=== PATIENT | male | born 1950 | race African-American/Black ===

== ENCOUNTER 2018-01-22 09:49 | Inpatient (IN) ==
[2018-01-22] MEDS ORDERED: 0.9 % Sodium Chloride 1,000 ML IVC ONE (10:17)
--- NOTE | 2018-01-22 10:22 | Emergency Department Note ---
Disposition Clinical Impression: MRSA (methicillin resistant staph aureus) culture positive, Bradycardia, Tracheostomy care, Excessive mucus secretion Disposition: Admitted As Inpatient Condition: Fair Time of Disposition: 11:57 General Adult HPI - General Chief complaint: ED Recheck/Abnormal Lab/Rx Stated complaint: permicath infected Time Seen by Provider: 01/22/18 09:56 Source: EMS Limitations: physical limitation Nursing Notes Reviewed: Yes Vital Signs Reviewed: Yes - History of Present Illness HPI Narrative: Mr. 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 Patient receives dialysis on Monday, , Monday. He has not missed dialysis over the last week. A PICC line was ordered yesterday on January 21 along with vancomycin. This PICC line was not placed. Patient was slated to have a dialysis catheter switched by Dr. Rachel with nephrology. Prior to arrival he was diverted from [facility] emergency department and was brought to the [facility] emergency department. Records show that patient was just here on the and [place] for bradycardia and pneumonia. Patient denies any current complaints except for pain on his bottom. Patient is currently taking Coumadin for his atrial fibrillation and his last INR was 2.9. He states that he is being currently treated for decubitus wounds. No other complaints at this time. Pain Scale: 0 - Related Data Home Medications Medication Instructions Recorded Confirmed Acetaminophen [Non-Aspirin] 325 mg PO DAILY 01/20/18 01/22/18 Bisacodyl [Dulcolax] 10 mg RC DAILY 01/20/18 01/22/18 Calcium Acetate [Phos-LO] 667 mg PO TIDWM 01/20/18 01/22/18 Docusate [Colace] 100 mg PO BID 01/20/18 01/22/18 Famotidine [Heartburn Prevention] 20 mg PO DAILY 01/20/18 01/22/18 Insulin ASPART [NovoLOG] 0 - 12 units SQ ACHS PRN 01/20/18 01/22/18 Insulin Glargine [Lantus] 10 units SQ DAILY 01/20/18 01/22/18 Metoprolol [Lopressor] 12.5 mg PO BID 01/20/18 01/22/18 OxyCODONE/APAP 7.5/325 [Percocet 1 each PO Q4HR PRN 01/20/18 01/22/18 7.5/325 MG] hydrOXYzine HCl [Hydroxyzine HCl] 25 mg PO Q6H PRN 01/20/18 01/22/18 Magnesium Hydroxide [Milk of 30 ml PO DAILY PRN 01/22/18 01/22/18 Magnesia] Promethazine [Phenergan] 25 mg PO Q4H PRN 01/22/18 01/22/18 Quetiapine Fumarate [Seroquel] 50 mg PO BID 01/22/18 01/22/18 Sulfamethoxazole/Trimeth DS 1 tab PO BID 01/22/18 01/22/18 [Bactrim DS] Warfarin [Coumadin] 1 mg PO DAILY 01/22/18 01/22/18 Allergies Allergy/AdvReac Type Severity Reaction Status Date / Time Banana Allergy Mild Hives Verified 01/22/18 09:56 Oxycodone [From OxyContin] Allergy Mild Hives Verified 01/22/18 09:56 Penicillins Allergy Mild Hives Verified 01/22/18 09:56 tramadol Allergy Mild Hives Verified 01/22/18 09:56 yellow dye Allergy Hives Verified 01/22/18 09:56 aspirin Allergy Mild Hives Uncoded 01/20/18 02:37 morphine Allergy Mild Hives Uncoded 01/20/18 02:37 Review of Systems: Constitutional: No fever Vision: No blurred vision ENT: No rhinorrhea Respiratory: No cough Allergic: No allergies : No blood in urine GI: No blood in stool Hematologic: No bruising Dermatologic: No skin rash Musculoskeletal: No pain in the extremities Neuro: No numbness of the extremities Past Medical History - Past Medical History Medical history: Reports: atrial fibrillation, diabetes, dialysis, hypertension Psychiatric history: Reports: other - Social History Smoking Status: Former smoker Smokeless Tobacco Status: No Alcohol use: Reports: none Drug use: Reports: none Physical Exam CONSTITUTIONAL: Alert and oriented X3 in no apparent distress HEAD: Normocephalic; atraumatic. Oropharynx: tracheostomy present RESP: NRD without use of accessory musculature, coarse breath sounds with decreased movement on the right lower lobe CARD: Regular rhythm, without murmurs, rubs, or gallop ABD: grossly normal, soft, non-tender, no guarding/distention/rigidity SKIN: Stage II ulcer approximately 1 x 2 cm above the posterior thigh within the skin fold, diffuse erythema was noticed about his perineum EXT: Patient has a BKA on the left with a right AKA PSYCH: appropriate mood/affect - General Limitations: physical limitation General appearance: alert, in no apparent distress Course Course Narrative: Patient was seen and examined at bedside. Vital signs were reviewed and showed bradycardia in the 50s. We will begin workup for possible sepsis with a history of positive blood cultures and likely infected dialysis catheter. CXR ordered along with CBC, chemistries, lactic acid, cultures, coag's. IV access was obtained with 20-gauge in his left hand and we start the process for PICC line placement while he is in the emergency department. Vancomycin was ordered as well as fluid bolus. was called for further recommendations and he recommended inpatient admission for further management of his MRSA bacteremia and dialysis catheter holiday. No further recommendations from him at this time. Bandage was placed over his stage II ulcers on his posterior thigh. Patient does not appear comfortable and nontoxic at this time. Disposition will likely be hospital admission but we will wait until workup is finished. 1145: Labs were reviewed and demonstrated mild leukocytosis, lactic acid normal , normal potassium, little bump in creatinine to 4.5, troponin 0.05, INR 3.7. Chest x-ray demonstrates a basilar opacities suggestive of pneumonia versus pulmonary edema. On Top of his vancomycin patient will be started on cefepime for broad coverage. Disposition was discussed with attendant honor bar, Dr. Cali who accepted patient for admission. No further recommendations per attendant honor bar. At this time, patient is consistently refusing suctions out of his trach. Vital signs remained stable. Disposition was discussed with patient who understands and agrees to plan. Family was notified of disposition as well. 1330: Pulmonology arrived in the emergency room for evaluation of this patient. There is no bed availability in the intensive care unit at this time and recommended this patient is stable to be admitted to 2 N. or 2NE via the hospitalist team. 1400: Spoke with hospitalist, Dr. Castillo, who will not accept patient at this time. Disposition pending bed availability in the ICU at this time. 1430: ICU bed 4 has become available and attendant honor bar will admit this patient. Vital Signs Temperature 98.6 F 01/22/18 09:59 Pulse Rate 46 01/22/18 09:59 Respiratory Rate 15 01/22/18 09:59 Blood Pressure 126/107 01/22/18 09:59 O2 Sat by Pulse Oximetry 91 01/22/18 09:59 Temperature 98.6 F 01/22/18 09:59 Pulse Rate 23 01/22/18 13:38 Respiratory Rate 24 01/22/18 13:38 Blood Pressure 99/74 01/22/18 13:38 O2 Sat by Pulse Oximetry 99 01/22/18 13:38 Oxygen Delivery Oxygen Delivery Trach Mask Medical Decision Making - Medical Records Medical records reviewed: Yes I reviewed the patient's medical records. - Lab Data Lab results reviewed: Yes I reviewed the patient's lab results. Result diagrams: 01/22/18 10:21 01/22/18 11:31 Lab Results 01/22/18 01/22/18 01/22/18 Range/Units 10:21 10:21 10:21 WBC 11.6 H (4.3-11.1) K/mcL RBC 3.58 L (4.19-5.50) M/mcL Hgb 10.8 L (12.9-16.9) g/dL Hct 34.1 L (37.5-50.1) % MCV 95.3 (83.0-100.0) fL MCH 30.2 (28.0-33.3) pg MCHC 31.7 (31.6-35.5) g/dL RDW 14.4 (11.5-14.5) % Plt Count 427 H (140-400) K/mcL MPV 8.7 L (9.4-12.4) fL Immature Gran % 0.3 (0-4) % Seg Neutrophils % 67.9 % Lymphocytes % 23.5 % Monocytes % 5.3 % Eosinophils % 2.7 % Basophils % 0.3 % Neutrophils # 7.9 (1.6-8.9) K/mcL Lymphocytes # 2.7 (0.6-4.6) K/mcL Monocytes # 0.6 (0.0-1.3) K/mcL Eosinophils # 0.3 (0.0-0.6) K/mcL Basophils # 0.0 (0.0-0.2) K/mcL Nucleated RBCs/100 WBC 0.2 H (0) /100 WBC PT 40.9 H (9.4-12.1) Seconds INR 3.7 APTT 40.1 H (26.0-36.0) Seconds Sodium (136-145) mEq/L Potassium (3.5-5.1) mEq/L Chloride (98-107) mEq/L Carbon Dioxide (23-29) mEq/L BUN (8-23) mg/dL Creatinine (0.70-1.30) mg/dL Est GFR ( Amer) (> 60) Est GFR (Non-Af Amer) (> 60) BUN/Creatinine Ratio (6-26) Glucose (70-105) mg/dL Calculated Osmolality (280-300) Lactic Acid (0.5-2.2) mmol/L Calcium (8.6-10.3) mg/dL Phosphorus (2.7-4.5) mg/dL Magnesium (1.6-2.6) mg/dL Total Bilirubin (0.3-1.0) mg/dL Direct Bilirubin (0.0-0.2) mg/dL Indirect Bilirubin (0.0-1.2) mg/dL AST (13-39) Units/L ALT (7-52) Units/L Alkaline Phosphatase (34-104) Units/L Troponin I 0.05 H* (< 0.04) ng/mL Serum Total Protein (6.4-8.9) g/dL Albumin (3.5-5.7) g/dL Globulin (2.4-3.5) g/dL Albumin/Globulin Ratio (1.1-2.2) Specimen Rejected 01/22/18 01/22/18 01/22/18 Range/Units 10:21 10:21 11:31 WBC (4.3-11.1) K/mcL RBC (4.19-5.50) M/mcL Hgb (12.9-16.9) g/dL Hct (37.5-50.1) % MCV (83.0-100.0) fL MCH (28.0-33.3) pg MCHC (31.6-35.5) g/dL RDW (11.5-14.5) % Plt Count (140-400) K/mcL MPV (9.4-12.4) fL Immature Gran % (0-4) % Seg Neutrophils % % Lymphocytes % % Monocytes % % Eosinophils % % Basophils % % Neutrophils # (1.6-8.9) K/mcL Lymphocytes # (0.6-4.6) K/mcL Monocytes # (0.0-1.3) K/mcL Eosinophils # (0.0-0.6) K/mcL Basophils # (0.0-0.2) K/mcL Nucleated RBCs/100 WBC (0) /100 WBC PT (9.4-12.1) Seconds INR APTT (26.0-36.0) Seconds Sodium 134 L (136-145) mEq/L Potassium 4.4 (3.5-5.1) mEq/L Chloride 97 L (98-107) mEq/L Carbon Dioxide 30 H (23-29) mEq/L BUN 39 H (8-23) mg/dL Creatinine 4.56 H (0.70-1.30) mg/dL Est GFR ( Amer) 16 L (> 60) Est GFR (Non-Af Amer) 13 L (> 60) BUN/Creatinine Ratio 9 (6-26) Glucose 140 H (70-105) mg/dL Calculated Osmolality 290 (280-300) Lactic Acid 1.3 (0.5-2.2) mmol/L Calcium 8.6 (8.6-10.3) mg/dL Phosphorus 3.2 (2.7-4.5) mg/dL Magnesium 2.7 H (1.6-2.6) mg/dL Total Bilirubin 0.2 L (0.3-1.0) mg/dL Direct Bilirubin 0.0 (0.0-0.2) mg/dL Indirect Bilirubin 0.2 (0.0-1.2) mg/dL AST 18 (13-39) Units/L ALT 9 (7-52) Units/L Alkaline Phosphatase 120 H (34-104) Units/L Troponin I (< 0.04) ng/mL Serum Total Protein 8.1 (6.4-8.9) g/dL Albumin 2.5 L (3.5-5.7) g/dL Globulin 5.6 H (2.4-3.5) g/dL Albumin/Globulin Ratio 0.4 L (1.1-2.2) Specimen Rejected Hemolyzed - Radiology Data Radiology results reviewed: Yes I reviewed the patient's radiology results. Chest X-Ray 01/22/18 10:44 IMPRESSION: 1. Bibasilar airspace opacities. Differential includes pneumonia versus pulmonary edema. 2. Stable mild enlargement of the cardiac silhouette. D/ / Jed Romero MD / Jed Romero MD Interpreting Provider: Jed Romero MD Attestation Statement - Attestation Attestation: I, Luc Zaman DO, examined this patient [id number] and my medical decision-making was reviewed with Delvis Restrepo PGY-1, Resident Physician. I agree with the documented findings, disposition and treatment plan as described except to the extent set forth below. Please see my progress notes for details.
[2018-01-22 10:39] LABS: Basophils % 0.3 %; Eosinophils # 0.3 K/mcL (0.0-0.6); Eosinophils % 2.7 %; Hematocrit 34.1 % (37.5-50.1); Hemoglobin 10.8 g/dL (12.9-16.9); Immature Granulocytes % 0.3 % (0-4); Lymphocytes # 2.7 K/mcL (0.6-4.6); Lymphocytes % 23.5 %; Mean Corpuscular HGB Conc 31.7 g/dL (31.6-35.5); Mean Corpuscular Hemoglobin 30.2 pg (28.0-33.3); Mean Corpuscular Volume 95.3 fL (83.0-100.0); Mean Platelet Volume 8.7 fL (9.4-12.4); Monocytes # 0.6 K/mcL (0.0-1.3); Monocytes % 5.3 %; Neutrophils # 7.9 K/mcL (1.6-8.9); Nucleated Red Blood Cells 0.2 /100 WBC (0); Platelet Count 427 K/mcL (140-400); Red Blood Count 3.58 M/mcL (4.19-5.50); Red Cell Distribution Width 14.4 % (11.5-14.5); Segmented Neutrophils % 67.9 %
[2018-01-22 10:42] LABS: INR 3.7; Prothrombin Time 40.9 Seconds (9.4-12.1)
[2018-01-22 10:44] LABS: Activated Partial Thrombo Time 40.1 Seconds (26.0-36.0)
--- NOTE | 2018-01-22 12:00 | Emergency Department Note ---
Disposition Clinical Impression: MRSA (methicillin resistant staph aureus) culture positive, Bradycardia, Tracheostomy care, Excessive mucus secretion Disposition: Admitted As Inpatient Condition: Fair Referrals: Harrison Mai MD [Primary Care Provider] - Forms: ED Satisfaction Letter, Work/School Release Time of Disposition: 12:15 General Adult HPI - General Chief complaint: ED Recheck/Abnormal Lab/Rx Stated complaint: permicath infected Time Seen by Provider: 01/22/18 09:56 Source: EMS Limitations: physical limitation - History of Present Illness Pain Scale: 0 - Related Data Home Medications Medication Instructions Recorded Confirmed Acetaminophen [Non-Aspirin] 325 mg PO DAILY 01/20/18 01/22/18 Bisacodyl [Dulcolax] 10 mg RC DAILY 01/20/18 01/22/18 Calcium Acetate [Phos-LO] 667 mg PO TIDWM 01/20/18 01/22/18 Docusate [Colace] 100 mg PO BID 01/20/18 01/22/18 Famotidine [Heartburn Prevention] 20 mg PO DAILY 01/20/18 01/22/18 Insulin ASPART [NovoLOG] 0 - 12 units SQ ACHS PRN 01/20/18 01/22/18 Insulin Glargine [Lantus] 10 units SQ DAILY 01/20/18 01/22/18 Metoprolol [Lopressor] 12.5 mg PO BID 01/20/18 01/22/18 OxyCODONE/APAP 7.5/325 [Percocet 1 each PO Q4HR PRN 01/20/18 01/22/18 7.5/325 MG] hydrOXYzine HCl [Hydroxyzine HCl] 25 mg PO Q6H PRN 01/20/18 01/22/18 Magnesium Hydroxide [Milk of 30 ml PO DAILY PRN 01/22/18 01/22/18 Magnesia] Promethazine [Phenergan] 25 mg PO Q4H PRN 01/22/18 01/22/18 Quetiapine Fumarate [Seroquel] 50 mg PO BID 01/22/18 01/22/18 Sulfamethoxazole/Trimeth DS 1 tab PO BID 01/22/18 01/22/18 [Bactrim DS] Warfarin [Coumadin] 1 mg PO DAILY 01/22/18 01/22/18 Allergies Allergy/AdvReac Type Severity Reaction Status Date / Time Banana Allergy Mild Hives Verified 01/22/18 09:56 Oxycodone [From OxyContin] Allergy Mild Hives Verified 01/22/18 09:56 Penicillins Allergy Mild Hives Verified 01/22/18 09:56 tramadol Allergy Mild Hives Verified 01/22/18 09:56 yellow dye Allergy Hives Verified 01/22/18 09:56 aspirin Allergy Mild Hives Uncoded 01/20/18 02:37 morphine Allergy Mild Hives Uncoded 01/20/18 02:37 Past Medical History - Past Medical History Medical history: Reports: atrial fibrillation, diabetes, dialysis, hypertension Psychiatric history: Reports: other - Social History Smoking Status: Former smoker Smokeless Tobacco Status: No Alcohol use: Reports: none Drug use: Reports: none Physical Exam - General Limitations: physical limitation General appearance: alert, in no apparent distress Course Vital Signs Temperature 98.6 F 01/22/18 09:59 Pulse Rate 46 01/22/18 09:59 Respiratory Rate 15 01/22/18 09:59 Blood Pressure 126/107 01/22/18 09:59 O2 Sat by Pulse Oximetry 91 01/22/18 09:59 Temperature 98.6 F 01/22/18 09:59 Pulse Rate 46 01/22/18 11:16 Respiratory Rate 16 01/22/18 11:16 Blood Pressure 107/60 01/22/18 11:16 O2 Sat by Pulse Oximetry 97 01/22/18 11:16 Oxygen Delivery Oxygen Delivery Trach Mask Medical Decision Making - Lab Data Result diagrams: 01/22/18 10:21 Lab Results 01/22/18 01/22/18 01/22/18 Range/Units 10:21 10:21 10:21 WBC 11.6 H (4.3-11.1) K/mcL RBC 3.58 L (4.19-5.50) M/mcL Hgb 10.8 L (12.9-16.9) g/dL Hct 34.1 L (37.5-50.1) % MCV 95.3 (83.0-100.0) fL MCH 30.2 (28.0-33.3) pg MCHC 31.7 (31.6-35.5) g/dL RDW 14.4 (11.5-14.5) % Plt Count 427 H (140-400) K/mcL MPV 8.7 L (9.4-12.4) fL Immature Gran % 0.3 (0-4) % Seg Neutrophils % 67.9 % Lymphocytes % 23.5 % Monocytes % 5.3 % Eosinophils % 2.7 % Basophils % 0.3 % Neutrophils # 7.9 (1.6-8.9) K/mcL Lymphocytes # 2.7 (0.6-4.6) K/mcL Monocytes # 0.6 (0.0-1.3) K/mcL Eosinophils # 0.3 (0.0-0.6) K/mcL Basophils # 0.0 (0.0-0.2) K/mcL Nucleated RBCs/100 WBC 0.2 H (0) /100 WBC PT 40.9 H (9.4-12.1) Seconds INR 3.7 APTT 40.1 H (26.0-36.0) Seconds Lactic Acid (0.5-2.2) mmol/L Troponin I 0.05 H* (< 0.04) ng/mL Specimen Rejected 01/22/18 01/22/18 Range/Units 10:21 10:21 WBC (4.3-11.1) K/mcL RBC (4.19-5.50) M/mcL Hgb (12.9-16.9) g/dL Hct (37.5-50.1) % MCV (83.0-100.0) fL MCH (28.0-33.3) pg MCHC (31.6-35.5) g/dL RDW (11.5-14.5) % Plt Count (140-400) K/mcL MPV (9.4-12.4) fL Immature Gran % (0-4) % Seg Neutrophils % % Lymphocytes % % Monocytes % % Eosinophils % % Basophils % % Neutrophils # (1.6-8.9) K/mcL Lymphocytes # (0.6-4.6) K/mcL Monocytes # (0.0-1.3) K/mcL Eosinophils # (0.0-0.6) K/mcL Basophils # (0.0-0.2) K/mcL Nucleated RBCs/100 WBC (0) /100 WBC PT (9.4-12.1) Seconds INR APTT (26.0-36.0) Seconds Lactic Acid 1.3 (0.5-2.2) mmol/L Troponin I (< 0.04) ng/mL Specimen Rejected Hemolyzed Attestation Statement - Attestation Attestation: I, Luc Zaman DO, examined this patient [id number] and my medical decision-making was reviewed with Delvis Restrepo PGY-1, Resident Physician. I agree with the documented findings, disposition and treatment plan as described except to the extent set forth below. Please see my progress notes for details. 67-year-old male presents to the emergency room by EMS for evaluation of shortness of breath, increased secretions, dialysis related issues. Patient is chronically ill and disabled. He does over the next in a care facility with a managed his dialysis as well as chronic medical issues. Patient's bilateral lower extremity amputations. He was seen by his cdl a driver and recommended that he come in to the emergency room for IV antibiotics secondary to a positive blood culture. Patient has had intermittent generalized malaise years back at a facility. On presentation here is a morbidly obese male with a trach in place. He has heavy secretions from tracheostomy site but he refuses to have suctioning completed this time because he says it makes him feel worse. Patient's lungs are coarse bilaterally. Patient has thin secretions but they are heavy at this time. Patient's heart is bradycardic with no murmur. Abdomen is soft nontender nondistended no guarding no rigidity. The stumps bilaterally in the lower extremities appear to be stable. Patient's blood pressure appears to be at baseline at this point. He will be given a single bolus of fluid here considering the presentation. No infectious etiology of the positive blood culture for MRSA was determined. Disposition after full workup including CBC chemistry blood cultures electrolytes EKG chest x-ray will be determined once this is established. See detailed recommendation physical exam, medical intervention, medical decision-making and disposition in the resident physician's note. No critical care by this patient's treatment course. [id number] The cdl a driver manages the patient's renal insufficiency as well as the hospitalist were informed and evaluated the patient. Hospitalist service tomorrow. Intensive care unit patient. The on-call call worker person was contacted does have except patient the ICU secondary to heavy secretions and most likely ventilator management and trach management. No other acute issues noted this time. IV vancomycin and Zosyn were started secondary to what appears to be coronary congestion versus pneumonia as well as the MRSA infection. The patient does have a tunnel catheter in anterior chest wall does not appear to be red and inflamed or infected. No signs of remained stable at this point despite him having abnormality with the bradycardia as well as the intermittent hypotension. Patient was informed of the recommended treatment course and he understands this is comfortable with the plan. Patient also understands that if his respiratory status continues to decline that he may need suctioning was sedated or intubated and patient understands this was still refusing to have respiratory therapy suction his tracheostomy site this time. Patient is stable but could decompensate. Patient will be admitted to the ICU at this time. No critical care applied to the patient's treatment course
[2018-01-22 12:01] LABS: Albumin 2.5 g/dL (3.5-5.7); Albumin/Globulin Ratio 0.4 (1.1-2.2); Bilirubin,Indirect 0.2 mg/dL (0.0-1.2); Bilirubin,Total 0.2 mg/dL (0.3-1.0); Calcium 8.6 mg/dL (8.6-10.3); Globulin 5.6 g/dL (2.4-3.5); Magnesium 2.7 mg/dL (1.6-2.6); Phosphorous 3.2 mg/dL (2.7-4.5); Potassium 4.4 mEq/L (3.5-5.1); Total Protein 8.1 g/dL (6.4-8.9)
[2018-01-22] MEDS ORDERED: *HR* FentaNYL (PF) 100 MCG/2 ML VIAL IVP ONE (12:18)
[2018-01-22] MEDS ORDERED: Cefepime HCl 1,000 MG in Water for inj. (sterile) 20 ML 10 ML IVPB ONE (13:00)
[2018-01-22] MEDS ORDERED: Naloxone 0.4 MG/ML INJ IVP PRN (13:41)
--- NOTE | 2018-01-22 13:41 | Pulmonology History & Physical ---
<Jas Cormier - Last Filed: 01/22/18 16:20> Date of Encounter: 01/22/18 Time of Encounter: 13:30 Assessment and Plan (1) Bradycardia Current visit: Yes Status: Acute Atrial fibrillation with slow ventricular response The patient was apparently seen at [facility] for similar symptoms previously He is asymptomatic at this time, however heart rate has dropped to below 30bpm EKG demonstrates A. fib with slow ventricular response and incomplete right bundle branch block We did start the patient on dopamine which increases heart rate and converted him to sinus rhythm We will get a stat echocardiogram Consult to cardiology - Dr. Rangel recommends continue dopamine overnight If the patient becomes hemodynamically unstable and bradycardic, stat intervention may be necessary We did give the patient vitamin K for this reason Continuous cardiac monitoring (2) MRSA (methicillin resistant staph aureus) culture positive Current visit: Yes Status: Acute MRSA bacteremia on routine culture Patient does have hemodialysis to the ESRD on Monday and Monday Patient is Afebrile, WBC 11.6, Lactic acid 1.3 The patient was started on vancomycin in the ED We will continue the patient on cefepime and vancomycin Stat echocardiogram for possible vegetations, consider GODWIN (3) Pneumonia Current visit: Yes Status: Acute Hospital Acquired Pneumonia, Sputum culture is pending The patient is having increased secretions and cough We will continue to treat with broad spectrum antibiotics Cefepime Day 1 Vancomycin Day 1 Continue to monitor respiratory status Qualifiers: Pneumonia type: due to unspecified organism Laterality: unspecified laterality Lung location: unspecified part of lung Qualified Code(s): J18.9 - Pneumonia, unspecified organism (4) ESRD (end stage renal disease) on dialysis Current visit: Yes Status: Acute ESRD on HD Temp cath is in place, however will need to be replaced due to MRSA Bacteremia Dr. Taylor is this patient's material assistant, we will consult for HD (5) Left ear pain Current visit: Yes Status: Acute Subjective complaint of left ear pain No obvious tissue abnormalities, bilateral TMs are clear Still, the patient is having trismus associated with this We will CT the head for possible infectious source (6) Trismus Current visit: Yes Status: Acute Trismus, associated with left ear pain The patient is able to open his mouth only partially We will get a CT of the head to evaluate (7) DVT prophylaxis Current visit: Yes Status: Acute Patient is anticoagulated with warfarin History of Present Illness Chief complaint: Lethargy HPI: Mr. Murrell is a 67 year old male with history of atrial fibrillation, diabetes, left BKA and right AKA, end-stage renal disease on dialysis, and hypertension and chronic ventilator dependent respiratory failure with placement of long-term tracheostomy who presented to the ED with shortness of breath and increased lethargy. The patient is able to communicate slowly despite the placement of tracheostomy. The patient is a long-term patient at [facility], and he receives dialysis Monday and Monday. He apparently had routine blood cultures drawn at [facility] at which time he was found to have MRSA bacteremia. In addition to this, the patient apparently has had increased tracheal secretions as noted by nursing staff at [facility]. Upon questioning, the patient says that his biggest complaint is that he has been extremely tired and his left ear hurts. He says that this been going on for approximately one week. He does say that he has had increased cough and sputum production, however does not extremely bothersome to him. He also feels as though he maybe has had some shortness of breath, however largely he does not feel distressed. Upon questioning, the patient does deny any chest pains or tightness, palpitations. He says that he may have had fevers recently, but it is hard to tell for sure because he does not check his temperature. When asked about the pain in his left ear, the patient describes it as deep. He says that it is challenging to open and close his mouth, or to chew. He has not noticed any drainage from this site. Otherwise, the patient's only concern is pain in his lower back due to positioning in bed. He otherwise has no acute complaints, and is feeling okay. Significantly, the patient was recently seen and treated at [facility] for bradycardia. This was apparently a one-day admission and the patient was released. We have requested records from this admission. Past Med Surg Social Fam HX - Past Medical History Medical history: atrial fibrillation, diabetes, dialysis, hypertension Psychiatric history: other - Social History Smoking Status: Former smoker Smokeless Tobacco Status: No Alcohol use: none Drug use: none Medications and Allergies Acetaminophen [Non-Aspirin] 325 mg PO DAILY 01/20/18 [History] Bisacodyl [Dulcolax] 10 mg RC DAILY 01/20/18 [History] Calcium Acetate [Phos-LO] 667 mg PO TIDWM 01/20/18 [History] Docusate [Colace] 100 mg PO BID 01/20/18 [History] Famotidine [Heartburn Prevention] 20 mg PO DAILY 01/20/18 [History] Insulin ASPART [NovoLOG] 0 - 12 units SQ ACHS PRN 01/20/18 [History] Insulin Glargine [Lantus] 10 units SQ DAILY 01/20/18 [History] Metoprolol [Lopressor] 12.5 mg PO BID 01/20/18 [History] OxyCODONE/APAP 7.5/325 [Percocet 7.5/325 MG] 1 each PO Q4HR PRN 01/20/18 [ History] hydrOXYzine HCl [Hydroxyzine HCl] 25 mg PO Q6H PRN 01/20/18 [History] Magnesium Hydroxide [Milk of Magnesia] 30 ml PO DAILY PRN 01/22/18 [History] Promethazine [Phenergan] 25 mg PO Q4H PRN 01/22/18 [History] Quetiapine Fumarate [Seroquel] 50 mg PO BID 01/22/18 [History] Sulfamethoxazole/Trimeth DS [Bactrim DS] 1 tab PO BID 01/22/18 [History] Warfarin [Coumadin] 1 mg PO DAILY 01/22/18 [History] 3 Allergy/AdvReac Type Severity Reaction Status Date / Time Banana Allergy Mild Hives Verified 01/22/18 09:56 Oxycodone [From OxyContin] Allergy Mild Hives Verified 01/22/18 09:56 Penicillins Allergy Mild Hives Verified 01/22/18 09:56 tramadol Allergy Mild Hives Verified 01/22/18 09:56 yellow dye Allergy Hives Verified 01/22/18 09:56 aspirin Allergy Mild Hives Uncoded 01/20/18 02:37 morphine Allergy Mild Hives Uncoded 01/20/18 02:37 All Systems: The remainder of the systems were reviewed and are negative Review of Systems: Constitutional: Denies fevers, chills. Admits to generalized fatigue Head/Neck: Denies RODNEY, neck stiffness. Does admit to Left ear pain and trouble chewing EENT: Denies vision changes/blurriness, rhinorrhea, congestion, sore throat CVS: Denies chest pain, GRAY, orthopnea, PND Pulm: Denies hemoptysis. Admits to cough with increased sputum production GI: Denies abdominal pain, nausea, vomiting, diarrhea, constipation, melena, hematemasis : Denies dysuria, increased frequency, urgency, hematuria Heme: Denies ease of bleeding or bruising MSK: Denies joint pain, limited ROM. Admits to b/l LE amputations Skin: Denies rashes, ulcers, color changes Neuro: Denies RODNEY, paresthesias, focal deficits, ataxia Physical Examination Vital Signs: Vital Signs, Last 4 Hours Temp Pulse Resp BP Pulse Ox 01/22/18 13:38 23 24 99/74 99 01/22/18 12:23 57 22 93/65 98 01/22/18 11:16 46 16 107/60 97 01/22/18 10:44 98 01/22/18 09:59 98.6 F 46 15 126/107 91 Gen.: Vitals noted. No acute distress but appears uncomfortable. AAOx3 HEENT: Pupils equal/EOMI, oropharynx difficult to asses, Normocephalic, atraumatic. Patient cannot fully open mouth secondary to left jaw pain. Tympanic membranes appear clear Neck: Supple. No adenopathy. Cardiac: Irregularly irregular, no murmur, rubs or gallops, +S1/S2 Pulmonary: Dispersed intermittent rhonchi Abdomen: soft, nontender, BS noted, no guarding. PEG tube in place without necrosis or abnormality in the surrounding tissue MSK: ROM intact, no joint swelling noted. Left BKA and Right AKA without obvious edema Extremities: no BLE edema, nontender calf, no cyanosis or clubbing Neuro: moves all extremities, no focal deficits Psych: Appropriate mood and behavior Results - Laboratory Findings CBC and BMP: 01/22/18 10:21 01/22/18 11:31 PT/INR, D-dimer PT 40.9 Seconds (9.4-12.1) H 01/22/18 10:21 Abnormal lab findings: Abnormal lab results WBC 11.6 K/mcL (4.3-11.1) H 01/22/18 10:21 RBC 3.58 M/mcL (4.19-5.50) L 01/22/18 10:21 Hgb 10.8 g/dL (12.9-16.9) L 01/22/18 10:21 Hct 34.1 % (37.5-50.1) L 01/22/18 10:21 Plt Count 427 K/mcL (140-400) H 01/22/18 10:21 MPV 8.7 fL (9.4-12.4) L 01/22/18 10:21 Nucleated RBCs/100 WBC 0.2 /100 WBC (0) H 01/22/18 10:21 PT 40.9 Seconds (9.4-12.1) H 01/22/18 10:21 APTT 40.1 Seconds (26.0-36.0) H 01/22/18 10:21 Sodium 134 mEq/L (136-145) L 01/22/18 11:31 Chloride 97 mEq/L (98-107) L 01/22/18 11:31 Carbon Dioxide 30 mEq/L (23-29) H 01/22/18 11:31 BUN 39 mg/dL (8-23) H 01/22/18 11:31 Creatinine 4.56 mg/dL (0.70-1.30) H 01/22/18 11:31 Est GFR ( Amer) 16 (> 60) L 01/22/18 11:31 Est GFR (Non-Af Amer) 13 (> 60) L 01/22/18 11:31 Glucose 140 mg/dL (70-105) H 01/22/18 11:31 Magnesium 2.7 mg/dL (1.6-2.6) H 01/22/18 11:31 Total Bilirubin 0.2 mg/dL (0.3-1.0) L 01/22/18 11:31 Alkaline Phosphatase 120 Units/L (34-104) H 01/22/18 11:31 Troponin I 0.05 ng/mL (< 0.04) H* 01/22/18 10:21 Albumin 2.5 g/dL (3.5-5.7) L 01/22/18 11:31 Globulin 5.6 g/dL (2.4-3.5) H 01/22/18 11:31 Albumin/Globulin Ratio 0.4 (1.1-2.2) L 01/22/18 11:31 - Diagnostic Findings Chest x-ray: report reviewed, image reviewed Additional studies: EKG shows atrial fibrillation with slow ventricular response with a rate of 36, SC interval undetermined, QRS duration 104, QTC 422 with no evidence of acute ischemia <Yahir Pink - Last Filed: 01/22/18 18:31> Date of Encounter: 01/22/18 History of Present Illness HPI: Mr. Murrell is a 67 year old male All Systems: The remainder of the systems were reviewed and are negative Physical Examination Vital Signs: Vital Signs, Last 4 Hours Pulse Resp BP Pulse Ox 01/22/18 15:38 37 100 01/22/18 15:02 17 99/74 01/22/18 14:52 44 17 99/74 96 Results - Laboratory Findings CBC and BMP: 01/22/18 10:21 01/22/18 11:31 PT/INR, D-dimer PT 40.9 Seconds (9.4-12.1) H 01/22/18 10:21 Abnormal lab findings: Abnormal lab results WBC 11.6 K/mcL (4.3-11.1) H 01/22/18 10:21 RBC 3.58 M/mcL (4.19-5.50) L 01/22/18 10:21 Hgb 10.8 g/dL (12.9-16.9) L 01/22/18 10:21 Hct 34.1 % (37.5-50.1) L 01/22/18 10:21 Plt Count 427 K/mcL (140-400) H 01/22/18 10:21 MPV 8.7 fL (9.4-12.4) L 01/22/18 10:21 Nucleated RBCs/100 WBC 0.2 /100 WBC (0) H 01/22/18 10:21 PT 40.9 Seconds (9.4-12.1) H 01/22/18 10:21 APTT 40.1 Seconds (26.0-36.0) H 01/22/18 10:21 Sodium 134 mEq/L (136-145) L 01/22/18 11:31 Chloride 97 mEq/L (98-107) L 01/22/18 11:31 Carbon Dioxide 30 mEq/L (23-29) H 01/22/18 11:31 BUN 39 mg/dL (8-23) H 01/22/18 11:31 Creatinine 4.56 mg/dL (0.70-1.30) H 01/22/18 11:31 Est GFR ( Amer) 16 (> 60) L 01/22/18 11:31 Est GFR (Non-Af Amer) 13 (> 60) L 01/22/18 11:31 Glucose 140 mg/dL (70-105) H 01/22/18 11:31 Magnesium 2.7 mg/dL (1.6-2.6) H 01/22/18 11:31 Total Bilirubin 0.2 mg/dL (0.3-1.0) L 01/22/18 11:31 Alkaline Phosphatase 120 Units/L (34-104) H 01/22/18 11:31 Troponin I 0.05 ng/mL (< 0.04) H* 01/22/18 10:21 Albumin 2.5 g/dL (3.5-5.7) L 01/22/18 11:31 Globulin 5.6 g/dL (2.4-3.5) H 01/22/18 11:31 Albumin/Globulin Ratio 0.4 (1.1-2.2) L 01/22/18 11:31 - Attending Attestation I examined this patient and my medical decision-making was reviewed with the Resident Physician. I agree with the documented findings, disposition and treatment plan as described except to the extent set forth below. We independently had [id number] contact with the patient I spent 35min of Critical Care time with this patient. It involved decision making of high complexity to assess, manipulate, and support vital organ system failure and/or to prevent further life threatening deterioration of the patient' s condition. The time involved in the performance of separately reportable procedures was not counted toward critical care time. Patient seen and examined at bedside Labs, radiology, chart personally reviewed. NIPPLE THREADER: Patient is awake and alert following commands Pulm: Patient has a permanent tracheostomy currently saturating well on trach collar without need for mechanical ventilation however has increased oxygen requirements this is likely secondary to pneumonia also with significant thin but persistent secretions requiring frequent suctioning. Cards: Patient is bradycardic unclear etiology looks like slow atrial fibrillation cardiology's been consulted remains hemodynamically stable right now but high risk for deterioration can use dopamine and may need permanent pacing based upon clinical course. There is concern about bacterial endocarditis given the patient has MRSA infection. Transthoracic echocardiogram will be completed night with possibility of GODWIN based upon clinical course FEN-GI: Nothing by mouth for now Renal: ESRD followed by nephrology indication for dialysis right now we will continue to monitor this daily he has a dialysis catheter likely need to be removed pending cultures ID: Concern for MRSA bacteremia repeat cultures start vancomycin to be dosed by pharmacy given concern for undifferentiated sepsis we have also added gram- negative coverage as well lactate within normal limits. Patient also complaining of severe ear pain I evaluated this with an otoscope there is no clear evidence of inner ear infection that I can see but given bacteremia and concern about a possible abscess although this is less likely or mastoiditis will obtain head CT for further evaluation of this Heme/Onc: Patient is supratherapeutic INR on warfarin for atrial fibrillation given vitamin K because of planned procedures. Endo: Glucose Monitored Integ/MSK: Skin Care per routine ICU Nursing Protocol to prevent ulcers. Lines: All lines examined without evidence of infection : Dispo: Remain ICU for high risk of clinical deterioration including bradycardia and cardiogenic shock CODE: Full
[2018-01-22] MEDS ORDERED: *HR* Atropine Sulfate 1 MG/10 ML SYRINGE ONE (16:01)
[2018-01-22] MEDS ORDERED: *HR* Phytonadione 10 MG/ML AMPUL SQ ONE (16:08)
--- NOTE | 2018-01-22 16:16 | Cardiology Consult Note ---
<Sharlene Mcfadden - Last Filed: 01/22/18 16:52> Date of Encounter: 01/22/18 Time of Encounter: 16:15 Assessment and Plan (1) Bradycardia Current Visit: Yes Status: Acute Patient presented with sepsis, positive blood cultures. ESRD on HD. Reviewed ECGs, telemetry with Dr. Casey Salinas, also has episodes of sinus bradycardia. Recommend treatment of underlying sepsis, anticipate HR will recover as sepsis Recommend utilization of dopamine in the interim. (2) PAF (paroxysmal atrial fibrillation) Current Visit: Yes Status: Acute Hx of PAF. On coumadin for AC. Recommend holding for now. Discussion w patient/family: The assessment and plan as outlined above was discussed with the patient and/or family members who expressed understanding and agreement. All questions were answered. Thank you for involving us in the care of your patient. Please call with any questions. The patient will be discussed and reviewed with Dr. Rangel; changes to be made accordingly. History of Present Illness Consult date: 01/22/18 Requesting physician: Jas Cormier Consult reason: Bradycardia Chief complaint: Weakness History of present illness: Mr. Murrell is a 67 year old male with PMHx significant of atrial fibrillation (coumadin), DMII, left BKA and right AKA, end-stage renal disease on dialysis, and hypertension and chronic ventilator dependent respiratory failure s/p placement of long-term tracheostomy who presented to the ED with weakness and lethargy. Reportedly last Monday evening patient was sent to [facility] ED due to concern of bradycardia and hypotension, per review, it appears that lopressor had been increased for hypertension. From [facility] ED, he was sent to [facility]--records have been requested. Per bedside RN, patient was diagnosed with sepsis (positive blood cultures, MRSA) and was scheduled to have his permacath removed. Mr. Murrell is able to slowly communicate but is noted to be a poor historian , he resides at [facility] in [place], [place]. No prior records available for review. Upon exam, HR 30's, junctional bradycardia, BP stable and patient appears stable as he is watching TV. Past Med Surg Social Fam HX - Past Medical History Source: unable to obtain, old records reviewed Medical history: atrial fibrillation, diabetes, dialysis, hypertension Psychiatric history: other - Past Surgical History Surgical History: other (bilateral LE amputations) - Social History Smoking Status: Former smoker Smokeless Tobacco Status: No Alcohol use: none Drug use: none Medications and Allergies Acetaminophen [Non-Aspirin] 325 mg PO DAILY 01/20/18 [History] Bisacodyl [Dulcolax] 10 mg RC DAILY 01/20/18 [History] Calcium Acetate [Phos-LO] 667 mg PO TIDWM 01/20/18 [History] Docusate [Colace] 100 mg PO BID 01/20/18 [History] Famotidine [Heartburn Prevention] 20 mg PO DAILY 01/20/18 [History] Insulin ASPART [NovoLOG] 0 - 12 units SQ ACHS PRN 01/20/18 [History] Insulin Glargine [Lantus] 10 units SQ DAILY 01/20/18 [History] Metoprolol [Lopressor] 12.5 mg PO BID 01/20/18 [History] OxyCODONE/APAP 7.5/325 [Percocet 7.5/325 MG] 1 each PO Q4HR PRN 01/20/18 [ History] hydrOXYzine HCl [Hydroxyzine HCl] 25 mg PO Q6H PRN 01/20/18 [History] Magnesium Hydroxide [Milk of Magnesia] 30 ml PO DAILY PRN 01/22/18 [History] Promethazine [Phenergan] 25 mg PO Q4H PRN 01/22/18 [History] Quetiapine Fumarate [Seroquel] 50 mg PO BID 01/22/18 [History] Sulfamethoxazole/Trimeth DS [Bactrim DS] 1 tab PO BID 01/22/18 [History] Warfarin [Coumadin] 1 mg PO DAILY 01/22/18 [History] 3 Allergy/AdvReac Type Severity Reaction Status Date / Time Banana Allergy Mild Hives Verified 01/22/18 09:56 Oxycodone [From OxyContin] Allergy Mild Hives Verified 01/22/18 09:56 Penicillins Allergy Mild Hives Verified 01/22/18 09:56 tramadol Allergy Mild Hives Verified 01/22/18 09:56 yellow dye Allergy Hives Verified 01/22/18 09:56 aspirin Allergy Mild Hives Uncoded 01/20/18 02:37 morphine Allergy Mild Hives Uncoded 01/20/18 02:37 All Systems Review: The remainder of the systems were reviewed and are negative - Cardiovascular Cardiovascular: as per HPI Physical Examination Vital Signs, Last 4 Hours Pulse Resp BP Pulse Ox 01/22/18 15:38 37 100 01/22/18 15:02 17 99/74 01/22/18 14:52 44 17 99/74 96 General: Conversant, Other (obese) HEENT: Atraumatic, Normocephaly Cardiac: Other (bradycardiac) Lungs: Other (coarse breath sounds) Neuro: Alert and responsive Abdomen: Soft, Non-Tender Extremities: Other (bilateral LE amputations) Results 01/22/18 10:21 01/22/18 11:31 Active Medications Dopamine HCl/Dextrose (Dopamine Premix 400mg/250ml) 400 mg in 250 mls @ 12.332 mls/hr IVC .[id number] OVI; 2.5 MCG/KG/MIN PRN Reason: Protocol Stop: 07/24/18 16:16 Last Admin: 01/22/18 16:21 Dose: 5 mcg/kg/min, 24.664 mls/hr Cefepime HCl 2,000 mg/ (Dextrose) 100 mls @ 200 mls/hr IVPB Q8HR OVI Stop: 07/25/18 00:01 Vancomycin HCl 2,000 mg/ (Sodium Chloride) 250 mls @ 167 mls/hr IVPB RPHPROT OVI PRN Reason: Protocol Stop: 07/24/18 17:01 Naloxone HCl (Narcan) 0.4 mg IVP Q2MIN PRN PRN Reason: SEE COMMENTS Stop: 07/24/18 13:42 Phytonadione (Aquamephyton) 5 mg SQ ONCE ONE Stop: 01/22/18 16:09 - Imaging and Cardiology Echo: pending - EKG Interpretation EKG results cardiology: personally reviewed Consult Discharge Plan - Plan Referrals: Harrison Mai MD [Primary Care Provider] - <Ngoc Rangel - Last Filed: 01/22/18 17:50> Date of Encounter: 01/22/18 - Attending Attestation I examined this patient and my medical decision-making was reviewed with the UTILITIES ESTIMATOR AND DRAFTER. I agree with the documented findings, disposition and treatment plan as described. Mr. Murrell presents with junctional bradycardia in setting of sepsis. Also with periods of sinus bradycardia and sinus pauses. He has been hemodynamically stable, alert and able to converse. At this time, we recommend adding dopamine. Echo pending. Coumadin on hold. Assessment and Plan Discussion w patient/family: The assessment and plan as outlined above was discussed with the patient and/or family members who expressed understanding and agreement. All questions were answered. Thank you for involving us in the care of your patient. Please call with any questions. History of Present Illness History of present illness: Mr. Murrell is a 67 year old male All Systems Review: The remainder of the systems were reviewed and are negative Physical Examination Vital Signs, Last 4 Hours Pulse Resp BP Pulse Ox 01/22/18 15:38 37 100 01/22/18 15:02 17 99/74 01/22/18 14:52 44 17 99/74 96 Results 01/22/18 10:21 01/22/18 11:31
[2018-01-22] MEDS ORDERED: D5% in Water 1,000 ML IVC PRN (17:04)
[2018-01-22] MEDS ORDERED: *HR* Dextrose 50 % in Water (Syg) 50 ML SYRINGE IVP PRN (17:04)
[2018-01-22] MEDS ORDERED: Dextrose Gel 15 GM/37.5 ML TUBE PO PRN ×2 (17:04)
[2018-01-22 17:46] LABS: Estimated Average Glucose 114 mg/dl; Hemoglobin A1C 5.6 %
[2018-01-22 18:16] LABS: Hepatitis B Surface Antibody 0.32 mIU/mL; Hepatitis B Surface Antigen Nonreactive (Nonreactive)
[2018-01-22] MEDS: Insulin LISPRO 300 UNITS/3 ML VIAL SQ SCH ×2 (18:43→23:36)
[2018-01-22] MEDS: *HR* OxyCODONE/APAP 7.5/325 TABLET PO PRN (20:24)
[2018-01-22] MEDS ORDERED: Perflutren Lipid Microsphere 1.3 ML in 0.9 % Sodium Chloride 8.7 ML IVP ONE (23:14)
[2018-01-23 02:57] LABS: Acinetobacter baumannii by PCR Not Detected (Not Detect); Candida albicans by PCR Not Detected (Not Detect); Candida glabrata by PCR Not Detected (Not Detect); Candida krusei by PCR Not Detected (Not Detect); Candida parapsilosis by PCR Not Detected (Not Detect); Candida tropicalis by PCR Not Detected (Not Detect); Enterococcus by PCR Not Detected (Not Detect); Escherichia coli by PCR Not Detected (Not Detect); Klebsiella oxytoca by PCR Not Detected (Not Detect); Klebsiella pneumoniae by PCR Not Detected (Not Detect); Pseudomonas aeruginosa by PCR Not Detected (Not Detect); Serratia marcescens by PCR Not Detected (Not Detect); Staphylococcus aureus by PCR ***DETECTED*** (Not Detect); Streptococcus agalactiae(B)PCR Not Detected (Not Detect); Streptococcus by PCR Not Detected (Not Detect); Streptococcus pneumoniae PCR Not Detected (Not Detect); Streptococcus pyogenes (A) PCR Not Detected (Not Detect); blaKPC Carbapenem-Resist Gene Not Detected (Not Detect); mecA Methicillin-Resist Gene ***DETECTED*** (Not Detect); vanA/B Vancomycin-Resist Genes Not Detected (Not Detect)
[2018-01-23 04:49] LABS: Basophils # 0.1 K/mcL (0.0-0.2); Basophils % 0.4 %; Eosinophils # 0.3 K/mcL (0.0-0.6); Eosinophils % 2.3 %; Hematocrit 33.4 % (37.5-50.1); Hemoglobin 10.2 g/dL (12.9-16.9); Immature Granulocytes % 0.3 % (0-4); Lymphocytes # 2.9 K/mcL (0.6-4.6); Lymphocytes % 22.5 %; Mean Corpuscular HGB Conc 30.5 g/dL (31.6-35.5); Mean Corpuscular Hemoglobin 29.1 pg (28.0-33.3); Mean Corpuscular Volume 95.4 fL (83.0-100.0); Mean Platelet Volume 9.3 fL (9.4-12.4); Monocytes # 0.9 K/mcL (0.0-1.3); Monocytes % 7.3 %; Neutrophils # 8.7 K/mcL (1.6-8.9); Platelet Count 350 K/mcL (140-400); Red Cell Distribution Width 14.8 % (11.5-14.5); Segmented Neutrophils % 67.2 %
[2018-01-23 04:52] LABS: INR 3.3; Prothrombin Time 36.3 Seconds (9.4-12.1)
[2018-01-23 05:01] LABS: Calcium 8.4 mg/dL (8.6-10.3); Potassium 4.4 mEq/L (3.5-5.1)
[2018-01-23] MEDS: Insulin LISPRO 300 UNITS/3 ML VIAL SQ SCH ×4 (05:34→23:34)
[2018-01-23] MEDS ORDERED: *HR* FentaNYL (PF) 100 MCG/2 ML VIAL IVP ONE (07:14)
--- NOTE | 2018-01-23 07:59 | Nephrology Consult Note ---
Date of Encounter: 01/23/18 Time of Encounter: 07:57 Assessment and Plan (1) ESRD (end stage renal disease) on dialysis Current Visit: Yes Status: Acute The patient will undergo dialysis today. Following that we will ask interventional radiology to remove the tunneled dialysis catheter. We will request placement of a temporary dialysis catheter for both dialysis as well as an IV access. Once patient's blood cultures have cleared we will have a new tunnel dialysis catheter placed. In the meantime he will be maintained on appropriate antibiotics. (2) Anemia in CKD (chronic kidney disease) Current Visit: Yes Status: Acute Qualifiers: Chronic kidney disease stage: on chronic dialysis Qualified Code(s): N18.6 - End stage renal disease; D63.1 - Anemia in chronic kidney disease; D63.1 - Anemia in chronic kidney disease; Z99.2 - Dependence on renal dialysis; Z99.2 - Dependence on renal dialysis; Z99.2 - Dependence on renal dialysis; Z99.2 - Dependence on renal dialysis (3) MRSA (methicillin resistant staph aureus) culture positive Current Visit: Yes Status: Acute (4) Tracheostomy care Current Visit: Yes Status: Acute History of Present Illness - History of Present Illness This is a 67-year-old male with end-stage renal disease. He received dialysis and [place] every Monday. Patient apparently had some blood cultures drawn when he was residing in the halfway. Initial report showed that the patient was growing staph aureus with the methicillin-resistant gene. Subsequently the patient was admitted to the hospital. He is going need to have a tunnel dialysis catheter removed. He will need to be treated with IV antibiotics. Patient presented to the hospital with hypotension and bradycardia. He does have chronic respiratory failure requiring a chronic trach. He currently is in the intensive care unit. Pressure currently is 114/ 59. He did require some dopamine initially for blood pressure support. Currently he is off dopamine. He is afebrile. White count is 12.9. Potassium is 4.4. He does have a tunnel dialysis catheter present in the right chest. He also has a chronic tracheostomy as noted above. He complains that of generalized pain. Past Med Surg Social Fam HX - Past Medical History Medical history: atrial fibrillation, diabetes, dialysis, hypertension Psychiatric history: other - Past Surgical History Surgical History: other - Social History Smoking Status: Former smoker Smokeless Tobacco Status: No Alcohol use: none Drug use: none - Family History Mother Living Status: Cause of : Colon CA Medications and Allergies Acetaminophen [Non-Aspirin] 325 mg PO DAILY 01/20/18 [History] Bisacodyl [Dulcolax] 10 mg RC DAILY 01/20/18 [History] Calcium Acetate [Phos-LO] 667 mg PO TIDWM 01/20/18 [History] Docusate [Colace] 100 mg PO BID 01/20/18 [History] Famotidine [Heartburn Prevention] 20 mg PO DAILY 01/20/18 [History] Insulin ASPART [NovoLOG] 0 - 12 units SQ ACHS PRN 01/20/18 [History] Insulin Glargine [Lantus] 10 units SQ DAILY 01/20/18 [History] Metoprolol [Lopressor] 12.5 mg PO BID 01/20/18 [History] OxyCODONE/APAP 7.5/325 [Percocet 7.5/325 MG] 1 each PO Q4HR PRN 01/20/18 [ History] hydrOXYzine HCl [Hydroxyzine HCl] 25 mg PO Q6H PRN 01/20/18 [History] Magnesium Hydroxide [Milk of Magnesia] 30 ml PO DAILY PRN 01/22/18 [History] Promethazine [Phenergan] 25 mg PO Q4H PRN 01/22/18 [History] Quetiapine Fumarate [Seroquel] 50 mg PO BID 01/22/18 [History] Sulfamethoxazole/Trimeth DS [Bactrim DS] 1 tab PO BID 01/22/18 [History] Warfarin [Coumadin] 1 mg PO DAILY 01/22/18 [History] 3 Allergy/AdvReac Type Severity Reaction Status Date / Time Banana Allergy Mild Hives Verified 01/22/18 09:56 Oxycodone [From OxyContin] Allergy Mild Hives Verified 01/22/18 09:56 Penicillins Allergy Mild Hives Verified 01/22/18 09:56 tramadol Allergy Mild Hives Verified 01/22/18 09:56 yellow dye Allergy Hives Verified 01/22/18 09:56 aspirin Allergy Mild Hives Uncoded 01/20/18 02:37 morphine Allergy Mild Hives Uncoded 01/20/18 02:37 Review of Systems ROS unobtainable: due to endotracheal tube Exam - Vital Signs Vital signs: Initial Vital Signs Temp Pulse Resp BP Pulse Ox 98.6 F 46 15 126/107 91 01/22/18 09:59 01/22/18 09:59 01/22/18 09:59 01/22/18 09:59 01/22/18 09:59 Vital Signs - Last 8 Hours Temp Pulse Resp BP Pulse Ox 01/23/18 07:54 49 01/23/18 07:00 98.1 F 58 20 117/54 93 01/23/18 06:00 72 17 114/59 95 01/23/18 05:00 56 14 134/69 97 01/23/18 04:56 98.8 F 01/23/18 04:00 56 20 123/62 98 01/23/18 03:00 60 16 94/55 95 01/23/18 02:00 58 14 123/59 97 01/23/18 01:00 60 14 128/59 99 01/23/18 00:13 99.2 F 01/23/18 00:00 64 15 112/57 99 Intake and Output 01/22/18 01/22/18 01/23/18 15:59 23:59 07:59 Intake Total 360 / 360 250 / 250 Output Total 0 / 0 550 / 550 Balance 0 / 1510 -190 / -190 250 / 250 Intake: IV Fluids 250 / 250 DOPamine Premix 400mg/250mL 400 250 / 250 mg In 250 ml @ 2.5 MCG/KG/MIN 12.332 mls/hr IVC .[id number] [facility] Rx#:[id number] Oral 360 / 360 0 / 0 Output: Urine 0 / 0 550 / 550 Other: # Voids 1 Weight 135 kg 135 kg Blood Glucose* 102 176 Patient Weight 01/23/18 23:59 Weight 135 kg - General Appearance Exam: Patient appears alert. He does have difficulty communicating because of the tracheostomy. Vital signs are currently stable. He is obese. Lungs bilateral rhonchi diminished breath sounds. Heart regular rate and rhythm with a 2/6 talk ejection murmur. Abdomen is obese. Bowel sounds are present. No guarding rigidity nor organomegaly. 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 There is a tunnel dialysis catheter in the right chest. The exit site is red and has some crusting around it. The tunnel does not appear inflamed. There is no drainage from the catheter exit site. A tracheostomy is in place. Results - Lab Results 01/23/18 04:24 01/23/18 04:24 Most recent lab results Calcium 8.4 mg/dL (8.6-10.3) L 01/23/18 04:24 Phosphorus 3.2 mg/dL (2.7-4.5) 01/22/18 11:31 Magnesium 2.7 mg/dL (1.6-2.6) H 01/22/18 11:31 Consult Discharge Plan - Plan Referrals: Harrison Mai MD [Primary Care Provider] -
[2018-01-23] MEDS ORDERED: 0.9 % Sodium Chloride 250 ML IVC PRN (08:01)
[2018-01-23] MEDS ORDERED: 0.9 % Sodium Chloride 250 ML ONE ×2 (08:46→12:12)
--- NOTE | 2018-01-23 08:56 | Pulmonology Progress Note ---
<JoesphYahir W - Last Filed: 01/23/18 11:09> Date of Encounter: 01/23/18 Objective PUL Vital signs: Last Vital Signs Temp 98.1 F 01/23/18 07:25 Pulse 48 01/23/18 08:00 Resp 20 01/23/18 08:00 BP 91/49 01/23/18 08:00 Pulse Ox 93 01/23/18 08:00 Results - Laboratory Findings CBC and BMP: 01/23/18 04:24 01/23/18 04:24 PT/INR, D-dimer PT 36.3 Seconds (9.4-12.1) H 01/23/18 04:24 Abnormal lab findings: Abnormal lab results WBC 12.9 K/mcL (4.3-11.1) H 01/23/18 04:24 RBC 3.50 M/mcL (4.19-5.50) L 01/23/18 04:24 Hgb 10.2 g/dL (12.9-16.9) L 01/23/18 04:24 Hct 33.4 % (37.5-50.1) L 01/23/18 04:24 MCHC 30.5 g/dL (31.6-35.5) L 01/23/18 04:24 RDW 14.8 % (11.5-14.5) H 01/23/18 04:24 MPV 9.3 fL (9.4-12.4) L 01/23/18 04:24 Nucleated RBCs/100 WBC 0.2 /100 WBC (0) H 01/22/18 10:21 PT 36.3 Seconds (9.4-12.1) H 01/23/18 04:24 APTT 40.1 Seconds (26.0-36.0) H 01/22/18 10:21 Sodium 133 mEq/L (136-145) L 01/23/18 04:24 BUN 42 mg/dL (8-23) H 01/23/18 04:24 Creatinine 4.54 mg/dL (0.70-1.30) H 01/23/18 04:24 Est GFR ( Amer) 16 (> 60) L 01/23/18 04:24 Est GFR (Non-Af Amer) 13 (> 60) L 01/23/18 04:24 Glucose 159 mg/dL (70-105) H 01/23/18 04:24 POC Glucose 176 mg/dL (70-99) H 01/22/18 23:32 Calcium 8.4 mg/dL (8.6-10.3) L 01/23/18 04:24 Magnesium 2.7 mg/dL (1.6-2.6) H 01/22/18 11:31 Total Bilirubin 0.2 mg/dL (0.3-1.0) L 01/22/18 11:31 Alkaline Phosphatase 120 Units/L (34-104) H 01/22/18 11:31 Troponin I 0.05 ng/mL (< 0.04) H* 01/22/18 10:21 Albumin 2.5 g/dL (3.5-5.7) L 01/22/18 11:31 Globulin 5.6 g/dL (2.4-3.5) H 01/22/18 11:31 Albumin/Globulin Ratio 0.4 (1.1-2.2) L 01/22/18 11:31 Staphylococcus sp PCR DETECTED (Not Detect) A 01/22/18 10:08 Staph aureus (PCR) DETECTED (Not Detect) A 01/22/18 10:08 mecA-Methicil Res Gene DETECTED (Not Detect) A 01/22/18 10:08 - Microbiology Findings Microbiology Findings: Microbiology, Last 48 Hours 01/23/18 00:26 Sputum Culture - Preliminary Sputum - Clinical Findings Intake & Output: Intake & Output 01/22/18 01/23/18 01/23/18 23:59 07:59 15:59 Intake Total 360 / 360 250 / 250 0 / 0 Output Total 550 / 550 Balance -190 / -190 250 / 250 0 / 0 Weight 135 kg Consult Discharge Plan - Plan Referrals: Harrison Mai MD [Primary Care Provider] - - Attending Attestation I examined this patient and my medical decision-making was reviewed with the Resident Physician. I agree with the documented findings, disposition and treatment plan as described except to the extent set forth below. We independently had [id number] contact with the patient Patient seen and examined at bedside Labs, radiology, chart personally reviewed. Management was reviewed during multidisciplinary critical care rounds. 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 cont BPT HEENT: Severe jaw pain with CT scan + for mastoiditis ENT consulted Cards: Bradycardia on Dopamine Cardiology following BP stable. Concern for Endocarditis. needs GODWIN FEN-GI:NPO for now. Renal:ESRD nephrology following INFRASTRUCTURE ARCHITECT today planned through permacath with removal subsequent removal ID: MRSA bacteremia on Vanc concer for HAP organisms and will cont gram negative x 24 hours. ID has been consulted Heme/Onc: on Warfarin for Afib given FFP for planned procdures Endo: Glucose Monitored Integ/MSK: Skin Care per routine ICU Nursing Protocol to prevent ulcers. Lines: All lines examined without evidence of infection : Dispo: Remain in ICU for close monitoring for HR CODE: Full. <Jas Cormier - Last Filed: 01/23/18 17:18> Date of Encounter: 01/23/18 Time of Encounter: 08:20 Assessment and Plan (1) Bradycardia Current Visit: Yes Status: Acute Atrial fibrillation with slow ventricular response The patient was apparently seen at [place] for similar symptoms previously He is asymptomatic at this time, however heart rate has dropped to below 30bpm EKG demonstrates A. fib with slow ventricular response and incomplete right bundle branch block We did start the patient on dopamine which increases heart rate and converted him to sinus rhythm Consult to cardiology - Appreciate recommendations Plan: -Cardiology consult in place -Currently running dopamine through dialysis catheter, continue as needed -Consult to IR for central line access (2) MRSA (methicillin resistant staph aureus) culture positive Current Visit: Yes Status: Acute MRSA bacteremia on routine culture, redemonstrated on repeat Patient does have hemodialysis to the ESRD on Monday and Monday Patient is Afebrile, WBC 12.9, Lactic acid 1.3 The patient was started on vancomycin in the ED We will continue the patient on cefepime and vancomycin Stat echocardiogram for possible vegetations, consider GODWIN Plan: -Continue antibiotics, Vancomycin and cefepime Day 2 -Consult to IR for Dialysis cath removal and replacement -Consult to Nephrology for HD management and guidance on access requirements -GODWIN Pending, likely requires TTE for Endocarditis workup -Consult to ID for recommendations on complex management (3) Pneumonia Current Visit: Yes Status: Suspected Hospital Acquired Pneumonia, Sputum culture is pending The patient is having increased secretions and cough We will continue to treat with broad spectrum antibiotics Cefepime Day 2 Vancomycin Day 2 Patient says he feels about the same as yesterday, however he is less rhonchorous Continue to monitor respiratory status Qualifiers: Pneumonia type: due to unspecified organism Laterality: unspecified laterality Lung location: unspecified part of lung Qualified Code(s): J18.9 - Pneumonia, unspecified organism (4) ESRD (end stage renal disease) on dialysis Current Visit: Yes Status: Acute ESRD on HD Temp cath is in place, however will need to be replaced due to MRSA Bacteremia Per Nephrology Patient can receive HD with current catheter today Ok to remove cath following HD, replace before next HD on We will also give FFP to decrease INR, currently 3.3 (5) Left ear pain Current Visit: Yes Status: Acute Subjective complaint of left ear pain No obvious tissue abnormalities, bilateral TMs are clear There is a preauricular fullness that did not appear on prior exam Still, the patient is having trismus associated with this CT Head demonstrates air cells which may be consistent with mastoiditis We will consult ENT for opinion and recommendations We will give PRN SL Oxycodone and IV Acetaminophen for pain management (6) Trismus Current Visit: Yes Status: Acute Trismus, associated with left ear pain The patient is able to open his mouth only partially Consult to ENT (7) DVT prophylaxis Current Visit: Yes Status: Acute Patient is anticoagulated with warfarin Subjective Principal diagnosis: MRSA Bacteremia Interval history: The patient is resting in bed at time of examination. He complains of severe pain in his left face which has now extended towards his jaw and maxilla. He says that if getting worse than it was previously, and he is now having a hard time even speaking to me. He otherwise has no specific complaints, he says that he is breathing about the same and has had no chest pains overnight. It was reported to me that he did have particularly labile blood pressure and heart rate overnight, and has required dopamine for significant majority of it. Objective PUL Vital signs: Last Vital Signs Temp 98.1 F 01/23/18 07:25 Pulse 48 01/23/18 08:00 Resp 20 01/23/18 08:00 BP 91/49 01/23/18 08:00 Pulse Ox 93 01/23/18 08:00 Gen: Vitals noted. No acute distress but appears uncomfortable. AAOx3 HEENT: Pupils equal/EOMI, oropharynx difficult to asses, Normocephalic, atraumatic. Patient cannot fully open mouth secondary to left jaw pain. There is a preauricular fullness that was absent on previous exam Neck: Supple. No adenopathy. Tracheostomy in place with normal appearing surrounding tissue Cardiac: Irregularly irregular, no murmur, rubs or gallops, +S1/S2 Pulmonary: Relatively CTAB Abdomen: soft, nontender, BS noted, no guarding. PEG tube in place without necrosis or abnormality in the surrounding tissue MSK: ROM intact, no joint swelling noted. Left BKA and Right AKA without obvious edema Extremities: no BLE edema, no cyanosis or clubbing Neuro: moves all extremities, no focal deficits Psych: Appropriate mood and behavior Results - Laboratory Findings CBC and BMP: 01/23/18 04:24 01/23/18 04:24 PT/INR, D-dimer PT 36.3 Seconds (9.4-12.1) H 01/23/18 04:24 Abnormal lab findings: Abnormal lab results WBC 12.9 K/mcL (4.3-11.1) H 01/23/18 04:24 RBC 3.50 M/mcL (4.19-5.50) L 01/23/18 04:24 Hgb 10.2 g/dL (12.9-16.9) L 01/23/18 04:24 Hct 33.4 % (37.5-50.1) L 01/23/18 04:24 MCHC 30.5 g/dL (31.6-35.5) L 01/23/18 04:24 RDW 14.8 % (11.5-14.5) H 01/23/18 04:24 MPV 9.3 fL (9.4-12.4) L 01/23/18 04:24 Nucleated RBCs/100 WBC 0.2 /100 WBC (0) H 01/22/18 10:21 PT 36.3 Seconds (9.4-12.1) H 01/23/18 04:24 APTT 40.1 Seconds (26.0-36.0) H 01/22/18 10:21 Sodium 133 mEq/L (136-145) L 01/23/18 04:24 BUN 42 mg/dL (8-23) H 01/23/18 04:24 Creatinine 4.54 mg/dL (0.70-1.30) H 01/23/18 04:24 Est GFR ( Amer) 16 (> 60) L 01/23/18 04:24 Est GFR (Non-Af Amer) 13 (> 60) L 01/23/18 04:24 Glucose 159 mg/dL (70-105) H 01/23/18 04:24 POC Glucose 176 mg/dL (70-99) H 01/22/18 23:32 Calcium 8.4 mg/dL (8.6-10.3) L 01/23/18 04:24 Magnesium 2.7 mg/dL (1.6-2.6) H 01/22/18 11:31 Total Bilirubin 0.2 mg/dL (0.3-1.0) L 01/22/18 11:31 Alkaline Phosphatase 120 Units/L (34-104) H 01/22/18 11:31 Troponin I 0.05 ng/mL (< 0.04) H* 01/22/18 10:21 Albumin 2.5 g/dL (3.5-5.7) L 01/22/18 11:31 Globulin 5.6 g/dL (2.4-3.5) H 01/22/18 11:31 Albumin/Globulin Ratio 0.4 (1.1-2.2) L 01/22/18 11:31 Staphylococcus sp PCR DETECTED (Not Detect) A 01/22/18 10:08 Staph aureus (PCR) DETECTED (Not Detect) A 01/22/18 10:08 mecA-Methicil Res Gene DETECTED (Not Detect) A 01/22/18 10:08 - Microbiology Findings Microbiology Findings: Microbiology, Last 48 Hours 01/23/18 00:26 Sputum Culture - Preliminary Sputum - Clinical Findings Intake & Output: Intake & Output 01/22/18 01/23/18 01/23/18 23:59 07:59 15:59 Intake Total 360 / 360 250 / 250 0 / 0 Output Total 550 / 550 Balance -190 / -190 250 / 250 0 / 0 Weight 135 kg
[2018-01-23] MEDS ORDERED: Acetaminophen 325 MG TABLET PO SCH (09:00)
[2018-01-23] MEDS: OXYCODONE Oral CONC 10 MG/0.5 ML ORAL.SYG SL PRN ×2 (10:12→13:00)
[2018-01-23] MEDS: Famotidine 20 MG TABLET PO SCH (10:43)
[2018-01-23] MEDS: Bisacodyl 10 MG RECTAL SUPPOSITORY RC SCH (10:43)
[2018-01-23] MEDS ORDERED: Acetaminophen IV 1,000 MG/100 ML INFUS..BTL IVPB ONE (11:30)
--- NOTE | 2018-01-23 11:31 | Electrocardiograph Report ---
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
--- NOTE | 2018-01-23 12:36 | Cardiology Progress Note ---
Date of Encounter: 01/23/18 Time of Encounter: 12:00 Assessment and Plan (1) Bradycardia Current Visit: Yes Status: Acute Patient presented with sepsis, positive blood cultures. ESRD on HD. Reviewed ECGs, telemetry with Dr. Casey aSlinas, also has episodes of sinus bradycardia. Recommend treatment of underlying sepsis, anticipate HR will recover as sepsis Unclear when last dose of betablocker was administered. Recent increase in lopressor at correction. HR continues to improve. Avg HR=58 SB overnight. Max pause=3.3 seconds. HRs high 50's upon exam, dopamine gtt stopped this morning. No indication for PPM at this time. Will continue to monitor. (2) PAF (paroxysmal atrial fibrillation) Current Visit: Yes Status: Acute Hx of PAF. On coumadin for AC. INR supratherapeutic upon presentation. Recommend goal INR 2-3. Currently on hold for permacath change out. Discussion w patient/family: The assessment and plan as outlined above was discussed with the patient and/or family members who expressed understanding and agreement. All questions were answered. Thank you for involving us in the care of your patient. Please call with any questions. The patient will be discussed and reviewed with Dr. Rangel; changes to be made accordingly. Subjective Principal diagnosis: MRSA Bacteremia Interval history: Seen and examined. No complaints this morning other than jaw pain (TMJ). ENT has been consulted. Reviewed inpatient records from [facility]. Patient had lengthy hospitalization at beginning of year for respiratory failure s/p trach. During hospitalization, had EP consult for bradycardia. At that time, it was recommended to avoid AV pina blocking agents d/t resting bradycardia. He was re -started on lopressor at the correction and then dose was doubled last week which led to bradycardia/hypotension and patient was transferred to [facility]. Patient was discharged from the ED as his bradycardia had resolved with reported HRs mid-high 50's. Objective Vital Signs, Last 4 Hours Temp Pulse Resp BP Pulse Ox 01/23/18 12:24 53 01/23/18 12:22 98.1 F 01/23/18 12:00 55 22 101/46 96 01/23/18 11:10 98.7 F 18 127/54 01/23/18 11:00 98.1 F 53 18 120/57 91 01/23/18 10:45 138/70 01/23/18 10:30 98.7 F 18 123/52 01/23/18 10:12 112/69 01/23/18 10:00 47 20 112/69 91 01/23/18 09:00 48 22 100/48 92 General: Conversant, Other (morbidly obese, trach collar) HEENT: Atraumatic, Normocephaly Cardiac: Other (bradycardiac) Lungs: Other (coarse breath sounds) Neuro: Alert and responsive Abdomen: Soft Skin: No rashes noted on visualized skin Musculoskeletal: No Chest Wall Tenderness Extremities: Other (bilateral LE amputations) Results 01/23/18 04:24 01/23/18 04:24 Lab Results 01/23/18 01/23/18 01/23/18 04:24 04:24 04:24 WBC 12.9 H Hgb 10.2 L Hct 33.4 L Plt Count 350 INR 3.3 Sodium 133 L Potassium 4.4 Chloride 101 Carbon Dioxide 27 BUN 42 H Creatinine 4.54 H Glucose 159 H Calcium 8.4 L Active Medications Acetaminophen (Tylenol) 325 mg PO DAILY [facility] Stop: 07/25/18 09:01 Last Admin: 01/23/18 10:43 Dose: Not Given Bisacodyl (Dulcolax) 10 mg RC DAILY [facility] Stop: 07/25/18 09:01 Last Admin: 01/23/18 10:43 Dose: Not Given Darbepoetin Derrick (Aranesp) 60 mcg SQ QWEEK [facility] Stop: 07/25/18 08:16 Last Admin: 01/23/18 10:12 Dose: 60 mcg Dextrose/Water (Dextrose 50% (Syg)) 25 ml IVP AD PRN PRN Reason: Hypoglycemia Stop: 07/24/18 17:05 Docusate Sodium (Colace) 100 mg PO BID [facility] PRN Reason: Protocol Stop: 07/24/18 21:01 Last Admin: 01/23/18 10:43 Dose: Not Given Famotidine (Pepcid) 20 mg PO DAILY [facility] PRN Reason: Protocol Stop: 07/25/18 09:01 Last Admin: 01/23/18 10:43 Dose: Not Given Glucagon (Glucagen) 1 mg IM ONCE PRN PRN Reason: Hypoglycemia Stop: 07/24/18 17:05 Glucose (Gluctose) 15 gm PO ONCE PRN PRN Reason: Hypoglycemia Stop: 07/24/18 17:05 Glucose (Gluctose) 30 gm PO ONCE PRN PRN Reason: Hypoglycemia Stop: 07/24/18 17:05 Hydroxyzine Pamoate (Hydroxyzine Pamoate) 25 mg PO Q6H PRN PRN Reason: Itching Dopamine HCl/Dextrose (Dopamine Premix 400mg/250ml) 400 mg in 250 mls @ 12.332 mls/hr IVC .[id number] [facility]; 2.5 MCG/KG/MIN PRN Reason: Protocol Stop: 07/24/18 16:16 Last Admin: 01/23/18 01:53 Dose: 7.5 mcg/kg/min, 36.996 mls/hr Dextrose (Dextrose 5%) 1,000 mls @ 100 mls/hr IVC .Q10H PRN PRN Reason: HYPOGLYCEMIA Stop: 07/24/18 17:05 Sodium Chloride (0.9 % Sodium Chloride) 250 mls @ 937.5 mls/hr IVC .Q16M PRN PRN Reason: Hypotension Stop: 07/25/18 08:02 Cefepime HCl 1,000 mg/ Sterile (Water) 10 mls @ 150 mls/hr IVP Q24H [facility] Stop: 07/25/18 17:01 Insulin Human Lispro (Humalog) 0 units SQ Q6HR [facility] PRN Reason: Protocol Stop: 07/24/18 18:01 Last Admin: 01/23/18 12:28 Dose: Not Given Naloxone HCl (Narcan) 0.4 mg IVP Q2MIN PRN PRN Reason: SEE COMMENTS Stop: 07/24/18 13:42 Oxycodone HCl (Oxycodone Oral Conc) 10 mg SL Q4HR PRN; Protocol PRN Reason: Severe Pain Stop: 07/25/18 12:01 Last Admin: 01/23/18 10:12 Dose: 10 mg Oxycodone/Acetaminophen (Percocet 7.5/325) 1 each PO Q4HR PRN PRN Reason: Pain Stop: 07/24/18 17:04 Last Admin: 01/22/18 20:24 Dose: 1 each Quetiapine Fumarate (Seroquel) 50 mg PO BID [facility] Stop: 07/24/18 21:01 Last Admin: 01/23/18 10:43 Dose: Not Given Vancomycin HCl (Vancocin) 0 each IVPB AD PRN PRN Reason: SEE COMMENTS Stop: 07/24/18 20:04 - Imaging and Cardiology Echo: report reviewed Other Results: 12 hour tele: avg HR=58 SB. - EKG Interpretation EKG results cardiology: personally reviewed Consult Discharge Plan - Plan Referrals: Harrison Mai MD [Primary Care Provider] -
[2018-01-23] MEDS ORDERED: Cefepime HCl 2,000 MG in Water for inj. (sterile) 20 ML 20 ML IVP SCH (13:00)
[2018-01-23] MEDS ORDERED: Cefepime HCl 1,000 MG in Water for inj. (sterile) 20 ML 10 ML IVP SCH (13:00)
[2018-01-23] MEDS ORDERED: *HR* Heparin 5,000 UNIT/ML VIAL ONE (13:08)
--- NOTE | 2018-01-23 13:21 | Infectious Disease Consult ---
Date of Encounter: 01/23/18 Time of Encounter: 13:18 Assessment and Plan (1) Leukocytosis Status: Resolved Assessment and plan: WBC 11.6 on arrival, increased to 12.9 today with neutrophilic predominance. Likely multifactorial: bacteremia, PNA, mastoiditis. Continue to trend. Qualifiers: Leukocytosis type: unspecified Qualified Code(s): D72.829 - Elevated white blood cell count, unspecified (2) Bacteremia Status: Acute Assessment and plan: Causative organism: MRSA. Source unclear, but potential sources include Perma-cath, mastoiditis, decubitus ulcers, or PNA. Blood cultures drawn 01/20/18 are positive 1/1 set for MRSA. Repeat blood cultures drawn 01/22/18 are positive 2/2 sets for MRSA per PCR. Both were drawn peripherally. No cultures were obtained from the Perma-cath, which was discontinued today. Catheter tip was not sent for culture. Uncomplicated. No endocarditis stigmata noted on exam. The patient has one major and no minor Modified Barrios's Criteria. Repeat blood cultures x 2 sets now. Check rheumatoid factor. Avoid re-insertion of HD catheter until tomorrow. Discussed with Dr. Taylor who is okay with waiting until tomorrow to give the patient 24 hours without a line. Get TTE. Will need GODWIN prior to discharge if TTE is negative. Continue Vancomycin IV. Pharmacy to dose. Goal trough ~15. Duration of treatment depends on the clinical picture. Will likely be able to give Vancomycin with HD when the patient is discharged. Monitor for drug toxicity and dose-adjust antibiotics. (3) Mastoiditis Status: Acute Assessment and plan: Causative organism: unclear. CT head shows findings consistent with left mastoiditis. ENT consulted. CT scan of the neck with contrast is pending. Continue Vancomycin as above. Continue Cefepime 1 gram IV daily. Duration of treatment depends on the clinical picture. Qualifiers: Laterality: left Qualified Code(s): H70.92 - Unspecified mastoiditis, left ear (4) Sinusitis Status: Acute Assessment and plan: CT head shows bilateral maxillary sinusitis. Causative organism unclear. Continue antibiotics as above. Qualifiers: Sinusitis location: maxillary Chronicity: acute Recurrence: non- recurrent Qualified Code(s): J01.00 - Acute maxillary sinusitis, unspecified (5) Pneumonia Status: Suspected Assessment and plan: CXR shows bilateral airspace opacities concerning for PNA vs. edema. Clinically, the patient denies shortness of breath or cough. He does have some thin yellow secretions from his trach. Get CT of the chest to evaluate further. Continue antibiotics as above for now. Duration of treatment depends on the clinical picture. Qualifiers: Pneumonia type: due to unspecified organism Laterality: unspecified laterality Lung location: unspecified part of lung Qualified Code(s): J18.9 - Pneumonia, unspecified organism (6) Bradycardia Status: Resolved Assessment and plan: Cardiology consulted and following. (7) Trismus Status: Acute Assessment and plan: ENT consulted and following. (8) Anemia in CKD (chronic kidney disease) Status: Acute Qualifiers: Chronic kidney disease stage: on chronic dialysis Qualified Code(s): N18.6 - End stage renal disease; D63.1 - Anemia in chronic kidney disease; D63.1 - Anemia in chronic kidney disease; Z99.2 - Dependence on renal dialysis; Z99.2 - Dependence on renal dialysis; Z99.2 - Dependence on renal dialysis; Z99.2 - Dependence on renal dialysis (9) ESRD (end stage renal disease) on dialysis Status: Acute Assessment and plan: Nephrology consulted and following. (10) Chronic respiratory failure Status: Acute Assessment and plan: Chronic tracheostomy since September 2017. Management per the pulmonology team. Qualifiers: Respiratory failure complication: unspecified whether with hypoxia or hypercapnia Qualified Code(s): J96.10 - Chronic respiratory failure, unspecified whether with hypoxia or hypercapnia Infectious Disease HPI - Data of Consult Patient: new to practice Consult date: 01/23/18 Requesting Physician: Yahir Pink MD Primary Care Provider: Harrison Mai MD - Consult Narrative Reason for consult: MRSA bacteremia History of present illness: Mr. Murrell is a 67 year old male with a past medical history of COPD, chronic respiratory failure with tracheostomy, type 2 diabetes, end-stage renal disease on hemodialysis, status post left BKA and right AKA. The patient was admitted to the hospital January 22 for bacteremia. We are consulted January 23 for antibiotic recommendations for MRSA bacteremia. Briefly, the patient is a 67-year-old male with past medical history as stated above. The patient has a tracheostomy and is somewhat difficult to understand, therefore, most of the information is obtained from medical record. Apparently , the patient was transferred from [facility] where he resides to [facility] for bradycardia and hypotension. While there, the patient had blood cultures obtained 1 set and he was up slightly transferred to [facility] for further evaluation. Upon arrival there, the patient had chest x-ray that showed a possible right lower lobe pneumonia and he was started on by mouth Levaquin. By the time he got there, his bradycardia had resolved and he was discharged back to the extended care facility on the emergency department. Yesterday, his blood cultures were noted to have come back positive for MRSA and he was advised to come back to the ER and was sent up here for admission to the hospital. Upon arrival, the patient was afebrile. He was bradycardic and had some transient hypotension. He had leukocytosis and a mildly elevated troponin. His serum creatinine reflects his chronic kidney disease. Lactic acid was normal. Blood cultures were repeated 2 sets, both peripherally and were +2 out of 2 sets for MRSA as well. He had a chest x-ray that showed bibasilar airspace opacity concerning for pneumonia versus pulmonary edema. He was given given vancomycin and cefepime and admitted to the hospital for further evaluation. Since admission, the patient has undergone a CT of the head for lethargy. It was noted to show left mastoiditis and bilateral axillary sinusitis. Cardiology was consulted due to the patient's bradycardia and the patient was started on dopamine. His heart rate has improved. Repeat labs this morning reveal a white blood cell count 12.9 with neutrophilic predominance. Nephrology is being consulted to assist with hemodialysis management. The patient did undergo removal of his permacath the day. There some difficulty putting in a temporary HD catheter at the bedside. ENT has been consulted to assist with mastoiditis and a recommended a CAT scan of the left neck with contrast. Currently, the patient is on IV vancomycin and IV cefepime. We have been asked to evaluate and make further recommendations. During my exam today, the patient is awake alert and oriented. He seems to be coherent, but his tracheostomy makes it difficult for him to provide me with any information regarding the events leading up to his hospitalization. I did review the records from [facility] and was able to get some of the information from those records. Currently, the patient does complain of left- sided facial pain. He is not able to provide me with any other review of systems information at this time. CC: Yahir Pink MD Past Med Surg Social Fam HX - Past Medical History Attestation: Yes The following information was validated with the patient. Source: patient, old records reviewed, nursing notes reviewed Medical history: atrial fibrillation, diabetes, dialysis (ESRD on HD T/Thur/Sat) , hypertension, other (Cardiac arrest 09/2017) Psychiatric history: other - Past Surgical History Surgical History: tracheostomy (10/2017), other (PEG tube 10/2017, Tunneled dialysis catheter 11/2017, Right AKA 12/2011, ) - Social History Smoking Status: Former smoker Smokeless Tobacco Status: No Alcohol use: none Drug use: none - Family History Mother Living Status: Cause of : Colon CA Infectious Disease-CN:Meds Acetaminophen [Non-Aspirin] 325 mg PO DAILY 01/20/18 [History] Bisacodyl [Dulcolax] 10 mg RC DAILY 01/20/18 [History] Calcium Acetate [Phos-LO] 667 mg PO TIDWM 01/20/18 [History] Docusate [Colace] 100 mg PO BID 01/20/18 [History] Famotidine [Heartburn Prevention] 20 mg PO DAILY 01/20/18 [History] Insulin ASPART [NovoLOG] 0 - 12 units SQ ACHS PRN 01/20/18 [History] Insulin Glargine [Lantus] 10 units SQ DAILY 01/20/18 [History] Metoprolol [Lopressor] 12.5 mg PO BID 01/20/18 [History] OxyCODONE/APAP 7.5/325 [Percocet 7.5/325 MG] 1 each PO Q4HR PRN 01/20/18 [ History] hydrOXYzine HCl [Hydroxyzine HCl] 25 mg PO Q6H PRN 01/20/18 [History] Magnesium Hydroxide [Milk of Magnesia] 30 ml PO DAILY PRN 01/22/18 [History] Promethazine [Phenergan] 25 mg PO Q4H PRN 01/22/18 [History] Quetiapine Fumarate [Seroquel] 50 mg PO BID 01/22/18 [History] Sulfamethoxazole/Trimeth DS [Bactrim DS] 1 tab PO BID 01/22/18 [History] Warfarin [Coumadin] 1 mg PO DAILY 01/22/18 [History] 3 Allergy/AdvReac Type Severity Reaction Status Date / Time Banana Allergy Mild Hives Verified 01/22/18 09:56 Oxycodone [From OxyContin] Allergy Mild Hives Verified 01/22/18 09:56 Penicillins Allergy Mild Hives Verified 01/22/18 09:56 tramadol Allergy Mild Hives Verified 01/22/18 09:56 yellow dye Allergy Hives Verified 01/22/18 09:56 aspirin Allergy Mild Hives Uncoded 01/20/18 02:37 morphine Allergy Mild Hives Uncoded 01/20/18 02:37 All systems: reviewed and no additional remarkable complaints except as stated ( Somewhat limited due to the patient's tracheostomy.) Exam - Constitutional Vitals: Temp Pulse Resp BP Pulse Ox 98.1 F 53 22 101/46 96 01/23/18 12:22 01/23/18 12:24 01/23/18 12:00 01/23/18 12:00 01/23/18 12:00 General appearance: cooperative, morbidly obese, no acute distress - Head Head exam: Present: atraumatic, normal inspection, normocephalic - Eye Eye exam: Present: EOMI, normal appearance, PERRL Pupils: Present: normal accommodation Additional comments: No subconjunctival hemorrhage noted. - ENT ENT exam: Present: mucous membranes moist Additional comments: Trismus noted. - Neck Neck exam: Present: normal inspection - Respiratory Respiratory exam: Present: rhonchi (Throughout) Additional comments: Tracheostomy midline with O2 via trach mask. Small amount of thin yellow secretions noted from the trach. - Cardiovascular Cardiovascular exam: Present: +S1, +S2. Absent: irregular rhythm, tachycardia - GI/Abdominal GI/Abdominal exam: Present: distended (Obese), normal bowel sounds, soft. Absent: tenderness Additional comments: PEG tube noted to the LUQ, currently clamped. - Extremities Exam Additional comments: Right AKA stump without redness, warmth, edema, or open lesions. Left BKA stump without redness, warmth, edema, or open lesions. - Back Exam Additional comments: Exam deferred by patient. - Neurological Exam Neurological exam: Present: alert, oriented X3, no focal deficits - Psychiatric Psychiatric exam: Present: normal affect, normal mood - Skin Skin exam: Present: dry, intact, normal color, warm Additional comments: No endocarditis stigmata noted. Infectious Disease CN: Results - Labs CBC & Chem 7: 01/24/18 06:15 01/24/18 02:30 Cultures: Cultures 01/23/18 00:26 Sputum Culture - Preliminary Sputum Serology: Serology 01/22/18 Range/Units 16:56 Hep Bs Antigen Nonreactive (Nonreactive) Hep Bs Antibody 0.32 mIU/mL Consult Discharge Plan - Plan Referrals: Harrison Mai MD [Primary Care Provider] - - Attending Attestation I examined this patient and my medical decision-making was reviewed with the Resident Physician. I agree with the documented findings, disposition and treatment plan as described except to the extent set forth below. This is an addendum to original report dictated by Janay Florence CNP. Please refer to Amanda note for full details. Patient is a 67-year-old gentleman who has an extensive past medical history mentioned below including bilateral below knee amputation for likely peripheral vascular disease, end-stage renal disease on hemodialysis with dialysis catheter in the right chest, coronary artery disease, chronic respiratory failure on tracheostomy, tube feeding diarrhea asked to who apparently came in initially for bradycardia. Patient was initially sent to [place] and the was discharged home from the ER because his bradycardia resolved. Patient was then called and told he had a positive culture for MRSA and was asked to come to the hospital again. The blood culture was peripheral one set. Repeat cultures 2 sets both peripheral were also positive for MRSA. Patient was also having facial pain and what appears to be Trismus and mastoiditis. We were asked to evaluate the patient and make further recommendations. Patients dialysis catheter was removed and a temporary one was attempted because he needed dialysis today but they were unable to do at bedside. Patient was given go down to IR for another one but I called Dr. Gonzalez and asked him if we can postpone that until tomorrow so the patient gets 24 hours free from the central line until the MRSA bacteremia improves. He was totally okay with that. IR procedure was canceled. At this point we will continue cefepime, continue vancomycin with goal vancomycin level around 15-20. Patient will need a GODWIN prior to discharge. Duration of treatment probably 14 days if uncomplicated but if GODWIN is positive for endocarditis we will have to treat longer. Monitor labs and for drug toxicity Appreciate ENT input
[2018-01-23] MEDS ORDERED: Isovue-370 500 ML INFUS..BTL IV ONE (13:48)
[2018-01-23 15:51] LABS: Prothrombin Time 22.3 Seconds (9.4-12.1)
--- NOTE | 2018-01-23 16:55 | ENT - Consult Note ---
Date of Encounter: 01/23/18 Time of Encounter: 12:45 Assessment and Plan (1) Trismus Current Visit: Yes Status: Acute Patient has severe trismus and tenderness over the left jaw obvious swelling of the jaw or neck. Adequately evaluate the intraoral cavity because of the trismus but evaluation of teeth from the lateral aspect appeared to be intact without infection. I cannot rule out something within the oral cavity without a CT scan. It would recommend CT scan base of skull to clavicles. Given his history of end-stage renal disease would do without contrast if needed for evaluation would consider contrast if can medically tolerate. No risk for airway obstruction by the endoscopic evaluation of his pharynx and larynx. Is patent intact tracheostomy tube no evidence or concern for airway obstruction CT is required to rule out tonsil or parapharyngeal / peritonsillar abscess or dental abscess or mass within the oral cavity/oropharynx. Please contact me when CT scan has been obtained so I can personally review it (2) Left ear pain Current Visit: Yes Status: Acute The ear and mastoid examination is normal physical examination as well as by review of CT scan brain. Is more referred from the temporomandibular joint area or oropharynx. CT scan as mentioned above is recommended further evaluation. History of Present Illness History of present illness: Mr. Murrell is a 67-year-old male with end-stage renal disease and chronic tracheostomy was admitted for MRSA sepsis and pneumonia who has been treated with appropriate antibiotic therapy and is improving. He has developed severe left jaw and ear pain for 1 week. His examination of the ear was normal except for the exquisite pain in the pretragal region. He had no swelling and no difficulty swallowing. He had a CT scan of the brain which is reviewed by myself personally and revealed old chronic mastoid changes in the left mastoid no evidence of acute infection in the mastoid nor middle ear nor external ear and his were also noted to be clear without disease neck was not evaluated on this brain CT scan so cannot comment on that. I was asked to evaluate the patient relative to this severe left jaw and ear pain Past Med Surg Social Fam HX - Past Medical History Medical history: atrial fibrillation, diabetes, dialysis (ESRD on HD T/Thur/Sat) , hypertension, other (Cardiac arrest 09/2017) Psychiatric history: other - Past Surgical History Surgical History: tracheostomy (10/2017), other (PEG tube 10/2017, Tunneled dialysis catheter 11/2017, Right AKA 12/2011, ) - Social History Smoking Status: Former smoker Smokeless Tobacco Status: No Alcohol use: none Drug use: none - Family History Mother Living Status: Cause of : Colon CA Medications and Allergies Acetaminophen [Non-Aspirin] 325 mg PO DAILY 01/20/18 [History] Bisacodyl [Dulcolax] 10 mg RC DAILY 01/20/18 [History] Calcium Acetate [Phos-LO] 667 mg PO TIDWM 01/20/18 [History] Docusate [Colace] 100 mg PO BID 01/20/18 [History] Famotidine [Heartburn Prevention] 20 mg PO DAILY 01/20/18 [History] Insulin ASPART [NovoLOG] 0 - 12 units SQ ACHS PRN 01/20/18 [History] Insulin Glargine [Lantus] 10 units SQ DAILY 01/20/18 [History] Metoprolol [Lopressor] 12.5 mg PO BID 01/20/18 [History] OxyCODONE/APAP 7.5/325 [Percocet 7.5/325 MG] 1 each PO Q4HR PRN 01/20/18 [ History] hydrOXYzine HCl [Hydroxyzine HCl] 25 mg PO Q6H PRN 01/20/18 [History] Magnesium Hydroxide [Milk of Magnesia] 30 ml PO DAILY PRN 01/22/18 [History] Promethazine [Phenergan] 25 mg PO Q4H PRN 01/22/18 [History] Quetiapine Fumarate [Seroquel] 50 mg PO BID 01/22/18 [History] Sulfamethoxazole/Trimeth DS [Bactrim DS] 1 tab PO BID 01/22/18 [History] Warfarin [Coumadin] 1 mg PO DAILY 01/22/18 [History] 3 Allergy/AdvReac Type Severity Reaction Status Date / Time Banana Allergy Mild Hives Verified 01/22/18 09:56 Oxycodone [From OxyContin] Allergy Mild Hives Verified 01/22/18 09:56 Penicillins Allergy Mild Hives Verified 01/22/18 09:56 tramadol Allergy Mild Hives Verified 01/22/18 09:56 yellow dye Allergy Hives Verified 01/22/18 09:56 aspirin Allergy Mild Hives Uncoded 01/20/18 02:37 morphine Allergy Mild Hives Uncoded 01/20/18 02:37 ENT Exam Initial Vital Signs Temp Pulse Resp BP Pulse Ox 98.6 F 46 15 126/107 91 01/22/18 09:59 01/22/18 09:59 01/22/18 09:59 01/22/18 09:59 01/22/18 09:59 - General physical appearance no distress, obese, other (Patient has patent tracheostomy tube with appropriate humidified oxygen by mask to the tracheostomy tube he is breathing well and is alert and oriented) - Eyes PERRL, normal ocular movement - ENT normal pinna, normal nares, normal mucosa, no congestion, normocephalic, CN 2- 12 grossly intact, Other (Patient has severe trismus with tenderness over the left TMJ, mouth opening less than 1 cm cannot visualize and examine the oral cavity. Are normal there is no inflammation or erythema of the gumline's no evidence of dental decay I am able to examining the lateral aspect of his tongue on the left through an opening between his premolar molar teeth from previous extraction and there is no swelling no erythema. Endoscopic evaluation of the nasal cavity pharynx and larynx were performed and findings were noted to be normal see dictated note for this) - Neck no masses, trachea midline, no lymphadectomy, other (The parotid gland bilateral and submandibular glands bilateral no tenderness in the neck nor any fullness in the neck or mass or lesions or lymphadenopathy or cellulitis he has intact tracheostomy tube with no evidence of erythema around the stoma) - Respiratory normal expansion, normal respiratory effort, other - Abdomen Abdomen: soft, non tender - Neurologic CN 2-12 grossly intact, normal coordination - Musculoskeletal normal posture, other (Moves all 4 extremities without difficulties or limitations) - Psychiatric oriented to time, oriented to person, oriented to place Exam Initial Vital Signs Temp Pulse Resp BP Pulse Ox 98.6 F 46 15 126/107 91 01/22/18 09:59 01/22/18 09:59 01/22/18 09:59 01/22/18 09:59 01/22/18 09:59 Results - Labs 01/23/18 04:24 01/23/18 04:24 Abnormal lab results WBC 12.9 K/mcL (4.3-11.1) H 01/23/18 04:24 RBC 3.50 M/mcL (4.19-5.50) L 01/23/18 04:24 Hgb 10.2 g/dL (12.9-16.9) L 01/23/18 04:24 Hct 33.4 % (37.5-50.1) L 01/23/18 04:24 MCHC 30.5 g/dL (31.6-35.5) L 01/23/18 04:24 RDW 14.8 % (11.5-14.5) H 01/23/18 04:24 MPV 9.3 fL (9.4-12.4) L 01/23/18 04:24 Nucleated RBCs/100 WBC 0.2 /100 WBC (0) H 01/22/18 10:21 PT 22.3 Seconds (9.4-12.1) H 01/23/18 15:36 APTT 40.1 Seconds (26.0-36.0) H 01/22/18 10:21 Sodium 133 mEq/L (136-145) L 01/23/18 04:24 BUN 42 mg/dL (8-23) H 01/23/18 04:24 Creatinine 4.54 mg/dL (0.70-1.30) H 01/23/18 04:24 Est GFR ( Amer) 16 (> 60) L 01/23/18 04:24 Est GFR (Non-Af Amer) 13 (> 60) L 01/23/18 04:24 Glucose 159 mg/dL (70-105) H 01/23/18 04:24 POC Glucose 176 mg/dL (70-99) H 01/22/18 23:32 Calcium 8.4 mg/dL (8.6-10.3) L 01/23/18 04:24 Magnesium 2.7 mg/dL (1.6-2.6) H 01/22/18 11:31 Total Bilirubin 0.2 mg/dL (0.3-1.0) L 01/22/18 11:31 Alkaline Phosphatase 120 Units/L (34-104) H 01/22/18 11:31 Troponin I 0.05 ng/mL (< 0.04) H* 01/22/18 10:21 Albumin 2.5 g/dL (3.5-5.7) L 01/22/18 11:31 Globulin 5.6 g/dL (2.4-3.5) H 01/22/18 11:31 Albumin/Globulin Ratio 0.4 (1.1-2.2) L 01/22/18 11:31 Staphylococcus sp PCR DETECTED (Not Detect) A 01/22/18 10:08 Staph aureus (PCR) DETECTED (Not Detect) A 01/22/18 10:08 mecA-Methicil Res Gene DETECTED (Not Detect) A 01/22/18 10:08 Diabetes panel 01/23/18 Range/Units 04:24 Sodium 133 L (136-145) mEq/L Potassium 4.4 (3.5-5.1) mEq/L Chloride 101 (98-107) mEq/L Carbon Dioxide 27 (23-29) mEq/L BUN 42 H (8-23) mg/dL Creatinine 4.54 H (0.70-1.30) mg/dL Glucose 159 H (70-105) mg/dL Calcium 8.4 L (8.6-10.3) mg/dL Calcium panel 01/23/18 Range/Units 04:24 Calcium 8.4 L (8.6-10.3) mg/dL Pituitary panel 01/23/18 Range/Units 04:24 Sodium 133 L (136-145) mEq/L Potassium 4.4 (3.5-5.1) mEq/L Chloride 101 (98-107) mEq/L Carbon Dioxide 27 (23-29) mEq/L BUN 42 H (8-23) mg/dL Creatinine 4.54 H (0.70-1.30) mg/dL Glucose 159 H (70-105) mg/dL Calcium 8.4 L (8.6-10.3) mg/dL Adrenal panel 01/23/18 Range/Units 04:24 Sodium 133 L (136-145) mEq/L Potassium 4.4 (3.5-5.1) mEq/L Chloride 101 (98-107) mEq/L Carbon Dioxide 27 (23-29) mEq/L BUN 42 H (8-23) mg/dL Creatinine 4.54 H (0.70-1.30) mg/dL Glucose 159 H (70-105) mg/dL Calcium 8.4 L (8.6-10.3) mg/dL All other labs normal. Consult Discharge Plan - Plan Referrals: Harrison Mai MD [Primary Care Provider] -
[2018-01-23] MEDS ORDERED: Cefepime HCl 1,000 MG in Water for inj. (sterile) 10 ML IVP SCH (17:00)
--- NOTE | 2018-01-23 17:09 | ENT - Procedure Note ---
Date of procedure: 01/23/18 Pre-op diagnosis: Trismus and left otalgia/jaw pain Post-op diagnosis: same Procedure: Flexible nasal pharyngeal laryngoscopy is performed after verbal consent given by patient. Nasal cavity Salmons bilateral with a flexible endoscope noted to be normal nasopharynx oropharynx hypopharynx and larynx are all also noted to be normal by endoscopic evaluation. There is no erythema no purulence no asymmetry of fullness and it was patent airway with normal vocal cord mobility Implants: nono Anesthesia: none Surgeon: Ming Ashley Was there an trust manager assistant present: Yes Aix Administrator: Concepción Moreno Estimated blood loss (cc): 0 Specimens collected: nono Condition: stable
[2018-01-23] MEDS: Cefepime HCl 1,000 MG in Water for inj. (sterile) 20 ML 10 ML IVP SCH (20:23)
[2018-01-23] MEDS: *HR* OxyCODONE/APAP 7.5/325 TABLET PO PRN (20:24)
[2018-01-24 02:44] LABS: Basophils % 0.1 %; Eosinophils # 0.3 K/mcL (0.0-0.6); Eosinophils % 2.9 %; Hematocrit 27.3 % (37.5-50.1); Immature Granulocytes % 0.3 % (0-4); Lymphocytes # 2.1 K/mcL (0.6-4.6); Lymphocytes % 20.9 %; Mean Corpuscular HGB Conc 31.1 g/dL (31.6-35.5); Mean Corpuscular Hemoglobin 30.1 pg (28.0-33.3); Mean Corpuscular Volume 96.8 fL (83.0-100.0); Mean Platelet Volume 8.7 fL (9.4-12.4); Monocytes # 0.7 K/mcL (0.0-1.3); Monocytes % 7.2 %; Neutrophils # 6.9 K/mcL (1.6-8.9); Platelet Count 302 K/mcL (140-400); Red Blood Count 2.82 M/mcL (4.19-5.50); Red Cell Distribution Width 14.5 % (11.5-14.5); Segmented Neutrophils % 68.6 %
[2018-01-24 02:45] LABS: Hemoglobin 8.5 g/dL (12.9-16.9)
[2018-01-24 03:01] LABS: Potassium 3.9 mEq/L (3.5-5.1)
[2018-01-24 03:02] LABS: Calcium 7.8 mg/dL (8.6-10.3)
[2018-01-24] MEDS: OXYCODONE Oral CONC 10 MG/0.5 ML ORAL.SYG SL PRN ×2 (04:04→09:23)
[2018-01-24] MEDS: hydrOXYzine pamoate 25 MG CAPSULE PO PRN (04:41)
[2018-01-24] MEDS: *HR* OxyCODONE/APAP 7.5/325 TABLET PO PRN ×2 (04:41→23:39)
[2018-01-24] MEDS: Insulin LISPRO 300 UNITS/3 ML VIAL SQ SCH ×4 (06:58→23:42)
[2018-01-24] MEDS ORDERED: Acetaminophen 325 MG TABLET PO PRN (08:15)
[2018-01-24] MEDS ORDERED: 0.9 % Sodium Chloride 250 ML IVC PRN (08:21)
--- NOTE | 2018-01-24 08:21 | Nephrology Progress Note ---
Date of Encounter: 01/24/18 Time of Encounter: 08:19 - Assessment and Plan (1) ESRD (end stage renal disease) on dialysis Current Visit: Yes Status: Acute Patient will have a temporary dialysis catheter placed today. He will then undergoes routine dialysis. He remains on antibiotics for MRSA bacteremia. Once blood cultures of clear tea can have a new tunnel dialysis catheter placed. (2) Anemia in CKD (chronic kidney disease) Current Visit: Yes Status: Acute Qualifiers: Chronic kidney disease stage: on chronic dialysis Qualified Code(s): N18.6 - End stage renal disease; D63.1 - Anemia in chronic kidney disease; D63.1 - Anemia in chronic kidney disease; Z99.2 - Dependence on renal dialysis; Z99.2 - Dependence on renal dialysis; Z99.2 - Dependence on renal dialysis; Z99.2 - Dependence on renal dialysis (3) MRSA (methicillin resistant staph aureus) culture positive Current Visit: Yes Status: Acute (4) Tracheostomy care Current Visit: Yes Status: Acute Subjective Principal diagnosis: MRSA Bacteremia Interval history: The patient did not receive dialysis yesterday. He had poor function of the dialysis catheter. The catheters been removed. He has had a 24-hour holiday. He will have to have a temperature dialysis catheter placed today and then undergo dialysis later today. Patient is alert. He is requesting something for pain and also something to drink. His vital signs are stable. Objective - Vital Signs Vital signs: Vital Signs Temp Pulse Resp BP Pulse Ox 01/24/18 06:00 48 14 95/41 100 01/24/18 05:00 51 12 108/52 100 01/24/18 04:45 96.7 F L 01/24/18 04:00 60 20 139/71 98 01/24/18 03:46 63 01/24/18 03:00 52 18 101/57 99 01/24/18 02:00 48 18 106/55 100 01/24/18 01:00 52 16 106/72 98 01/24/18 00:08 97.9 F 01/24/18 00:00 57 14 121/64 99 01/23/18 23:00 43 14 94/48 10 01/23/18 22:00 56 22 110/66 95 01/23/18 21:00 56 14 85/48 100 01/23/18 20:37 97.6 F 01/23/18 20:00 57 14 127/61 90 01/23/18 19:00 49 18 118/52 100 01/23/18 18:00 56 18 109/64 98 01/23/18 17:00 59 22 120/64 95 01/23/18 16:20 98.0 F 01/23/18 15:42 60 01/23/18 15:00 63 20 126/61 96 01/23/18 14:00 56 22 124/56 96 01/23/18 13:00 46 24 103/46 95 01/23/18 12:24 53 01/23/18 12:22 98.1 F 01/23/18 12:00 55 22 101/46 96 01/23/18 11:10 98.7 F 18 127/54 01/23/18 11:00 98.1 F 53 18 120/57 91 01/23/18 10:45 138/70 01/23/18 10:30 98.7 F 18 123/52 01/23/18 10:12 112/69 01/23/18 10:00 47 20 112/69 91 01/23/18 09:00 48 22 100/48 92 Intake and Output 01/23/18 01/24/18 01/24/18 23:59 07:59 15:59 Intake Total 250 / 250 100 / 100 Output Total 500 / 500 0 / 0 Balance -250 / -250 100 / 100 Intake: IV Fluids 10 10 Maxipime 1,000 MG In Water for inj. (sterile) 10 ML @ 150 mls/ hr IVP Q24H [facility] Rx#:[id number] Oral 240 / 240 100 / 100 Output: Urine 500 / 500 0 / 0 Other: Weight 137.7 kg Blood Glucose* 136 Patient Weight 01/24/18 23:59 Weight 137.7 kg - General Appearance Exam: Patient is alert. He appears to be in no acute distress. Lungs decreased breath sounds bilaterally. Heart regular rate and rhythm. Abdomen is obese. A PEG tube is present. 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 Trach collar is in place. - Lab 01/24/18 02:30 01/24/18 02:30 Most recent lab results Calcium 7.8 mg/dL (8.6-10.3) L 01/24/18 02:30 Phosphorus 3.2 mg/dL (2.7-4.5) 01/22/18 11:31 Magnesium 2.7 mg/dL (1.6-2.6) H 01/22/18 11:31 Consult Discharge Plan - Plan Referrals: Harrison Mai MD [Primary Care Provider] -
--- NOTE | 2018-01-24 08:26 | Pulmonology Progress Note ---
<JoesphYahir W - Last Filed: 01/24/18 10:51> Date of Encounter: 01/24/18 Objective PUL Vital signs: Last Vital Signs Temp 97.6 F 01/24/18 08:00 Pulse 48 01/24/18 06:00 Resp 14 01/24/18 06:00 BP 95/41 01/24/18 06:00 Pulse Ox 100 01/24/18 06:00 Results - Laboratory Findings CBC and BMP: 01/24/18 06:15 01/24/18 02:30 PT/INR, D-dimer PT 22.3 Seconds (9.4-12.1) H 01/23/18 15:36 Abnormal lab findings: Abnormal lab results RBC 2.82 M/mcL (4.19-5.50) L 01/24/18 02:30 Hgb 9.1 g/dL (12.9-16.9) L 01/24/18 06:15 Hct 30.2 % (37.5-50.1) L 01/24/18 06:15 MCHC 31.1 g/dL (31.6-35.5) L 01/24/18 02:30 MPV 8.7 fL (9.4-12.4) L 01/24/18 02:30 Nucleated RBCs/100 WBC 0.2 /100 WBC (0) H 01/22/18 10:21 PT 22.3 Seconds (9.4-12.1) H 01/23/18 15:36 APTT 40.1 Seconds (26.0-36.0) H 01/22/18 10:21 Carbon Dioxide 30 mEq/L (23-29) H 01/24/18 02:30 BUN 37 mg/dL (8-23) H 01/24/18 02:30 Creatinine 3.98 mg/dL (0.70-1.30) H 01/24/18 02:30 Est GFR ( Amer) 18 (> 60) L 01/24/18 02:30 Est GFR (Non-Af Amer) 15 (> 60) L 01/24/18 02:30 Glucose 118 mg/dL (70-105) H 01/24/18 02:30 POC Glucose 128 mg/dL (70-99) H 01/23/18 23:26 Calcium 7.8 mg/dL (8.6-10.3) L 01/24/18 02:30 Magnesium 2.7 mg/dL (1.6-2.6) H 01/22/18 11:31 Total Bilirubin 0.2 mg/dL (0.3-1.0) L 01/22/18 11:31 Alkaline Phosphatase 120 Units/L (34-104) H 01/22/18 11:31 Troponin I 0.05 ng/mL (< 0.04) H* 01/22/18 10:21 Albumin 2.5 g/dL (3.5-5.7) L 01/22/18 11:31 Globulin 5.6 g/dL (2.4-3.5) H 01/22/18 11:31 Albumin/Globulin Ratio 0.4 (1.1-2.2) L 01/22/18 11:31 Staphylococcus sp PCR DETECTED (Not Detect) A 01/22/18 10:08 Staph aureus (PCR) DETECTED (Not Detect) A 01/22/18 10:08 mecA-Methicil Res Gene DETECTED (Not Detect) A 01/22/18 10:08 - Microbiology Findings Microbiology Findings: Microbiology, Last 48 Hours 01/23/18 00:26 Sputum Culture - Preliminary Sputum Gram Negative [facility] - Clinical Findings Intake & Output: Intake & Output 01/23/18 01/24/18 01/24/18 23:59 07:59 15:59 Intake Total 250 / 250 100 / 100 Output Total 500 / 500 0 / 0 Balance -250 / -250 100 / 100 Weight 137.7 kg Consult Discharge Plan - Plan Referrals: Harrison Mai MD [Primary Care Provider] - - Attending Attestation I examined this patient and my medical decision-making was reviewed with the Resident Physician. I agree with the documented findings, disposition and treatment plan as described except to the extent set forth below. We independently had [id number] contact with the patient Patient seen and examined at bedside Labs, radiology, chart personally reviewed. Management was reviewed during multidisciplinary critical care rounds. 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 Continues to have ear pain seen by ENT eval unremarkable and CT head/neck without acute process. Pulm: Chronic Respiratory failure with b/l PNA ?MRSA vs PSDA Cards: Remains bradycardic but BP stable. Cardiology following concern for endocarditis plan for GODWIN today FEN-GI: NPO today pending GODWIN. Renal: ESRD dialysis on hold for line holiday/bacteremia temp dialysis pending ID: MRSA bactermia ID following cont Vanc/ PSDA in sputum ?colonization vs tracheobronchitis vs less likely PNA on Cefepime pending micro s/s Heme/Onc: Slight drop in H/H no overt episodes of hemorrhage trend H/H DVT prophlaxis given INR today < 2 chronic LTA for AFib warfarin on hold. Endo: Glucose Monitored Integ/MSK: Skin Care per routine ICU Nursing Protocol to prevent ulcers. Lines: All lines examined without evidence of infection : Dispo: Remain in ICU CODE: Full <Jas Cormier - Last Filed: 01/24/18 18:00> Date of Encounter: 01/24/18 Time of Encounter: 09:00 Assessment and Plan (1) Sepsis Current Visit: Yes Status: Acute Sepsis secondary to MRSA bacteremia and likely Pseudomonas pneumonia The patient has sepsis with hypotension Blood cultures repeatedly positive for MRSA, sputum sample grew Pseudomonas Currently on cefepime and vancomycin day 3 Infectious diseases on board, appreciate recommendations Qualifiers: Sepsis type: methicillin resistant Staphylococcus aureus Qualified Code(s) : A41.02 - Sepsis due to Methicillin resistant Staphylococcus aureus (2) Bradycardia Current Visit: Yes Status: Resolved Atrial fibrillation with slow ventricular response The patient was apparently seen at [place] for similar symptoms previously He is asymptomatic at this time, however heart rate has dropped to below 30bpm EKG demonstrates A. fib with slow ventricular response and incomplete right bundle branch block We did start the patient on dopamine which increases heart rate and converted him to sinus rhythm Consult to cardiology - Appreciate recommendations Plan: -Cardiology consult in place -Currently running dopamine through dialysis catheter, continue as needed (3) MRSA (methicillin resistant staph aureus) culture positive Current Visit: Yes Status: Acute MRSA bacteremia on routine culture, redemonstrated on repeat Patient does have hemodialysis to the ESRD on Monday and Monday Patient is Afebrile, WBC 10.1 Lactic acid 1.3 The patient was started on vancomycin in the ED We will continue the patient on cefepime and vancomycin -GODWIN did not show significant valvular disease or presence of vegetations Plan: -Continue antibiotics, Vancomycin and cefepime Day 3 -Consult to Nephrology for HD management and guidance on access requirements -Consult to ID for recommendations on complex management (4) Pneumonia Current Visit: Yes Status: Suspected Hospital Acquired Pneumonia, Sputum culture grows pseudomonas The patient is having increased secretions and cough We will continue to treat with broad spectrum antibiotics Cefepime Day 3 Vancomycin Day 3 Patient says he feels about the same as yesterday, he sounds more rhonchorous than he did previously Continue to monitor respiratory status Qualifiers: Pneumonia type: due to unspecified organism Laterality: unspecified laterality Lung location: unspecified part of lung Qualified Code(s): J18.9 - Pneumonia, unspecified organism (5) ESRD (end stage renal disease) on dialysis Current Visit: Yes Status: Acute ESRD on HD The patient had successful insertion of right internal jugular central venous catheter used for temporary hemodialysis He is scheduled to receive hemodialysis following a GODWIN today Renal function appears otherwise stable (6) Left ear pain Current Visit: Yes Status: Acute Subjective complaint of left ear pain No obvious tissue abnormalities, bilateral TMs are clear There is a preauricular fullness that did not appear on prior exam Still, the patient is having trismus associated with this CT Head demonstrates air cells which may be consistent with mastoiditis ENT does not believe that this is a structural or infectious problem We will give PRN SL Oxycodone and IV Acetaminophen for pain management (7) Trismus Current Visit: Yes Status: Acute Trismus, associated with left ear pain The patient is able to open his mouth only partially Assessment as above (8) DVT prophylaxis Current Visit: Yes Status: Acute Patient is anticoagulated with warfarin at home, however is subtherapeutic due to necessity for procedures We will start the patient on subcutaneous heparin Subjective Principal diagnosis: MRSA Bacteremia Interval history: The patient is resting in bed at time of examination. He is still having left facial pain and difficulty opening his mouth. He had no significant clinical changes overnight. Objective PUL Vital signs: Last Vital Signs Temp 96.7 F L 01/24/18 04:45 Pulse 48 01/24/18 06:00 Resp 14 01/24/18 06:00 BP 95/41 01/24/18 06:00 Pulse Ox 100 01/24/18 06:00 Gen: Vitals noted. No acute distress but appears uncomfortable. AAOx3 HEENT: Pupils equal/EOMI, oropharynx difficult to asses, Normocephalic, atraumatic. Patient cannot fully open mouth secondary to left jaw pain. There is a preauricular fullness that was absent on previous exam Neck: Supple. No adenopathy. Tracheostomy in place with normal appearing surrounding tissue Cardiac: Irregularly irregular, no murmur, rubs or gallops, +S1/S2 Pulmonary: mild rhochi are heard on examination Abdomen: soft, nontender, BS noted, no guarding. PEG tube in place without necrosis or abnormality in the surrounding tissue MSK: ROM intact, no joint swelling noted. Left BKA and Right AKA without obvious edema Extremities: no BLE edema, no cyanosis or clubbing Neuro: moves all extremities, no focal deficits Psych: Appropriate mood and behavior Results - Laboratory Findings CBC and BMP: 01/24/18 06:15 01/24/18 02:30 PT/INR, D-dimer PT 22.3 Seconds (9.4-12.1) H 01/23/18 15:36 Abnormal lab findings: Abnormal lab results RBC 2.82 M/mcL (4.19-5.50) L 01/24/18 02:30 Hgb 8.5 g/dL (12.9-16.9) L D 01/24/18 02:30 Hct 27.3 % (37.5-50.1) L 01/24/18 02:30 MCHC 31.1 g/dL (31.6-35.5) L 01/24/18 02:30 MPV 8.7 fL (9.4-12.4) L 01/24/18 02:30 Nucleated RBCs/100 WBC 0.2 /100 WBC (0) H 01/22/18 10:21 PT 22.3 Seconds (9.4-12.1) H 01/23/18 15:36 APTT 40.1 Seconds (26.0-36.0) H 01/22/18 10:21 Carbon Dioxide 30 mEq/L (23-29) H 01/24/18 02:30 BUN 37 mg/dL (8-23) H 01/24/18 02:30 Creatinine 3.98 mg/dL (0.70-1.30) H 01/24/18 02:30 Est GFR ( Amer) 18 (> 60) L 01/24/18 02:30 Est GFR (Non-Af Amer) 15 (> 60) L 01/24/18 02:30 Glucose 118 mg/dL (70-105) H 01/24/18 02:30 POC Glucose 128 mg/dL (70-99) H 01/23/18 23:26 Calcium 7.8 mg/dL (8.6-10.3) L 01/24/18 02:30 Magnesium 2.7 mg/dL (1.6-2.6) H 01/22/18 11:31 Total Bilirubin 0.2 mg/dL (0.3-1.0) L 01/22/18 11:31 Alkaline Phosphatase 120 Units/L (34-104) H 01/22/18 11:31 Troponin I 0.05 ng/mL (< 0.04) H* 01/22/18 10:21 Albumin 2.5 g/dL (3.5-5.7) L 01/22/18 11:31 Globulin 5.6 g/dL (2.4-3.5) H 01/22/18 11:31 Albumin/Globulin Ratio 0.4 (1.1-2.2) L 01/22/18 11:31 Staphylococcus sp PCR DETECTED (Not Detect) A 01/22/18 10:08 Staph aureus (PCR) DETECTED (Not Detect) A 01/22/18 10:08 mecA-Methicil Res Gene DETECTED (Not Detect) A 01/22/18 10:08 - Microbiology Findings Microbiology Findings: Microbiology, Last 48 Hours 01/23/18 00:26 Sputum Culture - Preliminary Sputum Gram Negative [facility] - Clinical Findings Intake & Output: Intake & Output 01/23/18 01/24/18 01/24/18 23:59 07:59 15:59 Intake Total 250 / 250 100 / 100 Output Total 500 / 500 0 / 0 Balance -250 / -250 100 / 100 Weight 137.7 kg
[2018-01-24] MEDS: Famotidine 20 MG TABLET PO SCH (09:22)
[2018-01-24] MEDS: Bisacodyl 10 MG RECTAL SUPPOSITORY RC SCH (09:24)
[2018-01-24 09:32] LABS: Hematocrit 30.2 % (37.5-50.1); Hemoglobin 9.1 g/dL (12.9-16.9)
[2018-01-24 09:36] LABS: INR 1.7; Prothrombin Time 18.9 Seconds (9.4-12.1)
[2018-01-24] MEDS ORDERED: Heparin 1,000 UNITS/500 mL 500 ML ONE (11:17)
--- NOTE | 2018-01-24 11:46 | Infectious Disease Progress No ---
Date of Encounter: 01/24/18 Time of Encounter: 11:43 - Assessment and Plan (1) Leukocytosis Current Visit: Yes Status: Resolved WBC 11.6 on arrival. Likely multifactorial: bacteremia, PNA, mastoiditis. Resolved. Continue to trend. Qualifiers: Leukocytosis type: unspecified Qualified Code(s): D72.829 - Elevated white blood cell count, unspecified (2) Bacteremia Current Visit: Yes Status: Acute Causative organism: MRSA. Source unclear, but potential sources include Perma-cath, mastoiditis, decubitus ulcers, or PNA. Blood cultures drawn 01/20/18 are positive 1/1 set for MRSA. Repeat blood cultures drawn 01/22/18 are positive 2/2 sets for MRSA per PCR. Both were drawn peripherally. No cultures were obtained from the Perma-cath, which was discontinued 01/23/18. Catheter tip was not sent for culture. Uncomplicated. No endocarditis stigmata noted on exam. The patient has one major and no minor Modified Barrios's Criteria. Repeat blood cultures x 2 sets drawn 01/23/18 are pending. Check rheumatoid factor. Add to AM labs. Scheduled for insertion of temporary HD line later today. TTE negative for vegetations. Will need GODWIN prior to discharge. Continue Vancomycin IV. Pharmacy to dose. Goal trough ~15. Duration of treatment depends on the clinical picture. Will likely be able to give Vancomycin with HD when the patient is discharged. Monitor for drug toxicity and dose-adjust antibiotics. (3) Mastoiditis Current Visit: Yes Status: Acute Causative organism: unclear. CT head shows findings consistent with left mastoiditis. ENT consulted. Continue Vancomycin as above. Continue Cefepime 1 gram IV daily. Duration of treatment depends on the clinical picture. Qualifiers: Laterality: left Qualified Code(s): H70.92 - Unspecified mastoiditis, left ear (4) Sinusitis Current Visit: Yes Status: Acute CT head shows bilateral maxillary sinusitis. Causative organism unclear. Continue antibiotics as above. Qualifiers: Sinusitis location: maxillary Chronicity: acute Recurrence: non- recurrent Qualified Code(s): J01.00 - Acute maxillary sinusitis, unspecified (5) Pneumonia Current Visit: Yes Status: Suspected CXR shows bilateral airspace opacities concerning for PNA vs. edema. CT chest shows multifocal pneumonia. Clinically, the patient denies shortness of breath or cough. He does have some thin yellow secretions from his trach. Check S. pneumo and Legionella UAT. Sputum culture positive for GNR, presumptively PSEA. Continue antibiotics as above for now. Duration of treatment depends on the clinical picture. Qualifiers: Pneumonia type: due to unspecified organism Laterality: unspecified laterality Lung location: unspecified part of lung Qualified Code(s): J18.9 - Pneumonia, unspecified organism (6) Bradycardia Current Visit: Yes Status: Resolved Cardiology consulted and following. (7) Trismus Current Visit: Yes Status: Acute Etiology unclear. CT neck negative. ENT consulted and following. (8) Anemia in CKD (chronic kidney disease) Current Visit: Yes Status: Acute Qualifiers: Chronic kidney disease stage: on chronic dialysis Qualified Code(s): N18.6 - End stage renal disease; D63.1 - Anemia in chronic kidney disease; D63.1 - Anemia in chronic kidney disease; Z99.2 - Dependence on renal dialysis; Z99.2 - Dependence on renal dialysis; Z99.2 - Dependence on renal dialysis; Z99.2 - Dependence on renal dialysis (9) ESRD (end stage renal disease) on dialysis Current Visit: Yes Status: Acute Nephrology consulted and following. Scheduled for temporary HD line insertion today. (10) Chronic respiratory failure Current Visit: Yes Status: Acute Chronic tracheostomy since September 2017. Management per the pulmonology team. Qualifiers: Respiratory failure complication: unspecified whether with hypoxia or hypercapnia Qualified Code(s): J96.10 - Chronic respiratory failure, unspecified whether with hypoxia or hypercapnia - Subjective Interval history: Patient seen and examined. No acute events noted overnight. Patient awake and alert and has a speaking valve, some able to obtain some information from him. He states overall he feels okay this morning. He continues to complain of left jaw pain and difficulty opening his mouth. He denies any fevers or chills or rigors. He denies any chest pain or shortness of breath or cough. He denies any nausea or vomiting or diarrhea. He denies any abdominal pain. He states he feels hungry. He states he does typically void if he drinks a lot of water, but otherwise is anuric. He complains of pain in his bilateral stumps. He denies any back pain. He denies any oral thrush or new skin lesions. Infect Dis PN-Objective Data - Labs CBC & Chem 7: 01/24/18 06:15 01/24/18 02:30 Labs: Laboratory Results - last 24 hr 01/22/18 01/23/18 01/23/18 16:56 05:31 11:28 WBC RBC Hgb Hct MCV MCH MCHC RDW Plt Count MPV Immature Gran % Seg Neutrophils % Lymphocytes % Monocytes % Eosinophils % Basophils % Neutrophils # Lymphocytes # Monocytes # Eosinophils # Basophils # PT INR Sodium Potassium Chloride Carbon Dioxide BUN Creatinine Est GFR ( Amer) Est GFR (Non-Af Amer) BUN/Creatinine Ratio Glucose POC Glucose 158 H 87 Calculated Osmolality Calcium Random Vancomycin Blood Type O POSITIVE Antibody Screen NEGATIVE 01/23/18 01/23/18 01/24/18 15:36 23:26 02:30 WBC RBC Hgb Hct MCV MCH MCHC RDW Plt Count MPV Immature Gran % Seg Neutrophils % Lymphocytes % Monocytes % Eosinophils % Basophils % Neutrophils # Lymphocytes # Monocytes # Eosinophils # Basophils # PT 22.3 H INR 2.0 Sodium Potassium Chloride Carbon Dioxide BUN Creatinine Est GFR ( Amer) Est GFR (Non-Af Amer) BUN/Creatinine Ratio Glucose POC Glucose 128 H Calculated Osmolality Calcium Random Vancomycin 19 Blood Type Antibody Screen 01/24/18 01/24/18 01/24/18 02:30 02:30 06:15 WBC 10.1 RBC 2.82 L Hgb 8.5 L D 9.1 L Hct 27.3 L 30.2 L MCV 96.8 MCH 30.1 MCHC 31.1 L RDW 14.5 Plt Count 302 MPV 8.7 L Immature Gran % 0.3 Seg Neutrophils % 68.6 Lymphocytes % 20.9 Monocytes % 7.2 Eosinophils % 2.9 Basophils % 0.1 Neutrophils # 6.9 Lymphocytes # 2.1 Monocytes # 0.7 Eosinophils # 0.3 Basophils # 0.0 PT INR Sodium 138 Potassium 3.9 Chloride 104 Carbon Dioxide 30 H BUN 37 H Creatinine 3.98 H Est GFR ( Amer) 18 L Est GFR (Non-Af Amer) 15 L BUN/Creatinine Ratio 9 Glucose 118 H POC Glucose Calculated Osmolality 296 Calcium 7.8 L Random Vancomycin Blood Type Antibody Screen 01/24/18 06:42 WBC RBC Hgb Hct MCV MCH MCHC RDW Plt Count MPV Immature Gran % Seg Neutrophils % Lymphocytes % Monocytes % Eosinophils % Basophils % Neutrophils # Lymphocytes # Monocytes # Eosinophils # Basophils # PT 18.9 H INR 1.7 Sodium Potassium Chloride Carbon Dioxide BUN Creatinine Est GFR ( Amer) Est GFR (Non-Af Amer) BUN/Creatinine Ratio Glucose POC Glucose Calculated Osmolality Calcium Random Vancomycin Blood Type Antibody Screen Cultures: Cultures 01/23/18 15:36 Blood Culture - Preliminary Peripheral Venipuncture Gram Positive Cocci 01/23/18 00:26 Sputum Culture - Preliminary Sputum Gram Negative Otis Serology 01/22/18 Range/Units 16:56 Hep Bs Antigen Nonreactive (Nonreactive) Hep Bs Antibody 0.32 mIU/mL - Impressions Impressions Guidance Ultrasound 01/23/18 00:00 IMPRESSION: Successful tunneled right internal jugular hemodialysis catheter removal Unsuccessful attempted right internal jugular temporary hemodialysis catheter placement using ultrasound guidance D/ / Cesar Rosario MD / Cesar Rosario MD Interpreting Provider: Cesar Rosario MD Incomplete Interventional Procedure 01/23/18 00:00 IMPRESSION: As above RECOMMENDATIONS: As above D/ / Cesar Rosario MD / Cesar Rosario MD Interpreting Provider: Cesar Rosario MD Tunnelled Catheter Removal 01/23/18 00:00 IMPRESSION: Successful tunneled right internal jugular hemodialysis catheter removal Unsuccessful attempted right internal jugular temporary hemodialysis catheter placement using ultrasound guidance D/ / Cesar Rosario MD / Cesar Rosario MD Interpreting Provider: Cesar Rosario MD Soft Tissue Neck CT 01/23/18 13:09 IMPRESSION: No acute abnormality of the soft tissue structures of the neck. D/ / 01/23/2018 15:20:57 Aamir Shields MD / mars Interpreting Provider: Aamir Shields MD Chest CT 04/17/18 13:48 IMPRESSION: 1. Bilateral lower lobe consolidations with air bronchograms and infiltrates in the upper lobes as well suggesting multilobar pneumonia. 2. Multiple mediastinal lymph nodes with an enlarged 14 mm subcarinal lymph node. Given the airspace disease in the lungs bilaterally this most likely represents reactive lymph nodes. The findings were sent to the Radiology Results Communication [facility] at 3:35 pm on 01/23/2018to be communicated to a licensed caregiver. D/ / 01/23/2018 15:39:26 Jas Piedra MD / drew Interpreting Provider: Jas Piedra MD Exam - Constitutional Vitals: Temp Pulse Resp BP Pulse Ox 97.6 F 45 20 104/47 100 01/24/18 08:00 01/24/18 08:00 01/24/18 08:00 01/24/18 08:00 01/24/18 08:00 General appearance: cooperative, morbidly obese, no acute distress - Head Head exam: Present: atraumatic, normal inspection, normocephalic - Eye Eye exam: Present: EOMI, normal appearance, PERRL Pupils: Present: normal accommodation Additional comments: No subconjunctival hemorrhage noted. - ENT ENT exam: Present: mucous membranes moist Additional comments: Poor dentition noted. Difficulty opening the mouth due to left jaw pain. - Neck Neck exam: Present: normal inspection - Respiratory Respiratory exam: Present: rhonchi (Throughout). Absent: rales, respiratory distress, wheezes Additional comments: Tracheostomy midline with O2 via trach mask. - Cardiovascular Cardiovascular exam: Present: RRR, +S1, +S2 - GI/Abdominal GI/Abdominal exam: Present: distended (obese), normal bowel sounds, soft. Absent: tenderness Additional comments: PEG tube noted to the LUQ, currently clamped. - Extremities Exam Additional comments: Right AKA stump and L BKA stump without redness, warmth, erythema, or edema. - Back Exam Back exam: Present: normal inspection. Absent: paraspinal tenderness, vertebral tenderness - Neurological Exam Neurological exam: Present: alert, oriented X3, no focal deficits - Psychiatric Psychiatric exam: Present: normal affect, normal mood - Skin Skin exam: Present: dry, intact, normal color, warm Additional comments: No endocarditis stigmata noted. - Additional findings Additional findings: Dressing noted x2 to the right upper chest with guaze dressings C/D/I. Consult Discharge Plan - Plan Referrals: Harrison Mai MD [Primary Care Provider] - - Attending Attestation I examined this patient and my medical decision-making was reviewed with the Resident Physician. I agree with the documented findings, disposition and treatment plan as described except to the extent set forth below.
[2018-01-24] MEDS ORDERED: *HR* Heparin 5,000 UNIT/ML VIAL ONE (11:58)
--- NOTE | 2018-01-24 12:26 | IR Procedure Note ---
Date of procedure: 01/24/18 Consent Obtained: Verbal consent Timeout: Correct patient and procedure verified, Time out performed, Skin prep completed Local anesthetic: Lidocaine 1% Indications: ARF Procedure Performed: Temp dialysis catheter placement Was there an information assistant present: No Results/Findings: RIJ 15.5F 20 cm temp dialysis catheter placement Estimated blood loss (cc): 0 Complications: None; Tolerated procedure well Post Procedure Treatment Plan: Monitor on floor Specimen: None
[2018-01-24] MEDS ORDERED: *HR* Midazolam HCl 2 MG/2 ML VIAL ONE ×3 (14:32→15:36)
[2018-01-24] MEDS ORDERED: *HR* FentaNYL (PF) 100 MCG/2 ML VIAL ONE ×2 (14:33→15:07)
[2018-01-24] MEDS ORDERED: *HR* Rocuronium Bromide 50 MG/5 ML VIAL IVP ONE (14:42)
[2018-01-24] MEDS: FentaNYL (PF) 1,000 MCG in 0.9 % Sodium Chloride 80 ML IVC SCH (16:00)
[2018-01-24] MEDS ORDERED: *HR* FentaNYL (PF) 100 MCG/2 ML VIAL IVP ONE ×2 (16:01)
[2018-01-24] MEDS ORDERED: *HR* Midazolam HCl 2 MG/2 ML VIAL IVP ONE ×3 (16:01→16:05)
--- NOTE | 2018-01-24 16:55 | Event Note ---
Date of Encounter: 01/24/18 Time of Encounter: 15:45 - Cardiology Event Note Attempted to see pateint at bedside, however procedure in progress. Telemetry reviewed with intermittent junctional bradycardia and sinus pauses noted. Continue to hold AV pina blockers. REcommend dopamine drip as needed. Full progress noted to be completed tomorrow. Will continue to monitor.
[2018-01-24] MEDS ORDERED: 0.9 % Sodium Chloride 1,000 ML ONE (17:55)
[2018-01-24] MEDS ORDERED: Vancomycin 500 MG in 0.9 % Sodium Chloride Mini Bag 100 ML IVPB ONE (18:00)
[2018-01-24 18:40] LABS: Hematocrit 27.1 % (37.5-50.1); Hemoglobin 8.5 g/dL (12.9-16.9)
[2018-01-24] MEDS ORDERED: *HR* Heparin 10,000 UNIT/10 ML VIAL IV PRN (19:54)
[2018-01-24] MEDS ORDERED: 0.9 % Sodium Chloride 2,000 ML ONE (20:43)
[2018-01-24] MEDS: Norepinephrine 4 MG in D5% in Water 250 ML IVC SCH (20:55)
[2018-01-24] MEDS: Cefepime HCl 1,000 MG in Water for inj. (sterile) 20 ML 10 ML IVP SCH (23:38)
[2018-01-24] MEDS: *HR* Heparin 5,000 UNIT/ML VIAL SQ SCH (23:39)
[2018-01-25] MEDS: *HR* Heparin 5,000 UNIT/ML VIAL SQ SCH ×2 (05:55→18:02)
--- NOTE | 2018-01-25 06:01 | Pulmonology Progress Note ---
<JoesphYahir W - Last Filed: 01/25/18 10:08> Date of Encounter: 01/25/18 Objective PUL Vital signs: Last Vital Signs Temp 97.4 F L 01/25/18 03:17 Pulse 42 01/25/18 06:00 Resp 12 01/25/18 06:00 BP 118/59 01/25/18 06:00 Pulse Ox 99 01/25/18 06:00 Results - Laboratory Findings CBC and BMP: 01/25/18 06:00 01/25/18 06:00 PT/INR, D-dimer PT 18.9 Seconds (9.4-12.1) H 01/24/18 06:42 Abnormal lab findings: Abnormal lab results RBC 2.49 M/mcL (4.19-5.50) L 01/25/18 06:00 Hgb 7.4 g/dL (12.9-16.9) L 01/25/18 06:00 Hct 24.2 % (37.5-50.1) L 01/25/18 06:00 MCHC 30.6 g/dL (31.6-35.5) L 01/25/18 06:00 RDW 14.9 % (11.5-14.5) H 01/25/18 06:00 MPV 8.6 fL (9.4-12.4) L 01/25/18 06:00 Nucleated RBCs/100 WBC 0.2 /100 WBC (0) H 01/22/18 10:21 PT 18.9 Seconds (9.4-12.1) H 01/24/18 06:42 APTT 40.1 Seconds (26.0-36.0) H 01/22/18 10:21 Carbon Dioxide 31 mEq/L (23-29) H 01/25/18 06:00 Creatinine 2.35 mg/dL (0.70-1.30) H 01/25/18 06:00 Est GFR ( Amer) 34 (> 60) L 01/25/18 06:00 Est GFR (Non-Af Amer) 28 (> 60) L 01/25/18 06:00 POC Glucose 109 mg/dL (70-99) H 01/24/18 23:09 Calcium 7.7 mg/dL (8.6-10.3) L 01/25/18 06:00 Magnesium 2.7 mg/dL (1.6-2.6) H 01/22/18 11:31 Total Bilirubin 0.2 mg/dL (0.3-1.0) L 01/22/18 11:31 Alkaline Phosphatase 120 Units/L (34-104) H 01/22/18 11:31 Troponin I 0.05 ng/mL (< 0.04) H* 01/22/18 10:21 Albumin 2.5 g/dL (3.5-5.7) L 01/22/18 11:31 Globulin 5.6 g/dL (2.4-3.5) H 01/22/18 11:31 Albumin/Globulin Ratio 0.4 (1.1-2.2) L 01/22/18 11:31 Staphylococcus sp PCR DETECTED (Not Detect) A 01/22/18 10:08 Staph aureus (PCR) DETECTED (Not Detect) A 01/22/18 10:08 mecA-Methicil Res Gene DETECTED (Not Detect) A 01/22/18 10:08 - Microbiology Findings Microbiology Findings: Microbiology, Last 48 Hours 01/23/18 00:26 Sputum Culture - Final Sputum Pseudomonas aeruginosa 01/23/18 15:36 Blood Culture - Preliminary Peripheral Venipuncture Gram Positive Cocci 01/23/18 15:36 Blood Culture - Preliminary Peripheral Venipuncture Gram Positive Cocci - Clinical Findings Intake & Output: Intake & Output 01/24/18 01/25/18 01/25/18 23:59 07:59 15:59 Intake Total 1825 / 1825 Output Total 2600 / 2600 0 / 0 Balance -775 / -775 0 / 0 Weight 137.03 kg Consult Discharge Plan - Plan Referrals: Harrison Mai MD [Primary Care Provider] - - Attending Attestation I examined this patient and my medical decision-making was reviewed with the Resident Physician. I agree with the documented findings, disposition and treatment plan as described except to the extent set forth below. We independently had [id number] contact with the patient Patient seen and examined at bedside Labs, radiology, chart personally reviewed. Management was reviewed during multidisciplinary critical care rounds. [employer]IP[employer]: Awkae and alert. Pain better controlled today. No deficits Pulm: Stable oxygenation on Trach collar. Cards: Continues to have bradycardia with longer/more frequent pauses today place back on low dose dopamine and now stable. GODWIN yesterday without evidence of endocarditis FEN-GI:ADAT today start PPI Renal: ESRD nephro following dialysis through temp HD cath per schedule ID: MRSA bacteremia on Vanc ID following. PSDA tracheitis sens to cefepime will cont. Heme/Onc: DVT prophylaxis given chronic anemia without evidence of over hemorrhage Endo: Glucose Monitored Integ/MSK: Skin Care per routine ICU Nursing Protocol to prevent ulcers. Lines: All lines examined without evidence of infection : Dispo: Stable for Step Down. CODE: Full. <Jas Cormier - Last Filed: 01/25/18 11:12> Date of Encounter: 01/25/18 Time of Encounter: 08:00 Assessment and Plan (1) Sepsis Current Visit: Yes Status: Acute Sepsis secondary to MRSA bacteremia and likely Pseudomonas pneumonia The patient has sepsis with hypotension Blood cultures repeatedly positive for MRSA, sputum sample grew Pseudomonas sensitive to cefepime Currently on cefepime and vancomycin day 4 Hypotension continues to improve with gentle IVF administration Infectious diseases on board, appreciate recommendations Plan: -Continue Vanc/Cefepime Day 4 -May benefit from additional volume resuscitation -This patient is appropriate to transfer to step-down status Qualifiers: Sepsis type: methicillin resistant Staphylococcus aureus Qualified Code(s) : A41.02 - Sepsis due to Methicillin resistant Staphylococcus aureus (2) Bradycardia Current Visit: Yes Status: Resolved Atrial fibrillation with slow ventricular response The patient was apparently seen at [facility] for similar symptoms previously He is asymptomatic at this time, however heart rate has dropped to below 30bpm EKG demonstrates A. fib with slow ventricular response and incomplete right bundle branch block We did start the patient on dopamine which increases heart rate and converted him to sinus rhythm Consult to cardiology - Appreciate recommendations Plan: -Cardiology consult in place -Dopamine as needed for unstable bradycardia with hypotension -GODWIN does not sow obvious infectious or structural abnormality suspicious for the origin of bradycardia -Per cardiology, patient will likely require pacer following clearance of blood cultures (3) Anemia Current Visit: Yes Status: Acute Anemia, Likely acute on chronic The patient has had precipitous drop in Hgb over stay, MCV is high normal Volume status certainly can explain some of this drop There is no obvious source of bleeding at this time I suspect that chronic kidney disease is ultimately the source Patient remains asymptomatic with regard to this anemia I will check Vitamin B12, MMA, Folate, and Iron Profile Consider GI source if the Hgb continues to drop Qualifiers: Anemia type: unspecified type Qualified Code(s): D64.9 - Anemia, unspecified (4) MRSA (methicillin resistant staph aureus) culture positive Current Visit: Yes Status: Acute MRSA bacteremia on routine culture, redemonstrated on repeat Patient does have hemodialysis to the ESRD on Monday and Monday Patient is Afebrile, WBC 11.0, up from prior day We will continue the patient on cefepime and vancomycin -GODWIN did not show significant valvular disease or presence of vegetations Plan: -Continue antibiotics, Vancomycin and cefepime Day 4 -Consult to Nephrology for HD management and guidance on access requirements -Consult to ID for recommendations on complex management (5) Pneumonia Current Visit: Yes Status: Suspected Hospital Acquired Pneumonia The patient is having increased secretions per trach and cough Sputum culture grows pseudomonas, sensitive to Cefepime We will continue to treat with broad spectrum antibiotics Cefepime Day 4 Vancomycin Day 4 Patient says he feels about the same as yesterday, he sounds more rhonchorous than he did previously Continue to monitor respiratory status, airway suction as needed Qualifiers: Pneumonia type: due to unspecified organism Laterality: unspecified laterality Lung location: unspecified part of lung Qualified Code(s): J18.9 - Pneumonia, unspecified organism (6) ESRD (end stage renal disease) on dialysis Current Visit: Yes Status: Acute ESRD on HD The patient had successful insertion of right internal jugular central venous catheter used for temporary hemodialysis HD removed 2.6L yesterday without complication Renal function appears otherwise stable (7) Left ear pain Current Visit: Yes Status: Acute Subjective complaint of left ear pain No obvious tissue abnormalities, bilateral TMs are clear There is a preauricular fullness that did not appear on prior exam Still, the patient is having trismus associated with this CT Head demonstrates air cells which may be consistent with mastoiditis ENT does not believe that this is a structural or infectious problem We will give PRN SL Oxycodone and IV Acetaminophen for pain management Plan: -Improved from prior day -Continue to manage pain (8) Trismus Current Visit: Yes Status: Acute Trismus, associated with left ear pain The patient is able to open his mouth only partially Assessment as above (9) DVT prophylaxis Current Visit: Yes Status: Acute Patient is anticoagulated with warfarin at home, however is subtherapeutic due to necessity for procedures We will start the patient on subcutaneous heparin Subjective Principal diagnosis: MRSA Bacteremia Interval history: The patient is resting in bed at time of examination. He is still having left facial pain and difficulty opening his mouth. He had no significant clinical changes overnight. Objective PUL Vital signs: Last Vital Signs Temp 97.4 F L 01/25/18 03:17 Pulse 49 01/25/18 03:46 Resp 14 01/25/18 03:00 BP 104/67 01/25/18 03:00 Pulse Ox 100 01/25/18 03:00 Gen: Vitals noted. No acute distress but appears uncomfortable. AAOx3 HEENT: Pupils equal/EOMI, oropharynx difficult to asses, Normocephalic, atraumatic. Patient cannot fully open mouth secondary to left jaw pain, however he does open it slightly more than he did previously. Neck: Supple. No adenopathy. Tracheostomy in place with normal appearing surrounding tissue Cardiac: Irregularly irregular and slow, no murmur, rubs or gallops, +S1/S2 Pulmonary: mild rhochi are heard on examination, improved from prior Abdomen: soft, nontender, BS noted, no guarding. PEG tube in place without necrosis or abnormality in the surrounding tissue MSK: ROM intact, no joint swelling noted. Left BKA and Right AKA without obvious edema Extremities: no BLE edema, no cyanosis or clubbing Neuro: moves all extremities, no focal deficits Psych: Appropriate mood and behavior Results - Laboratory Findings CBC and BMP: 01/25/18 06:00 01/25/18 06:00 PT/INR, D-dimer PT 18.9 Seconds (9.4-12.1) H 01/24/18 06:42 Abnormal lab findings: Abnormal lab results RBC 2.82 M/mcL (4.19-5.50) L 01/24/18 02:30 Hgb 8.5 g/dL (12.9-16.9) L 01/24/18 18:20 Hct 27.1 % (37.5-50.1) L 01/24/18 18:20 MCHC 31.1 g/dL (31.6-35.5) L 01/24/18 02:30 MPV 8.7 fL (9.4-12.4) L 01/24/18 02:30 Nucleated RBCs/100 WBC 0.2 /100 WBC (0) H 01/22/18 10:21 PT 18.9 Seconds (9.4-12.1) H 01/24/18 06:42 APTT 40.1 Seconds (26.0-36.0) H 01/22/18 10:21 Carbon Dioxide 30 mEq/L (23-29) H 01/24/18 02:30 BUN 37 mg/dL (8-23) H 01/24/18 02:30 Creatinine 3.98 mg/dL (0.70-1.30) H 01/24/18 02:30 Est GFR ( Amer) 18 (> 60) L 01/24/18 02:30 Est GFR (Non-Af Amer) 15 (> 60) L 01/24/18 02:30 Glucose 118 mg/dL (70-105) H 01/24/18 02:30 POC Glucose 109 mg/dL (70-99) H 01/24/18 23:09 Calcium 7.8 mg/dL (8.6-10.3) L 01/24/18 02:30 Magnesium 2.7 mg/dL (1.6-2.6) H 01/22/18 11:31 Total Bilirubin 0.2 mg/dL (0.3-1.0) L 01/22/18 11:31 Alkaline Phosphatase 120 Units/L (34-104) H 01/22/18 11:31 Troponin I 0.05 ng/mL (< 0.04) H* 01/22/18 10:21 Albumin 2.5 g/dL (3.5-5.7) L 01/22/18 11:31 Globulin 5.6 g/dL (2.4-3.5) H 01/22/18 11:31 Albumin/Globulin Ratio 0.4 (1.1-2.2) L 01/22/18 11:31 Staphylococcus sp PCR DETECTED (Not Detect) A 01/22/18 10:08 Staph aureus (PCR) DETECTED (Not Detect) A 01/22/18 10:08 mecA-Methicil Res Gene DETECTED (Not Detect) A 01/22/18 10:08 - Microbiology Findings Microbiology Findings: Microbiology, Last 48 Hours 01/23/18 15:36 Blood Culture - Preliminary Peripheral Venipuncture Gram Positive Cocci 01/23/18 15:36 Blood Culture - Preliminary Peripheral Venipuncture Gram Positive Cocci 01/23/18 00:26 Sputum Culture - Preliminary Sputum Gram Negative Otis - Clinical Findings Intake & Output: Intake & Output 01/24/18 01/24/18 01/25/18 15:59 23:59 07:59 Intake Total 1825 / 1825 Output Total 2600 / 2600 0 / 0 Balance -775 / -775 0 / 0 Weight 137.03 kg
[2018-01-25 06:10] LABS: Basophils % 0.4 %; Eosinophils # 0.2 K/mcL (0.0-0.6); Eosinophils % 2.1 %; Hematocrit 24.2 % (37.5-50.1); Hemoglobin 7.4 g/dL (12.9-16.9); Immature Granulocytes % 0.2 % (0-4); Lymphocytes # 2.7 K/mcL (0.6-4.6); Lymphocytes % 24.3 %; Mean Corpuscular HGB Conc 30.6 g/dL (31.6-35.5); Mean Corpuscular Hemoglobin 29.7 pg (28.0-33.3); Mean Corpuscular Volume 97.2 fL (83.0-100.0); Mean Platelet Volume 8.6 fL (9.4-12.4); Monocytes # 0.6 K/mcL (0.0-1.3); Monocytes % 5.5 %; Neutrophils # 7.4 K/mcL (1.6-8.9); Platelet Count 178 K/mcL (140-400); Red Blood Count 2.49 M/mcL (4.19-5.50); Red Cell Distribution Width 14.9 % (11.5-14.5); Segmented Neutrophils % 67.5 %
[2018-01-25 06:28] LABS: Calcium 7.7 mg/dL (8.6-10.3); Potassium 3.7 mEq/L (3.5-5.1)
[2018-01-25] MEDS: OXYCODONE Oral CONC 10 MG/0.5 ML ORAL.SYG SL PRN ×2 (09:05→18:53)
[2018-01-25] MEDS: Famotidine 20 MG TABLET PO SCH (09:05)
[2018-01-25] MEDS: Bisacodyl 10 MG RECTAL SUPPOSITORY RC SCH (09:06)
[2018-01-25 09:46] LABS: % Iron Saturation 42 % (20-55); Iron 48 mcg/dL (65-175); Transferrin 82 mg/dL (203-362)
--- NOTE | 2018-01-25 10:06 | Infectious Disease Progress No ---
Date of Encounter: 01/25/18 Time of Encounter: 08:30 - Assessment and Plan (1) Leukocytosis Current Visit: Yes Status: Resolved WBC 11.6 on arrival. Likely multifactorial: bacteremia, PNA, mastoiditis. Resolved. Continue to trend. Qualifiers: Leukocytosis type: unspecified Qualified Code(s): D72.829 - Elevated white blood cell count, unspecified (2) Bacteremia Current Visit: Yes Status: Acute Causative organism: MRSA. Source unclear, but potential sources include Perma-cath, mastoiditis, decubitus ulcers, or PNA. Blood cultures drawn 01/20/18 are positive 1/1 set for MRSA. Repeat blood cultures drawn 01/22/18 are positive 2/2 sets for MRSA per PCR. Both were drawn peripherally. Repeat blood cultures drawn 01/23/18 are positive for GPC 2/2 sets. No cultures were obtained from the Perma-cath, which was discontinued 01/23/18. Catheter tip was not sent for culture. Uncomplicated. No endocarditis stigmata noted on exam. The patient has one major and no minor Modified Barrios's Criteria. Repeat blood cultures x 2 sets in the AM. Check rheumatoid factor. Add to AM labs. TTE negative for vegetations. GODWIN completed, but report not available. Continue Vancomycin IV. Pharmacy to dose. Goal trough ~15. Duration of treatment depends on the clinical picture. Will likely be able to give Vancomycin with HD when the patient is discharged. Monitor for drug toxicity and dose-adjust antibiotics. (3) Mastoiditis Current Visit: Yes Status: Acute Causative organism: unclear. CT head shows findings consistent with left mastoiditis. ENT consulted. Continue Vancomycin as above. Continue Cefepime 1 gram IV daily. Duration of treatment depends on the clinical picture. Qualifiers: Laterality: left Qualified Code(s): H70.92 - Unspecified mastoiditis, left ear (4) Sinusitis Current Visit: Yes Status: Acute CT head shows bilateral maxillary sinusitis. Causative organism unclear. Continue antibiotics as above. Qualifiers: Sinusitis location: maxillary Chronicity: acute Recurrence: non- recurrent Qualified Code(s): J01.00 - Acute maxillary sinusitis, unspecified (5) Pneumonia Current Visit: Yes Status: Suspected CXR shows bilateral airspace opacities concerning for PNA vs. edema. CT chest shows multifocal pneumonia. Clinically, the patient denies shortness of breath or cough. He does have some thin yellow secretions from his trach. Sputum culture positive for PSEA, sensitive to Cefepime. Continue antibiotics as above for now. Duration of treatment depends on the clinical picture. Qualifiers: Pneumonia type: due to unspecified organism Laterality: unspecified laterality Lung location: unspecified part of lung Qualified Code(s): J18.9 - Pneumonia, unspecified organism (6) Bradycardia Current Visit: Yes Status: Resolved Had episode this morning where telemetry would not register heartrate. Dopamine re-started. Cardiology consulted and following. (7) Trismus Current Visit: Yes Status: Acute Etiology unclear. CT neck negative. ENT consulted and following. (8) Anemia in CKD (chronic kidney disease) Current Visit: Yes Status: Acute Qualifiers: Chronic kidney disease stage: on chronic dialysis Qualified Code(s): N18.6 - End stage renal disease; D63.1 - Anemia in chronic kidney disease; D63.1 - Anemia in chronic kidney disease; Z99.2 - Dependence on renal dialysis; Z99.2 - Dependence on renal dialysis; Z99.2 - Dependence on renal dialysis; Z99.2 - Dependence on renal dialysis (9) ESRD (end stage renal disease) on dialysis Current Visit: Yes Status: Acute Nephrology consulted and following. Temporary HD line inserted 01/24/18. (10) Chronic respiratory failure Current Visit: Yes Status: Acute Chronic tracheostomy since September 2017. Management per the pulmonology team. Qualifiers: Respiratory failure complication: unspecified whether with hypoxia or hypercapnia Qualified Code(s): J96.10 - Chronic respiratory failure, unspecified whether with hypoxia or hypercapnia - Subjective Interval history: Patient seen and examined. No acute events noted overnight. Patient awake and alert, speaking valve has been removed due to hypoxia while wearing it. He states overall he feels okay this morning. He continues to complain of left jaw pain and difficulty opening his mouth. He denies any fevers or chills or rigors. He denies any chest pain or shortness of breath or cough. He denies any nausea or vomiting or diarrhea. He denies any abdominal pain. He states he feels hungry, but did not get a breakfast tray. He complains of pain in his bilateral stumps. He denies any back pain. He denies any oral thrush or new skin lesions. Has episode of profound bradycardia this morning where the telemetry would not register a heartrate, but patient was asymptomatic. Dopamine re-started. Per nursing, patient had GODWIN yesterday that did not show any vegetations on the valves. There was concern that there was something on the end of the temporary HD catheter and the HD nurse pulled a large clot from the line. Infect Dis PN-Objective Data - Labs CBC & Chem 7: 01/25/18 06:00 01/25/18 06:00 Labs: Laboratory Results - last 24 hr 01/24/18 01/24/18 01/24/18 05:47 18:20 23:09 WBC RBC Hgb 8.5 L Hct 27.1 L MCV MCH MCHC RDW Plt Count MPV Immature Gran % Seg Neutrophils % Lymphocytes % Monocytes % Eosinophils % Basophils % Neutrophils # Lymphocytes # Monocytes # Eosinophils # Basophils # Sodium Potassium Chloride Carbon Dioxide BUN Creatinine Est GFR ( Amer) Est GFR (Non-Af Amer) BUN/Creatinine Ratio Glucose POC Glucose 136 H 109 H Calculated Osmolality Calcium Iron % Saturation Transferrin Random Vancomycin 01/25/18 01/25/18 01/25/18 06:00 06:00 06:00 WBC 11.0 RBC 2.49 L Hgb 7.4 L Hct 24.2 L MCV 97.2 MCH 29.7 MCHC 30.6 L RDW 14.9 H Plt Count 178 MPV 8.6 L Immature Gran % 0.2 Seg Neutrophils % 67.5 Lymphocytes % 24.3 Monocytes % 5.5 Eosinophils % 2.1 Basophils % 0.4 Neutrophils # 7.4 Lymphocytes # 2.7 Monocytes # 0.6 Eosinophils # 0.2 Basophils # 0.0 Sodium 140 Potassium 3.7 Chloride 105 Carbon Dioxide 31 H BUN 18 Creatinine 2.35 H Est GFR ( Amer) 34 L Est GFR (Non-Af Amer) 28 L BUN/Creatinine Ratio 8 Glucose 87 POC Glucose Calculated Osmolality 291 Calcium 7.7 L Iron % Saturation Transferrin Random Vancomycin 19 01/25/18 08:43 WBC RBC Hgb Hct MCV MCH MCHC RDW Plt Count MPV Immature Gran % Seg Neutrophils % Lymphocytes % Monocytes % Eosinophils % Basophils % Neutrophils # Lymphocytes # Monocytes # Eosinophils # Basophils # Sodium Potassium Chloride Carbon Dioxide BUN Creatinine Est GFR ( Amer) Est GFR (Non-Af Amer) BUN/Creatinine Ratio Glucose POC Glucose Calculated Osmolality Calcium Iron 48 L % Saturation 42 Transferrin 82 L Random Vancomycin Cultures: Cultures 01/23/18 00:26 Sputum Culture - Final Sputum Pseudomonas aeruginosa 01/23/18 15:36 Blood Culture - Preliminary Peripheral Venipuncture Gram Positive Cocci 01/23/18 15:36 Blood Culture - Preliminary Peripheral Venipuncture Gram Positive Cocci Serology 01/22/18 Range/Units 16:56 Hep Bs Antigen Nonreactive (Nonreactive) Hep Bs Antibody 0.32 mIU/mL - Impressions Impressions Guidance Needle Placement Ultrasound 01/24/18 00:00 IMPRESSION: 1. Right internal jugular vein temporary dialysis catheter placement as discussed above. D/ / Rio Smith MD / Rio Smith MD Interpreting Provider: Rio Smith MD Insertion Non-Tunneled Catheter 01/24/18 00:00 IMPRESSION: 1. Right internal jugular vein temporary dialysis catheter placement as discussed above. D/ / Rio Smith MD / Rio Smith MD Interpreting Provider: Rio Smith MD Exam - Constitutional Vitals: Temp Pulse Resp BP Pulse Ox 97.8 F 55 19 130/62 98 01/25/18 08:00 01/25/18 09:00 01/25/18 09:00 01/25/18 09:00 01/25/18 09:00 General appearance: cooperative, morbidly obese, no acute distress - Head Head exam: Present: atraumatic, normal inspection, normocephalic - Eye Eye exam: Present: EOMI, normal appearance, PERRL Pupils: Present: normal accommodation Additional comments: No subconjunctival hemorrhage noted. - ENT ENT exam: Present: mucous membranes moist Additional comments: Unable to open mouth due to trismus. - Neck Neck exam: Present: normal inspection Additional comments: TDC noted to the right neck with transparent dressing C/D/I. - Respiratory Respiratory exam: Present: rhonchi (Throughout). Absent: rales, wheezes, tachypnea Additional comments: O2 via trach mask. - Cardiovascular Cardiovascular exam: Present: bradycardia. Absent: irregular rhythm, tachycardia - GI/Abdominal GI/Abdominal exam: Present: distended (obese), normal bowel sounds, soft. Absent: tenderness Additional comments: PEG tube noted to the LUQ, clamped. - Extremities Exam Extremities exam: Absent: joint swelling, pedal edema, tenderness Additional comments: Bilateral stumps without redness, warmth, or open sores. - Neurological Exam Neurological exam: Present: alert, oriented X3, no focal deficits - Psychiatric Psychiatric exam: Present: normal affect, normal mood - Skin Skin exam: Present: dry, intact, normal color, warm Additional comments: No endocarditis stigmata noted. Consult Discharge Plan - Plan Referrals: Harrison Mai MD [Primary Care Provider] - - Attending Attestation I examined this patient and my medical decision-making was reviewed with the Resident Physician. I agree with the documented findings, disposition and treatment plan as described except to the extent set forth below.
[2018-01-25 10:11] LABS: Folate 17.8 ng/mL (3.0-16.0)
[2018-01-25 10:13] LABS: Vitamin B12 > 1500 pg/mL (250-1100)
--- NOTE | 2018-01-25 10:18 | Nephrology Progress Note ---
Date of Encounter: 01/25/18 Time of Encounter: 10:16 - Assessment and Plan (1) ESRD (end stage renal disease) on dialysis Current Visit: Yes Status: Acute The patient will undergo dialysis again tomorrow. He will continue to be supported with a temporary dialysis catheter. He will not be able to have a tunnel dialysis catheter placed until his blood cultures are clear. He continues to have issues with sinus bradycardia. He may require a pacemaker at some point in the future. (2) Anemia in CKD (chronic kidney disease) Current Visit: Yes Status: Acute Qualifiers: Chronic kidney disease stage: on chronic dialysis Qualified Code(s): N18.6 - End stage renal disease; D63.1 - Anemia in chronic kidney disease; D63.1 - Anemia in chronic kidney disease; Z99.2 - Dependence on renal dialysis; Z99.2 - Dependence on renal dialysis; Z99.2 - Dependence on renal dialysis; Z99.2 - Dependence on renal dialysis (3) MRSA (methicillin resistant staph aureus) culture positive Current Visit: Yes Status: Acute (4) Tracheostomy care Current Visit: Yes Status: Acute Subjective Principal diagnosis: MRSA Bacteremia Interval history: The patient had a temporary dialysis catheter placed yesterday. He subsequently underwent dialysis yesterday. Today he is now back again on dopamine primarily because of bradycardia. His heart rate is been as low as 36. Current heart rate is 60 while on dopamine with a blood pressure 130/62. Blood cultures from January 23 are positive. Objective - Vital Signs Vital signs: Vital Signs Temp Pulse Pulse Pulse Pulse Pulse Resp 01/25/18 09:00 55 19 01/25/18 08:00 97.8 F 36 19 01/25/18 06:00 42 12 01/25/18 05:00 45 14 01/25/18 04:00 45 14 01/25/18 03:46 49 01/25/18 03:17 97.4 F L 01/25/18 03:00 46 14 01/25/18 02:00 51 19 01/25/18 01:00 52 18 01/25/18 00:00 52 19 01/24/18 23:10 98.0 F 11 01/24/18 23:06 98.0 F 01/24/18 23:05 01/24/18 23:00 48 20 01/24/18 22:50 01/24/18 22:35 01/24/18 22:20 01/24/18 22:05 01/24/18 22:00 51 14 01/24/18 21:50 01/24/18 21:35 01/24/18 21:20 01/24/18 21:05 01/24/18 21:00 65 12 01/24/18 20:50 01/24/18 20:35 01/24/18 20:20 01/24/18 20:05 01/24/18 20:00 67 12 01/24/18 19:50 01/24/18 19:35 01/24/18 19:32 98.0 F 01/24/18 19:20 01/24/18 19:05 98.0 F 12 01/24/18 19:00 78 12 01/24/18 18:00 47 19 01/24/18 17:00 70 18 01/24/18 16:21 18 01/24/18 16:14 98 98 89 84 01/24/18 16:00 98.1 F 65 18 01/24/18 15:00 73 22 01/24/18 14:45 58 21 01/24/18 13:30 49 21 01/24/18 12:17 67 20 01/24/18 11:00 50 20 Resp Resp Resp Resp BP BP BP 01/25/18 09:00 130/62 01/25/18 08:00 109/61 01/25/18 06:00 118/59 01/25/18 05:00 99/53 01/25/18 04:00 108/59 01/25/18 03:46 01/25/18 03:17 01/25/18 03:00 104/67 01/25/18 02:00 119/60 01/25/18 01:00 101/51 01/25/18 00:00 123/89 01/24/18 23:10 107/58 01/24/18 23:06 01/24/18 23:05 114/56 01/24/18 23:00 112/61 01/24/18 22:50 111/58 01/24/18 22:35 103/54 01/24/18 22:20 108/52 01/24/18 22:05 97/51 01/24/18 22:00 101/48 01/24/18 21:50 110/52 01/24/18 21:35 97/51 01/24/18 21:20 106/50 01/24/18 21:05 107/50 01/24/18 21:00 110/51 01/24/18 20:50 105/50 01/24/18 20:35 100/46 01/24/18 20:20 130/66 01/24/18 20:05 154/62 01/24/18 20:00 155/76 01/24/18 19:50 132/64 01/24/18 19:35 113/96 01/24/18 19:32 01/24/18 19:20 133/59 01/24/18 19:05 117/46 01/24/18 19:00 120/52 01/24/18 18:00 108/35 01/24/18 17:00 126/78 01/24/18 16:21 01/24/18 16:14 18 18 18 18 110/76 132/75 01/24/18 16:00 88/56 01/24/18 15:00 137/76 01/24/18 14:45 91/68 01/24/18 13:30 107/49 01/24/18 12:17 85/56 01/24/18 11:00 97/68 BP BP Pulse Ox 01/25/18 09:00 98 01/25/18 08:00 99 01/25/18 06:00 99 01/25/18 05:00 100 01/25/18 04:00 100 01/25/18 03:46 01/25/18 03:17 01/25/18 03:00 100 01/25/18 02:00 96 01/25/18 01:00 97 01/25/18 00:00 96 01/24/18 23:10 01/24/18 23:06 01/24/18 23:05 01/24/18 23:00 99 01/24/18 22:50 01/24/18 22:35 01/24/18 22:20 01/24/18 22:05 01/24/18 22:00 96 01/24/18 21:50 01/24/18 21:35 01/24/18 21:20 01/24/18 21:05 01/24/18 21:00 97 01/24/18 20:50 01/24/18 20:35 01/24/18 20:20 01/24/18 20:05 01/24/18 20:00 96 01/24/18 19:50 01/24/18 19:35 01/24/18 19:32 01/24/18 19:20 01/24/18 19:05 01/24/18 19:00 96 01/24/18 18:00 98 01/24/18 17:00 100 01/24/18 16:21 99 01/24/18 16:14 127/78 88/56 01/24/18 16:00 99 01/24/18 15:00 98 01/24/18 14:45 95 01/24/18 13:30 97 01/24/18 12:17 96 01/24/18 11:00 96 Intake and Output 01/24/18 01/25/18 01/25/18 23:59 07:59 15:59 Intake Total 1825 / 1825 0 / 0 Output Total 2600 / 2600 0 / 0 Balance -775 / -775 0 / 0 0 / 0 Intake: IV Fluids 1225 / 1225 0 / 0 ALBURX 5% 12.5 gm In 250 ml @ 1000 / 1000 60 mls/hr IVC .Q4H10M OVI Rx#: [id number] DOPamine Premix 400mg/250mL 400 225 / 225 0 / 0 mg In 250 ml @ 2.5 MCG/KG/MIN 12.332 mls/hr IVC .[id number] OVI Rx#:[id number] Oral 0 / 0 Intake, Rinseback and Flushes 600 / 600 Output: Urine 0 / 0 0 / 0 Total Dialysis (HD) Output 2600 / 2600 Other: Stool Size Small Stool Consistency soft Stool Color Brown Weight 137.03 kg Blood Glucose* 109 Hemodialysis Net Fluid Removed 2000 (mL) Patient Weight 01/25/18 23:59 Weight 137.03 kg - General Appearance Exam: Patient is in no acute distress. Lungs symmetric breath sounds otherwise clear. Heart regular rate and rhythm with a systolic murmur. Abdomen is obese. PEG tube is in place. There is a temperature dialysis catheter in the right internal jugular vein. Patient status post right AKA and left BKA. Trach collar is in place. - Lab 01/25/18 06:00 04/19/18 06:00 Most recent lab results Calcium 7.7 mg/dL (8.6-10.3) L 01/25/18 06:00 Phosphorus 3.2 mg/dL (2.7-4.5) 01/22/18 11:31 Magnesium 2.7 mg/dL (1.6-2.6) H 01/22/18 11:31 Consult Discharge Plan - Plan Referrals: Harrison Mai MD [Primary Care Provider] -
[2018-01-25] MEDS: Insulin LISPRO 300 UNITS/3 ML VIAL SQ SCH ×3 (12:00→23:43)
--- NOTE | 2018-01-25 12:09 | Cardiology Progress Note ---
Date of Encounter: 01/25/18 Time of Encounter: 11:00 Assessment and Plan (1) Bradycardia Current Visit: Yes Status: Resolved Per cardiology: -Patient presented with sepsis, positive blood cultures. ESRD on HD. -Recommend treatment of underlying sepsis, anticipate HR will recover as sepsis -Unclear when last dose of betablocker was administered. Recent increase in lopressor at [facility]. -Average HR previous 12 hours noted to be 47, intermittent junctional bradycardia. -6.1 second pause noted at 0834. Per RN at bedside, patient states felt "woosy" during pause. -ON dopamine at 3mch/kg/min. -Discussed and reviewed with , patient is not a good candidate for permanent pacemaker at this time due to persistent bacteremia. Possible need for pacemaker prior to discharge. -Recommend continuing dopamine as needed for HR. -Will continue to monitor. (2) PAF (paroxysmal atrial fibrillation) Current Visit: Yes Status: Acute Per cardiology: -Hx of PAF. On coumadin for AC. -INR supratherapeutic upon presentation. -Recommend goal INR 2-3. -Currently on hold for permacath change out. -Recommend resuming anticoagulation once able. Discussion w patient/family: The assessment and plan as outlined above was discussed with the patient who expressed understanding and agreement. All questions were answered. Thank you for involving us in the care of your patient. Please call with any questions. Discussed and reviewed with . Subjective Principal diagnosis: MRSA Bacteremia Interval history: Patient on trach collar this morning. Complains of mouth hurting. Denies current dizziness or lightheadedness. Objective Vital Signs, Last 4 Hours Pulse Resp BP Pulse Ox 01/25/18 10:00 54 19 108/60 94 01/25/18 09:00 55 19 130/62 98 General: Conversant, Other (On trach collar. Mouths words. ) HEENT: Atraumatic, Normocephaly, Mucus Membranes Moist Neck: No JVD, Normal carotid pulses Cardiac: Reg Rate and Rhythm, Normal S1 and S2, No Murmur Lungs: Other (Lung sounds coarse throughout. Trach collar. ) Neuro: Alert and responsive, No focal deficits noted, Other (Trach collar, mouth words. ) Abdomen: Soft, Non-Tender Skin: No rashes noted on visualized skin Musculoskeletal: No Chest Wall Tenderness Extremities: No Clubbing, No Cyanosis, Other (Bilateral amputee. ) Results 01/25/18 06:00 01/25/18 06:00 Lab Results Impressions Guidance Needle Placement Ultrasound 01/24/18 00:00 IMPRESSION: 1. Right internal jugular vein temporary dialysis catheter placement as discussed above. D/ / Rio Smith MD / Rio Smith MD Interpreting Provider: Rio Smith MD Insertion Non-Tunneled Catheter 01/24/18 00:00 IMPRESSION: 1. Right internal jugular vein temporary dialysis catheter placement as discussed above. D/ / Rio Smith MD / Rio Smith MD Interpreting Provider: Rio Smith MD Active Medications Acetaminophen (Tylenol) 650 mg PO Q6H PRN PRN Reason: pain 1-3 Stop: 07/25/18 09:01 Bisacodyl (Dulcolax) 10 mg RC DAILY [facility] Stop: 07/25/18 09:01 Last Admin: 01/25/18 09:06 Dose: 10 mg Darbepoetin Derrick (Aranesp) 60 mcg SQ QWEEK OVI Stop: 07/25/18 08:16 Last Admin: 01/23/18 10:12 Dose: 60 mcg Dextrose/Water (Dextrose 50% (Syg)) 25 ml IVP AD PRN PRN Reason: Hypoglycemia Stop: 07/24/18 17:05 Docusate Sodium (Colace) 100 mg GTUBE BID OVI PRN Reason: Protocol Stop: 07/27/18 11:16 Famotidine (Pepcid) 20 mg PO DAILY [facility] PRN Reason: Protocol Stop: 07/25/18 09:01 Last Admin: 01/25/18 09:05 Dose: 20 mg Glucagon (Glucagen) 1 mg IM ONCE PRN PRN Reason: Hypoglycemia Stop: 07/24/18 17:05 Glucose (Gluctose) 15 gm PO ONCE PRN PRN Reason: Hypoglycemia Stop: 07/24/18 17:05 Glucose (Gluctose) 30 gm PO ONCE PRN PRN Reason: Hypoglycemia Stop: 07/24/18 17:05 Heparin Sodium (Porcine) (Heparin Lock) 500 unit IV ONCE PRN PRN Reason: Port Flush while in RADIOLOGY Stop: 01/25/18 13:49 Heparin Sodium (Porcine) (Heparin) 5,000 unit SQ Q12HCO OVI Stop: 07/26/18 18:01 Last Admin: 01/25/18 05:55 Dose: 5,000 unit Heparin Sodium (Porcine) (Heparin) 0 unit IV ONCE PRN PRN Reason: Hemodialysis Catheter Packing Hydroxyzine Pamoate (Hydroxyzine Pamoate) 25 mg PO Q6H PRN PRN Reason: Itching Last Admin: 01/24/18 04:41 Dose: 25 mg Dopamine HCl/Dextrose (Dopamine Premix 400mg/250ml) 400 mg in 250 mls @ 12.332 mls/hr IVC .[id number] OVI; 2.5 MCG/KG/MIN PRN Reason: Protocol Stop: 07/24/18 16:16 Last Titration: 01/25/18 08:30 Dose: 3 mcg/kg/min, 14.798 mls/hr Dextrose (Dextrose 5%) 1,000 mls @ 100 mls/hr IVC .Q10H PRN PRN Reason: HYPOGLYCEMIA Stop: 07/24/18 17:05 Cefepime HCl 1,000 mg/ Sterile (Water) 10 mls @ 150 mls/hr IVP Q24H OVI Stop: 07/25/18 17:01 Last Admin: 01/24/18 23:38 Dose: 300 mls/hr Sodium Chloride (0.9 % Sodium Chloride) 250 mls @ 937.5 mls/hr IVC .Q16M PRN PRN Reason: Hypotension Stop: 07/26/18 08:22 Norepinephrine Bitartrate 4 mg (/ Dextrose) 254 mls @ 30.48 mls/hr IVC CONT OVI ; 8 MCG/MIN PRN Reason: Protocol Stop: 07/26/18 14:46 Last Admin: 01/24/18 20:55 Dose: Not Given Propofol (Diprivan) 1,000 mg in 100 mls @ 2.066 mls/hr IVC .Q24H OVI; 2.5 MCG/ KG/MIN PRN Reason: Protocol Stop: 07/26/18 14:46 Last Admin: 01/24/18 15:20 Dose: Not Given Fentanyl Citrate 1,000 mcg/ (Sodium Chloride) 100 mls @ 5 mls/hr IVC CONT OVI; 50 MCG/HR PRN Reason: Protocol Stop: 07/26/18 15:01 Last Admin: 01/24/18 16:00 Dose: Not Given Insulin Human Lispro (Humalog) 0 units SQ Q6HR OVI PRN Reason: Protocol Stop: 07/24/18 18:01 Last Admin: 01/24/18 23:42 Dose: Not Given Naloxone HCl (Narcan) 0.4 mg IVP Q2MIN PRN PRN Reason: SEE COMMENTS Stop: 07/24/18 13:42 Oxycodone HCl (Oxycodone Oral Conc) 10 mg SL Q4HR PRN; Protocol PRN Reason: Severe Pain Stop: 07/25/18 12:01 Last Admin: 01/25/18 09:05 Dose: 10 mg Oxycodone/Acetaminophen (Percocet 7.5/325) 1 each PO Q4HR PRN PRN Reason: Pain Stop: 07/24/18 17:04 Last Admin: 01/24/18 23:39 Dose: 1 each Quetiapine Fumarate (Seroquel) 50 mg PO BID OVI Stop: 07/24/18 21:01 Last Admin: 01/25/18 09:05 Dose: 50 mg Vancomycin HCl (Vancocin) 0 each IVPB AD PRN PRN Reason: SEE COMMENTS Stop: 07/24/18 20:04 Laboratory Tests 01/22/18 01/25/18 01/25/18 10:21 06:00 06:00 Hgb 10.8 L 7.4 L Potassium 3.7 Creatinine 2.35 H - Imaging and Cardiology Chest Xray: report reviewed Echo: report reviewed - EKG Interpretation EKG results cardiology: other (Telemetry reviewed with average HR previous 12 hours noted to be 47, intermittent junctional bradycardia. 6.1 second pause noted at 0834.) Consult Discharge Plan - Plan Referrals: Harrison Mai MD [Primary Care Provider] -
[2018-01-25] MEDS: Docusate Oral Soln 100 MG/10 ML UDC GTUBE SCH ×2 (15:44→19:58)
[2018-01-25 16:24] LABS: Hematocrit 27.6 % (37.5-50.1); Hemoglobin 8.4 g/dL (12.9-16.9)
[2018-01-25] MEDS: Norepinephrine 4 MG in D5% in Water 250 ML IVC SCH (19:41)
[2018-01-25] MEDS: FentaNYL (PF) 1,000 MCG in 0.9 % Sodium Chloride 80 ML IVC SCH (19:41)
[2018-01-25] MEDS: Cefepime HCl 1,000 MG in Water for inj. (sterile) 20 ML 10 ML IVP SCH (19:56)
[2018-01-26] MEDS: *HR* OxyCODONE/APAP 7.5/325 TABLET PO PRN (03:44)
[2018-01-26 04:08] LABS: Basophils # 0.1 K/mcL (0.0-0.2); Basophils % 0.5 %; Eosinophils # 0.4 K/mcL (0.0-0.6); Eosinophils % 4.6 %; Hematocrit 28.7 % (37.5-50.1); Hemoglobin 8.6 g/dL (12.9-16.9); Immature Granulocytes % 0.3 % (0-4); Lymphocytes # 2.5 K/mcL (0.6-4.6); Lymphocytes % 26.1 %; Mean Corpuscular Hemoglobin 29.3 pg (28.0-33.3); Mean Corpuscular Volume 97.6 fL (83.0-100.0); Mean Platelet Volume 8.6 fL (9.4-12.4); Monocytes # 0.8 K/mcL (0.0-1.3); Monocytes % 8.3 %; Neutrophils # 5.7 K/mcL (1.6-8.9); Platelet Count 229 K/mcL (140-400); Red Blood Count 2.94 M/mcL (4.19-5.50); Red Cell Distribution Width 14.5 % (11.5-14.5); Segmented Neutrophils % 60.2 %
[2018-01-26 04:27] LABS: Albumin 2.5 g/dL (3.5-5.7); Albumin/Globulin Ratio 0.5 (1.1-2.2); Bilirubin,Total 0.2 mg/dL (0.3-1.0); Calcium 8.2 mg/dL (8.6-10.3); Globulin 4.6 g/dL (2.4-3.5); Phosphorous 3.4 mg/dL (2.7-4.5); Potassium 3.9 mEq/L (3.5-5.1); Total Protein 7.1 g/dL (6.4-8.9)
[2018-01-26] MEDS: *HR* Heparin 5,000 UNIT/ML VIAL SQ SCH ×2 (05:30→19:05)
[2018-01-26] MEDS: Insulin LISPRO 300 UNITS/3 ML VIAL SQ SCH ×3 (05:30→19:02)
--- NOTE | 2018-01-26 07:01 | Pulmonology Progress Note ---
<JoesphYahir W - Last Filed: 01/26/18 10:10> Date of Encounter: 01/26/18 Objective PUL Vital signs: Last Vital Signs Temp 98.2 F 01/26/18 08:44 Pulse 62 01/26/18 08:44 Resp 12 01/26/18 08:44 BP 138/82 01/26/18 08:44 Pulse Ox 99 01/26/18 08:44 Results - Laboratory Findings CBC and BMP: 01/26/18 04:10 01/26/18 03:00 PT/INR, D-dimer PT 18.9 Seconds (9.4-12.1) H 01/24/18 06:42 Abnormal lab findings: Abnormal lab results RBC 2.94 M/mcL (4.19-5.50) L 01/26/18 04:10 Hgb 8.6 g/dL (12.9-16.9) L 01/26/18 04:10 Hct 28.7 % (37.5-50.1) L 01/26/18 04:10 MCHC 30.0 g/dL (31.6-35.5) L 01/26/18 04:10 MPV 8.6 fL (9.4-12.4) L 01/26/18 04:10 Nucleated RBCs/100 WBC 0.2 /100 WBC (0) H 01/22/18 10:21 PT 18.9 Seconds (9.4-12.1) H 01/24/18 06:42 APTT 40.1 Seconds (26.0-36.0) H 01/22/18 10:21 Creatinine 3.08 mg/dL (0.70-1.30) H 01/26/18 03:00 Est GFR ( Amer) 25 (> 60) L 01/26/18 03:00 Est GFR (Non-Af Amer) 20 (> 60) L 01/26/18 03:00 Glucose 152 mg/dL (70-105) H 01/26/18 03:00 POC Glucose 144 mg/dL (70-99) H 01/25/18 23:35 Calcium 8.2 mg/dL (8.6-10.3) L 01/26/18 03:00 Magnesium 2.7 mg/dL (1.6-2.6) H 01/22/18 11:31 Iron 48 mcg/dL (65-175) L 01/25/18 08:43 Transferrin 82 mg/dL (203-362) L 01/25/18 08:43 Total Bilirubin 0.2 mg/dL (0.3-1.0) L 01/26/18 03:00 Troponin I 0.05 ng/mL (< 0.04) H* 01/22/18 10:21 Albumin 2.5 g/dL (3.5-5.7) L 01/26/18 03:00 Globulin 4.6 g/dL (2.4-3.5) H 01/26/18 03:00 Albumin/Globulin Ratio 0.5 (1.1-2.2) L 01/26/18 03:00 Vitamin B12 > 1500 pg/mL (250-1100) H 01/25/18 08:43 Folate 17.8 ng/mL (3.0-16.0) H 01/25/18 08:43 Staphylococcus sp PCR DETECTED (Not Detect) A 01/22/18 10:08 Staph aureus (PCR) DETECTED (Not Detect) A 01/22/18 10:08 mecA-Methicil Res Gene DETECTED (Not Detect) A 01/22/18 10:08 - Microbiology Findings Microbiology Findings: Microbiology, Last 48 Hours 01/23/18 00:26 Sputum Culture - Final Sputum Pseudomonas aeruginosa 01/23/18 15:36 Blood Culture - Preliminary Peripheral Venipuncture Gram Positive Cocci 01/23/18 15:36 Blood Culture - Preliminary Peripheral Venipuncture Gram Positive Cocci - Clinical Findings Intake & Output: Intake & Output 01/25/18 01/26/18 01/26/18 23:59 07:59 15:59 Intake Total 250 / 250 610 / 610 Output Total 0 / 0 0 / 0 Balance 250 / 250 610 / 610 Weight 136.9 kg Consult Discharge Plan - Plan Referrals: Harrison Mai MD [Primary Care Provider] - (This patient is from an [facility] no PCP appointment needed) - Attending Attestation I examined this patient and my medical decision-making was reviewed with the Resident Physician. I agree with the documented findings, disposition and treatment plan as described except to the extent set forth below. We independently had [id number] contact with the patient Patient seen and examined at bedside Labs, radiology, chart personally reviewed. Management was reviewed during multidisciplinary critical care rounds. MANAGER RESEARCH DEVELOPMENT: No focal deficits cont to monitor for delirium Pulm: Chronic trach stable on trach collars PSDA tracheobronchitis on Tx. cont BPT Cards: Remains bradycardic on low dose dopamine cardiology following BP stable FEN-GI: ADAT Renal: ESRD on dialysis schedule through temp HD. Nephro following ID: MRSA bacteremia on Vanc ID following. Has not cleared blood yet. Heme/Onc: DVT prophylaxis with heparin restart warfarin for stroke prophylaxis Endo: Glucose Monitored Integ/MSK: Skin Care per routine ICU Nursing Protocol to prevent ulcers. Lines: All lines examined without evidence of infection : Dispo: Stable for traansfer to 2N CODE: Full. <Jas Cormier - Last Filed: 01/26/18 16:15> Date of Encounter: 01/26/18 Time of Encounter: 08:15 Assessment and Plan (1) Sepsis Current Visit: Yes Status: Acute Sepsis secondary to MRSA bacteremia and likely Pseudomonas pneumonia The patient has sepsis with hypotension Blood cultures repeatedly positive for MRSA, sputum sample grew Pseudomonas sensitive to cefepime Currently on cefepime and vancomycin day 5 Hypotension continues to improve with gentle IVF administration Infectious diseases on board, appreciate recommendations Plan: -Continue Vanc/Cefepime Day 5 -May benefit from additional volume resuscitation -This patient is appropriate to transfer to step-down status -Transferred care to hospitalist service, accepted by Dr. Stockton Qualifiers: Sepsis type: methicillin resistant Staphylococcus aureus Qualified Code(s) : A41.02 - Sepsis due to Methicillin resistant Staphylococcus aureus (2) Bradycardia Current Visit: Yes Status: Acute Atrial fibrillation with slow ventricular response The patient was apparently seen at [facility] for similar symptoms previously He is asymptomatic at this time, however heart rate has dropped to below 30bpm EKG demonstrates A. fib with slow ventricular response and incomplete right bundle branch block We did start the patient on dopamine which increases heart rate and converted him to sinus rhythm Consult to cardiology - Appreciate recommendations Plan: -Cardiology consult in place -Dopamine as needed for unstable bradycardia with hypotension -GODWIN does not sow obvious infectious or structural abnormality suspicious for the origin of bradycardia -Per cardiology, patient will likely require pacer following clearance of blood cultures (3) Anemia Current Visit: Yes Status: Acute Anemia, Likely acute on chronic The patient has had precipitous drop in Hgb over stay, MCV is high normal Volume status certainly can explain some of this drop There is no obvious source of bleeding at this time I suspect that chronic kidney disease is ultimately the source Patient remains asymptomatic with regard to this anemia I will check Vitamin B12, MMA, Folate, and Iron Profile Consider GI source if the Hgb continues to drop At this time H/H has remained stable Qualifiers: Anemia type: unspecified type Qualified Code(s): D64.9 - Anemia, unspecified (4) MRSA (methicillin resistant staph aureus) culture positive Current Visit: Yes Status: Acute MRSA bacteremia on routine culture, redemonstrated on repeat Patient does have hemodialysis to the ESRD on Monday and Monday Patient is Afebrile, WBC 11.0, up from prior day We will continue the patient on cefepime and vancomycin -GODWIN did not show significant valvular disease or presence of vegetations Plan: -Continue antibiotics, Vancomycin and cefepime Day 5 -Consult to Nephrology for HD management and guidance on access requirements -Consult to ID for recommendations on complex management -Repeat cultures today (5) Pneumonia Current Visit: Yes Status: Acute Hospital Acquired Pneumonia The patient is having increased secretions per trach and cough Sputum culture grows pseudomonas, sensitive to Cefepime We will continue to treat with broad spectrum antibiotics Cefepime Day 5 Vancomycin Day 5 Patient says he feels about the same as yesterday, he sounds more rhonchorous than he did previously Continue to monitor respiratory status, airway suction as needed Qualifiers: Pneumonia type: due to unspecified organism Laterality: unspecified laterality Lung location: unspecified part of lung Qualified Code(s): J18.9 - Pneumonia, unspecified organism (6) ESRD (end stage renal disease) on dialysis Current Visit: Yes Status: Acute ESRD on HD The patient had successful insertion of right internal jugular central venous catheter used for temporary hemodialysis HD removed 2.6L without complication, Repeat HD today Renal function appears otherwise stable (7) Left ear pain Current Visit: Yes Status: Acute Subjective complaint of left ear pain No obvious tissue abnormalities, bilateral TMs are clear Still, the patient is having trismus associated with this CT Head demonstrates air cells which may be consistent with mastoiditis ENT does not believe that this is a structural or infectious problem We will give PRN SL Oxycodone and IV Acetaminophen for pain management Plan: -Improved from prior day -Continue to manage pain (8) Trismus Current Visit: Yes Status: Acute Trismus, associated with left ear pain The patient is able to open his mouth only partially Assessment as above (9) DVT prophylaxis Current Visit: Yes Status: Acute Patient is anticoagulated with warfarin at home, however is subtherapeutic due to necessity for procedures We will start the patient on subcutaneous heparin Subjective Principal diagnosis: MRSA Bacteremia Interval history: The patient is resting in bed at time of examination. He is still having left facial pain and difficulty opening his mouth. He had no significant clinical changes overnight. Did require uptitration of dopamine to maintain heartrate, however has began to down-titrate. Objective PUL Vital signs: Last Vital Signs Temp 98.0 F 01/26/18 03:28 Pulse 47 01/26/18 06:00 Resp 16 01/26/18 06:00 BP 91/32 01/26/18 06:00 Pulse Ox 100 01/26/18 06:00 Gen: Vitals noted. No acute distress but appears uncomfortable. AAOx3 HEENT: Pupils equal/EOMI, oropharynx difficult to asses, Normocephalic, atraumatic. Patient cannot fully open mouth secondary to left jaw pain, however he does open it slightly more than he did previously. Neck: Supple. No adenopathy. Tracheostomy in place with normal appearing surrounding tissue Cardiac: Irregularly irregular and slow, no murmur, rubs or gallops, +S1/S2 Pulmonary: mild rhochi are heard on examination, improved from prior Abdomen: soft, nontender, BS noted, no guarding. PEG tube in place without necrosis or abnormality in the surrounding tissue MSK: ROM intact, no joint swelling noted. Left BKA and Right AKA without obvious edema Extremities: no BLE edema, no cyanosis or clubbing Neuro: moves all extremities, no focal deficits Psych: Appropriate mood and behavior Results - Laboratory Findings CBC and BMP: 01/26/18 04:10 01/26/18 03:00 PT/INR, D-dimer PT 18.9 Seconds (9.4-12.1) H 01/24/18 06:42 Abnormal lab findings: Abnormal lab results RBC 2.94 M/mcL (4.19-5.50) L 01/26/18 04:10 Hgb 8.6 g/dL (12.9-16.9) L 01/26/18 04:10 Hct 28.7 % (37.5-50.1) L 01/26/18 04:10 MCHC 30.0 g/dL (31.6-35.5) L 01/26/18 04:10 MPV 8.6 fL (9.4-12.4) L 01/26/18 04:10 Nucleated RBCs/100 WBC 0.2 /100 WBC (0) H 01/22/18 10:21 PT 18.9 Seconds (9.4-12.1) H 01/24/18 06:42 APTT 40.1 Seconds (26.0-36.0) H 01/22/18 10:21 Creatinine 3.08 mg/dL (0.70-1.30) H 01/26/18 03:00 Est GFR ( Amer) 25 (> 60) L 01/26/18 03:00 Est GFR (Non-Af Amer) 20 (> 60) L 01/26/18 03:00 Glucose 152 mg/dL (70-105) H 01/26/18 03:00 POC Glucose 144 mg/dL (70-99) H 01/25/18 23:35 Calcium 8.2 mg/dL (8.6-10.3) L 01/26/18 03:00 Magnesium 2.7 mg/dL (1.6-2.6) H 01/22/18 11:31 Iron 48 mcg/dL (65-175) L 01/25/18 08:43 Transferrin 82 mg/dL (203-362) L 01/25/18 08:43 Total Bilirubin 0.2 mg/dL (0.3-1.0) L 01/26/18 03:00 Troponin I 0.05 ng/mL (< 0.04) H* 01/22/18 10:21 Albumin 2.5 g/dL (3.5-5.7) L 01/26/18 03:00 Globulin 4.6 g/dL (2.4-3.5) H 01/26/18 03:00 Albumin/Globulin Ratio 0.5 (1.1-2.2) L 01/26/18 03:00 Vitamin B12 > 1500 pg/mL (250-1100) H 01/25/18 08:43 Folate 17.8 ng/mL (3.0-16.0) H 01/25/18 08:43 Staphylococcus sp PCR DETECTED (Not Detect) A 01/22/18 10:08 Staph aureus (PCR) DETECTED (Not Detect) A 01/22/18 10:08 mecA-Methicil Res Gene DETECTED (Not Detect) A 01/22/18 10:08 - Microbiology Findings Microbiology Findings: Microbiology, Last 48 Hours 01/23/18 00:26 Sputum Culture - Final Sputum Pseudomonas aeruginosa 01/23/18 15:36 Blood Culture - Preliminary Peripheral Venipuncture Gram Positive Cocci 01/23/18 15:36 Blood Culture - Preliminary Peripheral Venipuncture Gram Positive Cocci - Clinical Findings Intake & Output: Intake & Output 01/25/18 01/25/18 01/26/18 15:59 23:59 07:59 Intake Total 265 / 265 250 / 250 610 / 610 Output Total 0 / 0 0 / 0 Balance 265 / 265 250 / 250 610 / 610 Weight 136.9 kg
[2018-01-26] MEDS: Famotidine 20 MG TABLET PO SCH (08:38)
[2018-01-26] MEDS: Docusate Oral Soln 100 MG/10 ML UDC GTUBE SCH ×2 (08:38→20:50)
[2018-01-26] MEDS: Bisacodyl 10 MG RECTAL SUPPOSITORY RC SCH (08:38)
[2018-01-26] MEDS ORDERED: 0.9 % Sodium Chloride 250 ML IVC PRN (10:02)
--- NOTE | 2018-01-26 10:02 | Nephrology Progress Note ---
Date of Encounter: 01/26/18 Time of Encounter: 10:00 - Assessment and Plan (1) ESRD (end stage renal disease) on dialysis Current Visit: Yes Status: Acute Patient will have dialysis today. I would suggest rechecking blood cultures to see if they are starting to clear. (2) Anemia in CKD (chronic kidney disease) Current Visit: Yes Status: Acute Qualifiers: Chronic kidney disease stage: on chronic dialysis Qualified Code(s): N18.6 - End stage renal disease; D63.1 - Anemia in chronic kidney disease; D63.1 - Anemia in chronic kidney disease; Z99.2 - Dependence on renal dialysis; Z99.2 - Dependence on renal dialysis; Z99.2 - Dependence on renal dialysis; Z99.2 - Dependence on renal dialysis (3) MRSA (methicillin resistant staph aureus) culture positive Current Visit: Yes Status: Acute (4) Tracheostomy care Current Visit: Yes Status: Acute Subjective Principal diagnosis: MRSA Bacteremia Interval history: The patient remains on dopamine because of bradycardia. He is scheduled for his usual dialysis today. Blood cultures from January 23 are positive. Objective - Vital Signs Vital signs: Vital Signs Temp Pulse Resp BP Pulse Ox 01/26/18 08:44 98.2 F 62 12 138/82 99 01/26/18 07:43 98.2 F 01/26/18 06:00 47 16 91/32 100 01/26/18 05:00 42 16 89/40 98 01/26/18 04:00 43 16 133/63 98 01/26/18 03:54 44 01/26/18 03:28 98.0 F 01/26/18 03:00 55 16 127/73 98 01/26/18 02:00 48 16 126/79 98 01/26/18 01:00 59 16 135/63 98 01/25/18 23:48 63 16 141/68 98 01/25/18 23:38 96.8 F L 01/25/18 23:23 44 01/25/18 22:55 49 16 103/58 98 01/25/18 22:00 51 22 125/64 95 01/25/18 20:52 55 22 147/66 95 01/25/18 20:00 46 22 143/61 95 01/25/18 19:00 47 22 136/51 95 01/25/18 18:37 97.7 F 01/25/18 18:00 43 21 119/67 94 01/25/18 17:00 48 22 125/62 95 01/25/18 16:00 60 20 129/73 94 01/25/18 15:00 50 21 99/61 95 01/25/18 14:30 40 21 130/59 93 01/25/18 13:00 42 20 97/49 94 01/25/18 12:00 97.9 F 56 21 102/53 96 01/25/18 11:00 60 20 111/57 95 Intake and Output 01/25/18 01/26/18 01/26/18 23:59 07:59 15:59 Intake Total 250 / 250 610 / 610 Output Total 0 / 0 0 / 0 Balance 250 / 250 610 / 610 Intake: IV Fluids 250 / 250 250 / 250 DOPamine Premix 400mg/250mL 400 250 / 250 250 / 250 mg In 250 ml @ 2.5 MCG/KG/MIN 12.332 mls/hr IVC .[id number] OVI Rx#:[id number] Oral 360 / 360 Output: Urine 0 / 0 0 / 0 Other: Meal Breakfast Percent of Meal Consumed 0% Weight 136.9 kg Blood Glucose* 144 146 - General Appearance Exam: Patient is in no acute distress. Trach collar is in place. Lungs coarse breath sounds. Heart regular rate and rhythm. Abdomen is obese. 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 Is a temporary dialysis catheter in the right internal jugular vein. - Lab 01/26/18 04:10 01/26/18 03:00 Most recent lab results Calcium 8.2 mg/dL (8.6-10.3) L 01/26/18 03:00 Phosphorus 3.4 mg/dL (2.7-4.5) 01/26/18 03:00 Magnesium 2.7 mg/dL (1.6-2.6) H 01/22/18 11:31 Consult Discharge Plan - Plan Referrals: Harrison Mai MD [Primary Care Provider] - (This patient is from an [facility] no PCP appointment needed)
--- NOTE | 2018-01-26 10:44 | Cardiology Progress Note ---
Date of Encounter: 01/26/18 Time of Encounter: 10:30 Assessment and Plan (1) Bradycardia Current Visit: Yes Status: Resolved Per cardiology: -Patient presented with sepsis, positive blood cultures. ESRD on HD. -Recommend treatment of underlying sepsis, anticipate HR will recover as sepsis -Unclear when last dose of betablocker was administered. Recent increase in lopressor at retirement. -Average HR previous 12 hours noted to be 51, intermittent junctional bradycardia. -3.5 second pause noted at 0014. -ON dopamine at 7.5mcg/kg/min. -Discussed and reviewed with , patient is not a good candidate for permanent pacemaker at this time due to persistent bacteremia. Possible need for pacemaker prior to discharge. -Recommend continuing dopamine as needed for HR. -Will continue to monitor. (2) PAF (paroxysmal atrial fibrillation) Current Visit: Yes Status: Acute Per cardiology: -Hx of PAF. On coumadin for AC. -INR supratherapeutic upon presentation. -Recommend goal INR 2-3. -Currently on hold for permacath change out. -Recommend resuming anticoagulation once able. Discussion w patient/family: The assessment and plan as outlined above was discussed with the patient who expressed understanding and agreement. All questions were answered. Thank you for involving us in the care of your patient. Please call with any questions. Discussed and reviewed with . Subjective Principal diagnosis: MRSA Bacteremia Interval history: Patient on trach collar this morning. Denies current dizziness or lightheadedness. Objective Vital Signs, Last 4 Hours Temp Pulse Resp BP Pulse Ox 01/26/18 10:00 53 16 114/67 99 01/26/18 08:44 98.2 F 62 12 138/82 99 01/26/18 07:43 98.2 F General: Conversant, No Apparent Distress HEENT: Atraumatic, Normocephaly, Mucus Membranes Moist Neck: No JVD, Normal carotid pulses Cardiac: Reg Rate and Rhythm, Normal S1 and S2, No Murmur Lungs: Other (Lung sounds diminished throughout. Trach collar. ) Neuro: Alert and responsive, No focal deficits noted Abdomen: Soft, Non-Tender Skin: No rashes noted on visualized skin Musculoskeletal: No Chest Wall Tenderness Extremities: No Clubbing, No Cyanosis, Normal Pulses, Other (Bilateral amputee) Results 01/26/18 04:10 01/26/18 03:00 Lab Results Active Medications Acetaminophen (Tylenol) 650 mg PO Q6H PRN PRN Reason: pain 1-3 Stop: 07/25/18 09:01 Bisacodyl (Dulcolax) 10 mg RC DAILY [facility] Stop: 07/25/18 09:01 Last Admin: 01/26/18 08:38 Dose: 10 mg Darbepoetin Derrick (Aranesp) 60 mcg SQ QWEEK [facility] Stop: 07/25/18 08:16 Last Admin: 01/23/18 10:12 Dose: 60 mcg Dextrose/Water (Dextrose 50% (Syg)) 25 ml IVP AD PRN PRN Reason: Hypoglycemia Stop: 07/24/18 17:05 Docusate Sodium (Colace) 100 mg GTUBE BID [facility] PRN Reason: Protocol Stop: 07/27/18 11:16 Last Admin: 01/26/18 08:38 Dose: 100 mg Famotidine (Pepcid) 20 mg PO DAILY [facility] PRN Reason: Protocol Stop: 07/25/18 09:01 Last Admin: 01/26/18 08:38 Dose: 20 mg Glucagon (Glucagen) 1 mg IM ONCE PRN PRN Reason: Hypoglycemia Stop: 07/24/18 17:05 Glucose (Gluctose) 15 gm PO ONCE PRN PRN Reason: Hypoglycemia Stop: 07/24/18 17:05 Glucose (Gluctose) 30 gm PO ONCE PRN PRN Reason: Hypoglycemia Stop: 07/24/18 17:05 Heparin Sodium (Porcine) (Heparin) 5,000 unit SQ Q12HCO [facility] Stop: 07/26/18 18:01 Last Admin: 01/26/18 05:30 Dose: 5,000 unit Heparin Sodium (Porcine) (Heparin) 0 unit IV ONCE PRN PRN Reason: Hemodialysis Catheter Packing Hydroxyzine Pamoate (Hydroxyzine Pamoate) 25 mg PO Q6H PRN PRN Reason: Itching Last Admin: 01/24/18 04:41 Dose: 25 mg Dopamine HCl/Dextrose (Dopamine Premix 400mg/250ml) 400 mg in 250 mls @ 12.332 mls/hr IVC .[id number] OVI; 2.5 MCG/KG/MIN PRN Reason: Protocol Stop: 07/24/18 16:16 Last Admin: 01/26/18 10:08 Dose: 5 mcg/kg/min, 24.664 mls/hr Dextrose (Dextrose 5%) 1,000 mls @ 100 mls/hr IVC .Q10H PRN PRN Reason: HYPOGLYCEMIA Stop: 07/24/18 17:05 Cefepime HCl 1,000 mg/ Sterile (Water) 10 mls @ 150 mls/hr IVP Q24H OVI Stop: 07/25/18 17:01 Last Admin: 01/25/18 19:56 Dose: 300 mls/hr Sodium Chloride (0.9 % Sodium Chloride) 250 mls @ 937.5 mls/hr IVC .Q16M PRN PRN Reason: Hypotension Stop: 07/26/18 08:22 Propofol (Diprivan) 1,000 mg in 100 mls @ 2.066 mls/hr IVC .Q24H OVI; 2.5 MCG/ KG/MIN PRN Reason: Protocol Stop: 07/26/18 14:46 Last Admin: 01/25/18 19:41 Dose: Not Given Vancomycin HCl 750 mg/ Sodium (Chloride) 250 mls @ 250 mls/hr IVPB ONCE ONE Stop: 01/26/18 16:59 Sodium Chloride (0.9 % Sodium Chloride) 250 mls @ 937.5 mls/hr IVC .Q16M PRN PRN Reason: Hypotension Stop: 07/28/18 10:03 Insulin Human Lispro (Humalog) 0 units SQ Q6HR OVI PRN Reason: Protocol Stop: 07/24/18 18:01 Last Admin: 01/26/18 05:30 Dose: 2 units Naloxone HCl (Narcan) 0.4 mg IVP Q2MIN PRN PRN Reason: SEE COMMENTS Stop: 07/24/18 13:42 Oxycodone HCl (Oxycodone Oral Conc) 10 mg SL Q4HR PRN; Protocol PRN Reason: Severe Pain Stop: 07/25/18 12:01 Last Admin: 01/25/18 18:53 Dose: 10 mg Oxycodone/Acetaminophen (Percocet 7.5/325) 1 each PO Q4HR PRN PRN Reason: Pain Stop: 07/24/18 17:04 Last Admin: 01/26/18 03:44 Dose: 1 each Quetiapine Fumarate (Seroquel) 50 mg PO BID [facility] Stop: 07/24/18 21:01 Last Admin: 01/26/18 08:38 Dose: 50 mg Vancomycin HCl (Vancocin) 0 each IVPB AD PRN PRN Reason: SEE COMMENTS Stop: 07/24/18 20:04 Laboratory Tests 01/26/18 01/26/18 03:00 04:10 Hgb 8.6 L Potassium 3.9 Creatinine 3.08 H - Imaging and Cardiology Chest Xray: report reviewed Echo: report reviewed - EKG Interpretation EKG results cardiology: other (Telemetry reviewed with average HR previous 12 hours noted to be 51, intermittent junctional bradycardia. 3.5 second pause noted to 0014. PVCs and PACs noted.) Consult Discharge Plan - Plan Referrals: Harrison Mai MD [Primary Care Provider] - (This patient is from an [facility] no PCP appointment needed)
--- NOTE | 2018-01-26 11:00 | Infectious Disease Progress No ---
Date of Encounter: 01/26/18 Time of Encounter: 10:58 - Assessment and Plan (1) Leukocytosis Current Visit: Yes Status: Resolved WBC 11.6 on arrival. Likely multifactorial: bacteremia, PNA, mastoiditis. Resolved. Continue to trend. Qualifiers: Leukocytosis type: unspecified Qualified Code(s): D72.829 - Elevated white blood cell count, unspecified (2) Bacteremia Current Visit: Yes Status: Acute Causative organism: MRSA and Staph haemolyticus. Source unclear, but potential sources include Perma-cath, mastoiditis, decubitus ulcers, or PNA. Blood cultures drawn 01/20/18 are positive 1/1 set for MRSA. Repeat blood cultures drawn 01/22/18 are positive 2/2 sets for MRSA per PCR. Both were drawn peripherally. Repeat blood cultures drawn 01/23/18 are positive for Staph haemolyticus 2/2. No cultures were obtained from the Perma-cath, which was discontinued 01/23/18. Catheter tip was not sent for culture. Uncomplicated. No endocarditis stigmata noted on exam. The patient has one major and no minor Modified Barrios's Criteria. Repeat blood cultures x 2 sets drawn this morning are pending. TTE negative for vegetations. GODWIN negative for valvular vegetations. Continue Vancomycin IV. Pharmacy to dose. Goal trough ~15. Duration of treatment depends on the clinical picture. Will likely be able to give Vancomycin with HD when the patient is discharged. Monitor for drug toxicity and dose-adjust antibiotics. (3) Mastoiditis Current Visit: Yes Status: Acute Causative organism: unclear. CT head shows findings consistent with left mastoiditis. ENT consulted. Continue Vancomycin as above. Continue Cefepime 1 gram IV daily (day 4). Duration of treatment depends on the clinical picture. Qualifiers: Laterality: left Qualified Code(s): H70.92 - Unspecified mastoiditis, left ear (4) Sinusitis Current Visit: Yes Status: Acute CT head shows bilateral maxillary sinusitis. Causative organism unclear. Continue antibiotics as above. Qualifiers: Sinusitis location: maxillary Chronicity: acute Recurrence: non- recurrent Qualified Code(s): J01.00 - Acute maxillary sinusitis, unspecified (5) Pneumonia Current Visit: Yes Status: Acute CXR shows bilateral airspace opacities concerning for PNA vs. edema. CT chest shows multifocal pneumonia. Clinically, the patient denies shortness of breath or cough. He does have some thin yellow secretions from his trach. Sputum culture positive for PSEA, sensitive to Cefepime. Continue antibiotics as above for now. Duration of treatment depends on the clinical picture. Qualifiers: Pneumonia type: due to unspecified organism Laterality: unspecified laterality Lung location: unspecified part of lung Qualified Code(s): J18.9 - Pneumonia, unspecified organism (6) Bradycardia Current Visit: Yes Status: Acute Dopamine gtt. Cardiology consulted and following. (7) Trismus Current Visit: Yes Status: Acute Etiology unclear. CT neck negative. ENT consulted and following. (8) Anemia in CKD (chronic kidney disease) Current Visit: Yes Status: Acute Qualifiers: Chronic kidney disease stage: on chronic dialysis Qualified Code(s): N18.6 - End stage renal disease; D63.1 - Anemia in chronic kidney disease; D63.1 - Anemia in chronic kidney disease; Z99.2 - Dependence on renal dialysis; Z99.2 - Dependence on renal dialysis; Z99.2 - Dependence on renal dialysis; Z99.2 - Dependence on renal dialysis (9) ESRD (end stage renal disease) on dialysis Current Visit: Yes Status: Acute Nephrology consulted and following. Temporary HD line inserted 01/24/18. (10) Chronic respiratory failure Current Visit: Yes Status: Acute Chronic tracheostomy since September 2017. Management per the pulmonology team. Qualifiers: Respiratory failure complication: unspecified whether with hypoxia or hypercapnia Qualified Code(s): J96.10 - Chronic respiratory failure, unspecified whether with hypoxia or hypercapnia - Subjective Interval history: Patient seen and examined. No acute events noted overnight. Patient sleeping, awakens easily, but falls back to sleep multiple times throughout the exam. Per nursing, did receive pain medication overnight. He states overall he feels okay this morning. He continues to complain of left jaw pain and difficulty opening his mouth, but mildly improved. He denies any fevers or chills or rigors. He denies any chest pain or shortness of breath or cough. He denies any nausea or vomiting or diarrhea. He denies any abdominal pain. He states he feels hungry. He complains of pain in his bilateral stumps. He denies any back pain. He denies any oral thrush or new skin lesions. Dopamine infusion continued. Infect Dis PN-Objective Data - Labs CBC & Chem 7: 01/26/18 04:10 01/26/18 03:00 Labs: Laboratory Results - last 24 hr 01/25/18 01/25/18 01/25/18 11:31 15:30 23:35 WBC RBC Hgb 8.4 L Hct 27.6 L MCV MCH MCHC RDW Plt Count MPV Immature Gran % Seg Neutrophils % Lymphocytes % Monocytes % Eosinophils % Basophils % Neutrophils # Lymphocytes # Monocytes # Eosinophils # Basophils # Sodium Potassium Chloride Carbon Dioxide BUN Creatinine Est GFR ( Amer) Est GFR (Non-Af Amer) BUN/Creatinine Ratio Glucose POC Glucose 96 144 H Calculated Osmolality Calcium Phosphorus Total Bilirubin AST ALT Alkaline Phosphatase Serum Total Protein Albumin Globulin Albumin/Globulin Ratio 01/26/18 01/26/18 03:00 04:10 WBC 9.5 RBC 2.94 L Hgb 8.6 L Hct 28.7 L MCV 97.6 MCH 29.3 MCHC 30.0 L RDW 14.5 Plt Count 229 MPV 8.6 L Immature Gran % 0.3 Seg Neutrophils % 60.2 Lymphocytes % 26.1 Monocytes % 8.3 Eosinophils % 4.6 Basophils % 0.5 Neutrophils # 5.7 Lymphocytes # 2.5 Monocytes # 0.8 Eosinophils # 0.4 Basophils # 0.1 Sodium 139 Potassium 3.9 Chloride 103 Carbon Dioxide 28 BUN 20 Creatinine 3.08 H Est GFR ( Amer) 25 L Est GFR (Non-Af Amer) 20 L BUN/Creatinine Ratio 6 Glucose 152 H POC Glucose Calculated Osmolality 294 Calcium 8.2 L Phosphorus 3.4 Total Bilirubin 0.2 L AST 14 ALT 8 Alkaline Phosphatase 93 Serum Total Protein 7.1 Albumin 2.5 L Globulin 4.6 H Albumin/Globulin Ratio 0.5 L Cultures: Cultures 01/23/18 15:36 Blood Culture - Final Peripheral Venipuncture Staphylococcus haemolyticus 01/23/18 15:36 Blood Culture - Final Peripheral Venipuncture Staphylococcus haemolyticus 01/23/18 00:26 Sputum Culture - Final Sputum Pseudomonas aeruginosa Serology 01/22/18 Range/Units 16:56 Hep Bs Antigen Nonreactive (Nonreactive) Hep Bs Antibody 0.32 mIU/mL Exam - Constitutional Vitals: Temp Pulse Resp BP Pulse Ox 98.2 F 53 16 114/67 99 01/26/18 08:44 01/26/18 10:00 01/26/18 10:00 01/26/18 10:00 01/26/18 10:00 General appearance: cooperative, morbidly obese, no acute distress - Head Head exam: Present: atraumatic, normal inspection, normocephalic - Eye Eye exam: Present: EOMI, normal appearance, PERRL Pupils: Present: normal accommodation - ENT ENT exam: Present: mucous membranes moist Additional comments: Jaw ROM limited due to pain. - Neck Neck exam: Present: normal inspection Additional comments: Tracheostomy midline with O2 via trach mask. Temporary dialysis catheter noted to the right neck with transparent dressing C/ D/I. - Respiratory Respiratory exam: Present: rhonchi (Throughout) - Cardiovascular Cardiovascular exam: Present: bradycardia, +S1, +S2 - GI/Abdominal GI/Abdominal exam: Present: distended (obese), normal bowel sounds, soft, tenderness (generalized) Additional comments: G-tube noted to the LUQ, clamped. - Extremities Exam Additional comments: Left BKA stump and Right AKA stump without redness, warmth, or open lesions. - Neurological Exam Neurological exam: Present: alert, oriented X3, no focal deficits - Psychiatric Psychiatric exam: Present: normal affect, normal mood - Skin Skin exam: Present: dry, intact, normal color, warm Consult Discharge Plan - Plan Referrals: Harrison Mai MD [Primary Care Provider] - (This patient is from an ECF no PCP appointment needed) - Attending Attestation I examined this patient and my medical decision-making was reviewed with the Resident Physician. I agree with the documented findings, disposition and treatment plan as described except to the extent set forth below.
[2018-01-26] MEDS: OXYCODONE Oral CONC 10 MG/0.5 ML ORAL.SYG SL PRN (12:06)
[2018-01-26] MEDS ORDERED: 0.9 % Sodium Chloride 1,000 ML ONE (12:52)
--- NOTE | 2018-01-26 14:29 | Electrocardiograph Report ---
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
--- NOTE | 2018-01-26 14:36 | Electrocardiograph Report ---
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
[2018-01-26] MEDS: Cefepime HCl 1,000 MG in Water for inj. (sterile) 20 ML 10 ML IVP SCH (20:50)
[2018-01-27] MEDS: Insulin LISPRO 300 UNITS/3 ML VIAL SQ SCH ×5 (01:11→23:55)
[2018-01-27 05:21] LABS: Basophils % 0.4 %; Eosinophils # 0.4 K/mcL (0.0-0.6); Eosinophils % 4.2 %; Hematocrit 28.4 % (37.5-50.1); Hemoglobin 8.7 g/dL (12.9-16.9); Immature Granulocytes % 0.3 % (0-4); Lymphocytes # 2.9 K/mcL (0.6-4.6); Lymphocytes % 31.2 %; Mean Corpuscular HGB Conc 30.6 g/dL (31.6-35.5); Mean Corpuscular Hemoglobin 29.2 pg (28.0-33.3); Mean Corpuscular Volume 95.3 fL (83.0-100.0); Mean Platelet Volume 8.6 fL (9.4-12.4); Monocytes # 0.6 K/mcL (0.0-1.3); Monocytes % 6.7 %; Neutrophils # 5.4 K/mcL (1.6-8.9); Platelet Count 181 K/mcL (140-400); Red Blood Count 2.98 M/mcL (4.19-5.50); Red Cell Distribution Width 14.4 % (11.5-14.5); Segmented Neutrophils % 57.2 %
[2018-01-27 05:31] LABS: Potassium 3.4 mEq/L (3.5-5.1)
[2018-01-27] MEDS: *HR* Heparin 5,000 UNIT/ML VIAL SQ SCH ×2 (06:29→17:09)
[2018-01-27] MEDS: OXYCODONE Oral CONC 10 MG/0.5 ML ORAL.SYG SL PRN ×2 (06:58→20:09)
[2018-01-27] MEDS: Docusate Oral Soln 100 MG/10 ML UDC GTUBE SCH ×2 (08:15→20:09)
[2018-01-27] MEDS: Bisacodyl 10 MG RECTAL SUPPOSITORY RC SCH (08:15)
[2018-01-27] MEDS: Famotidine 20 MG TABLET PO SCH (08:15)
--- NOTE | 2018-01-27 08:28 | Nephrology Progress Note ---
Date of Encounter: 01/27/18 Time of Encounter: 08:27 - Assessment and Plan (1) ESRD (end stage renal disease) on dialysis Current Visit: Yes Status: Acute Patient continues to receive dialysis through a temporary dialysis catheter. Blood cultures from January 26 so far are negative. If those cultures remain negative he can have a tunnel dialysis catheter replaced early next week. (2) Anemia in CKD (chronic kidney disease) Current Visit: Yes Status: Acute Qualifiers: Chronic kidney disease stage: on chronic dialysis Qualified Code(s): N18.6 - End stage renal disease; D63.1 - Anemia in chronic kidney disease; D63.1 - Anemia in chronic kidney disease; Z99.2 - Dependence on renal dialysis; Z99.2 - Dependence on renal dialysis; Z99.2 - Dependence on renal dialysis; Z99.2 - Dependence on renal dialysis (3) MRSA (methicillin resistant staph aureus) culture positive Current Visit: Yes Status: Acute (4) Tracheostomy care Current Visit: Yes Status: Acute Subjective Principal diagnosis: MRSA Bacteremia Interval history: Patient remained somewhat lethargic. It appears as though he is now off dopamine. Heart rate is 50 blood pressure is 115/62. Last dialysis was yesterday. Blood cultures from January 26 so far are negative. Objective - Vital Signs Vital signs: Vital Signs Temp Pulse Resp BP Pulse Ox 01/27/18 06:00 50 115/62 01/27/18 05:00 57 148/68 01/27/18 04:16 75 01/27/18 04:00 52 137/60 01/27/18 03:59 98.3 F 55 15 130/67 97 01/27/18 03:00 53 141/66 01/27/18 02:00 53 131/63 01/27/18 01:00 51 129/54 01/27/18 00:10 75 01/27/18 00:00 50 150/56 01/26/18 22:31 98.8 F 56 16 145/66 94 01/26/18 20:00 75 01/26/18 19:08 97.6 F 62 16 151/91 100 01/26/18 18:10 98.3 F 18 141/57 01/26/18 17:30 141/66 01/26/18 17:15 158/69 01/26/18 17:00 158/69 01/26/18 16:45 147/62 01/26/18 16:30 152/52 01/26/18 16:15 148/49 01/26/18 16:00 149/43 01/26/18 15:45 117/51 01/26/18 15:30 140/57 01/26/18 15:15 133/59 01/26/18 15:00 118/59 01/26/18 14:45 97/60 01/26/18 14:30 101/64 01/26/18 14:15 106/65 01/26/18 14:00 114/77 01/26/18 13:45 98.1 F 18 117/61 01/26/18 12:03 97.7 F 01/26/18 12:00 98.7 F 68 22 119/68 86 01/26/18 10:00 53 16 114/67 99 01/26/18 08:44 98.2 F 62 12 138/82 99 Intake and Output 01/26/18 01/27/18 01/27/18 23:59 07:59 15:59 Intake Total 640 / 640 250 / 250 Output Total 2350 / 2350 Balance -1710 / -1710 250 / 250 Intake: IV Fluids 160 / 160 250 / 250 DOPamine Premix 400mg/250mL 400 150 / 150 250 / 250 mg In 250 ml @ 2.5 MCG/KG/MIN 12.332 mls/hr IVC .[id number] [facility] Rx#:[id number] Maxipime 1,000 MG In Water for 10 / 10 inj. (sterile) 10 ML @ 150 mls/ hr IVP Q24H [facility] Rx#:[id number] Oral 480 / 480 Output: Urine 850 / 850 Total Dialysis (HD) Output 1500 / 1500 Other: Weight 137.3 kg Blood Glucose* 135 165 Hemodialysis Net Fluid Removed 900 (mL) Patient Weight 01/27/18 23:59 Weight 137.3 kg - General Appearance Exam: Patient appears sedated. Lungs coarse breath sounds. Heart regular rate and rhythm with a ventricular rate of 50. Abdomen is obese. PEG tube is present. 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 There is a temporary dialysis catheter in the right internal jugular vein. - Lab 01/27/18 04:11 01/27/18 04:00 Most recent lab results Calcium 8.0 mg/dL (8.6-10.3) L 01/27/18 04:00 Phosphorus 3.4 mg/dL (2.7-4.5) 01/26/18 03:00 Magnesium 2.6 mg/dL (1.6-2.6) 01/26/18 11:09 Consult Discharge Plan - Plan Referrals: Harrison Mai MD [Primary Care Provider] - (This patient is from an F no PCP appointment needed)
--- NOTE | 2018-01-27 10:08 | Cardiology Progress Note ---
Date of Encounter: 01/27/18 Time of Encounter: 10:05 Assessment and Plan (1) Bradycardia Current Visit: Yes Status: Acute Patient with sinus bradycardia this morning. Intermittent periods of junctional rhythm, pauses noted. Currently, heart rate appears to be stable off dopamine. No immediate further recommendations. Continue to monitor telemetry. Given bacteremia of unclear etiology, patient is not an ideal candidate for a permanent pacemaker at this time. Fortunately, his heart rate has remained relatively stable. We will continue to monitor. If needed, we can resume dopamine as needed. Discussion w patient/family: The assessment and plan as outlined above was discussed with the patient and/or family members who expressed understanding and agreement. All questions were answered. Thank you for involving us in the care of your patient. Please call with any questions. Subjective Principal diagnosis: MRSA Bacteremia Interval history: Patient seen and examined earlier today. Bacteremia remains, infectious disease following. Source remains unclear. Potentials include dialysis catheter, mastoiditis, decubitus ulcer, pneumonia. Heart rate stable overnight , currently sinus bradycardia in the 50s and low 60s. Blood pressure remained stable. Patient does not express any new concerns that I can gather. Objective Vital Signs, Last 4 Hours Temp Pulse Resp BP Pulse Ox 01/27/18 08:52 99.1 F 54 12 129/62 95 General: Other (Tries to converse, but difficult to understand. Chronically ill -appearing.) HEENT: Other (Trach noted.) Neck: Other (Large neck, trach, unable to detect JVD.) Cardiac: Other (Distant, but appears regular. Unable to appreciate murmurs.) Lungs: Other (Shallow, scattered rhonchi, poor effort.) Neuro: Other (No obvious focal deficits. He is awake. He tries to communicate. ) Abdomen: Other (Morbidly obese.) Extremities: Other (Edema noted.) Results 01/27/18 04:11 01/27/18 04:00 Lab Results 01/26/18 01/27/18 01/27/18 11:09 04:00 04:11 WBC 9.4 Hgb 8.7 L Hct 28.4 L Plt Count 181 Sodium 135 L Potassium 3.4 L Chloride 101 Carbon Dioxide 30 H BUN 14 Creatinine 2.14 H Glucose 156 H Calcium 8.0 L Magnesium 2.6 - Imaging and Cardiology Echo: report reviewed Consult Discharge Plan - Plan Referrals: Harrison Mai MD [Primary Care Provider] - (This patient is from an [facility] no PCP appointment needed)
[2018-01-27 11:24] LABS: INR 1.5; Prothrombin Time 15.8 Seconds (9.4-12.1)
[2018-01-27] MEDS: Calcium Acetate 667 MG CAPSULE PO SCH ×2 (12:37→17:09)
--- NOTE | 2018-01-27 16:06 | Internal Med Progress Note ---
Date of Encounter: 01/27/18 Time of Encounter: 11:15 - Assessment and plan (1) Bradycardia Current Visit: Yes Status: Acute Assessment and plan: He is noted to have atrial fibrillation with slow ventricular response. Cardiology on board. Patient is receiving when necessary IV dopamine to maintain appropriate heart rate. He is currently in sinus bradycardia, for second is noted on telemetry. He will eventually need a permanent pacemaker, after bacteremia clears. Continue to monitor closely. (2) Pneumonia Current Visit: Yes Status: Acute Assessment and plan: CT chest done on January 23 shows bilateral lower lobe consolidations and infiltrates in the upper lobes suggesting multilobar pneumonia. Sputum culture grew pseudomonas aeruginosa. Continue IV cefepime. Supportive care and supplemental oxygen. Qualifiers: Pneumonia type: due to unspecified organism Laterality: bilateral Lung location: unspecified part of lung Qualified Code(s): J18.9 - Pneumonia, unspecified organism (3) Bacteremia Current Visit: Yes Status: Acute Assessment and plan: Unclear source, could be infected PermCath versus pneumonia. One out of one blood cultures from January 20 grew MRSA. 2 out of 2 blood cultures from January 22 grew MRSA. 2 out of 2 blood cultures from January 23 grew staph hemolyticus. Infectious diseases on board, continue IV vancomycin. Repeat blood cultures from January 26 are so far negative. Transthoracic and transesophageal echocardiogram showed no evidence of vegetations. PermCath has been removed, temporary dialysis catheter placed on January 24. (4) Essential hypertension Current Visit: Yes Status: Chronic (5) Diabetes mellitus Current Visit: Yes Status: Chronic Assessment and plan: Blood sugars noted to be well controlled. Continue Accu-Chek blood glucose monitoring with basal bolus insulin regimen. Diabetic diet. Qualifiers: Diabetes mellitus type: type 2 Diabetes mellitus alf insulin use: with superintendent container terminal use Diabetes mellitus complication status: with kidney complications Diabetes mellitus complication detail: with chronic kidney disease Chronic kidney disease stage: on chronic dialysis Qualified Code(s) : E11.22 - Type 2 diabetes mellitus with diabetic chronic kidney disease; N18.6 - End stage renal disease; N18.6 - End stage renal disease; N18.6 - End stage renal disease; N18.6 - End stage renal disease; Z79.4 - alf (current) use of insulin; Z79.4 - termite treater (current) use of insulin; Z79.4 - alf ( current) use of insulin; Z79.4 - alf (current) use of insulin; Z99.2 - Dependence on renal dialysis; Z99.2 - Dependence on renal dialysis; Z99.2 - Dependence on renal dialysis; Z99.2 - Dependence on renal dialysis (6) Anemia in CKD (chronic kidney disease) Current Visit: Yes Status: Chronic Assessment and plan: Received 2 units PRBC during this hospitalization. Hemoglobin is currently stable. Qualifiers: Chronic kidney disease stage: on chronic dialysis Qualified Code(s): N18.6 - End stage renal disease; D63.1 - Anemia in chronic kidney disease; D63.1 - Anemia in chronic kidney disease; Z99.2 - Dependence on renal dialysis; Z99.2 - Dependence on renal dialysis; Z99.2 - Dependence on renal dialysis; Z99.2 - Dependence on renal dialysis (7) Chronic respiratory failure Current Visit: Yes Status: Chronic Assessment and plan: Noted to be on chronic tracheostomy collar. Qualifiers: Respiratory failure complication: hypoxia Qualified Code(s): J96.11 - Chronic respiratory failure with hypoxia (8) ESRD (end stage renal disease) on dialysis Current Visit: Yes Status: Chronic Assessment and plan: Nephrology on board for dialysis needs. Receiving hemodialysis via a temporary dialysis catheter. PermCath to be placed when bacteremia clears. (9) Left ear pain Current Visit: Yes Status: Acute Assessment and plan: Continues to report persistent left-sided preauricular and jaw pain associated with trismus. Case discussed with ENT, who has seen the patient a few days ago , recommend supportive care and no further intervention. Continue pain control as needed. (10) PAF (paroxysmal atrial fibrillation) Current Visit: Yes Status: Chronic Assessment and plan: Atrial fibrillation with slow ventricular response. Hold beta elaine. When necessary IV dopamine drip. Resume anticoagulation with Coumadin, INR noted to be subtherapeutic at 1.7 today. - Time Spent With Patient Total time spent is greater than 50% in coordination of care (as documented) at patient's floor/unit and/or counseling patient: - Subjective Interval history: Reports feeling better; able to answer appropriately, on trach collar; no chest pain, dyspnea, palpitations; - Constitutional Vitals: Temp Pulse Resp BP Pulse Ox 98.9 F 52 18 135/68 100 01/27/18 12:10 01/27/18 12:10 01/27/18 12:10 01/27/18 12:10 01/27/18 12:10 General appearance: Present: A&O X 2, morbidly obese, answers questions appropriately - Respiratory Respiratory exam: Present: CTAB (coarse breath sounds B/L). Absent: accessory muscle use, rales, rhonchi, wheezes - Cardiovascular Cardiovascular exam: Present: RRR, +S1, +S2. Absent: diastolic murmur, gallop, rubs, systolic murmur - GI/Abdominal GI/Abdominal exam: Present: normal bowel sounds, soft (obese), no peritoneal signs. Absent: distended, tenderness - Extremities Exam Extremities exam: Present: warm, radial pulses palpable and symmetrical. Absent : calf tenderness, cyanotic, pedal edema Additional comments: B/L AKA - Neurological Exam Neurological exam: Present: CN II-XII intact, oriented X3, no focal deficits. Absent: pronater drift, facial droop, speech deficit Internal Medicine: Result - Labs CBC & Chem 7: 01/27/18 04:11 01/27/18 04:00 Labs: Short CBC 01/27/18 Range/Units 04:11 WBC 9.4 (4.3-11.1) K/mcL Hgb 8.7 L (12.9-16.9) g/dL Hct 28.4 L (37.5-50.1) % Plt Count 181 (140-400) K/mcL Neutrophils # 5.4 (1.6-8.9) K/mcL BMP 01/27/18 04:00 Sodium 135 L Potassium 3.4 L Chloride 101 Carbon Dioxide 30 H BUN 14 Creatinine 2.14 H Glucose 156 H Calcium 8.0 L - ABG Interpretation ABG results: PT/INR, D-dimer PT 15.8 Seconds (9.4-12.1) H 01/27/18 10:50 Consult Discharge Plan - Plan Referrals: Harrison Mai MD [Primary Care Provider] - (This patient is from an ECF no PCP appointment needed)
[2018-01-27] MEDS: Cefepime HCl 1,000 MG in Water for inj. (sterile) 20 ML 10 ML IVP SCH (17:05)
[2018-01-27] MEDS: *HR* OxyCODONE/APAP 7.5/325 TABLET PO PRN (17:09)
[2018-01-27] MEDS: *HR* Warfarin 2 MG TABLET PO SCH (17:44)
[2018-01-27] MEDS ORDERED: Warfarin perPT PO PRN (18:00)
[2018-01-27] MEDS ORDERED: GI Cocktail 40 ML EACH PO ONE (20:01)
[2018-01-28] MEDS: OXYCODONE Oral CONC 10 MG/0.5 ML ORAL.SYG SL PRN ×3 (04:04→21:52)
[2018-01-28 04:28] LABS: Basophils % 0.4 %; Eosinophils # 0.3 K/mcL (0.0-0.6); Eosinophils % 4.1 %; Hematocrit 27.4 % (37.5-50.1); Hemoglobin 8.5 g/dL (12.9-16.9); Immature Granulocytes % 0.1 % (0-4); Lymphocytes # 3.1 K/mcL (0.6-4.6); Lymphocytes % 39.9 %; Mean Corpuscular Hemoglobin 29.3 pg (28.0-33.3); Mean Corpuscular Volume 94.5 fL (83.0-100.0); Mean Platelet Volume 8.6 fL (9.4-12.4); Monocytes # 0.6 K/mcL (0.0-1.3); Monocytes % 8.2 %; Neutrophils # 3.6 K/mcL (1.6-8.9); Platelet Count 191 K/mcL (140-400); Red Cell Distribution Width 14.3 % (11.5-14.5); Segmented Neutrophils % 47.3 %
[2018-01-28 04:33] LABS: Calcium 8.3 mg/dL (8.6-10.3); Potassium 3.4 mEq/L (3.5-5.1)
[2018-01-28 04:37] LABS: INR 1.4; Prothrombin Time 15.4 Seconds (9.4-12.1)
[2018-01-28] MEDS: *HR* Heparin 5,000 UNIT/ML VIAL SQ SCH ×2 (05:16→17:46)
[2018-01-28] MEDS: Insulin LISPRO 300 UNITS/3 ML VIAL SQ SCH ×3 (06:00→17:46)
[2018-01-28] MEDS: Docusate Oral Soln 100 MG/10 ML UDC GTUBE SCH ×2 (09:18→21:47)
[2018-01-28] MEDS: Famotidine 20 MG TABLET PO SCH (09:19)
[2018-01-28] MEDS: Bisacodyl 10 MG RECTAL SUPPOSITORY RC SCH (09:19)
[2018-01-28] MEDS: Calcium Acetate 667 MG CAPSULE PO SCH ×3 (09:19→17:45)
--- NOTE | 2018-01-28 10:54 | Event Note ---
Date of Encounter: 01/28/18 Time of Encounter: 10:53 Heart rate remained stable overnight. Most recent blood cultures negative. Recommend try to wean off dopamine. If heart rate is significantly bradycardic and blood cultures remain negative, consideration will be given to a permanent pacemaker in the future. We will re-evaluate in AM.
[2018-01-28] MEDS ORDERED: Potassium Chloride Elixir 20 MEQ/15 ML UDC PO ONE (12:19)
--- NOTE | 2018-01-28 15:43 | Internal Med Progress Note ---
Date of Encounter: 01/28/18 Time of Encounter: 11:00 - Assessment and plan (1) Bradycardia Current Visit: Yes Status: Acute Assessment and plan: He is noted to have atrial fibrillation with slow ventricular response. Cardiology on board. Patient is receiving when necessary IV dopamine to maintain appropriate heart rate. He is currently in sinus rhythm, around 60bpm. He will eventually need a permanent pacemaker, after bacteremia clears. Continue to monitor closely. (2) Bacteremia Current Visit: Yes Status: Acute Assessment and plan: Unclear source, could be infected PermCath versus pneumonia. One out of one blood cultures from January 20 grew MRSA. 2 out of 2 blood cultures from January 22 grew MRSA. 2 out of 2 blood cultures from January 23 grew staph hemolyticus. Repeat blood cultures from January 26 negative. Infectious diseases on board, continue IV vancomycin. Transthoracic and transesophageal echocardiogram showed no evidence of vegetations. PermCath has been removed, temporary dialysis catheter placed on January 24. (3) Essential hypertension Current Visit: Yes Status: Chronic (4) Diabetes mellitus Current Visit: Yes Status: Chronic Assessment and plan: Blood sugars noted to be well controlled. Continue Accu-Chek blood glucose monitoring with basal bolus insulin regimen. Diabetic diet. Qualifiers: Diabetes mellitus type: type 2 Diabetes mellitus mcc insulin use: with oil heaterman use Diabetes mellitus complication status: with kidney complications Diabetes mellitus complication detail: with chronic kidney disease Chronic kidney disease stage: on chronic dialysis Qualified Code(s) : E11.22 - Type 2 diabetes mellitus with diabetic chronic kidney disease; N18.6 - End stage renal disease; Z99.2 - Dependence on renal dialysis; Z99.2 - Dependence on renal dialysis; Z99.2 - Dependence on renal dialysis; N18.6 - End stage renal disease; N18.6 - End stage renal disease; N18.6 - End stage renal disease; Z79.4 - penitentiary (current) use of insulin; Z79.4 - adjunct faculty for medical terminology (current ) use of insulin; Z79.4 - adjunct faculty for medical terminology (current) use of insulin; Z79.4 - penitentiary (current) use of insulin; Z99.2 - Dependence on renal dialysis (5) Anemia in CKD (chronic kidney disease) Current Visit: Yes Status: Chronic Qualifiers: Chronic kidney disease stage: on chronic dialysis Qualified Code(s): N18.6 - End stage renal disease; D63.1 - Anemia in chronic kidney disease; D63.1 - Anemia in chronic kidney disease; Z99.2 - Dependence on renal dialysis; Z99.2 - Dependence on renal dialysis; Z99.2 - Dependence on renal dialysis; Z99.2 - Dependence on renal dialysis (6) Chronic respiratory failure Current Visit: Yes Status: Chronic Qualifiers: Respiratory failure complication: hypoxia Qualified Code(s): J96.11 - Chronic respiratory failure with hypoxia (7) ESRD (end stage renal disease) on dialysis Current Visit: Yes Status: Chronic Assessment and plan: Nephrology on board for dialysis needs. Receiving hemodialysis via a temporary dialysis catheter. PermCath to be placed when bacteremia clears. (8) Left ear pain Current Visit: Yes Status: Acute (9) PAF (paroxysmal atrial fibrillation) Current Visit: Yes Status: Chronic - Time Spent With Patient Total time spent is greater than 50% in coordination of care (as documented) at patient's floor/unit and/or counseling patient: - Subjective Interval history: Continues to report left jaw pain and trismus. Baseline mental status unclear, appears somewhat confused, only talks about his left jaw pain. Heart rate is improving. - Constitutional Vitals: Temp Pulse Resp BP Pulse Ox 98.2 F 54 16 128/60 98 01/28/18 12:09 01/28/18 14:33 01/28/18 03:21 01/28/18 14:33 01/28/18 12:09 General appearance: Present: A&O X 2, morbidly obese. Absent: answers questions appropriately - ENT Additional comments: tracheostomy in place - Respiratory Respiratory exam: Present: decreased breath sounds (B/L bases), CTAB. Absent: accessory muscle use, rales, rhonchi, wheezes - Cardiovascular Cardiovascular exam: Present: RRR, +S1, +S2. Absent: diastolic murmur, gallop, rubs, systolic murmur - GI/Abdominal GI/Abdominal exam: Present: normal bowel sounds, soft (obese), no peritoneal signs. Absent: distended, tenderness Internal Medicine: Result - Labs CBC & Chem 7: 01/28/18 04:00 01/28/18 04:00 Labs: Short CBC 01/28/18 Range/Units 04:00 WBC 7.7 (4.3-11.1) K/mcL Hgb 8.5 L (12.9-16.9) g/dL Hct 27.4 L (37.5-50.1) % Plt Count 191 (140-400) K/mcL Neutrophils # 3.6 (1.6-8.9) K/mcL BMP 01/28/18 04:00 Sodium 136 Potassium 3.4 L Chloride 102 Carbon Dioxide 31 H BUN 16 Creatinine 2.26 H Glucose 141 H Calcium 8.3 L - ABG Interpretation ABG results: PT/INR, D-dimer PT 15.4 Seconds (9.4-12.1) H 01/28/18 04:00 Consult Discharge Plan - Plan Referrals: Harrison Mai MD [Primary Care Provider] - (This patient is from an ECF no PCP appointment needed)
[2018-01-28] MEDS: *HR* Warfarin 2 MG TABLET PO SCH (17:45)
[2018-01-28] MEDS: Cefepime HCl 1,000 MG in Water for inj. (sterile) 20 ML 10 ML IVP SCH (17:45)
[2018-01-29] MEDS: Insulin LISPRO 300 UNITS/3 ML VIAL SQ SCH ×5 (00:42→20:51)
[2018-01-29] MEDS: *HR* Heparin 5,000 UNIT/ML VIAL SQ SCH ×2 (05:12→17:03)
[2018-01-29 05:30] LABS: INR 1.4; Prothrombin Time 15.5 Seconds (9.4-12.1)
[2018-01-29 05:36] LABS: Basophils # 0.1 K/mcL (0.0-0.2); Basophils % 0.7 %; Eosinophils # 0.4 K/mcL (0.0-0.6); Eosinophils % 4.7 %; Hematocrit 29.8 % (37.5-50.1); Hemoglobin 9.2 g/dL (12.9-16.9); Immature Granulocytes % 0.2 % (0-4); Lymphocytes # 3.9 K/mcL (0.6-4.6); Lymphocytes % 41.1 %; Mean Corpuscular HGB Conc 30.9 g/dL (31.6-35.5); Mean Corpuscular Hemoglobin 29.4 pg (28.0-33.3); Mean Corpuscular Volume 95.2 fL (83.0-100.0); Mean Platelet Volume 8.3 fL (9.4-12.4); Monocytes # 0.7 K/mcL (0.0-1.3); Monocytes % 7.3 %; Neutrophils # 4.3 K/mcL (1.6-8.9); Platelet Count 238 K/mcL (140-400); Red Blood Count 3.13 M/mcL (4.19-5.50); Red Cell Distribution Width 14.5 % (11.5-14.5)
[2018-01-29 05:51] LABS: Calcium 8.7 mg/dL (8.6-10.3); Potassium 3.5 mEq/L (3.5-5.1)
[2018-01-29] MEDS: Famotidine 20 MG TABLET PO SCH (07:57)
[2018-01-29] MEDS: OXYCODONE Oral CONC 10 MG/0.5 ML ORAL.SYG SL PRN ×2 (07:57→20:57)
[2018-01-29] MEDS: Docusate Oral Soln 100 MG/10 ML UDC GTUBE SCH ×2 (07:57→20:57)
[2018-01-29] MEDS: Calcium Acetate 667 MG CAPSULE PO SCH ×3 (07:58→17:03)
[2018-01-29] MEDS: Bisacodyl 10 MG RECTAL SUPPOSITORY RC SCH (07:59)
[2018-01-29] MEDS ORDERED: 0.9 % Sodium Chloride 1,000 ML ONE (08:30)
--- NOTE | 2018-01-29 10:22 | Nephrology Progress Note ---
Date of Encounter: 01/29/18 Time of Encounter: 10:20 - Assessment and Plan (1) ESRD (end stage renal disease) on dialysis Current Visit: Yes Status: Chronic Patient appears to be recovering some renal function. I am going to hold his dialysis today. We will continue to monitor his renal function. (2) Anemia in CKD (chronic kidney disease) Current Visit: Yes Status: Chronic Qualifiers: Chronic kidney disease stage: on chronic dialysis Qualified Code(s): N18.6 - End stage renal disease; D63.1 - Anemia in chronic kidney disease; D63.1 - Anemia in chronic kidney disease; Z99.2 - Dependence on renal dialysis; Z99.2 - Dependence on renal dialysis; Z99.2 - Dependence on renal dialysis; Z99.2 - Dependence on renal dialysis (3) MRSA (methicillin resistant staph aureus) culture positive Current Visit: Yes Status: Acute (4) Tracheostomy care Current Visit: Yes Status: Acute Subjective Principal diagnosis: MRSA Bacteremia Interval history: Patient is more alert today. He says he is feeling better. Urine output is 1.3 L. Creatinine is actually stable. Patient is scheduled for dialysis today but he appears to be recovering some renal function. Blood pressure is stable. Heart rate is 49. Blood cultures from January 26 remain negative. Objective - Vital Signs Vital signs: Vital Signs Temp Pulse Resp BP Pulse Ox 01/29/18 08:58 98.9 F 82 18 121/87 93 01/29/18 06:34 49 141/72 01/29/18 06:00 49 128/70 01/29/18 05:27 48 162/77 01/29/18 04:11 97.8 F 50 14 144/85 96 01/29/18 04:00 50 159/80 01/29/18 03:30 46 01/29/18 03:00 53 148/79 01/29/18 02:00 57 148/75 01/29/18 01:00 48 181/74 01/29/18 00:30 52 128/56 01/29/18 00:00 51 137/69 01/28/18 23:30 50 141/69 01/28/18 23:15 98.4 F 60 16 175/68 92 01/28/18 23:00 50 146/67 01/28/18 22:00 57 131/78 01/28/18 21:00 47 122/70 01/28/18 20:08 98.6 F 51 18 135/81 92 01/28/18 20:00 52 135/81 01/28/18 19:00 51 119/59 01/28/18 18:45 49 146/60 01/28/18 18:15 49 117/66 01/28/18 18:00 50 108/72 01/28/18 17:00 55 138/59 01/28/18 16:02 55 123/68 01/28/18 15:30 57 108/54 01/28/18 14:33 54 128/60 01/28/18 13:15 55 113/56 01/28/18 12:45 55 125/69 01/28/18 12:09 98.2 F 128/99 98 01/28/18 12:00 45 138/95 01/28/18 11:38 74 115/75 96 01/28/18 11:15 58 163/98 01/28/18 11:00 50 160/72 01/28/18 10:45 62 165/83 01/28/18 10:30 57 132/60 Intake and Output 01/28/18 01/29/18 01/29/18 23:59 07:59 15:59 Intake Total 500 / 500 Output Total 550 / 550 Balance -550 / -550 500 / 500 Intake: IV Fluids 500 / 500 DOPamine Premix 400mg/250mL 400 500 / 500 mg In 250 ml @ 2.5 MCG/KG/MIN 12.332 mls/hr IVC .[id number] [facility] Rx#:[id number] Output: Urine 550 / 550 Other: Weight 133.3 kg Blood Glucose* 81 166 Patient Weight 01/29/18 23:59 Weight 133.3 kg - General Appearance Exam: Patient is alert. He is in no acute distress. Trach collar is in place. Lungs mage breath sounds. Heart regular rate and rhythm. Abdomen is obese. PEG tube is in place. Patient is status post bilateral lower extremity amputation. - Lab 01/29/18 04:00 01/29/18 04:00 Most recent lab results Calcium 8.7 mg/dL (8.6-10.3) 01/29/18 04:00 Phosphorus 3.4 mg/dL (2.7-4.5) 01/26/18 03:00 Magnesium 2.6 mg/dL (1.6-2.6) 01/26/18 11:09 Consult Discharge Plan - Plan Referrals: Harrison Mai MD [Primary Care Provider] - (This patient is from an F no PCP appointment needed)
--- NOTE | 2018-01-29 12:12 | Infectious Disease Progress No ---
Date of Encounter: 01/29/18 Time of Encounter: 12:10 - Assessment and Plan (1) Leukocytosis Current Visit: Yes Status: Resolved WBC 11.6 on arrival. Likely multifactorial: bacteremia, PNA, mastoiditis. Resolved. Continue to trend. Qualifiers: Leukocytosis type: unspecified Qualified Code(s): D72.829 - Elevated white blood cell count, unspecified (2) Bacteremia Current Visit: Yes Status: Acute Causative organism: MRSA and Staph haemolyticus. Source unclear, but potential sources include Perma-cath, mastoiditis, decubitus ulcers, or PNA. Blood cultures drawn 01/20/18 are positive 1/1 set for MRSA. Repeat blood cultures drawn 01/22/18 are positive 2/2 sets for MRSA per PCR. Both were drawn peripherally. Repeat blood cultures drawn 01/23/18 are positive for Staph haemolyticus 2/2. Repeat blood cultures on 01/26 no growth to date. No cultures were obtained from the Perma-cath, which was discontinued 01/23/18. Catheter tip was not sent for culture. Uncomplicated. No endocarditis stigmata noted on exam. The patient has one major and no minor Modified Barrios's Criteria. Repeat blood cultures x 2 sets drawn this morning are pending. TTE negative for vegetations. GODWIN negative for valvular vegetations. Continue Vancomycin IV. Pharmacy to dose. Goal trough ~15. Duration of treatment depends on the clinical picture. Will likely be able to give Vancomycin with HD when the patient is discharged. Monitor for drug toxicity and dose-adjust antibiotics. Cultures from January 26 are no growth to date. I will repeat cultures right now stat and if they continue to be negative for 48-[address] pacemaker. Notified cardiology of my recommendations. (3) Mastoiditis Current Visit: Yes Status: Acute Causative organism: unclear. CT head shows findings consistent with left mastoiditis. ENT consulted. Continue Vancomycin as above. Continue Cefepime 1 gram IV daily (day 4). Duration of treatment depends on the clinical picture. Qualifiers: Laterality: left Qualified Code(s): H70.92 - Unspecified mastoiditis, left ear (4) Sinusitis Current Visit: Yes Status: Acute CT head shows bilateral maxillary sinusitis. Causative organism unclear. Continue antibiotics as above. Qualifiers: Sinusitis location: maxillary Chronicity: acute Recurrence: non- recurrent Qualified Code(s): J01.00 - Acute maxillary sinusitis, unspecified (5) Pneumonia Current Visit: Yes Status: Inactive CXR shows bilateral airspace opacities concerning for PNA vs. edema. CT chest shows multifocal pneumonia. Clinically, the patient denies shortness of breath or cough. He does have some thin yellow secretions from his trach. Sputum culture positive for PSEA, sensitive to Cefepime. Continue antibiotics as above for now. Duration of treatment depends on the clinical picture. Qualifiers: Pneumonia type: due to unspecified organism Laterality: bilateral Lung location: unspecified part of lung Qualified Code(s): J18.9 - Pneumonia, unspecified organism (6) Bradycardia Current Visit: Yes Status: Acute Dopamine gtt. Cardiology consulted and following. (7) Trismus Current Visit: Yes Status: Acute Etiology unclear. CT neck negative. ENT consulted and following. (8) Anemia in CKD (chronic kidney disease) Current Visit: Yes Status: Chronic Qualifiers: Chronic kidney disease stage: on chronic dialysis Qualified Code(s): N18.6 - End stage renal disease; D63.1 - Anemia in chronic kidney disease; D63.1 - Anemia in chronic kidney disease; Z99.2 - Dependence on renal dialysis; Z99.2 - Dependence on renal dialysis; Z99.2 - Dependence on renal dialysis; Z99.2 - Dependence on renal dialysis (9) ESRD (end stage renal disease) on dialysis Current Visit: Yes Status: Chronic Nephrology consulted and following. Temporary HD line inserted 01/24/18. (10) Chronic respiratory failure Current Visit: Yes Status: Chronic Chronic tracheostomy since September 2017. Management per the pulmonology team. Qualifiers: Respiratory failure complication: hypoxia Qualified Code(s): J96.11 - Chronic respiratory failure with hypoxia - Subjective Interval history: Patient seen and examined. Continues to be afebrile. Patient going through episodes of bradycardia. Pressure is stable. I had long discussion with the cardiology team. Patient had episodes of bradycardia with pauses requiring pacemaker. They are wondering when the pacemaker be okay. Infect Dis PN-Objective Data - Labs CBC & Chem 7: 01/29/18 04:00 01/29/18 04:00 Labs: Laboratory Results - last 24 hr 01/25/18 01/27/18 01/28/18 08:43 23:31 05:48 WBC RBC Hgb Hct MCV MCH MCHC RDW Plt Count MPV Immature Gran % Seg Neutrophils % Lymphocytes % Monocytes % Eosinophils % Basophils % Neutrophils # Lymphocytes # Monocytes # Eosinophils # Basophils # PT INR Sodium Potassium Chloride Carbon Dioxide BUN Creatinine Est GFR ( Amer) Est GFR (Non-Af Amer) BUN/Creatinine Ratio Glucose POC Glucose 132 H 111 H Calculated Osmolality Calcium Methylmalonic Acid 0.18 Random Vancomycin 01/28/18 01/28/18 01/29/18 12:15 17:35 00:10 WBC RBC Hgb Hct MCV MCH MCHC RDW Plt Count MPV Immature Gran % Seg Neutrophils % Lymphocytes % Monocytes % Eosinophils % Basophils % Neutrophils # Lymphocytes # Monocytes # Eosinophils # Basophils # PT INR Sodium Potassium Chloride Carbon Dioxide BUN Creatinine Est GFR ( Amer) Est GFR (Non-Af Amer) BUN/Creatinine Ratio Glucose POC Glucose 153 H 81 106 H Calculated Osmolality Calcium Methylmalonic Acid Random Vancomycin 01/29/18 01/29/18 01/29/18 04:00 04:00 05:10 WBC 9.4 RBC 3.13 L Hgb 9.2 L Hct 29.8 L MCV 95.2 MCH 29.4 MCHC 30.9 L RDW 14.5 Plt Count 238 MPV 8.3 L Immature Gran % 0.2 Seg Neutrophils % 46.0 Lymphocytes % 41.1 Monocytes % 7.3 Eosinophils % 4.7 Basophils % 0.7 Neutrophils # 4.3 Lymphocytes # 3.9 Monocytes # 0.7 Eosinophils # 0.4 Basophils # 0.1 PT 15.5 H INR 1.4 Sodium 139 Potassium 3.5 Chloride 103 Carbon Dioxide 28 BUN 18 Creatinine 2.16 H Est GFR ( Amer) 37 L Est GFR (Non-Af Amer) 31 L BUN/Creatinine Ratio 8 Glucose 191 H POC Glucose Calculated Osmolality 295 Calcium 8.7 Methylmalonic Acid Random Vancomycin 14 01/29/18 01/29/18 05:28 11:15 WBC RBC Hgb Hct MCV MCH MCHC RDW Plt Count MPV Immature Gran % Seg Neutrophils % Lymphocytes % Monocytes % Eosinophils % Basophils % Neutrophils # Lymphocytes # Monocytes # Eosinophils # Basophils # PT INR Sodium Potassium Chloride Carbon Dioxide BUN Creatinine Est GFR ( Amer) Est GFR (Non-Af Amer) BUN/Creatinine Ratio Glucose POC Glucose 166 H 120 H Calculated Osmolality Calcium Methylmalonic Acid Random Vancomycin Cultures: Cultures 01/26/18 03:20 Blood Culture - Preliminary Peripheral Venipuncture No growth. 01/26/18 03:17 Blood Culture - Preliminary Peripheral Venipuncture No growth. 01/23/18 15:36 Blood Culture - Final Peripheral Venipuncture Staphylococcus haemolyticus 01/23/18 15:36 Blood Culture - Final Peripheral Venipuncture Staphylococcus haemolyticus 01/23/18 00:26 Sputum Culture - Final Sputum Pseudomonas aeruginosa Serology 01/22/18 Range/Units 16:56 Hep Bs Antigen Nonreactive (Nonreactive) Hep Bs Antibody 0.32 mIU/mL Exam - Constitutional Vitals: Temp Pulse Resp BP Pulse Ox 98.8 F 52 17 135/63 93 01/29/18 11:24 01/29/18 11:24 01/29/18 11:24 01/29/18 11:24 01/29/18 11:24 General appearance: no acute distress, no febrile - Neck Neck exam: Present: full ROM Additional comments: Dialysis catheter intact - Respiratory Respiratory exam: Present: CTAB. Absent: wheezes - Cardiovascular Cardiovascular exam: Present: +S1, +S2 Additional comments: Irregular - GI/Abdominal GI/Abdominal exam: Present: soft. Absent: tenderness - Neurological Exam Neurological exam: Present: alert, oriented X3. Absent: speech deficit Consult Discharge Plan - Plan Referrals: Harrison Mai MD [Primary Care Provider] - (This patient is from an ECF no PCP appointment needed)
--- NOTE | 2018-01-29 13:17 | Electrophysiology Consult Note ---
<Marcos Booker - Last Filed: 01/29/18 13:28> Date of Encounter: 01/29/18 Time of Encounter: 13:00 Assessment and Plan (1) Bradycardia Current Visit: Yes Status: Acute Per EP: Cardiology has been following with echo and GODWIN completed.Patient noted to have 4.7 second pause overnight during nocturnal hours. Rhythm strip reviewed with Dr. Casey Salinas. Patient currently sinus rhythm in the 60s to 70s on dopamine drip at 7.5 mcg/kg/min. Had previously been off dopamine gtt. ID following patient and known to have MRSA and staph haemolyticus with source unclear. Most recent blood cultures 2 negative. Discussed with ID and recommendations for repeat cultures and if remained negative for 48 hours can consider permanent pacemaker if deemed clinically warranted and appropriate. Discussed and reviewed with Dr. Casey Salinas, no recommendations for pacer at this time and recommendations to wait multiple weeks prior to potential permanent pacer insertion from EP standpoint. Currently clinically stable. Continue to monitor. No need for trancutaneous or TV pacing at this juncture. (2) PAF (paroxysmal atrial fibrillation) Current Visit: Yes Status: Chronic Per EP: Hx of PAF. Currently sinus rhythm and off a elaine. Continue to monitor, tree. On coumadin for AC. Current INR 1.4. Of note, patient did receive 2 units transfusion during his hospital stay. Discussion w patient/family: The assessment and plan as outlined above was discussed with the patient who expressed understanding and agreement. All questions were answered. Thank you for involving us in the care of your patient. Please call with any questions. History of Present Illness Consult date: 01/29/18 Requesting physician: Shay Jackson Consult reason: Eval for Pacer Chief complaint: Weakness History of present illness: Mr. Murrell is a 67 year old male initially seen by cardiology team 2017 with a relevant past medical history of atrial fibrillation with Coumadin for anticoagulation, DM 2, history of left BKA and right AKA, end-stage renal disease on dialysis, hypertension, chronic respiratory failure with tracheostomy and chronic ventilator dependence. Initially seen for weakness, bradycardia, and hypotension. EP consult for evaluation of bradycardia and potential for permanent pacemaker. Patient seen today with no family at bedside. Patient noted to be a poor historian and slow to communicate. [facility] [place]. Currently denies any changes since admission other than currently having back pain and requesting repositioning. Past Med Surg Social Fam HX - Past Medical History Attestation: Yes The following information was validated with the patient. Source: patient, old records reviewed Medical history: atrial fibrillation, diabetes, dialysis (ESRD on HD T/Thur/Sat) , hypertension, other (Cardiac arrest 09/2017) Psychiatric history: other - Past Surgical History Surgical History: tracheostomy (10/2017), other (PEG tube 10/2017, Tunneled dialysis catheter 11/2017, Right AKA 12/2011, ) - Social History Smoking Status: Former smoker Smokeless Tobacco Status: No Alcohol use: none Drug use: none - Family History Mother Living Status: Cause of : Colon CA Medications and Allergies Acetaminophen [Non-Aspirin] 325 mg PO DAILY 01/20/18 [History] Bisacodyl [Dulcolax] 10 mg RC DAILY 01/20/18 [History] Calcium Acetate [Phos-LO] 667 mg PO TIDWM 01/20/18 [History] Docusate [Colace] 100 mg PO BID 01/20/18 [History] Famotidine [Heartburn Prevention] 20 mg PO DAILY 01/20/18 [History] Insulin ASPART [NovoLOG] 0 - 12 units SQ ACHS PRN 01/20/18 [History] Insulin Glargine [Lantus] 10 units SQ DAILY 01/20/18 [History] Metoprolol [Lopressor] 12.5 mg PO BID 01/20/18 [History] OxyCODONE/APAP 7.5/325 [Percocet 7.5/325 MG] 1 each PO Q4HR PRN 01/20/18 [ History] hydrOXYzine HCl [Hydroxyzine HCl] 25 mg PO Q6H PRN 01/20/18 [History] Magnesium Hydroxide [Milk of Magnesia] 30 ml PO DAILY PRN 01/22/18 [History] Promethazine [Phenergan] 25 mg PO Q4H PRN 01/22/18 [History] Quetiapine Fumarate [Seroquel] 50 mg PO BID 01/22/18 [History] Sulfamethoxazole/Trimeth DS [Bactrim DS] 1 tab PO BID 01/22/18 [History] Warfarin [Coumadin] 1 mg PO DAILY 01/22/18 [History] 3 Allergy/AdvReac Type Severity Reaction Status Date / Time Banana Allergy Mild Hives Verified 01/22/18 09:56 Oxycodone [From OxyContin] Allergy Mild Hives Verified 01/22/18 09:56 Penicillins Allergy Mild Hives Verified 01/22/18 09:56 tramadol Allergy Mild Hives Verified 01/22/18 09:56 yellow dye Allergy Hives Verified 01/22/18 09:56 aspirin Allergy Mild Hives Uncoded 01/20/18 02:37 morphine Allergy Mild Hives Uncoded 01/20/18 02:37 All Systems Review: The remainder of the systems were reviewed and are negative - Constitutional Constitutional: fatigue - Cardiovascular Cardiovascular: dyspnea at rest, dyspnea on exertion - Musculoskeletal Musculoskeletal: back pain Physical Examination Vital Signs, Last 4 Hours Temp Pulse Resp BP Pulse Ox 01/29/18 11:24 98.8 F 52 17 135/63 93 General: Conversant Cardiac: Other (Currently sinus rhythm on telemetry in the 60s to 70s) Lungs: Other (has trach to trach collar) Neuro: Alert and responsive, No focal deficits noted Results 01/29/18 04:00 01/29/18 04:00 Lab Results - Imaging and Cardiology Echo: report reviewed - EKG Interpretation EKG results cardiology: other (Sinus rhythm on telemetry in the 60s to 70s) Consult Discharge Plan - Plan Referrals: Harrison Mai MD [Primary Care Provider] - (This patient is from an [facility] no PCP appointment needed) <Casey Salinas - Last Filed: 02/01/18 19:08> Date of Encounter: 02/01/18 - Attending Attestation I have personally performed a face to face evaluation on this patient. I have reviewed and agree with the care plan. History and Exam by me shows: Sinus bradycardia and pauses which are mostly nocturnal. Given MRSA would not recommend pacemaker at this time. Assessment and Plan Discussion w patient/family: The assessment and plan as outlined above was discussed with the patient and/or family members who expressed understanding and agreement. All questions were answered. Thank you for involving us in the care of your patient. Please call with any questions. History of Present Illness History of present illness: Mr. Murrell is a 67 year old male All Systems Review: The remainder of the systems were reviewed and are negative Physical Examination Vital Signs, Last 4 Hours Pulse Resp BP Pulse Ox 01/30/18 14:58 50 20 167/74 100 01/30/18 11:59 50 Results 02/01/18 06:45 02/01/18 06:45 Lab Results 01/30/18 01/30/18 03:56 03:56 INR 1.4 Sodium 138 Potassium 3.3 L Chloride 106 Carbon Dioxide 27 BUN 17 Creatinine 2.12 H Glucose 174 H Calcium 8.8 Total Bilirubin 0.2 L AST 12 L ALT 7 Alkaline Phosphatase 86
--- NOTE | 2018-01-29 15:40 | Internal Med Progress Note ---
Date of Encounter: 01/29/18 Time of Encounter: 11:00 - Assessment and plan (1) Bradycardia Current Visit: Yes Status: Acute Assessment and plan: He is noted to have atrial fibrillation with slow ventricular response. Cardiology on board- no intervention and recommend outpatient PPM as of now, will continue to follow. Patient continues to be on IV dopamine drip to maintain heart rate, unable to be weaned off for now. He will eventually need a permanent pacemaker, after bacteremia clears. Continue to monitor closely. (2) Bacteremia Current Visit: Yes Status: Acute Assessment and plan: Unclear source, could be infected PermCath versus pneumonia. One out of one blood cultures from January 20 grew MRSA. 2 out of 2 blood cultures from January 22 grew MRSA. 2 out of 2 blood cultures from January 23 grew staph hemolyticus. Repeat blood cultures from January 26 negative. Blood cultures are again repeated today. Infectious diseases on board, continue IV vancomycin. Transthoracic and transesophageal echocardiogram showed no evidence of vegetations. PermCath has been removed, temporary dialysis catheter placed on January 24. (3) Essential hypertension Current Visit: Yes Status: Chronic (4) Diabetes mellitus Current Visit: Yes Status: Chronic Assessment and plan: Blood sugars noted to be well controlled. Continue Accu-Chek blood glucose monitoring with basal bolus insulin regimen. Diabetic diet. Qualifiers: Diabetes mellitus type: type 2 Diabetes mellitus assisted insulin use: with assisted use Diabetes mellitus complication status: with kidney complications Diabetes mellitus complication detail: with chronic kidney disease Chronic kidney disease stage: on chronic dialysis Qualified Code(s) : E11.22 - Type 2 diabetes mellitus with diabetic chronic kidney disease; N18.6 - End stage renal disease; Z99.2 - Dependence on renal dialysis; Z99.2 - Dependence on renal dialysis; Z99.2 - Dependence on renal dialysis; N18.6 - End stage renal disease; N18.6 - End stage renal disease; N18.6 - End stage renal disease; Z79.4 - jail (current) use of insulin; 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; 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; Z79.4 - jail (current) use of insulin; Z99.2 - Dependence on renal dialysis (5) Anemia in CKD (chronic kidney disease) Current Visit: Yes Status: Chronic Qualifiers: Chronic kidney disease stage: on chronic dialysis Qualified Code(s): N18.6 - End stage renal disease; D63.1 - Anemia in chronic kidney disease; D63.1 - Anemia in chronic kidney disease; Z99.2 - Dependence on renal dialysis; Z99.2 - Dependence on renal dialysis; Z99.2 - Dependence on renal dialysis; Z99.2 - Dependence on renal dialysis (6) Chronic respiratory failure Current Visit: Yes Status: Chronic Assessment and plan: Noted to be on chronic tracheostomy collar. Qualifiers: Respiratory failure complication: hypoxia Qualified Code(s): J96.11 - Chronic respiratory failure with hypoxia (7) ESRD (end stage renal disease) on dialysis Current Visit: Yes Status: Chronic Assessment and plan: Nephrology on board for dialysis needs. Receiving hemodialysis via a temporary dialysis catheter. PermCath to be placed when bacteremia clears, if needed. Hemodialysis has been deferred today due to improving renal function. Continue to monitor. (8) Left ear pain Current Visit: Yes Status: Acute (9) PAF (paroxysmal atrial fibrillation) Current Visit: Yes Status: Chronic Assessment and plan: Atrial fibrillation with slow ventricular response. Hold beta elaine. Continue IV dopamine drip. We will hold anticoagulation with Coumadin, INR is noted to be 1.4 today. Patient may need INR less than 1.5 for possible pacemaker placement and PermCath placement. (10) Pneumonia Current Visit: Yes Status: Acute Assessment and plan: CT chest suggestive of bilateral multilobar pneumonia. Sputum culture grew Pseudomonas. Blood cultures as mentioned above. Continue IV cefepime to complete a 14 day course of antibiotics. Supportive care and supplemental oxygen. Infectious diseases on board. Qualifiers: Pneumonia type: due to Pseudomonas Laterality: bilateral Lung location: unspecified part of lung Qualified Code(s): J15.1 - Pneumonia due to Pseudomonas - Time Spent With Patient Total time spent is greater than 50% in coordination of care (as documented) at patient's floor/unit and/or counseling patient: - Subjective Interval history: Feels better; denies chest pain, shortness of breath, orthopnea, palpitations; HD deferred today due to improving renal function; - Constitutional Vitals: Temp Pulse Resp BP Pulse Ox 98.4 F 81 18 104/77 100 01/29/18 15:24 01/29/18 15:24 01/29/18 15:24 01/29/18 15:24 01/29/18 15:24 General appearance: Present: A&O X 2, morbidly obese, answers questions appropriately - Respiratory Respiratory exam: Present: CTAB (coarse breath sounds B/L). Absent: accessory muscle use, rales, rhonchi, wheezes - Cardiovascular Cardiovascular exam: Present: RRR, +S1, +S2. Absent: diastolic murmur, gallop, rubs, systolic murmur - GI/Abdominal GI/Abdominal exam: Present: normal bowel sounds, soft (obese), no peritoneal signs. Absent: distended, tenderness Internal Medicine: Result - Labs CBC & Chem 7: 01/29/18 04:00 01/29/18 04:00 Labs: Short CBC 01/29/18 Range/Units 04:00 WBC 9.4 (4.3-11.1) K/mcL Hgb 9.2 L (12.9-16.9) g/dL Hct 29.8 L (37.5-50.1) % Plt Count 238 (140-400) K/mcL Neutrophils # 4.3 (1.6-8.9) K/mcL BMP 01/29/18 04:00 Sodium 139 Potassium 3.5 Chloride 103 Carbon Dioxide 28 BUN 18 Creatinine 2.16 H Glucose 191 H Calcium 8.7 - ABG Interpretation ABG results: PT/INR, D-dimer PT 15.5 Seconds (9.4-12.1) H 01/29/18 05:10 Consult Discharge Plan - Plan Referrals: Harrison Mai MD [Primary Care Provider] - (This patient is from an ECF no PCP appointment needed)
[2018-01-29] MEDS: Cefepime HCl 1,000 MG in Water for inj. (sterile) 20 ML 10 ML IVP SCH (17:06)
[2018-01-30] MEDS ORDERED: Ondansetron 4 MG/2 ML VIAL IVP ONE (04:02)
[2018-01-30] MEDS ORDERED: Ondansetron 4 MG/2 ML VIAL ONE (04:08)
[2018-01-30 04:21] LABS: INR 1.4; Prothrombin Time 15.7 Seconds (9.4-12.1)
[2018-01-30 04:48] LABS: Albumin 2.1 g/dL (3.5-5.7); Albumin/Globulin Ratio 0.5 (1.1-2.2); Bilirubin,Total 0.2 mg/dL (0.3-1.0); Calcium 8.8 mg/dL (8.6-10.3); Globulin 4.5 g/dL (2.4-3.5); Potassium 3.3 mEq/L (3.5-5.1); Total Protein 6.6 g/dL (6.4-8.9)
[2018-01-30] MEDS: *HR* Heparin 5,000 UNIT/ML VIAL SQ SCH ×2 (05:56→17:28)
--- NOTE | 2018-01-30 08:07 | Nephrology Progress Note ---
Date of Encounter: 01/30/18 Time of Encounter: 08:05 - Assessment and Plan (1) ESRD (end stage renal disease) on dialysis Current Visit: Yes Status: Chronic At this point time the patient is recovering renal function. He currently does not require dialysis. Also he currently will not require placement of a tunnel dialysis catheter unless his renal function were to get worse. (2) Anemia in CKD (chronic kidney disease) Current Visit: Yes Status: Chronic Qualifiers: Chronic kidney disease stage: on chronic dialysis Qualified Code(s): N18.6 - End stage renal disease; D63.1 - Anemia in chronic kidney disease; D63.1 - Anemia in chronic kidney disease; Z99.2 - Dependence on renal dialysis; Z99.2 - Dependence on renal dialysis; Z99.2 - Dependence on renal dialysis; Z99.2 - Dependence on renal dialysis (3) MRSA (methicillin resistant staph aureus) culture positive Current Visit: Yes Status: Acute (4) Tracheostomy care Current Visit: Yes Status: Acute Subjective Principal diagnosis: MRSA Bacteremia Interval history: The patient denies any new complaints. He remained stable from a renal perspective. Currently we are withholding dialysis because it appears as though his renal function is improving. Blood cultures from January 26 remain negative. Objective - Vital Signs Vital signs: Vital Signs Temp Pulse Resp BP Pulse Ox 01/30/18 06:30 97.9 F 60 18 167/81 88 01/30/18 05:00 48 164/82 01/30/18 04:45 49 160/91 01/30/18 04:15 53 128/76 01/30/18 04:00 84 178/108 01/30/18 03:55 53 172/101 01/30/18 03:45 48 72/42 01/30/18 03:41 98.1 F 56 18 89/56 96 01/30/18 03:40 79 78/48 01/30/18 03:35 73 89/56 01/30/18 03:30 47 157/79 01/30/18 03:00 50 162/85 01/30/18 02:00 51 102/63 01/30/18 01:45 47 159/77 01/30/18 01:30 47 165/74 01/30/18 01:15 49 131/71 01/30/18 01:00 56 171/76 01/30/18 00:00 52 156/80 01/29/18 23:49 98.1 F 51 16 172/67 96 01/29/18 23:00 49 152/83 01/29/18 22:00 81 128/86 01/29/18 21:30 49 157/75 01/29/18 21:15 50 177/84 01/29/18 21:00 52 161/83 01/29/18 20:47 98.3 F 86 18 100/74 99 01/29/18 20:45 81 100/74 01/29/18 15:24 98.4 F 81 18 104/77 100 01/29/18 11:24 98.8 F 52 17 135/63 93 01/29/18 08:58 98.9 F 82 18 121/87 93 Intake and Output 01/29/18 01/30/18 01/30/18 23:59 07:59 15:59 Intake Total 595 / 595 500 / 500 Output Total 450 / 450 Balance 595 / 595 50 / 50 Intake: IV Fluids 260 / 260 500 / 500 DOPamine Premix 400mg/250mL 400 250 / 250 500 / 500 mg In 250 ml @ 2.5 MCG/KG/MIN 12.332 mls/hr IVC .[id number] OVI Rx#:[id number] Maxipime 1,000 MG In Water for 10 10 inj. (sterile) 10 ML @ 150 mls/ hr IVP Q24H COUNT INCLUDES THE [facility] Rx#:[id number] Oral 300 / 300 Free Water Intake Amount 35 / 35 Output: Urine 450 / 450 Other: Blood Glucose* 154 180 - General Appearance Exam: Patient is alert. He is in no acute distress. Trach collars in place. Lungs coarse breath sounds. Heart regular rate and rhythm. Abdomen is obese with a PEG tube in place. There is a temporary dialysis catheter in the right internal jugular vein. Patient is status post bilateral lower extremity amputations. - Lab 01/29/18 04:00 01/30/18 03:56 Most recent lab results Calcium 8.8 mg/dL (8.6-10.3) 01/30/18 03:56 Phosphorus 3.4 mg/dL (2.7-4.5) 01/26/18 03:00 Magnesium 2.6 mg/dL (1.6-2.6) 01/26/18 11:09 Consult Discharge Plan - Plan Referrals: Harrison Mai MD [Primary Care Provider] - (This patient is from an F no PCP appointment needed)
--- NOTE | 2018-01-30 08:09 | Cardiology Progress Note ---
<Marcos Booker - Last Filed: 01/30/18 15:36> Date of Encounter: 01/30/18 Time of Encounter: 08:00 Assessment and Plan (1) Bradycardia Current Visit: Yes Status: Acute Per Cardiology: Patient noted to have nocturnal pauses overnight with longest being have 3.4 second pause overnight during nocturnal hours. Patient throughout the day has been bradycardic in the 50s with intermittent sinus bradycardia and junctional rhythm. Dopamine drip noted this morning to be up to 15 mcg/kg/m. Dopamine drip weaned and eventually discontinued, heart rates remained unchanged, however patient did have a hypotensive response with systolic blood pressures 160s dropping down to the 70s briefly. Now back on dopamine drip currently at 14 mcg/kg/m. Received 250 saline bolus and current systolic blood pressures 90s to 100s. Recent echo reviewed and showed preserved EF with no significant valvular dysfunction, has moderate diastolic dysfunction. Seen and examined with Dr. Solis. ID following patient and known to have MRSA and staph haemolyticus with source unclear. Most recent blood cultures 2 negative. Discussed with ID and recommendations for repeat cultures and if remained negative for 48 hours can consider permanent pacemaker if deemed clinically warranted and appropriate. Discussed and reviewed with Dr. Casey Salinas, no recommendations for pacer at this time and recommendations to wait multiple weeks prior to potential permanent pacer insertion from EP standpoint once antibiotic course completed. Currently clinically stable. Continue to monitor. No need for trancutaneous or TV pacing at this juncture. Again, remained SB and intermittent junctional with dopamine gtt off in the 50's, dopa resumed d/t hypotension. (2) PAF (paroxysmal atrial fibrillation) Current Visit: Yes Status: Chronic Per EP: Hx of PAF. Currently sinus rhythm and off a elaine. No afib noted, continue to monitor. Has been on coumadin for AC, but now off per primary service. Current INR 1.4. Of note, patient did receive 2 units transfusion during his hospital stay. Continue to monitor H&H. Discussion w patient/family: The assessment and plan as outlined above was discussed with the patient who expressed understanding and agreement. All questions were answered. Thank you for involving us in the care of your patient. Please call with any questions. Subjective Principal diagnosis: MRSA Bacteremia, Bradycardia Interval history: Patient denies any new concerns or complaints overnight. Objective Vital Signs, Last 4 Hours Temp Pulse Resp BP Pulse Ox 01/30/18 06:30 97.9 F 60 18 167/81 88 01/30/18 05:00 48 164/82 01/30/18 04:45 49 160/91 01/30/18 04:15 53 128/76 General: Conversant, No Apparent Distress Cardiac: Reg Rate and Rhythm, Normal S1 and S2, No Murmur Lungs: Normal Breath Sounds, No Wheeze, Rales, Rhonchi, Other (trach to trach collar, diminished anteriorly) Neuro: Alert and responsive, No focal deficits noted Results 01/29/18 04:00 01/30/18 03:56 Lab Results Laboratory Tests 01/20/18 01/22/18 01/22/18 03:10 10:08 10:21 Hgb 10.5 L Hct 34.1 L INR Potassium Creatinine Est GFR (Non-Af Amer) AST ALT Troponin I 0.05 H* Staphylococcus sp PCR DETECTED A Staph aureus (PCR) DETECTED A mecA-Methicil Res Gene DETECTED A 01/25/18 01/26/18 01/29/18 06:00 03:00 04:00 Hgb 7.4 L 9.2 L Hct 24.2 L 29.8 L INR Potassium Creatinine Est GFR (Non-Af Amer) AST 14 ALT 8 Troponin I Staphylococcus sp PCR Staph aureus (PCR) mecA-Methicil Res Gene 01/29/18 01/29/18 01/30/18 04:00 05:10 03:56 Hgb Hct INR 1.4 1.4 Potassium Creatinine 2.16 H Est GFR (Non-Af Amer) 31 L AST ALT Troponin I Staphylococcus sp PCR Staph aureus (PCR) mecA-Methicil Res Gene 01/30/18 03:56 Hgb Hct INR Potassium 3.3 L Creatinine Est GFR (Non-Af Amer) AST ALT Troponin I Staphylococcus sp PCR Staph aureus (PCR) mecA-Methicil Res Gene - EKG Interpretation EKG results cardiology: other (Telemetry reviewed with average heart rate the past 12 hours 53, pauses noted during nocturnal hours with longest being 3.4 seconds) Consult Discharge Plan - Plan Referrals: Harrison Mai MD [Primary Care Provider] - (This patient is from an ECF no PCP appointment needed) <Júnior Solis Adina - Last Filed: 01/31/18 19:11> Date of Encounter: 01/30/18 Time of Encounter: 13:00 Assessment and Plan Discussion w patient/family: The assessment and plan as outlined above was discussed with the patient and/or family members who expressed understanding and agreement. All questions were answered. Thank you for involving us in the care of your patient. Please call with any questions. Objective Vital Signs, Last 4 Hours Temp Pulse Resp BP Pulse Ox 01/31/18 18:00 55 18 160/88 96 01/31/18 17:30 55 174/88 01/31/18 16:50 78 01/31/18 16:35 50 01/31/18 16:30 58 164/81 01/31/18 16:29 98.6 F 01/31/18 16:19 55 16 176/83 98 01/31/18 15:30 55 184/84 Results 01/31/18 04:00 01/31/18 04:00 Lab Results 01/31/18 01/31/18 04:00 04:00 WBC 8.2 Hgb 9.0 L Hct 29.0 L Plt Count 250 Sodium 138 Potassium 3.6 Chloride 108 H Carbon Dioxide 26 BUN 17 Creatinine 1.93 H Glucose 179 H Calcium 9.2 Magnesium 1.9 - Attending Attestation I have personally performed a face to face evaluation on this patient. I have reviewed and agree with the care plan. History and Exam by me shows: CC: Pt reports dizziness when blood pressure falls. He became symptomatic with decrease in blood pressure off dopamine, although heart rate did not drop significantly. Pressure responded to resuming dopamine, fluid bolus. IMP/Plan: 1. Bradycardia with signifcant pauses, symptomatic, heart rate improved on dopamine, but appears to be more supportive of low blood pressure than heart rate. He is not a candidate for PPMK at present due to resolving MRSA sepsis. Will continue supportive care, will follow with you.
[2018-01-30] MEDS: Calcium Acetate 667 MG CAPSULE PO SCH ×3 (08:54→17:28)
[2018-01-30] MEDS: Famotidine 20 MG TABLET PO SCH (08:54)
[2018-01-30] MEDS: Docusate Oral Soln 100 MG/10 ML UDC GTUBE SCH ×2 (08:54→20:00)
[2018-01-30] MEDS: Bisacodyl 10 MG RECTAL SUPPOSITORY RC SCH (08:55)
[2018-01-30] MEDS: OXYCODONE Oral CONC 10 MG/0.5 ML ORAL.SYG SL PRN ×2 (08:57→16:12)
[2018-01-30] MEDS: Insulin LISPRO 300 UNITS/3 ML VIAL SQ SCH ×4 (10:01→22:03)
[2018-01-30] MEDS ORDERED: Potassium Chloride Elixir 20 MEQ/15 ML UDC PO ONE (10:04)
--- NOTE | 2018-01-30 11:39 | Infectious Disease Progress No ---
Date of Encounter: 01/30/18 Time of Encounter: 11:37 - Assessment and Plan (1) Leukocytosis Current Visit: Yes Status: Resolved WBC 11.6 on arrival. Likely multifactorial: bacteremia, PNA, mastoiditis. Resolved. Continue to trend. Qualifiers: Leukocytosis type: unspecified Qualified Code(s): D72.829 - Elevated white blood cell count, unspecified (2) Bacteremia Current Visit: Yes Status: Acute Causative organism: MRSA and Staph haemolyticus. Source unclear, but potential sources include Perma-cath, mastoiditis, decubitus ulcers, or PNA. Blood cultures drawn 01/20/18 are positive 1/1 set for MRSA. Repeat blood cultures drawn 01/22/18 are positive 2/2 sets for MRSA per PCR. Both were drawn peripherally. Repeat blood cultures drawn 01/23/18 are positive for Staph haemolyticus 2/2. Repeat blood cultures on 01/26 no growth to date x 2 sets. Additional cultures drawn 01/29/18 are pending x 2 sets. No cultures were obtained from the Perma-cath, which was discontinued 01/23/18. Catheter tip was not sent for culture. Uncomplicated. No endocarditis stigmata noted on exam. The patient has one major and no minor Modified Barrios's Criteria. TTE negative for vegetations. GODWIN negative for valvular vegetations. Continue Vancomycin IV. Pharmacy to dose. Goal trough ~15. Duration of treatment depends on the clinical picture, but likely 14 days from the first set of negative blood cultures. The patient's HD has been on hold per nephrology recommendations since his renal function seems to be recovering. We will need to adjust dosages of his antibiotics for this. Discussed with Dariel Lance. Monitor for drug toxicity and dose-adjust antibiotics. Cultures from January 26 are no growth to date. Repeat blood cultures drawn are pending. If they continue to be negative for 48-72 Hours, may place a pacemaker. Cardiology aware of recommendations. (3) Mastoiditis Current Visit: Yes Status: Suspected Causative organism: unclear. CT head shows findings consistent with left mastoiditis. ENT consulted. Continue Vancomycin as above. Continue Cefepime 1 gram IV, but increase to Q12H based on creatinine clearance of ~37 since the patient is no longer getting HD (day 9). Duration of treatment depends on the clinical picture, but likely 10 days. Qualifiers: Laterality: left Qualified Code(s): H70.92 - Unspecified mastoiditis, left ear (4) Sinusitis Current Visit: Yes Status: Acute CT head shows bilateral maxillary sinusitis. Causative organism unclear. Continue antibiotics as above. Qualifiers: Sinusitis location: maxillary Chronicity: acute Recurrence: non- recurrent Qualified Code(s): J01.00 - Acute maxillary sinusitis, unspecified (5) Pneumonia Current Visit: Yes Status: Acute CXR shows bilateral airspace opacities concerning for PNA vs. edema. CT chest shows multifocal pneumonia. Clinically, the patient denies shortness of breath or cough. He does have some thin yellow secretions from his trach. Sputum culture positive for PSEA, sensitive to Cefepime. Continue antibiotics as above for now. Duration of treatment depends on the clinical picture, but likely 10 days. Discontinue Cefepime after last dose on 01/31/18. Qualifiers: Pneumonia type: due to unspecified organism Laterality: bilateral Lung location: unspecified part of lung Qualified Code(s): J18.9 - Pneumonia, unspecified organism (6) Bradycardia Current Visit: Yes Status: Acute Dopamine gtt. Cardiology consulted and following. Pacemaker placement on hold for now until patient completes IV antibiotics for bacteremia. The patient continues to require Dopamine for bradycardia. (7) Trismus Current Visit: Yes Status: Acute Etiology unclear. CT neck negative. ENT consulted and following. (8) Anemia in CKD (chronic kidney disease) Current Visit: Yes Status: Chronic Qualifiers: Chronic kidney disease stage: on chronic dialysis Qualified Code(s): N18.6 - End stage renal disease; D63.1 - Anemia in chronic kidney disease; D63.1 - Anemia in chronic kidney disease; Z99.2 - Dependence on renal dialysis; Z99.2 - Dependence on renal dialysis; Z99.2 - Dependence on renal dialysis; Z99.2 - Dependence on renal dialysis (9) ESRD (end stage renal disease) on dialysis Current Visit: Yes Status: Chronic Nephrology consulted and following. Temporary HD line inserted 01/24/18. HD on hold since renal function seems to be recovering. Will need tunneled PICC line on discharge to complete antibiotics if no further HD is planned. (10) Chronic respiratory failure Current Visit: Yes Status: Chronic Chronic tracheostomy since September 2017. Management per the primary team. Qualifiers: Respiratory failure complication: hypoxia Qualified Code(s): J96.11 - Chronic respiratory failure with hypoxia - Subjective Interval history: Patient seen and examined. No acute events noted overnight. Patient sleeping, awakens easily. He states overall he feels okay this morning. He continues to complain of left jaw pain and difficulty opening his mouth, but mildly improved. He denies any fevers or chills or rigors. He denies any chest pain or shortness of breath or cough. He denies any nausea or vomiting or diarrhea. He denies any abdominal pain. He states his appetite is good. He complains of pain in his bilateral stumps. He denies any back pain. He denies any oral thrush or new skin lesions. Dopamine infusion continues for bradycardia. Infect Dis PN-Objective Data - Labs CBC & Chem 7: 01/29/18 04:00 01/30/18 03:56 Labs: Laboratory Results - last 24 hr 01/29/18 01/29/18 01/29/18 11:15 17:29 20:25 PT INR Sodium Potassium Chloride Carbon Dioxide BUN Creatinine Est GFR ( Amer) Est GFR (Non-Af Amer) BUN/Creatinine Ratio Glucose POC Glucose 120 H 142 H 154 H Calculated Osmolality Calcium Total Bilirubin AST ALT Alkaline Phosphatase Serum Total Protein Albumin Globulin Albumin/Globulin Ratio Random Vancomycin 01/30/18 01/30/18 01/30/18 03:56 03:56 03:56 PT 15.7 H INR 1.4 Sodium 138 Potassium 3.3 L Chloride 106 Carbon Dioxide 27 BUN 17 Creatinine 2.12 H Est GFR ( Amer) 38 L Est GFR (Non-Af Amer) 32 L BUN/Creatinine Ratio 8 Glucose 174 H POC Glucose Calculated Osmolality 292 Calcium 8.8 Total Bilirubin 0.2 L AST 12 L ALT 7 Alkaline Phosphatase 86 Serum Total Protein 6.6 Albumin 2.1 L Globulin 4.5 H Albumin/Globulin Ratio 0.5 L Random Vancomycin 18 Cultures: Cultures 01/26/18 03:20 Blood Culture - Preliminary Peripheral Venipuncture No growth. 01/26/18 03:17 Blood Culture - Preliminary Peripheral Venipuncture No growth. 01/23/18 15:36 Blood Culture - Final Peripheral Venipuncture Staphylococcus haemolyticus 01/23/18 15:36 Blood Culture - Final Peripheral Venipuncture Staphylococcus haemolyticus 01/23/18 00:26 Sputum Culture - Final Sputum Pseudomonas aeruginosa Serology 01/22/18 Range/Units 16:56 Hep Bs Antigen Nonreactive (Nonreactive) Hep Bs Antibody 0.32 mIU/mL Exam - Constitutional Vitals: Temp Pulse Resp BP Pulse Ox 98.5 F 59 20 143/85 100 01/30/18 08:35 01/30/18 09:53 01/30/18 08:35 01/30/18 10:03 01/30/18 08:35 General appearance: cooperative, morbidly obese, no acute distress - Head Head exam: Present: atraumatic, normal inspection, normocephalic - Eye Eye exam: Present: EOMI, normal appearance, PERRL Pupils: Present: normal accommodation - ENT ENT exam: Present: mucous membranes moist - Neck Neck exam: Present: normal inspection Additional comments: Trache midline with O2 via trach mask. Temporary dialysis catheter noted to the right neck with transparent dressing C/ D/I. - Respiratory Respiratory exam: Present: rhonchi (Scattered throughout). Absent: rales, respiratory distress, wheezes - Cardiovascular Cardiovascular exam: Present: bradycardia, irregular rhythm. Absent: tachycardia - GI/Abdominal GI/Abdominal exam: Present: distended (obese), normal bowel sounds, soft. Absent: tenderness Additional comments: PEG tube noted to the LUQ, currently clamped. - Extremities Exam Extremities exam: Absent: joint swelling, pedal edema, tenderness Additional comments: Bilateral LE stumps without redness, warmth, or open lesions. - Neurological Exam Neurological exam: Present: alert, oriented X3, no focal deficits - Psychiatric Psychiatric exam: Present: normal affect, normal mood - Skin Skin exam: Present: dry, intact, normal color, warm Consult Discharge Plan - Plan Referrals: Harrison Mai MD [Primary Care Provider] - (This patient is from an ECF no PCP appointment needed) - Attending Attestation I examined this patient and my medical decision-making was reviewed with the Resident Physician. I agree with the documented findings, disposition and treatment plan as described except to the extent set forth below.
[2018-01-30] MEDS: Cefepime HCl 1,000 MG in Water for inj. (sterile) 20 ML 10 ML IVP SCH ×2 (11:55→23:41)
[2018-01-30] MEDS ORDERED: Vancomycin 500 MG in 0.9 % Sodium Chloride Mini Bag 100 ML IVPB ONE (12:00)
[2018-01-30] MEDS: Miconazole w/zinc oxide&karaya 92 APPL/92 GM TUBE TP SCH ×2 (14:56→22:48)
--- NOTE | 2018-01-30 16:33 | Internal Med Progress Note ---
Date of Encounter: 01/30/18 Time of Encounter: 09:50 - Assessment and plan (1) Bradycardia Current Visit: Yes Status: Acute Assessment and plan: He is noted to have atrial fibrillation with slow ventricular response. Cardiology on board- no intervention and recommend PPM as of now, will continue to follow. Patient continues to be on IV dopamine drip to maintain heart rate, unable to be weaned off for now. Pt had episode of hypotension when cardiology tried to wean off dobutamine. Will continue to attempt to wean off slowly He will eventually need a permanent pacemaker, after bacteremia clears. Continue to monitor closely. (2) ESRD (end stage renal disease) on dialysis Current Visit: Yes Status: Chronic Assessment and plan: Nephrology on board for dialysis needs. Receiving hemodialysis via a temporary dialysis catheter. PermCath to be placed when bacteremia clears, if needed. Hemodialysis has been deferred today due to improving renal function. Continue to monitor. (3) Left ear pain Current Visit: Yes Status: Acute Assessment and plan: Continues to report persistent left-sided preauricular and jaw pain associated with trismus. Case discussed with ENT, who has seen the patient a few days ago , recommend supportive care and no further intervention. Continue pain control as needed. (4) PAF (paroxysmal atrial fibrillation) Current Visit: Yes Status: Chronic Assessment and plan: Atrial fibrillation with slow ventricular response. Hold beta elaine. Continue IV dopamine drip. We will hold anticoagulation with Coumadin, INR is noted to be 1.4 today. Patient may need INR less than 1.5 for possible pacemaker placement and PermCath placement. (5) Anemia in CKD (chronic kidney disease) Current Visit: Yes Status: Chronic Assessment and plan: Received 2 units PRBC during this hospitalization. Hemoglobin is currently stable. Qualifiers: Chronic kidney disease stage: stage 5, not on chronic dialysis Qualified Code(s): N18.5 - Chronic kidney disease, stage 5; D63.1 - Anemia in chronic kidney disease; D63.1 - Anemia in chronic kidney disease (6) Bacteremia Current Visit: Yes Status: Acute Assessment and plan: Unclear source, could be infected PermCath versus pneumonia. One out of one blood cultures from January 20 grew MRSA. 2 out of 2 blood cultures from January 22 grew MRSA. 2 out of 2 blood cultures from January 23 grew staph hemolyticus. Repeat blood cultures from January 26 negative. Blood cultures were repeated yesterday. Results pending Infectious diseases on board, continue IV vancomycin. Transthoracic and transesophageal echocardiogram showed no evidence of vegetations. PermCath has been removed, temporary dialysis catheter placed on January 24. (7) Chronic respiratory failure Current Visit: Yes Status: Chronic Assessment and plan: Noted to be on chronic tracheostomy collar. Qualifiers: Respiratory failure complication: hypoxia Qualified Code(s): J96.11 - Chronic respiratory failure with hypoxia (8) Essential hypertension Current Visit: Yes Status: Chronic (9) Diabetes mellitus Current Visit: Yes Status: Chronic Assessment and plan: Blood sugars noted to be well controlled. Continue Accu-Chek blood glucose monitoring with basal bolus insulin regimen. Diabetic diet. Qualifiers: Diabetes mellitus type: type 2 Diabetes mellitus jail insulin use: with jail use Diabetes mellitus complication status: with kidney complications Diabetes mellitus complication detail: with chronic kidney disease Chronic kidney disease stage: on chronic dialysis Qualified Code(s) : E11.22 - Type 2 diabetes mellitus with diabetic chronic kidney disease; N18.6 - End stage renal disease; Z99.2 - Dependence on renal dialysis; Z99.2 - Dependence on renal dialysis; Z99.2 - Dependence on renal dialysis; N18.6 - End stage renal disease; N18.6 - End stage renal disease; N18.6 - End stage renal disease; Z79.4 - detention (current) use of insulin; Z79.4 - termite control representative (current ) use of insulin; Z79.4 - termite control representative (current) use of insulin; Z79.4 - termite control representative (current) use of insulin; Z99.2 - Dependence on renal dialysis (10) Pneumonia Current Visit: Yes Status: Acute Assessment and plan: CT chest suggestive of bilateral multilobar pneumonia. Sputum culture grew Pseudomonas. Blood cultures as mentioned above. Continue IV cefepime to complete a 14 day course of antibiotics. Supportive care and supplemental oxygen. Infectious diseases on board. Qualifiers: Pneumonia type: due to Pseudomonas Laterality: bilateral Lung location: unspecified part of lung Qualified Code(s): J15.1 - Pneumonia due to Pseudomonas - Time Spent With Patient Total time spent is greater than 50% in coordination of care (as documented) at patient's floor/unit and/or counseling patient: - Subjective Interval history: No acute events overnight. Continues on dopamine drip - Constitutional Vitals: Temp Pulse Resp BP Pulse Ox 98.3 F 52 18 168/92 100 01/30/18 16:03 01/30/18 16:16 01/30/18 16:13 01/30/18 16:13 01/30/18 16:13 General appearance: Present: A&O X 2, morbidly obese, answers questions appropriately - Head Head exam: Present: normal inspection, normocephalic - Respiratory Respiratory exam: Present: CTAB Additional comments: tracheostomy in place - GI/Abdominal GI/Abdominal exam: Present: normal bowel sounds, soft Internal Medicine: Result - Labs CBC & Chem 7: 01/29/18 04:00 01/30/18 03:56 Labs: BMP 01/30/18 03:56 Sodium 138 Potassium 3.3 L Chloride 106 Carbon Dioxide 27 BUN 17 Creatinine 2.12 H Glucose 174 H Calcium 8.8 Liver Function 01/30/18 Range/Units 03:56 Total Bilirubin 0.2 L (0.3-1.0) mg/dL AST 12 L (13-39) Units/L ALT 7 (7-52) Units/L Alkaline Phosphatase 86 (34-104) Units/L Albumin 2.1 L (3.5-5.7) g/dL - ABG Interpretation ABG results: PT/INR, D-dimer PT 15.7 Seconds (9.4-12.1) H 01/30/18 03:56 Consult Discharge Plan - Plan Referrals: Harrison Mai MD [Primary Care Provider] - (This patient is from an ECF no PCP appointment needed)
[2018-01-30] MEDS: Ondansetron 4 MG/2 ML VIAL IVP PRN (20:21)
[2018-01-31 05:34] LABS: Basophils # 0.1 K/mcL (0.0-0.2); Basophils % 0.9 %; Eosinophils # 0.3 K/mcL (0.0-0.6); Eosinophils % 3.4 %; Immature Granulocytes % 0.1 % (0-4); Lymphocytes # 3.4 K/mcL (0.6-4.6); Lymphocytes % 41.3 %; Mean Corpuscular Hemoglobin 28.8 pg (28.0-33.3); Mean Corpuscular Volume 92.9 fL (83.0-100.0); Mean Platelet Volume 8.3 fL (9.4-12.4); Monocytes # 0.6 K/mcL (0.0-1.3); Monocytes % 7.5 %; Neutrophils # 3.8 K/mcL (1.6-8.9); Nucleated Red Blood Cells 0.2 /100 WBC (0); Platelet Count 250 K/mcL (140-400); Red Blood Count 3.12 M/mcL (4.19-5.50); Red Cell Distribution Width 14.8 % (11.5-14.5); Segmented Neutrophils % 46.8 %
[2018-01-31 05:57] LABS: Calcium 9.2 mg/dL (8.6-10.3); Potassium 3.6 mEq/L (3.5-5.1)
[2018-01-31] MEDS: *HR* Heparin 5,000 UNIT/ML VIAL SQ SCH ×2 (06:01→18:02)
[2018-01-31 07:04] LABS: Magnesium 1.9 mg/dL (1.6-2.6)
[2018-01-31] MEDS: Docusate Oral Soln 100 MG/10 ML UDC GTUBE SCH ×2 (08:22→21:06)
[2018-01-31] MEDS: Famotidine 20 MG TABLET PO SCH (08:22)
[2018-01-31] MEDS: Calcium Acetate 667 MG CAPSULE PO SCH ×3 (08:22→18:02)
[2018-01-31] MEDS: Insulin LISPRO 300 UNITS/3 ML VIAL SQ SCH ×4 (08:22→21:23)
[2018-01-31] MEDS: Bisacodyl 10 MG RECTAL SUPPOSITORY RC SCH (08:23)
[2018-01-31] MEDS: Miconazole w/zinc oxide&karaya 92 APPL/92 GM TUBE TP SCH ×2 (08:23→21:09)
--- NOTE | 2018-01-31 08:44 | Internal Med Progress Note ---
Date of Encounter: 01/31/18 Time of Encounter: 08:30 - Assessment and plan (1) Bradycardia Current Visit: Yes Status: Acute Assessment and plan: He is noted to have atrial fibrillation with slow ventricular response. Cardiology on board- no intervention and recommend PPM as of now, will continue to follow. Patient continues to be on IV dopamine drip to maintain heart rate, unable to be weaned off for now. Pt had episode of hypotension when cardiology tried to wean off dobutamine. Will continue to attempt to wean off slowly. Dopamine drip has been weaned down to 10mcg from 15 yesterday. He will eventually need a permanent pacemaker, after bacteremia clears. Continue to monitor closely and follow up repeat blood cultures. (2) ESRD (end stage renal disease) on dialysis Current Visit: Yes Status: Chronic Assessment and plan: Nephrology on board for dialysis needs. Receiving hemodialysis via a temporary dialysis catheter. PermCath to be placed when bacteremia clears, if needed. Hemodialysis has been deferred due to improving renal function. Continue to monitor. (3) Left ear pain Current Visit: Yes Status: Acute Assessment and plan: Continues to report persistent left-sided preauricular and jaw pain associated with trismus. Case discussed with ENT, who has seen the patient a few days ago , recommend supportive care and no further intervention. Continue pain control as needed. (4) PAF (paroxysmal atrial fibrillation) Current Visit: Yes Status: Chronic Assessment and plan: Atrial fibrillation with slow ventricular response. Hold beta elaine. Continue IV dopamine drip. We will hold anticoagulation with Coumadin, INR is noted to be 1.4 today. Patient may need INR less than 1.5 for possible pacemaker placement and PermCath placement. (5) Anemia in CKD (chronic kidney disease) Current Visit: Yes Status: Chronic Assessment and plan: Received 2 units PRBC during this hospitalization. Hemoglobin is currently stable. Qualifiers: Chronic kidney disease stage: stage 5, not on chronic dialysis Qualified Code(s): N18.5 - Chronic kidney disease, stage 5; D63.1 - Anemia in chronic kidney disease; D63.1 - Anemia in chronic kidney disease (6) Bacteremia Current Visit: Yes Status: Acute Assessment and plan: Unclear source, could be infected PermCath versus pneumonia. One out of one blood cultures from January 20 grew MRSA. 2 out of 2 blood cultures from January 22 grew MRSA. 2 out of 2 blood cultures from January 23 grew staph hemolyticus. Repeat blood cultures from January 26 negative. Blood cultures were repeated yesterday. Results pending Infectious diseases on board, continue IV vancomycin. Transthoracic and transesophageal echocardiogram showed no evidence of vegetations. PermCath has been removed, temporary dialysis catheter placed on January 24. (7) Chronic respiratory failure Current Visit: Yes Status: Chronic Assessment and plan: Noted to be on chronic tracheostomy collar. Qualifiers: Respiratory failure complication: hypoxia Qualified Code(s): J96.11 - Chronic respiratory failure with hypoxia (8) Essential hypertension Current Visit: Yes Status: Chronic (9) Diabetes mellitus Current Visit: Yes Status: Chronic Assessment and plan: Blood sugars noted to be well controlled. Continue Accu-Chek blood glucose monitoring with basal bolus insulin regimen. Diabetic diet. Qualifiers: Diabetes mellitus type: type 2 Diabetes mellitus senior living insulin use: with senior living use Diabetes mellitus complication status: with kidney complications Diabetes mellitus complication detail: with chronic kidney disease Chronic kidney disease stage: on chronic dialysis Qualified Code(s) : E11.22 - Type 2 diabetes mellitus with diabetic chronic kidney disease; N18.6 - End stage renal disease; Z99.2 - Dependence on renal dialysis; Z99.2 - Dependence on renal dialysis; Z99.2 - Dependence on renal dialysis; N18.6 - End stage renal disease; N18.6 - End stage renal disease; N18.6 - End stage renal disease; Z79.4 - care home (current) use of insulin; Z79.4 - termite control technician (current ) use of insulin; Z79.4 - termite control technician (current) use of insulin; Z79.4 - care home (current) use of insulin; Z99.2 - Dependence on renal dialysis (10) Pneumonia Current Visit: Yes Status: Acute Assessment and plan: CT chest suggestive of bilateral multilobar pneumonia. Sputum culture grew Pseudomonas. Blood cultures as mentioned above. Continue IV cefepime to complete a 14 day course of antibiotics. Supportive care and supplemental oxygen. Infectious diseases on board. Qualifiers: Pneumonia type: due to Pseudomonas Laterality: bilateral Lung location: unspecified part of lung Qualified Code(s): J15.1 - Pneumonia due to Pseudomonas - Time Spent With Patient Total time spent is greater than 50% in coordination of care (as documented) at patient's floor/unit and/or counseling patient: - Subjective Interval history: No acute events overnight. Continues on dopamine drip - Constitutional Vitals: Temp Pulse Resp BP Pulse Ox 98.2 F 50 20 169/80 100 01/31/18 07:23 01/31/18 07:23 01/31/18 07:23 01/31/18 07:23 01/31/18 07:23 General appearance: Present: A&O X 2, morbidly obese, answers questions appropriately - Head Head exam: Present: atraumatic, normocephalic - Respiratory Additional comments: trach collar in place - Cardiovascular Cardiovascular exam: Present: bradycardia, +S1, +S2 - GI/Abdominal GI/Abdominal exam: Present: normal bowel sounds, soft, no peritoneal signs. Absent: distended, tenderness - Extremities Exam Additional comments: s/p bilateral amputation - Neurological Exam Neurological exam: Present: CN II-XII intact, oriented X3, no focal deficits. Absent: pronater drift, facial droop, speech deficit Internal Medicine: Result - Labs CBC & Chem 7: 01/31/18 04:00 01/31/18 04:00 Labs: Short CBC 01/31/18 Range/Units 04:00 WBC 8.2 (4.3-11.1) K/mcL Hgb 9.0 L (12.9-16.9) g/dL Hct 29.0 L (37.5-50.1) % Plt Count 250 (140-400) K/mcL Neutrophils # 3.8 (1.6-8.9) K/mcL BMP 01/31/18 04:00 Sodium 138 Potassium 3.6 Chloride 108 H Carbon Dioxide 26 BUN 17 Creatinine 1.93 H Glucose 179 H Calcium 9.2 - ABG Interpretation ABG results: PT/INR, D-dimer PT 15.7 Seconds (9.4-12.1) H 01/30/18 03:56 Consult Discharge Plan - Plan Referrals: Harrison Mai MD [Primary Care Provider] - (This patient is from an [facility] no PCP appointment needed)
--- NOTE | 2018-01-31 10:56 | Cardiology Progress Note ---
Date of Encounter: 01/31/18 Time of Encounter: 10:00 Assessment and Plan (1) Bradycardia Current Visit: Yes Status: Acute Per Cardiology: -Recent echo reviewed and showed preserved EF with no significant valvular dysfunction, has moderate diastolic dysfunction. -Has been bradycardic and hypotensive. -Currently on dopamine drip at 10mcg/kg/min. -Average HR previous 12 hours noted to be 52. -ID following patient and known to have MRSA and staph haemolyticus with source unclear. Most recent blood cultures 2 negative. - Discussed with ID and recommendations for repeat cultures and if remained negative for 48 hours can consider permanent pacemaker if deemed clinically warranted and appropriate. -Discussed and reviewed with Dr. Casey Salinas, no recommendations for pacer at this time and recommendations to wait multiple weeks prior to potential permanent pacer insertion from EP standpoint once antibiotic course completed. - Currently clinically stable. -No need for trancutaneous or TV pacing at this juncture. -Will continue to monitor. (2) PAF (paroxysmal atrial fibrillation) Current Visit: Yes Status: Chronic Per Cardiology: -Hx of PAF. Currently sinus rhythm and off a elaine. No afib noted, continue to monitor. -Has been on coumadin for AC, but now off per primary service. Current INR 1.4. Of note, patient did receive 2 units transfusion during his hospital stay. Continue to monitor H&H. Discussion w patient/family: The assessment and plan as outlined above was discussed with the patient who expressed understanding and agreement. All questions were answered. Thank you for involving us in the care of your patient. Please call with any questions. Discussed and reviewed with Subjective Principal diagnosis: MRSA Bacteremia, Bradycardia Interval history: Patient reports is feeling better today. Denies complaints. Objective Vital Signs, Last 4 Hours Temp Pulse Resp BP Pulse Ox 01/31/18 08:35 53 136/81 100 01/31/18 08:00 51 159/72 01/31/18 07:23 98.2 F 50 20 169/80 100 01/31/18 07:20 53 169/80 General: Conversant, No Apparent Distress HEENT: Atraumatic, Normocephaly, Mucus Membranes Moist Neck: No JVD, Normal carotid pulses Cardiac: Reg Rate and Rhythm, Normal S1 and S2, No Murmur Lungs: Other (Lung sounds diminished throughout. ) Neuro: Alert and responsive, No focal deficits noted Abdomen: Soft, Non-Tender Skin: No rashes noted on visualized skin Musculoskeletal: No Chest Wall Tenderness Extremities: No Clubbing, No Cyanosis, Other (Bilateral amputee. ) Results 01/31/18 04:00 01/31/18 04:00 Lab Results Active Medications Acetaminophen (Tylenol) 650 mg PO Q6H PRN PRN Reason: pain 1-3 Stop: 07/25/18 09:01 Bisacodyl (Dulcolax) 10 mg RC DAILY [facility] Stop: 07/25/18 09:01 Last Admin: 01/31/18 08:23 Dose: Not Given Calcium Acetate (Phos-Lo) 667 mg PO TIDWM [facility] Stop: 07/29/18 12:01 Last Admin: 01/31/18 08:22 Dose: 667 mg Darbepoetin Derrick (Aranesp) 60 mcg SQ QWEEK [facility] Stop: 07/25/18 08:16 Last Admin: 01/30/18 10:03 Dose: 60 mcg Dextrose/Water (Dextrose 50% (Syg)) 25 ml IVP AD PRN PRN Reason: Hypoglycemia Stop: 07/24/18 17:05 Docusate Sodium (Colace) 100 mg GTUBE BID [facility] PRN Reason: Protocol Stop: 07/27/18 11:16 Last Admin: 01/31/18 08:22 Dose: 100 mg Famotidine (Pepcid) 20 mg PO DAILY [facility] PRN Reason: Protocol Stop: 07/25/18 09:01 Last Admin: 01/31/18 08:22 Dose: 20 mg Glucagon (Glucagen) 1 mg IM ONCE PRN PRN Reason: Hypoglycemia Stop: 07/24/18 17:05 Glucose (Gluctose) 15 gm PO ONCE PRN PRN Reason: Hypoglycemia Stop: 07/24/18 17:05 Glucose (Gluctose) 30 gm PO ONCE PRN PRN Reason: Hypoglycemia Stop: 07/24/18 17:05 Heparin Sodium (Porcine) (Heparin) 5,000 unit SQ Q12HCO [facility] Stop: 07/26/18 18:01 Last Admin: 01/31/18 06:01 Dose: 5,000 unit Heparin Sodium (Porcine) (Heparin) 0 unit IV ONCE PRN PRN Reason: Hemodialysis Catheter Packing Hydroxyzine Pamoate (Hydroxyzine Pamoate) 25 mg PO Q6H PRN PRN Reason: Itching Last Admin: 01/24/18 04:41 Dose: 25 mg Dopamine HCl/Dextrose (Dopamine Premix 400mg/250ml) 400 mg in 250 mls @ 12.332 mls/hr IVC .[id number] OVI; 2.5 MCG/KG/MIN PRN Reason: Protocol Stop: 07/24/18 16:16 Last Titration: 01/31/18 10:17 Dose: Infused Dextrose (Dextrose 5%) 1,000 mls @ 100 mls/hr IVC .Q10H PRN PRN Reason: HYPOGLYCEMIA Stop: 07/24/18 17:05 Sodium Chloride (0.9 % Sodium Chloride) 250 mls @ 937.5 mls/hr IVC .Q16M PRN PRN Reason: Hypotension Stop: 07/28/18 10:03 Cefepime HCl 1,000 mg/ Sterile (Water) 10 mls @ 150 mls/hr IVP Q12H OVI Stop: 02/01/18 00:01 Last Infusion: 01/31/18 00:00 Dose: Infused Vancomycin HCl 500 mg/ Sodium (Chloride) 100 mls @ 100 mls/hr IVPB ONCE ONE Stop: 01/31/18 11:59 Insulin Human Lispro (Humalog) 0 units SQ HS OVI PRN Reason: Protocol Stop: 07/31/18 21:01 Last Admin: 01/30/18 22:03 Dose: Not Given Insulin Human Lispro (Humalog) 0 units SQ TIDAC OVI PRN Reason: Protocol Stop: 07/31/18 16:31 Last Admin: 01/31/18 08:22 Dose: 2 units Miconazole Nitrate (Antifungal Extra Thick) 1 appl TP BID OVI Stop: 08/01/18 13:01 Last Admin: 01/31/18 08:23 Dose: 1 appl Naloxone HCl (Narcan) 0.4 mg IVP Q2MIN PRN PRN Reason: SEE COMMENTS Stop: 07/24/18 13:42 Ondansetron HCl (Zofran) 4 mg IVP Q6HR PRN; Protocol PRN Reason: Nausea And Vomiting Stop: 08/01/18 20:14 Last Admin: 01/30/18 20:21 Dose: 4 mg Oxycodone HCl (Oxycodone Oral Conc) 10 mg SL Q4HR PRN; Protocol PRN Reason: Severe Pain Stop: 07/25/18 12:01 Last Admin: 01/30/18 16:12 Dose: 10 mg Oxycodone/Acetaminophen (Percocet 7.5/325) 1 each PO Q4HR PRN PRN Reason: Pain Stop: 07/24/18 17:04 Last Admin: 01/27/18 17:09 Dose: 1 each Quetiapine Fumarate (Seroquel) 50 mg PO BID OVI Stop: 07/24/18 21:01 Last Admin: 01/31/18 08:21 Dose: 50 mg Vancomycin HCl (Vancocin) 0 each IVPB AD PRN PRN Reason: SEE COMMENTS Stop: 07/24/18 20:04 Laboratory Tests 01/31/18 01/31/18 04:00 04:00 Hgb 9.0 L Potassium 3.6 Creatinine 1.93 H Magnesium 1.9 - Imaging and Cardiology Chest Xray: report reviewed Echo: report reviewed - EKG Interpretation EKG results cardiology: other (Telemetry reviewed with average HR previous 12 hours noted to be 52, SB.) Consult Discharge Plan - Plan Referrals: Harrison Mai MD [Primary Care Provider] - (This patient is from an [facility] no PCP appointment needed)
[2018-01-31] MEDS ORDERED: Vancomycin 500 MG in 0.9 % Sodium Chloride Mini Bag 100 ML IVPB ONE (11:00)
--- NOTE | 2018-01-31 11:08 | Nephrology Progress Note ---
Date of Encounter: 01/31/18 Time of Encounter: 10:35 Subjective Principal diagnosis: MRSA Bacteremia, Bradycardia Interval history: A/P- Recovered renal fct. Creat 1.93. Documented urine output 1550cc. Will continue to monitor. Laying quietly in bed. Dopamine drip for bradycardia. Awaiting blood cultures for placement pacemaker. Trach> O2 collar. Objective - Vital Signs Vital signs: Vital Signs Temp Pulse Resp BP Pulse Ox 01/31/18 08:35 53 136/81 100 01/31/18 08:00 51 159/72 01/31/18 07:23 98.2 F 50 20 169/80 100 01/31/18 07:20 53 169/80 01/31/18 06:34 49 163/85 01/31/18 06:00 50 163/81 01/31/18 05:30 58 159/91 01/31/18 05:00 48 124/72 01/31/18 04:40 99.3 F 51 18 152/115 100 01/31/18 04:30 52 113/62 01/31/18 04:00 49 143/67 01/31/18 03:30 51 144/95 01/31/18 03:15 47 166/87 01/31/18 03:00 48 158/85 01/31/18 02:45 55 171/98 01/31/18 02:30 60 189/97 01/31/18 01:30 59 169/90 01/31/18 01:00 51 155/89 01/31/18 00:30 99 F 51 20 154/83 96 01/31/18 00:00 63 133/82 01/30/18 23:45 58 132/80 01/30/18 23:30 50 189/93 01/30/18 23:00 53 181/92 01/30/18 22:30 47 176/81 01/30/18 22:01 50 168/83 01/30/18 21:30 56 174/87 97 01/30/18 21:00 50 190/98 01/30/18 20:30 49 20 181/89 96 01/30/18 20:15 50 169/89 01/30/18 20:00 58 113/67 01/30/18 19:45 62 66/44 90 01/30/18 19:30 77 90/65 01/30/18 19:00 59 94/56 01/30/18 17:38 54 20 162/82 95 01/30/18 16:16 52 01/30/18 16:13 55 18 168/92 100 01/30/18 16:03 98.3 F 50 18 168/92 100 01/30/18 14:58 50 20 167/74 100 01/30/18 11:59 50 01/30/18 11:47 50 20 166/84 93 01/30/18 11:42 98.5 F 56 20 139/82 100 Intake and Output 01/30/18 01/31/18 01/31/18 23:59 07:59 15:59 Intake Total 620 / 620 172 / 172 420 / 420 Output Total 450 / 450 350 / 350 0 / 0 Balance 170 / 170 -178 / -178 420 / 420 Intake: IV Fluids 400 / 400 172 / 172 100 / 100 DOPamine Premix 400mg/250mL 400 400 / 400 162 / 162 100 / 100 mg In 250 ml @ 2.5 MCG/KG/MIN 12.332 mls/hr IVC .[id number] OVI Rx#:[id number] Maxipime 1,000 MG In Water for 10 10 inj. (sterile) 10 ML @ 150 mls/ hr IVP Q12H OVI Rx#:[id number] Oral 220 / 220 120 / 120 Free Water Intake Amount 200 / 200 Output: Urine 450 / 450 350 / 350 Gastric Tube Lavage Amount 0 / 0 Left Upper Quadrant 0 / 0 Other: Meal Dinner Breakfast Percent of Meal Consumed 100% 30% Weight 133.9 kg Blood Glucose* 147 170 Patient Weight 01/31/18 23:59 Weight 133.9 kg - General Appearance General appearance: Present: well-developed, well-nourished, appears started age , obese EENT: Present: mucous membranes moist Neck: Present: no JVD Respiratory: Present: rhonchi Cardiology: Present: no edema, regular rate, regular rhythm Additional Comments: B/L amputee Gastrointestinal: Present: normoactive bowel sounds, no tenderness Integumentary: Present: warm and dry Neurologic: Present: alert and oriented x3 - Lab 01/31/18 04:00 01/31/18 04:00 Most recent lab results Calcium 9.2 mg/dL (8.6-10.3) 01/31/18 04:00 Phosphorus 3.4 mg/dL (2.7-4.5) 01/26/18 03:00 Magnesium 1.9 mg/dL (1.6-2.6) 01/31/18 04:00 Consult Discharge Plan - Plan Referrals: Harrison Mai MD [Primary Care Provider] - (This patient is from an ECF no PCP appointment needed)
[2018-01-31] MEDS ORDERED: 0.9 % Sodium Chloride 500 ML IVC ONE (12:39)
[2018-01-31] MEDS ORDERED: 0.9 % Sodium Chloride 500 ML ONE (12:41)
[2018-01-31] MEDS: Cefepime HCl 1,000 MG in Water for inj. (sterile) 20 ML 10 ML IVP SCH ×2 (13:05→23:45)
--- NOTE | 2018-01-31 13:44 | Infectious Disease Progress No ---
Date of Encounter: 01/31/18 Time of Encounter: 10:30 - Assessment and Plan (1) Leukocytosis Current Visit: Yes Status: Resolved WBC 11.6 on arrival. Likely multifactorial: bacteremia, PNA, mastoiditis. Resolved. Continue to trend. Qualifiers: Leukocytosis type: unspecified Qualified Code(s): D72.829 - Elevated white blood cell count, unspecified (2) Bacteremia Current Visit: Yes Status: Acute Causative organism: MRSA and Staph haemolyticus. Source unclear, but potential sources include Perma-cath, mastoiditis, decubitus ulcers, or PNA. Blood cultures drawn 01/20/18 are positive 1/1 set for MRSA. Repeat blood cultures drawn 01/22/18 are positive 2/2 sets for MRSA per PCR. Both were drawn peripherally. Repeat blood cultures drawn 01/23/18 are positive for Staph haemolyticus 2/2. Repeat blood cultures on 01/26 are negative x 2 sets. Additional cultures drawn 01/29/18 are NGTD x 2 sets. No cultures were obtained from the Perma-cath, which was discontinued 01/23/18. Catheter tip was not sent for culture. Uncomplicated. No endocarditis stigmata noted on exam. The patient has one major and no minor Modified Barrios's Criteria. TTE negative for vegetations. GODWIN negative for valvular vegetations. Continue Vancomycin IV. Pharmacy to dose. Goal trough ~15. Duration of treatment depends on the clinical picture, but likely 14 days from the first set of negative blood cultures. The patient's HD has been on hold per nephrology recommendations since his renal function seems to be recovering. Monitor for drug toxicity and dose-adjust antibiotics. (3) Mastoiditis Current Visit: Yes Status: Suspected Causative organism: unclear. CT head shows findings consistent with left mastoiditis. ENT consulted. Continue Vancomycin as above. Continue Cefepime 1 gram IV, but increase to Q12H based on creatinine clearance of ~37 since the patient is no longer getting HD (day 10). Discontinue after last dose today. Qualifiers: Laterality: left Qualified Code(s): H70.92 - Unspecified mastoiditis, left ear (4) Sinusitis Current Visit: Yes Status: Acute CT head shows bilateral maxillary sinusitis. Causative organism unclear. Continue antibiotics as above. Qualifiers: Sinusitis location: maxillary Chronicity: acute Recurrence: non- recurrent Qualified Code(s): J01.00 - Acute maxillary sinusitis, unspecified (5) Pneumonia Current Visit: Yes Status: Acute CXR shows bilateral airspace opacities concerning for PNA vs. edema. CT chest shows multifocal pneumonia. Clinically, the patient denies shortness of breath or cough. Large mucous plug removed per RTS overnight. Sputum culture positive for PSEA, sensitive to Cefepime. Continue antibiotics as above for now. Duration of treatment depends on the clinical picture, but likely 10 days. Discontinue Cefepime after last dose on 01/31/18. Qualifiers: Pneumonia type: due to unspecified organism Laterality: bilateral Lung location: unspecified part of lung Qualified Code(s): J18.9 - Pneumonia, unspecified organism (6) Bradycardia Current Visit: Yes Status: Acute Dopamine gtt. Cardiology consulted and following. Pacemaker placement on hold for now until patient completes IV antibiotics for bacteremia. The patient continues to require Dopamine for bradycardia, unable to be weaned. Having episodes of arrhythmias with bradycardia and hypotension with associated nausea and vomiting. Await further recommendations from cardiology/EP. (7) Trismus Current Visit: Yes Status: Acute Etiology unclear. CT neck negative. ENT consulted and following. No further recommendations. Management per the primary team. (8) Anemia in CKD (chronic kidney disease) Current Visit: Yes Status: Chronic Qualifiers: Chronic kidney disease stage: stage 5, not on chronic dialysis Qualified Code(s): N18.5 - Chronic kidney disease, stage 5; D63.1 - Anemia in chronic kidney disease; D63.1 - Anemia in chronic kidney disease (9) ESRD (end stage renal disease) on dialysis Current Visit: Yes Status: Chronic Nephrology consulted and following. Temporary HD line inserted 01/24/18. HD on hold since renal function seems to be recovering. Will need tunneled PICC line on discharge to complete antibiotics if no further HD is planned. (10) Chronic respiratory failure Current Visit: Yes Status: Chronic Chronic tracheostomy since September 2017. Management per the primary team. Qualifiers: Respiratory failure complication: hypoxia Qualified Code(s): J96.11 - Chronic respiratory failure with hypoxia - Subjective Interval history: Patient seen and examined. No acute events noted overnight. Patient sleeping, awakens easily. He states overall he feels okay this morning. He continues to complain of left jaw pain and difficulty opening his mouth, but mildly improved. Was able to drink some broth this morning and requesting H2O. He denies any fevers or chills or rigors. He denies any chest pain or shortness of breath or cough. He denies any nausea or vomiting or diarrhea. He denies any abdominal pain. He states his appetite is good. He complains of pain in his bilateral stumps. He denies any back pain. He denies any oral thrush or new skin lesions. Dopamine infusion continues for bradycardia. Infect Dis PN-Objective Data - Labs CBC & Chem 7: 01/31/18 04:00 01/31/18 04:00 Labs: Laboratory Results - last 24 hr 01/30/18 01/30/18 01/30/18 03:51 06:33 11:29 WBC RBC Hgb Hct MCV MCH MCHC RDW Plt Count MPV Immature Gran % Seg Neutrophils % Lymphocytes % Monocytes % Eosinophils % Basophils % Neutrophils # Lymphocytes # Monocytes # Eosinophils # Basophils # Nucleated RBCs/100 WBC Sodium Potassium Chloride Carbon Dioxide BUN Creatinine Est GFR ( Amer) Est GFR (Non-Af Amer) BUN/Creatinine Ratio Glucose POC Glucose 174 H 180 H 175 H Calculated Osmolality Calcium Magnesium Random Vancomycin 01/30/18 01/30/18 01/31/18 16:43 19:46 04:00 WBC RBC Hgb Hct MCV MCH MCHC RDW Plt Count MPV Immature Gran % Seg Neutrophils % Lymphocytes % Monocytes % Eosinophils % Basophils % Neutrophils # Lymphocytes # Monocytes # Eosinophils # Basophils # Nucleated RBCs/100 WBC Sodium Potassium Chloride Carbon Dioxide BUN Creatinine Est GFR ( Amer) Est GFR (Non-Af Amer) BUN/Creatinine Ratio Glucose POC Glucose 110 H 147 H Calculated Osmolality Calcium Magnesium Random Vancomycin 18 01/31/18 01/31/18 04:00 04:00 WBC 8.2 RBC 3.12 L Hgb 9.0 L Hct 29.0 L MCV 92.9 MCH 28.8 MCHC 31.0 L RDW 14.8 H Plt Count 250 MPV 8.3 L Immature Gran % 0.1 Seg Neutrophils % 46.8 Lymphocytes % 41.3 Monocytes % 7.5 Eosinophils % 3.4 Basophils % 0.9 Neutrophils # 3.8 Lymphocytes # 3.4 Monocytes # 0.6 Eosinophils # 0.3 Basophils # 0.1 Nucleated RBCs/100 WBC 0.2 H Sodium 138 Potassium 3.6 Chloride 108 H Carbon Dioxide 26 BUN 17 Creatinine 1.93 H Est GFR ( Amer) 43 L Est GFR (Non-Af Amer) 35 L BUN/Creatinine Ratio 9 Glucose 179 H POC Glucose Calculated Osmolality 292 Calcium 9.2 Magnesium 1.9 Random Vancomycin Cultures: Cultures 01/26/18 03:20 Blood Culture - Final Peripheral Venipuncture No growth. 01/26/18 03:17 Blood Culture - Final Peripheral Venipuncture No growth. 01/29/18 13:35 Blood Culture - Preliminary Peripheral Venipuncture No growth. 01/29/18 13:35 Blood Culture - Preliminary Peripheral Venipuncture No growth. 01/23/18 15:36 Blood Culture - Final Peripheral Venipuncture Staphylococcus haemolyticus 01/23/18 15:36 Blood Culture - Final Peripheral Venipuncture Staphylococcus haemolyticus 01/23/18 00:26 Sputum Culture - Final Sputum Pseudomonas aeruginosa Serology 01/22/18 Range/Units 16:56 Hep Bs Antigen Nonreactive (Nonreactive) Hep Bs Antibody 0.32 mIU/mL Exam - Constitutional Vitals: Temp Pulse Resp BP Pulse Ox 98.2 F 75 22 97/66 100 01/31/18 12:26 01/31/18 12:26 01/31/18 12:26 01/31/18 12:26 01/31/18 12:26 General appearance: cooperative, morbidly obese, no acute distress - Head Head exam: Present: atraumatic, normal inspection, normocephalic - Eye Eye exam: Present: EOMI, normal appearance, PERRL Pupils: Present: normal accommodation - ENT ENT exam: Present: mucous membranes moist Additional comments: Exam limited due to patient unable to open his mouth. - Neck Neck exam: Present: normal inspection Additional comments: Temporary dialysis catheter noted to the right neck with transparent dressing C/ D/I. - Respiratory Respiratory exam: Present: rhonchi (Scattered.). Absent: rales, respiratory distress, wheezes, tachypnea Additional comments: Tracheostomy midline with O2 via trach mask. - Cardiovascular Cardiovascular exam: Present: bradycardia, +S1, +S2 - GI/Abdominal GI/Abdominal exam: Present: distended (obese), normal bowel sounds, soft. Absent: tenderness Additional comments: G-tube clamped. - Extremities Exam Additional comments: Bilateral LE stumps without redness, warmth, or open lesions. - Neurological Exam Neurological exam: Present: alert, oriented X3, no focal deficits - Psychiatric Psychiatric exam: Present: normal affect, normal mood - Skin Skin exam: Present: dry, intact, normal color, warm Consult Discharge Plan - Plan Referrals: Harrison Mai MD [Primary Care Provider] - ([facility] no [facility] appointment needed) - Attending Attestation I examined this patient and my medical decision-making was reviewed with the Resident Physician. I agree with the documented findings, disposition and treatment plan as described except to the extent set forth below.
[2018-01-31] MEDS: *HR* OxyCODONE/APAP 7.5/325 TABLET PO PRN (21:06)
[2018-01-31] MEDS: Ondansetron 4 MG/2 ML VIAL IVP PRN (21:07)
[2018-02-01] MEDS: *HR* Heparin 5,000 UNIT/ML VIAL SQ SCH ×2 (06:50→16:52)
[2018-02-01 07:04] LABS: Basophils # 0.1 K/mcL (0.0-0.2); Basophils % 0.8 %; Eosinophils # 0.3 K/mcL (0.0-0.6); Eosinophils % 3.6 %; Hematocrit 29.7 % (37.5-50.1); Hemoglobin 9.4 g/dL (12.9-16.9); Immature Granulocytes % 0.5 % (0-4); Lymphocytes # 3.2 K/mcL (0.6-4.6); Lymphocytes % 40.5 %; Mean Corpuscular HGB Conc 31.6 g/dL (31.6-35.5); Mean Corpuscular Hemoglobin 29.8 pg (28.0-33.3); Mean Corpuscular Volume 94.3 fL (83.0-100.0); Mean Platelet Volume 8.3 fL (9.4-12.4); Monocytes # 0.6 K/mcL (0.0-1.3); Monocytes % 7.2 %; Neutrophils # 3.7 K/mcL (1.6-8.9); Nucleated Red Blood Cells 0.6 /100 WBC (0); Platelet Count 312 K/mcL (140-400); Red Blood Count 3.15 M/mcL (4.19-5.50); Red Cell Distribution Width 14.8 % (11.5-14.5); Segmented Neutrophils % 47.4 %
[2018-02-01 07:20] LABS: Calcium 9.4 mg/dL (8.6-10.3); Potassium 3.4 mEq/L (3.5-5.1)
[2018-02-01] MEDS: Docusate Oral Soln 100 MG/10 ML UDC GTUBE SCH ×2 (07:46→21:43)
[2018-02-01] MEDS: Calcium Acetate 667 MG CAPSULE PO SCH ×3 (07:46→16:51)
[2018-02-01] MEDS: Famotidine 20 MG TABLET PO SCH (07:46)
[2018-02-01] MEDS: Miconazole w/zinc oxide&karaya 92 APPL/92 GM TUBE TP SCH ×2 (07:47→22:05)
[2018-02-01] MEDS: OXYCODONE Oral CONC 10 MG/0.5 ML ORAL.SYG SL PRN ×2 (07:57→21:43)
[2018-02-01] MEDS: Bisacodyl 10 MG RECTAL SUPPOSITORY RC SCH (07:58)
[2018-02-01] MEDS: Insulin LISPRO 300 UNITS/3 ML VIAL SQ SCH ×4 (08:13→22:00)
--- NOTE | 2018-02-01 09:36 | Nephrology Progress Note ---
Date of Encounter: 02/01/18 Time of Encounter: 08:55 - Assessment and Plan (1) CKD (chronic kidney disease) stage 4, GFR 15-29 ml/min Current Visit: Yes Status: Acute Recovered renal fct. Creat 1.83. Documented urine output 350cc. Accurate I&O. Avoid nephrotoxins. Will continue to monitor. Subjective Principal diagnosis: MRSA Bacteremia, Bradycardia Interval history: A/P- Recovered renal fct. Creat 1.93. Documented urine output 1550cc. Will continue to monitor. Laying quietly in bed. Dopamine drip for bradycardia. Awaiting blood cultures for placement pacemaker. Trach> O2 collar. Objective - Vital Signs Vital signs: Vital Signs Temp Pulse Resp BP Pulse Ox 02/01/18 08:08 50 02/01/18 07:51 51 16 133/69 91 02/01/18 07:26 99.0 F 60 18 129/66 100 02/01/18 06:00 59 145/78 02/01/18 05:00 79 106/69 02/01/18 04:00 60 125/78 02/01/18 03:00 51 91/55 02/01/18 01:00 51 150/83 01/31/18 23:50 98.7 F 18 96 01/31/18 21:10 98.7 F 59 18 127/107 97 01/31/18 18:00 55 18 160/88 96 01/31/18 17:30 55 174/88 01/31/18 16:50 78 01/31/18 16:35 50 01/31/18 16:30 58 164/81 01/31/18 16:29 98.6 F 01/31/18 16:19 55 16 176/83 98 01/31/18 15:30 55 184/84 01/31/18 15:00 49 177/104 01/31/18 14:30 45 166/86 01/31/18 14:15 45 162/84 01/31/18 14:00 44 187/78 01/31/18 13:45 50 164/84 01/31/18 13:30 53 157/84 01/31/18 13:15 45 152/79 01/31/18 13:00 45 154/76 01/31/18 12:45 48 152/86 01/31/18 12:40 57 134/84 01/31/18 12:35 55 116/85 01/31/18 12:30 72 60/40 01/31/18 12:29 59 97/66 01/31/18 12:26 98.2 F 75 22 97/66 100 01/31/18 12:22 81 65/45 01/31/18 12:00 51 168/92 01/31/18 11:30 46 171/84 01/31/18 11:00 46 173/84 01/31/18 10:30 46 163/84 96 01/31/18 10:15 46 Intake and Output 01/31/18 02/01/18 02/01/18 23:59 07:59 15:59 Intake Total 1294 / 1294 800 / 800 Output Total 0 / 0 600 / 600 Balance 1294 / 1294 200 / 200 Intake: IV Fluids 520 / 520 500 / 500 DOPamine Premix 400mg/250mL 400 500 / 500 500 / 500 mg In 250 ml @ 2.5 MCG/KG/MIN 12.332 mls/hr IVC .[id number] [facility] Rx#:[id number] Maxipime 1,000 MG In Water for inj. (sterile) 10 ML @ 150 mls/ hr IVP Q12H [facility] Rx#:[id number] Oral 100 / 100 Tube Feeding 474 / 474 Free Water Intake Amount 300 / 300 200 / 200 Output: Urine 600 / 600 Gastric Tube Lavage Amount 0 / 0 0 / 0 Left Upper Quadrant 0 / 0 0 / 0 Other: # Voids 1 Blood Glucose* 184 213 - General Appearance General appearance: Present: well-developed, well-nourished, appears started age , obese EENT: Present: mucous membranes moist Neck: Present: no JVD Respiratory: Present: rhonchi Cardiology: Present: regular rate, regular rhythm Additional Comments: B/L amputee Gastrointestinal: Present: normoactive bowel sounds, no tenderness Integumentary: Present: warm and dry Neurologic: Present: alert and oriented x3 - Lab 02/01/18 06:45 02/01/18 06:45 Most recent lab results Calcium 9.4 mg/dL (8.6-10.3) 02/01/18 06:45 Phosphorus 3.4 mg/dL (2.7-4.5) 01/26/18 03:00 Magnesium 1.9 mg/dL (1.6-2.6) 01/31/18 04:00 Consult Discharge Plan - Plan Referrals: Harrison Mai MD [Primary Care Provider] - (This patient is from [facility] no PCP appointment needed)
--- NOTE | 2018-02-01 10:07 | Internal Med Progress Note ---
Date of Encounter: 02/01/18 Time of Encounter: 10:00 - Assessment and plan (1) Bradycardia Current Visit: Yes Status: Acute Assessment and plan: Patient continues to be on IV dopamine drip to maintain heart rate, unable to be weaned off for now. Pt had episode of hypotension when cardiology tried to wean off dobutamine. Will continue to attempt to wean off slowly. He will eventually need a permanent pacemaker, after bacteremia clears. Continue to monitor closely and follow up repeat blood cultures.Cardiology plan for pacemaker placement 4-6 weeks after negative blood cultures. Will plan to start midodrine and wean off dopamine slowly if okay by cardiology (2) ESRD (end stage renal disease) on dialysis Current Visit: Yes Status: Chronic Assessment and plan: Nephrology on board for dialysis needs. Received hemodialysis via a temporary dialysis catheter. PermCath to be placed when bacteremia clears, if needed. Hemodialysis has been deferred due to improving renal function. Continue to monitor.Nephrology following (3) Left ear pain Current Visit: Yes Status: Acute Assessment and plan: Continues to report persistent left-sided preauricular and jaw pain associated with trismus. Case discussed with ENT, who has seen the patient a few days ago , recommend supportive care and no further intervention. Continue pain control as needed. (4) PAF (paroxysmal atrial fibrillation) Current Visit: Yes Status: Chronic Assessment and plan: Atrial fibrillation with slow ventricular response. Hold beta elaine. Continue IV dopamine drip. We will hold anticoagulation with Coumadin, INR is noted to be 1.4 today. Patient may need INR less than 1.5 for possible pacemaker placement and PermCath placement. (5) Anemia in CKD (chronic kidney disease) Current Visit: Yes Status: Chronic Assessment and plan: Received 2 units PRBC during this hospitalization. Hemoglobin is currently stable. Qualifiers: Chronic kidney disease stage: stage 5, not on chronic dialysis Qualified Code(s): N18.5 - Chronic kidney disease, stage 5; D63.1 - Anemia in chronic kidney disease; D63.1 - Anemia in chronic kidney disease (6) Bacteremia Current Visit: Yes Status: Acute Assessment and plan: Unclear source, could be infected PermCath versus pneumonia. One out of one blood cultures from January 20 grew MRSA. 2 out of 2 blood cultures from January 22 grew MRSA. 2 out of 2 blood cultures from January 23 grew staph hemolyticus. Repeat blood cultures from January 26 and January 29 were negative Infectious diseases on board, continue IV vancomycin. Transthoracic and transesophageal echocardiogram showed no evidence of vegetations. PermCath has been removed, temporary dialysis catheter placed on January 24. (7) Chronic respiratory failure Current Visit: Yes Status: Chronic Assessment and plan: Noted to be on chronic tracheostomy collar. Qualifiers: Respiratory failure complication: hypoxia Qualified Code(s): J96.11 - Chronic respiratory failure with hypoxia (8) Essential hypertension Current Visit: Yes Status: Chronic Assessment and plan: Currently on dopamine drip (9) Diabetes mellitus Current Visit: Yes Status: Chronic Assessment and plan: Blood sugars noted to be well controlled. Continue Accu-Chek blood glucose monitoring with basal bolus insulin regimen. Diabetic diet. Qualifiers: Diabetes mellitus type: type 2 Diabetes mellitus intermediate insulin use: with intermediate use Diabetes mellitus complication status: with kidney complications Diabetes mellitus complication detail: with chronic kidney disease Chronic kidney disease stage: on chronic dialysis Qualified Code(s) : E11.22 - Type 2 diabetes mellitus with diabetic chronic kidney disease; N18.6 - End stage renal disease; Z99.2 - Dependence on renal dialysis; Z99.2 - Dependence on renal dialysis; Z99.2 - Dependence on renal dialysis; N18.6 - End stage renal disease; N18.6 - End stage renal disease; N18.6 - End stage renal disease; Z79.4 - care home (current) use of insulin; Z79.4 - care home (current ) use of insulin; Z79.4 - care home (current) use of insulin; Z79.4 - lobsterman (current) use of insulin; Z99.2 - Dependence on renal dialysis (10) Pneumonia Current Visit: Yes Status: Acute Assessment and plan: CT chest suggestive of bilateral multilobar pneumonia. Sputum culture grew Pseudomonas. Blood cultures as mentioned above. Continue IV cefepime to complete a 14 day course of antibiotics. Supportive care and supplemental oxygen. Infectious diseases on board. Qualifiers: Pneumonia type: due to Pseudomonas Laterality: bilateral Lung location: unspecified part of lung Qualified Code(s): J15.1 - Pneumonia due to Pseudomonas - Time Spent With Patient Total time spent is greater than 50% in coordination of care (as documented) at patient's floor/unit and/or counseling patient: - Subjective Interval history: No acute events overnight. Continues on dopamine drip - Constitutional Vitals: Temp Pulse Resp BP Pulse Ox 99.0 F 50 16 133/69 91 02/01/18 07:26 02/01/18 08:08 02/01/18 07:51 02/01/18 07:51 02/01/18 07:51 General appearance: Present: A&O X 2, morbidly obese, answers questions appropriately - Head Head exam: Present: atraumatic, normocephalic - Respiratory Additional comments: trach collar in place - Cardiovascular Cardiovascular exam: Present: RRR, +S1, +S2. Absent: diastolic murmur, gallop, rubs, systolic murmur - GI/Abdominal GI/Abdominal exam: Present: normal bowel sounds, soft, no peritoneal signs. Absent: distended, tenderness - Extremities Exam Extremities exam: Present: warm, radial pulses palpable and symmetrical. Absent : calf tenderness, cyanotic, pedal edema Additional comments: s/p bilateral LE amputation - Neurological Exam Neurological exam: Present: CN II-XII intact, oriented X3, no focal deficits. Absent: pronater drift, facial droop, speech deficit Internal Medicine: Result - Labs CBC & Chem 7: 02/01/18 06:45 02/01/18 06:45 Labs: Short CBC 02/01/18 Range/Units 06:45 WBC 7.9 (4.3-11.1) K/mcL Hgb 9.4 L (12.9-16.9) g/dL Hct 29.7 L (37.5-50.1) % Plt Count 312 (140-400) K/mcL Neutrophils # 3.7 (1.6-8.9) K/mcL BMP 02/01/18 06:45 Sodium 137 Potassium 3.4 L Chloride 107 Carbon Dioxide 27 BUN 19 Creatinine 1.83 H Glucose 246 H Calcium 9.4 - ABG Interpretation ABG results: PT/INR, D-dimer PT 15.7 Seconds (9.4-12.1) H 01/30/18 03:56 Consult Discharge Plan - Plan Referrals: Harrison Mai MD [Primary Care Provider] - (This patient is from an [facility] no PCP appointment needed)
--- NOTE | 2018-02-01 11:20 | Infectious Disease Progress No ---
Date of Encounter: 02/01/18 Time of Encounter: 11:18 - Assessment and Plan (1) Leukocytosis Current Visit: Yes Status: Resolved WBC 11.6 on arrival. Likely multifactorial: bacteremia, PNA, mastoiditis. Resolved. Continue to trend. Qualifiers: Leukocytosis type: unspecified Qualified Code(s): D72.829 - Elevated white blood cell count, unspecified (2) Bacteremia Current Visit: Yes Status: Acute Causative organism: MRSA and Staph haemolyticus. Source unclear, but potential sources include Perma-cath, mastoiditis, decubitus ulcers, or PNA. Blood cultures drawn 01/20/18 are positive 1/1 set for MRSA. Repeat blood cultures drawn 01/22/18 are positive 2/2 sets for MRSA per PCR. Both were drawn peripherally. Repeat blood cultures drawn 01/23/18 are positive for Staph haemolyticus 2/2. Repeat blood cultures on 01/26 are negative x 2 sets. Additional cultures drawn 01/29/18 are NGTD x 2 sets. No cultures were obtained from the Perma-cath, which was discontinued 01/23/18. Catheter tip was not sent for culture. Uncomplicated. No endocarditis stigmata noted on exam. The patient has one major and no minor Modified Barrios's Criteria. TTE negative for vegetations. GODWIN negative for valvular vegetations. Continue Vancomycin IV (day 7 from first set of negative blood cultures). Pharmacy to dose. Goal trough ~15. Duration of treatment depends on the clinical picture, but likely 14 days from the first set of negative blood cultures. The patient's HD has been on hold per nephrology recommendations since his renal function seems to be recovering. Monitor for drug toxicity and dose-adjust antibiotics. (3) Mastoiditis Current Visit: Yes Status: Suspected Causative organism: unclear. CT head shows findings consistent with left mastoiditis. ENT consulted. Completed 10 days of Cefepime. Vanc continued for treatment of bacteremia. Qualifiers: Laterality: left Qualified Code(s): H70.92 - Unspecified mastoiditis, left ear (4) Sinusitis Current Visit: Yes Status: Acute CT head shows bilateral maxillary sinusitis. Causative organism unclear. Completed 10 days of IV Cefepime. Vancomycin continued for bacteremia. Qualifiers: Sinusitis location: maxillary Chronicity: acute Recurrence: non- recurrent Qualified Code(s): J01.00 - Acute maxillary sinusitis, unspecified (5) Pneumonia Current Visit: Yes Status: Resolved CXR shows bilateral airspace opacities concerning for PNA vs. edema. CT chest shows multifocal pneumonia. Clinically, the patient denies shortness of breath or cough. Large mucous plug removed per RTS overnight. Sputum culture positive for PSEA, sensitive to Cefepime. Completed 10 day course of IV Cefepime. Qualifiers: Pneumonia type: due to unspecified organism Laterality: bilateral Lung location: unspecified part of lung Qualified Code(s): J18.9 - Pneumonia, unspecified organism (6) Bradycardia Current Visit: Yes Status: Acute Dopamine gtt. Cardiology consulted and following. Pacemaker placement on hold for now until patient completes IV antibiotics for bacteremia. The patient continues to require Dopamine for bradycardia, unable to be weaned. Having episodes of arrhythmias with bradycardia and hypotension with associated nausea and vomiting. Await further recommendations from cardiology/EP. (7) Trismus Current Visit: Yes Status: Acute Etiology unclear. CT neck negative. ENT consulted and following. No further recommendations. Management per the primary team. (8) Anemia in CKD (chronic kidney disease) Current Visit: Yes Status: Chronic Qualifiers: Chronic kidney disease stage: stage 5, not on chronic dialysis Qualified Code(s): N18.5 - Chronic kidney disease, stage 5; D63.1 - Anemia in chronic kidney disease; D63.1 - Anemia in chronic kidney disease (9) ESRD (end stage renal disease) on dialysis Current Visit: Yes Status: Chronic Nephrology consulted and following. Temporary HD line inserted 01/24/18. HD on hold since renal function seems to be recovering. Will need tunneled PICC line on discharge to complete antibiotics if no further HD is planned. (10) Chronic respiratory failure Current Visit: Yes Status: Chronic Chronic tracheostomy since September 2017. Management per the primary team. Qualifiers: Respiratory failure complication: hypoxia Qualified Code(s): J96.11 - Chronic respiratory failure with hypoxia - Subjective Interval history: Patient seen and examined. No acute events noted overnight. Patient sleeping, awakens easily. He states overall he feels okay this morning. He continues to complain of left jaw pain and difficulty opening his mouth, but mildly improved. Was able to drink some broth this morning. He denies any fevers or chills or rigors. He denies any chest pain or shortness of breath or cough. He denies any nausea or vomiting or diarrhea. He denies any abdominal pain. He states his appetite is good. He complains of pain in his bilateral stumps. He denies any back pain. He denies any oral thrush or new skin lesions. Dopamine infusion continues for bradycardia. Infect Dis PN-Objective Data - Labs CBC & Chem 7: 02/05/18 04:00 02/05/18 04:00 Labs: Laboratory Results - last 24 hr 01/31/18 01/31/18 01/31/18 07:19 11:51 16:21 WBC RBC Hgb Hct MCV MCH MCHC RDW Plt Count MPV Immature Gran % Seg Neutrophils % Lymphocytes % Monocytes % Eosinophils % Basophils % Neutrophils # Lymphocytes # Monocytes # Eosinophils # Basophils # Nucleated RBCs/100 WBC Sodium Potassium Chloride Carbon Dioxide BUN Creatinine Est GFR ( Amer) Est GFR (Non-Af Amer) BUN/Creatinine Ratio Glucose POC Glucose 170 H 122 H 184 H Calculated Osmolality Calcium Random Vancomycin 01/31/18 02/01/18 02/01/18 21:14 06:45 06:45 WBC 7.9 RBC 3.15 L Hgb 9.4 L Hct 29.7 L MCV 94.3 MCH 29.8 MCHC 31.6 RDW 14.8 H Plt Count 312 MPV 8.3 L Immature Gran % 0.5 Seg Neutrophils % 47.4 Lymphocytes % 40.5 Monocytes % 7.2 Eosinophils % 3.6 Basophils % 0.8 Neutrophils # 3.7 Lymphocytes # 3.2 Monocytes # 0.6 Eosinophils # 0.3 Basophils # 0.1 Nucleated RBCs/100 WBC 0.6 H Sodium 137 Potassium 3.4 L Chloride 107 Carbon Dioxide 27 BUN 19 Creatinine 1.83 H Est GFR ( Amer) 45 L Est GFR (Non-Af Amer) 37 L BUN/Creatinine Ratio 10 Glucose 246 H POC Glucose 246 H Calculated Osmolality 294 Calcium 9.4 Random Vancomycin 02/01/18 06:45 WBC RBC Hgb Hct MCV MCH MCHC RDW Plt Count MPV Immature Gran % Seg Neutrophils % Lymphocytes % Monocytes % Eosinophils % Basophils % Neutrophils # Lymphocytes # Monocytes # Eosinophils # Basophils # Nucleated RBCs/100 WBC Sodium Potassium Chloride Carbon Dioxide BUN Creatinine Est GFR ( Amer) Est GFR (Non-Af Amer) BUN/Creatinine Ratio Glucose POC Glucose Calculated Osmolality Calcium Random Vancomycin 18 Cultures: Cultures 01/26/18 03:20 Blood Culture - Final Peripheral Venipuncture No growth. 01/26/18 03:17 Blood Culture - Final Peripheral Venipuncture No growth. 01/29/18 13:35 Blood Culture - Preliminary Peripheral Venipuncture No growth. 01/29/18 13:35 Blood Culture - Preliminary Peripheral Venipuncture No growth. 01/23/18 15:36 Blood Culture - Final Peripheral Venipuncture Staphylococcus haemolyticus 01/23/18 15:36 Blood Culture - Final Peripheral Venipuncture Staphylococcus haemolyticus 01/23/18 00:26 Sputum Culture - Final Sputum Pseudomonas aeruginosa Serology 01/22/18 Range/Units 16:56 Hep Bs Antigen Nonreactive (Nonreactive) Hep Bs Antibody 0.32 mIU/mL Exam - Constitutional Vitals: Temp Pulse Resp BP Pulse Ox 99.0 F 53 16 139/74 96 02/01/18 07:26 02/01/18 10:43 02/01/18 10:43 02/01/18 10:43 02/01/18 10:43 General appearance: cooperative, morbidly obese, no acute distress - Head Head exam: Present: atraumatic, normal inspection, normocephalic - Eye Eye exam: Present: EOMI, normal appearance, PERRL Pupils: Present: normal accommodation - ENT ENT exam: Present: mucous membranes moist - Neck Neck exam: Present: normal inspection Additional comments: Tracheostomy midline with O2 via trach mask. Temporary dialysis catheter noted to the right neck with transparent dressing C/ D/I. - Respiratory Respiratory exam: Present: rhonchi (Scattered). Absent: rales, respiratory distress, wheezes - Cardiovascular Cardiovascular exam: Present: bradycardia, irregular rhythm - GI/Abdominal GI/Abdominal exam: Present: distended (obese), normal bowel sounds, soft. Absent: tenderness Additional comments: G-tube noted to the LUQ, clamped. - Extremities Exam Extremities exam: Absent: joint swelling, pedal edema, tenderness Additional comments: Bilateral LE stumps without redness, warmth, or open lesions. - Neurological Exam Neurological exam: Present: alert, oriented X3, no focal deficits - Psychiatric Psychiatric exam: Present: normal affect, normal mood - Skin Skin exam: Present: dry, intact, normal color, warm Consult Discharge Plan - Plan Referrals: Harrison Mai MD [Primary Care Provider] - (This patient is from an ECF no PCP appointment needed) - Attending Attestation I examined this patient and my medical decision-making was reviewed with the Resident Physician. I agree with the documented findings, disposition and treatment plan as described except to the extent set forth below.
[2018-02-01] MEDS: Vancomycin 500 MG in 0.9 % Sodium Chloride Mini Bag 100 ML IVPB SCH (13:13)
--- NOTE | 2018-02-01 15:18 | Cardiology Progress Note ---
Date of Encounter: 02/01/18 Time of Encounter: 10:30 Assessment and Plan (1) Bradycardia Current Visit: Yes Status: Acute Per Cardiology: -Recent echo reviewed and showed preserved EF with no significant valvular dysfunction, has moderate diastolic dysfunction. -Currently on dopamine drip at 10mcg/kg/min. -Average HR previous 12 hours noted to be 53, SB. -ID following patient and known to have MRSA and staph haemolyticus with source unclear. Most recent blood cultures 2 negative. -Discussed with ID and recommendations for repeat cultures and if remained negative for 48 hours can consider permanent pacemaker if deemed clinically warranted and appropriate. -Discussed and reviewed with Dr. Casey Salinas, no recommendations for pacer at this time and recommendations to wait multiple weeks prior to potential permanent pacer insertion from EP standpoint once antibiotic course completed. -Currently clinically stable. -No need for trancutaneous or TV pacing at this juncture. -Of note, dopamine was discontinue previously and HR remained the same, however patient was hypotensive. -Per discussion with Dr.John Salinas, does not suspect hypotension related to cardiac cause. Suspect may be infectious, volume status, or adrenal insufficiency. -Per Dr.John Salinas, cardiology will sign off. -PLease re-consult for any acute concerns or changes. (2) PAF (paroxysmal atrial fibrillation) Current Visit: Yes Status: Chronic Per Cardiology: -Hx of PAF. Currently sinus rhythm and off a elaine. No afib noted, continue to monitor. -Has been on coumadin for AC, but now off per primary service. Of note, patient did receive 2 units transfusion during his hospital stay. Continue to monitor H &H. -ideally would recommend resuming anticoagulation, once hemoglobin stable. Will defer to primary service. Discussion w patient/family: The assessment and plan as outlined above was discussed with the patient who expressed understanding and agreement. All questions were answered. Thank you for involving us in the care of your patient. Please call with any questions. Discussed and reviewed with Dr.John Salinas. Subjective Principal diagnosis: MRSA Bacteremia, Bradycardia Interval history: Patient reports is feeling better today. Denies dizziness, lightheadedness . Objective Vital Signs, Last 4 Hours Temp Pulse Resp BP Pulse Ox 02/01/18 13:37 55 18 165/109 96 02/01/18 13:35 54 02/01/18 11:41 98.8 F 54 16 151/59 94 General: Conversant, No Apparent Distress, Other ([place] valve) HEENT: Atraumatic, Normocephaly, Mucus Membranes Moist Neck: No JVD, Normal carotid pulses Cardiac: Reg Rate and Rhythm, Normal S1 and S2, No Murmur Lungs: Other (Lung sounds diminished throughout) Neuro: Alert and responsive, No focal deficits noted Abdomen: Soft, Non-Tender Skin: No rashes noted on visualized skin Musculoskeletal: No Chest Wall Tenderness Extremities: No Clubbing, No Cyanosis, Other (Bilateral amputee. ) Results 02/01/18 06:45 02/01/18 06:45 Lab Results Active Medications Acetaminophen (Tylenol) 650 mg PO Q6H PRN PRN Reason: pain 1-3 Stop: 07/25/18 09:01 Bisacodyl (Dulcolax) 10 mg RC DAILY [facility] Stop: 07/25/18 09:01 Last Admin: 02/01/18 07:58 Dose: Not Given Calcium Acetate (Phos-Lo) 667 mg PO TIDWM [facility] Stop: 07/29/18 12:01 Last Admin: 02/01/18 13:13 Dose: 667 mg Darbepoetin Derrick (Aranesp) 60 mcg SQ QWEEK [facility] Stop: 07/25/18 08:16 Last Admin: 01/30/18 10:03 Dose: 60 mcg Dextrose/Water (Dextrose 50% (Syg)) 25 ml IVP AD PRN PRN Reason: Hypoglycemia Stop: 07/24/18 17:05 Docusate Sodium (Colace) 100 mg GTUBE BID [facility] PRN Reason: Protocol Stop: 07/27/18 11:16 Last Admin: 02/01/18 07:46 Dose: 100 mg Famotidine (Pepcid) 20 mg PO DAILY [facility] PRN Reason: Protocol Stop: 07/25/18 09:01 Last Admin: 02/01/18 07:46 Dose: 20 mg Glucagon (Glucagen) 1 mg IM ONCE PRN PRN Reason: Hypoglycemia Stop: 07/24/18 17:05 Glucose (Gluctose) 15 gm PO ONCE PRN PRN Reason: Hypoglycemia Stop: 07/24/18 17:05 Glucose (Gluctose) 30 gm PO ONCE PRN PRN Reason: Hypoglycemia Stop: 07/24/18 17:05 Heparin Sodium (Porcine) (Heparin) 5,000 unit SQ Q12HCO [facility] Stop: 07/26/18 18:01 Last Admin: 02/01/18 06:50 Dose: 5,000 unit Heparin Sodium (Porcine) (Heparin) 0 unit IV ONCE PRN PRN Reason: Hemodialysis Catheter Packing Hydroxyzine Pamoate (Hydroxyzine Pamoate) 25 mg PO Q6H PRN PRN Reason: Itching Last Admin: 01/24/18 04:41 Dose: 25 mg Dopamine HCl/Dextrose (Dopamine Premix 400mg/250ml) 400 mg in 250 mls @ 12.332 mls/hr IVC .[id number] OVI; 2.5 MCG/KG/MIN PRN Reason: Protocol Stop: 07/24/18 16:16 Last Titration: 02/01/18 13:40 Dose: 10 mcg/kg/min, 49.328 mls/hr Dextrose (Dextrose 5%) 1,000 mls @ 100 mls/hr IVC .Q10H PRN PRN Reason: HYPOGLYCEMIA Stop: 07/24/18 17:05 Sodium Chloride (0.9 % Sodium Chloride) 250 mls @ 937.5 mls/hr IVC .Q16M PRN PRN Reason: Hypotension Stop: 07/28/18 10:03 Vancomycin HCl 500 mg/ Sodium (Chloride) 100 mls @ 100 mls/hr IVPB Q24H [facility] Stop: 08/03/18 12:01 Last Admin: 02/01/18 13:13 Dose: 100 mls/hr Insulin Human Lispro (Humalog) 0 units SQ HS [facility] PRN Reason: Protocol Stop: 07/31/18 21:01 Last Admin: 01/31/18 21:23 Dose: 3 units Insulin Human Lispro (Humalog) 0 units SQ TIDAC [facility]VI PRN Reason: Protocol Stop: 07/31/18 16:31 Last Admin: 02/01/18 12:57 Dose: Not Given Miconazole Nitrate (Antifungal Extra Thick) 1 appl TP BID [facility] Stop: 08/01/18 13:01 Last Admin: 02/01/18 07:47 Dose: 1 appl Naloxone HCl (Narcan) 0.4 mg IVP Q2MIN PRN PRN Reason: SEE COMMENTS Stop: 07/24/18 13:42 Ondansetron HCl (Zofran) 4 mg IVP Q6HR PRN; Protocol PRN Reason: Nausea And Vomiting Stop: 08/01/18 20:14 Last Admin: 01/31/18 21:07 Dose: 4 mg Oxycodone HCl (Oxycodone Oral Conc) 10 mg SL Q4HR PRN; Protocol PRN Reason: Severe Pain Stop: 07/25/18 12:01 Last Admin: 02/01/18 07:57 Dose: 10 mg Oxycodone/Acetaminophen (Percocet 7.5/325) 1 each PO Q4HR PRN PRN Reason: Pain Stop: 07/24/18 17:04 Last Admin: 01/31/18 21:06 Dose: 1 each Quetiapine Fumarate (Seroquel) 50 mg PO BID [facility] Stop: 07/24/18 21:01 Last Admin: 02/01/18 07:46 Dose: 50 mg Laboratory Tests 02/01/18 02/01/18 06:45 06:45 Hgb 9.4 L Creatinine 1.83 H - Imaging and Cardiology Chest Xray: report reviewed Echo: report reviewed - EKG Interpretation EKG results cardiology: other (Telemetry reviewed with average HR previous 12 hours noted to be 53, SB.) - VTE Documentation of Mechanical Device: Intermittent pneumatic compression device Consult Discharge Plan - Plan Referrals: Harrison Mai MD [Primary Care Provider] - (This patient is from an [facility] no PCP appointment needed)
[2018-02-01] MEDS ORDERED: Warfarin perPT PO PRN (18:00)
[2018-02-01] MEDS ORDERED: *HR* Warfarin 2 MG TABLET PO ONE (18:00)
[2018-02-02] MEDS: *HR* Heparin 5,000 UNIT/ML VIAL SQ SCH ×2 (05:07→18:39)
[2018-02-02 05:58] LABS: Basophils # 0.1 K/mcL (0.0-0.2); Basophils % 1.2 %; Eosinophils # 0.4 K/mcL (0.0-0.6); Eosinophils % 5.3 %; Hemoglobin 8.8 g/dL (12.9-16.9); Immature Granulocytes % 0.1 % (0-4); Lymphocytes # 3.2 K/mcL (0.6-4.6); Lymphocytes % 46.7 %; Mean Corpuscular HGB Conc 31.4 g/dL (31.6-35.5); Mean Corpuscular Hemoglobin 29.2 pg (28.0-33.3); Mean Platelet Volume 8.8 fL (9.4-12.4); Monocytes # 0.5 K/mcL (0.0-1.3); Monocytes % 6.6 %; Neutrophils # 2.7 K/mcL (1.6-8.9); Platelet Count 301 K/mcL (140-400); Red Blood Count 3.01 M/mcL (4.19-5.50); Red Cell Distribution Width 14.9 % (11.5-14.5); Segmented Neutrophils % 40.1 %
[2018-02-02 06:18] LABS: Calcium 9.5 mg/dL (8.6-10.3); Potassium 3.4 mEq/L (3.5-5.1)
[2018-02-02 06:30] LABS: INR 1.3; Prothrombin Time 13.8 Seconds (9.4-12.1)
[2018-02-02] MEDS: Docusate Oral Soln 100 MG/10 ML UDC GTUBE SCH ×2 (08:25→21:33)
[2018-02-02] MEDS: Famotidine 20 MG TABLET PO SCH (08:25)
[2018-02-02] MEDS: Calcium Acetate 667 MG CAPSULE PO SCH ×3 (08:25→17:00)
[2018-02-02] MEDS: Insulin LISPRO 300 UNITS/3 ML VIAL SQ SCH ×3 (08:26→21:33)
[2018-02-02] MEDS: *HR* OxyCODONE/APAP 7.5/325 TABLET PO PRN (08:32)
[2018-02-02] MEDS: Bisacodyl 10 MG RECTAL SUPPOSITORY RC SCH (09:39)
--- NOTE | 2018-02-02 09:57 | Infectious Disease Progress No ---
Date of Encounter: 02/02/18 Time of Encounter: 09:54 - Assessment and Plan (1) Leukocytosis Current Visit: Yes Status: Resolved WBC 11.6 on arrival. Likely multifactorial: bacteremia, PNA, mastoiditis. Resolved. Continue to trend. Qualifiers: Leukocytosis type: unspecified Qualified Code(s): D72.829 - Elevated white blood cell count, unspecified (2) Bacteremia Current Visit: Yes Status: Acute Causative organism: MRSA and Staph haemolyticus. Source unclear, but potential sources include Perma-cath, mastoiditis, decubitus ulcers, or PNA. Blood cultures drawn 01/20/18 are positive 1/1 set for MRSA. Repeat blood cultures drawn 01/22/18 are positive 2/2 sets for MRSA per PCR. Both were drawn peripherally. Repeat blood cultures drawn 01/23/18 are positive for Staph haemolyticus 2/2. Repeat blood cultures on 01/26 are negative x 2 sets. Additional cultures drawn 01/29/18 are NGTD x 2 sets. No cultures were obtained from the Perma-cath, which was discontinued 01/23/18. Catheter tip was not sent for culture. Uncomplicated. No endocarditis stigmata noted on exam. The patient has one major and no minor Modified Barrios's Criteria. TTE negative for vegetations. GODWIN negative for valvular vegetations. Continue Vancomycin IV (day 8 from first set of negative blood cultures). Pharmacy to dose. Goal trough ~15. Duration of treatment depends on the clinical picture, but likely 14 days from the first set of negative blood cultures. The patient's HD has been on hold per nephrology recommendations since his renal function seems to be recovering. Monitor for drug toxicity and dose-adjust antibiotics. (3) Mastoiditis Current Visit: Yes Status: Suspected Causative organism: unclear. CT head shows findings consistent with left mastoiditis. ENT consulted. Completed 10 days of Cefepime. Vanc continued for treatment of bacteremia. Qualifiers: Laterality: left Qualified Code(s): H70.92 - Unspecified mastoiditis, left ear (4) Sinusitis Current Visit: Yes Status: Acute CT head shows bilateral maxillary sinusitis. Causative organism unclear. Completed 10 days of IV Cefepime. Vancomycin continued for bacteremia. Qualifiers: Sinusitis location: maxillary Chronicity: acute Recurrence: non- recurrent Qualified Code(s): J01.00 - Acute maxillary sinusitis, unspecified (5) Pneumonia Current Visit: Yes Status: Resolved CXR shows bilateral airspace opacities concerning for PNA vs. edema. CT chest shows multifocal pneumonia. Clinically, the patient denies shortness of breath or cough. Large mucous plug removed per RTS overnight. Sputum culture positive for PSEA, sensitive to Cefepime. Completed 10 day course of IV Cefepime. Qualifiers: Pneumonia type: due to unspecified organism Laterality: bilateral Lung location: unspecified part of lung Qualified Code(s): J18.9 - Pneumonia, unspecified organism (6) Bradycardia Current Visit: Yes Status: Acute Dopamine gtt. Cardiology consulted and signed off. Pacemaker placement on hold for now until patient completes IV antibiotics for bacteremia. The patient continues to require Dopamine for bradycardia, nursing is attempting to wean. Given the patient's clinical status, low index of suspicion that bradycardia and hypotension are related to infectious etiology at this point. (7) Trismus Current Visit: Yes Status: Acute Etiology unclear. CT neck negative. ENT consulted and following. No further recommendations. Management per the primary team. (8) Anemia in CKD (chronic kidney disease) Current Visit: Yes Status: Chronic Qualifiers: Chronic kidney disease stage: stage 5, not on chronic dialysis Qualified Code(s): N18.5 - Chronic kidney disease, stage 5; D63.1 - Anemia in chronic kidney disease; D63.1 - Anemia in chronic kidney disease (9) ESRD (end stage renal disease) on dialysis Current Visit: Yes Status: Chronic Nephrology consulted and following. Temporary HD line inserted 01/24/18. HD on hold since renal function seems to be recovering. Will need tunneled PICC line on discharge to complete antibiotics if no further HD is planned. (10) Chronic respiratory failure Current Visit: Yes Status: Chronic Chronic tracheostomy since September 2017. Management per the primary team. Qualifiers: Respiratory failure complication: hypoxia Qualified Code(s): J96.11 - Chronic respiratory failure with hypoxia - Subjective Interval history: Patient seen and examined. No acute events noted overnight. Patient sitting up in bed watching TV. He states overall he feels okay this morning. He continues to complain of left jaw pain and difficulty opening his mouth, but improved. Was able to drink some broth this morning and is getting G-tube feedings. He denies any fevers or chills or rigors. He denies any chest pain or shortness of breath or cough. He denies any nausea or vomiting or diarrhea. He denies any abdominal pain. He states his appetite is good. He complains of pain in his bilateral stumps. He denies any back pain. He denies any oral thrush or new skin lesions. Dopamine infusion continues for bradycardia. Cardiology has signed off. Infect Dis PN-Objective Data - Labs CBC & Chem 7: 02/02/18 05:30 02/02/18 05:30 Labs: Laboratory Results - last 24 hr 02/01/18 02/01/18 02/01/18 07:06 11:38 16:44 WBC RBC Hgb Hct MCV MCH MCHC RDW Plt Count MPV Immature Gran % Seg Neutrophils % Lymphocytes % Monocytes % Eosinophils % Basophils % Neutrophils # Lymphocytes # Monocytes # Eosinophils # Basophils # PT INR Sodium Potassium Chloride Carbon Dioxide BUN Creatinine Est GFR ( Amer) Est GFR (Non-Af Amer) BUN/Creatinine Ratio Glucose POC Glucose 213 H 125 H 176 H Calculated Osmolality Calcium 02/02/18 02/02/18 02/02/18 05:30 05:30 05:30 WBC 6.8 RBC 3.01 L Hgb 8.8 L Hct 28.0 L MCV 93.0 MCH 29.2 MCHC 31.4 L RDW 14.9 H Plt Count 301 MPV 8.8 L Immature Gran % 0.1 Seg Neutrophils % 40.1 Lymphocytes % 46.7 Monocytes % 6.6 Eosinophils % 5.3 Basophils % 1.2 Neutrophils # 2.7 Lymphocytes # 3.2 Monocytes # 0.5 Eosinophils # 0.4 Basophils # 0.1 PT 13.8 H INR 1.3 Sodium 138 Potassium 3.4 L Chloride 108 H Carbon Dioxide 26 BUN 19 Creatinine 1.68 H Est GFR ( Amer) 50 L Est GFR (Non-Af Amer) 41 L BUN/Creatinine Ratio 11 Glucose 243 H POC Glucose Calculated Osmolality 296 Calcium 9.5 Cultures: Cultures 01/26/18 03:20 Blood Culture - Final Peripheral Venipuncture No growth. 01/26/18 03:17 Blood Culture - Final Peripheral Venipuncture No growth. 01/29/18 13:35 Blood Culture - Preliminary Peripheral Venipuncture No growth. 01/29/18 13:35 Blood Culture - Preliminary Peripheral Venipuncture No growth. 01/23/18 15:36 Blood Culture - Final Peripheral Venipuncture Staphylococcus haemolyticus 01/23/18 15:36 Blood Culture - Final Peripheral Venipuncture Staphylococcus haemolyticus 01/23/18 00:26 Sputum Culture - Final Sputum Pseudomonas aeruginosa Serology 01/22/18 Range/Units 16:56 Hep Bs Antigen Nonreactive (Nonreactive) Hep Bs Antibody 0.32 mIU/mL Exam - Constitutional Vitals: Temp Pulse Resp BP Pulse Ox 97.5 F L 47 19 144/68 94 02/02/18 08:11 02/02/18 08:11 02/02/18 08:11 02/02/18 08:11 02/02/18 08:11 General appearance: cooperative, morbidly obese, no acute distress - Head Head exam: Present: atraumatic, normal inspection, normocephalic - Eye Eye exam: Present: EOMI, normal appearance, PERRL Pupils: Present: normal accommodation - ENT ENT exam: Present: mucous membranes moist Additional comments: Limited ROM of the bottom jaw. - Neck Neck exam: Present: normal inspection Additional comments: Temporary dialysis catheter noted to the right neck with transparent dressing C/ D/I. Tracheostomy noted midline with O2 via the trach mask. - Respiratory Respiratory exam: Present: rhonchi (Scattered throughout). Absent: CTAB, rales , respiratory distress, wheezes - Cardiovascular Cardiovascular exam: Present: bradycardia, irregular rhythm - GI/Abdominal GI/Abdominal exam: Present: normal bowel sounds, soft. Absent: distended, tenderness Additional comments: G-tube, currently clamped. - Extremities Exam Extremities exam: Absent: joint swelling, pedal edema, tenderness Additional comments: Bilateral LE stumps without redness, warmth, or open lesions. - Neurological Exam Neurological exam: Present: alert, oriented X3, no focal deficits - Psychiatric Psychiatric exam: Present: normal affect, normal mood - Skin Skin exam: Present: dry, intact, normal color, warm - VTE Documentation of Mechanical Device: Intermittent pneumatic compression device Consult Discharge Plan - Plan Referrals: Harrison Mai MD [Primary Care Provider] - (This patient is from an [facility] no PCP appointment needed)
[2018-02-02] MEDS: Miconazole w/zinc oxide&karaya 92 APPL/92 GM TUBE TP SCH ×2 (10:15→21:32)
--- NOTE | 2018-02-02 10:37 | Internal Med Progress Note ---
Date of Encounter: 02/02/18 Time of Encounter: 10:00 - Assessment and plan (1) Bradycardia Current Visit: Yes Status: Acute Assessment and plan: Patient continues to be on IV dopamine drip to maintain heart rate, unable to be weaned off for now. Pt had episode of hypotension when cardiology tried to wean off dobutamine. Will continue to attempt to wean off slowly. He will eventually need a permanent pacemaker, after bacteremia clears. Continue to monitor closely and follow up repeat blood cultures.Cardiology plan for pacemaker placement 4-6 weeks after negative blood cultures. Will plan to start midodrine and wean off dopamine slowly. Obtain cortisol levels to r/o adrenal insufficiency (2) Bacteremia Current Visit: Yes Status: Acute Assessment and plan: Unclear source, could be infected PermCath versus pneumonia. One out of one blood cultures from January 20 grew MRSA. 2 out of 2 blood cultures from January 22 grew MRSA. 2 out of 2 blood cultures from January 23 grew staph hemolyticus. Repeat blood cultures from January 26 and January 29 were negative Infectious diseases on board, continue IV vancomycin to complete 14 day course. On day 8. Transthoracic and transesophageal echocardiogram showed no evidence of vegetations. PermCath has been removed, temporary dialysis catheter placed on January 24. (3) ESRD (end stage renal disease) on dialysis Current Visit: Yes Status: Chronic Assessment and plan: Nephrology on board for dialysis needs. Received hemodialysis via a temporary dialysis catheter. PermCath to be placed when bacteremia clears, if needed. Hemodialysis has been deferred due to improving renal function. Continue to monitor.Nephrology following (4) Left ear pain Current Visit: Yes Status: Acute Assessment and plan: Continues to report persistent left-sided preauricular and jaw pain associated with trismus. Case discussed with ENT, who has seen the patient a few days ago , recommend supportive care and no further intervention. Continue pain control as needed. (5) PAF (paroxysmal atrial fibrillation) Current Visit: Yes Status: Chronic Assessment and plan: Atrial fibrillation with slow ventricular response. Hold beta elaine. Continue IV dopamine drip. We have restarted coumadin as pacemaker placement is on hold for 4-6 weeks (6) Anemia in CKD (chronic kidney disease) Current Visit: Yes Status: Chronic Assessment and plan: Received 2 units PRBC during this hospitalization. Hemoglobin is currently stable. Qualifiers: Chronic kidney disease stage: stage 5, not on chronic dialysis Qualified Code(s): N18.5 - Chronic kidney disease, stage 5; D63.1 - Anemia in chronic kidney disease; D63.1 - Anemia in chronic kidney disease (7) Chronic respiratory failure Current Visit: Yes Status: Chronic Assessment and plan: Noted to be on chronic tracheostomy collar. Qualifiers: Respiratory failure complication: hypoxia Qualified Code(s): J96.11 - Chronic respiratory failure with hypoxia (8) Essential hypertension Current Visit: Yes Status: Chronic Assessment and plan: Currently on dopamine drip (9) Diabetes mellitus Current Visit: Yes Status: Chronic Assessment and plan: Blood sugars noted to be well controlled. Continue Accu-Chek blood glucose monitoring with basal bolus insulin regimen. Diabetic diet. Qualifiers: Diabetes mellitus type: type 2 Diabetes mellitus snf insulin use: with snf use Diabetes mellitus complication status: with kidney complications Diabetes mellitus complication detail: with chronic kidney disease Chronic kidney disease stage: on chronic dialysis Qualified Code(s) : E11.22 - Type 2 diabetes mellitus with diabetic chronic kidney disease; N18.6 - End stage renal disease; Z99.2 - Dependence on renal dialysis; Z99.2 - Dependence on renal dialysis; Z99.2 - Dependence on renal dialysis; N18.6 - End stage renal disease; N18.6 - End stage renal disease; N18.6 - End stage renal disease; Z79.4 - terminal worker (current) use of insulin; Z79.4 - terminal worker (current ) use of insulin; Z79.4 - retirement (current) use of insulin; Z79.4 - retirement (current) use of insulin; Z99.2 - Dependence on renal dialysis (10) Pneumonia Current Visit: Yes Status: Acute Assessment and plan: CT chest suggestive of bilateral multilobar pneumonia. Sputum culture grew Pseudomonas. Blood cultures as mentioned above. Completed course of cefepime. Supportive care and supplemental oxygen. Infectious diseases on board. Qualifiers: Pneumonia type: due to Pseudomonas Laterality: bilateral Lung location: unspecified part of lung Qualified Code(s): J15.1 - Pneumonia due to Pseudomonas - Time Spent With Patient Total time spent is greater than 50% in coordination of care (as documented) at patient's floor/unit and/or counseling patient: - Subjective Interval history: No acute events overnight. Continues on dopamine drip - Constitutional Vitals: Temp Pulse Resp BP Pulse Ox 97.5 F L 47 19 144/68 94 02/02/18 08:11 02/02/18 08:11 02/02/18 08:11 02/02/18 08:11 02/02/18 08:11 General appearance: Present: A&O X 2, morbidly obese, answers questions appropriately - Head Head exam: Present: atraumatic, normocephalic - Eye Eye exam: Present: PERRL, conjuntiva pink, sclera anicteric Pupils: Present: PERRL - Neck Neck exam general surgery: Present: supple, trachea midline. Absent: lymphadenopathy - Respiratory Respiratory exam: Present: CTAB. Absent: accessory muscle use, rales, rhonchi, wheezes Additional comments: trach collar in place - Cardiovascular Cardiovascular exam: Present: RRR, +S1, +S2. Absent: diastolic murmur, gallop, rubs, systolic murmur - GI/Abdominal GI/Abdominal exam: Present: normal bowel sounds, soft, no peritoneal signs. Absent: distended, tenderness - Extremities Exam Extremities exam: Present: warm, radial pulses palpable and symmetrical. Absent : calf tenderness, cyanotic, pedal edema Additional comments: s/p bilateral amputations - Neurological Exam Neurological exam: Present: CN II-XII intact, oriented X3, no focal deficits. Absent: pronater drift, facial droop, speech deficit - Skin Skin exam: Present: dry, intact Internal Medicine: Result - Labs CBC & Chem 7: 02/02/18 05:30 02/02/18 05:30 Labs: Short CBC 02/02/18 Range/Units 05:30 WBC 6.8 (4.3-11.1) K/mcL Hgb 8.8 L (12.9-16.9) g/dL Hct 28.0 L (37.5-50.1) % Plt Count 301 (140-400) K/mcL Neutrophils # 2.7 (1.6-8.9) K/mcL BMP 02/02/18 05:30 Sodium 138 Potassium 3.4 L Chloride 108 H Carbon Dioxide 26 BUN 19 Creatinine 1.68 H Glucose 243 H Calcium 9.5 - ABG Interpretation ABG results: PT/INR, D-dimer PT 13.8 Seconds (9.4-12.1) H 02/02/18 05:30 - VTE Documentation of Mechanical Device: Intermittent pneumatic compression device Consult Discharge Plan - Plan Referrals: Harrison Mai MD [Primary Care Provider] - (This patient is from an [facility] no PCP appointment needed)
[2018-02-02] MEDS: Potassium Chloride Elixir 20 MEQ/15 ML UDC PO SCH ×2 (12:52→16:57)
[2018-02-02] MEDS: Vancomycin 500 MG in 0.9 % Sodium Chloride Mini Bag 100 ML IVPB SCH (12:52)
--- NOTE | 2018-02-02 13:55 | Nephrology Progress Note ---
Date of Encounter: 02/02/18 Time of Encounter: 13:40 - Assessment and Plan (1) CKD (chronic kidney disease) stage 4, GFR 15-29 ml/min Current Visit: Yes Status: Acute Recovered renal fct. Creat 1.68. Documented urine output 1300cc. Accurate I&O. Avoid nephrotoxins. Will continue to monitor. Subjective Principal diagnosis: MRSA Bacteremia, Bradycardia Interval history: Laying quietly in bed. Family at bedside. Dopamine drip for bradycardia. Awaiting blood cultures for placement pacemaker. Trach> O2 collar. Objective - Vital Signs Vital signs: Vital Signs Temp Pulse Resp BP Pulse Ox 02/02/18 11:29 98.0 F 55 19 106/62 98 02/02/18 08:11 97.5 F L 47 19 144/68 94 02/02/18 06:00 46 146/64 02/02/18 05:02 98.1 F 54 20 152/83 97 02/02/18 04:30 46 02/02/18 03:00 49 128/62 02/02/18 02:00 47 125/71 02/02/18 01:00 48 118/65 02/02/18 00:00 48 125/68 02/01/18 23:45 54 02/01/18 23:26 97.3 F L 50 18 94/54 99 02/01/18 22:00 49 104/52 02/01/18 21:00 52 129/71 02/01/18 20:00 52 135/65 02/01/18 19:45 54 02/01/18 19:33 97.4 F L 59 18 101/76 100 02/01/18 18:53 52 18 132/85 98 02/01/18 16:24 98.3 F 54 18 139/71 96 02/01/18 16:19 51 20 149/76 97 Intake and Output 02/01/18 02/02/18 02/02/18 23:59 07:59 15:59 Intake Total 734 / 734 211 / 211 610 / 610 Output Total 300 / 300 900 / 900 Balance 434 / 434 211 / 211 -290 / -290 Intake: IV Fluids 434 / 434 211 / 211 250 / 250 DOPamine Premix 400mg/250mL 400 434 / 434 211 / 211 250 / 250 mg In 250 ml @ 2.5 MCG/KG/MIN 12.332 mls/hr IVC .[id number] [facility] Rx#:[id number] Oral 240 / 240 240 / 240 Free Water Intake Amount 60 / 60 120 / 120 Output: Urine 300 / 300 900 / 900 Other: Meal Lunch Lunch Percent of Meal Consumed 75% 0% Blood Glucose* 216 212 - General Appearance General appearance: Present: well-developed, well-nourished, appears started age , obese EENT: Present: mucous membranes moist Neck: Present: no JVD Respiratory: Present: rhonchi Cardiology: Present: regular rate, regular rhythm Additional Comments: bilateral amputee Gastrointestinal: Present: normoactive bowel sounds, no tenderness Integumentary: Present: warm and dry Neurologic: Present: alert and oriented x3 - Lab 02/02/18 05:30 02/02/18 05:30 Most recent lab results Calcium 9.5 mg/dL (8.6-10.3) 02/02/18 05:30 Phosphorus 3.4 mg/dL (2.7-4.5) 01/26/18 03:00 Magnesium 1.9 mg/dL (1.6-2.6) 01/31/18 04:00 - VTE Documentation of Mechanical Device: Intermittent pneumatic compression device Consult Discharge Plan - Plan Referrals: Harrison Mai MD [Primary Care Provider] - (This patient is from an [facility] no PCP appointment needed)
[2018-02-02] MEDS ORDERED: Cosyntropin 250 MCG/2 ML VIAL IVP ONE (14:17)
[2018-02-02] MEDS: Ondansetron 4 MG/2 ML VIAL IVP PRN ×2 (15:32→21:51)
[2018-02-02] MEDS: Insulin DETEMIR 100 UNIT/ML X5UNITS SQ SCH (16:57)
--- NOTE | 2018-02-02 17:33 | Electrocardiograph Report ---
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
[2018-02-02] MEDS ORDERED: *HR* Warfarin 1 MG TABLET PO ONE (18:00)
[2018-02-03 04:35] LABS: Basophils % 0.5 %; Eosinophils # 0.2 K/mcL (0.0-0.6); Eosinophils % 2.3 %; Hematocrit 27.6 % (37.5-50.1); Hemoglobin 8.6 g/dL (12.9-16.9); Immature Granulocytes % 0.4 % (0-4); Lymphocytes # 2.6 K/mcL (0.6-4.6); Lymphocytes % 32.6 %; Mean Corpuscular HGB Conc 31.2 g/dL (31.6-35.5); Mean Corpuscular Hemoglobin 29.4 pg (28.0-33.3); Mean Corpuscular Volume 94.2 fL (83.0-100.0); Mean Platelet Volume 8.7 fL (9.4-12.4); Monocytes # 0.5 K/mcL (0.0-1.3); Monocytes % 6.5 %; Neutrophils # 4.6 K/mcL (1.6-8.9); Platelet Count 320 K/mcL (140-400); Red Blood Count 2.93 M/mcL (4.19-5.50); Segmented Neutrophils % 57.7 %
[2018-02-03 04:37] LABS: INR 1.3; Prothrombin Time 13.7 Seconds (9.4-12.1)
[2018-02-03 04:57] LABS: Calcium 9.3 mg/dL (8.6-10.3); Potassium 4.5 mEq/L (3.5-5.1)
[2018-02-03] MEDS: *HR* Heparin 5,000 UNIT/ML VIAL SQ SCH ×2 (06:35→19:16)
--- NOTE | 2018-02-03 07:45 | Internal Med Progress Note ---
Date of Encounter: 02/03/18 Time of Encounter: 07:30 - Assessment and plan (1) Bradycardia Current Visit: Yes Status: Acute Assessment and plan: Patient continues to be on IV dopamine drip to maintain heart rate, unable to be weaned off for now. Pt had episode of hypotension when cardiology tried to wean off dobutamine. Will continue to attempt to wean off slowly. He will eventually need a permanent pacemaker, after bacteremia clears. Continue to monitor closely and follow up repeat blood cultures.Cardiology plan for pacemaker placement 4-6 weeks after negative blood cultures.Patient has been started on midodrine and we are weaning of dopamine slowly. 02/02. Dopamine drip was down to 6 yesterday, however pt became bradycardic up to the 30s. Will reconsult cardiology. Dopamine back up to 9mcg. ACTH stim test to r/o adrenal insufficiency came back WNL (2) Bacteremia Current Visit: Yes Status: Acute Assessment and plan: Unclear source, could be infected PermCath versus pneumonia. One out of one blood cultures from January 20 grew MRSA. 2 out of 2 blood cultures from January 22 grew MRSA. 2 out of 2 blood cultures from January 23 grew staph hemolyticus. Repeat blood cultures from January 26 and January 29 were negative Infectious diseases on board, continue IV vancomycin to complete 14 day course. On day 9. Transthoracic and transesophageal echocardiogram showed no evidence of vegetations. PermCath has been removed, temporary dialysis catheter placed on January 24. (3) ESRD (end stage renal disease) on dialysis Current Visit: Yes Status: Chronic Assessment and plan: Nephrology on board for dialysis needs. Received hemodialysis via a temporary dialysis catheter. PermCath to be placed when bacteremia clears, if needed. Hemodialysis has been deferred due to improving renal function. Continue to monitor.Nephrology following (4) Left ear pain Current Visit: Yes Status: Acute Assessment and plan: Case discussed with ENT, who has seen the patient a few days ago, recommend supportive care and no further intervention. Continue pain control as needed. (5) PAF (paroxysmal atrial fibrillation) Current Visit: Yes Status: Chronic Assessment and plan: Atrial fibrillation with slow ventricular response. Hold beta elaine. Continue IV dopamine drip. We have restarted coumadin as pacemaker placement is on hold for 4-6 weeks (6) Anemia in CKD (chronic kidney disease) Current Visit: Yes Status: Chronic Assessment and plan: Received 2 units PRBC during this hospitalization. Hemoglobin is currently stable. Qualifiers: Chronic kidney disease stage: stage 5, not on chronic dialysis Qualified Code(s): N18.5 - Chronic kidney disease, stage 5; D63.1 - Anemia in chronic kidney disease; D63.1 - Anemia in chronic kidney disease (7) Chronic respiratory failure Current Visit: Yes Status: Chronic Assessment and plan: Noted to be on chronic tracheostomy collar. Qualifiers: Respiratory failure complication: hypoxia Qualified Code(s): J96.11 - Chronic respiratory failure with hypoxia (8) Essential hypertension Current Visit: Yes Status: Chronic Assessment and plan: Currently on dopamine drip (9) Diabetes mellitus Current Visit: Yes Status: Chronic Assessment and plan: Blood sugars noted to be well controlled. Continue Accu-Chek blood glucose monitoring with basal bolus insulin regimen. Diabetic diet. Qualifiers: Diabetes mellitus type: type 2 Diabetes mellitus managing member insulin use: with managing member use Diabetes mellitus complication status: with kidney complications Diabetes mellitus complication detail: with chronic kidney disease Chronic kidney disease stage: on chronic dialysis Qualified Code(s) : E11.22 - Type 2 diabetes mellitus with diabetic chronic kidney disease; N18.6 - End stage renal disease; Z99.2 - Dependence on renal dialysis; Z99.2 - Dependence on renal dialysis; Z99.2 - Dependence on renal dialysis; N18.6 - End stage renal disease; N18.6 - End stage renal disease; N18.6 - End stage renal disease; Z79.4 - silver plater (current) use of insulin; Z79.4 - silver plater (current ) use of insulin; Z79.4 - silver plater (current) use of insulin; Z79.4 - [facility] (current) use of insulin; Z99.2 - Dependence on renal dialysis (10) Pneumonia Current Visit: Yes Status: Acute Assessment and plan: CT chest suggestive of bilateral multilobar pneumonia. Sputum culture grew Pseudomonas. Blood cultures as mentioned above. Completed course of cefepime. Supportive care and supplemental oxygen. Infectious diseases following Qualifiers: Pneumonia type: due to Pseudomonas Laterality: bilateral Lung location: unspecified part of lung Qualified Code(s): J15.1 - Pneumonia due to Pseudomonas - Time Spent With Patient Total time spent is greater than 50% in coordination of care (as documented) at patient's floor/unit and/or counseling patient: - Subjective Interval history: No acute events overnight. Continues on dopamine drip - Constitutional Vitals: Temp Pulse Resp BP Pulse Ox 97.8 F 44 17 136/68 98 02/03/18 05:16 02/03/18 05:16 02/03/18 05:16 02/03/18 05:16 02/03/18 05:16 General appearance: Present: A&O X 2, morbidly obese, answers questions appropriately - Head Head exam: Present: atraumatic, normocephalic - Eye Eye exam: Present: PERRL, conjuntiva pink, sclera anicteric Pupils: Present: PERRL - Neck Neck exam general surgery: Present: supple, trachea midline. Absent: lymphadenopathy - Respiratory Respiratory exam: Present: CTAB. Absent: accessory muscle use, rales, rhonchi, wheezes Additional comments: Trah collar in place - Cardiovascular Cardiovascular exam: Present: RRR, +S1, +S2. Absent: diastolic murmur, gallop, rubs, systolic murmur - GI/Abdominal GI/Abdominal exam: Present: normal bowel sounds, soft, no peritoneal signs. Absent: distended, tenderness - Extremities Exam Extremities exam: Present: warm, radial pulses palpable and symmetrical. Absent : calf tenderness, cyanotic, pedal edema Additional comments: s/p bilateral amputation - Neurological Exam Neurological exam: Present: CN II-XII intact, oriented X3, no focal deficits. Absent: pronater drift, facial droop, speech deficit - Skin Skin exam: Present: dry, intact Internal Medicine: Result - Labs CBC & Chem 7: 02/03/18 04:00 02/03/18 04:00 Labs: Short CBC 02/03/18 Range/Units 04:00 WBC 7.9 (4.3-11.1) K/mcL Hgb 8.6 L (12.9-16.9) g/dL Hct 27.6 L (37.5-50.1) % Plt Count 320 (140-400) K/mcL Neutrophils # 4.6 (1.6-8.9) K/mcL BMP 02/02/18 02/03/18 05:30 04:00 Sodium 138 136 Potassium 3.4 L 4.5 D Chloride 108 H 106 Carbon Dioxide 26 27 BUN 19 20 Creatinine 1.68 H 1.70 H Glucose 243 H 259 H Calcium 9.5 9.3 - ABG Interpretation ABG results: PT/INR, D-dimer PT 13.7 Seconds (9.4-12.1) H 02/03/18 04:00 - VTE Documentation of Mechanical Device: Intermittent pneumatic compression device Consult Discharge Plan - Plan Referrals: Harrison Mai MD [Primary Care Provider] - (This patient is from an ECF no PCP appointment needed)
--- NOTE | 2018-02-03 09:44 | Nephrology Progress Note ---
Date of Encounter: 02/03/18 Time of Encounter: 09:20 - Assessment and Plan (1) CKD (chronic kidney disease) stage 4, GFR 15-29 ml/min Current Visit: Yes Status: Acute From Nephrology standpoint, temporary HD catheter can be removed. Recovered renal fct. Creat 1.70. Most likely baseline. Documented urine output 900cc. Accurate I&O. Avoid nephrotoxins. Will continue to monitor. Subjective Principal diagnosis: MRSA Bacteremia, Bradycardia Interval history: Laying quietly in bed. Dopamine drip. Trach> O2 collar. Objective - Vital Signs Vital signs: Vital Signs Temp Pulse Resp BP Pulse Ox 02/03/18 05:16 97.8 F 44 17 136/68 98 02/03/18 03:21 97.8 F 43 17 136/68 98 02/03/18 00:33 98.6 F 45 16 149/72 95 02/02/18 23:24 98.6 F 40 16 149/72 95 02/02/18 21:45 97.9 F 47 16 106/68 100 02/02/18 21:03 106/68 02/02/18 20:40 97.9 F 16 82/44 100 02/02/18 15:42 97.8 F 45 12 138/66 100 02/02/18 11:29 98.0 F 55 19 106/62 98 Intake and Output 02/02/18 02/03/18 02/03/18 23:59 07:59 15:59 Intake Total 570 / 570 310 / 310 Output Total 580 / 580 Balance 570 / 570 310 / 310 -580 / -580 Intake: IV Fluids 390 / 390 250 / 250 DOPamine Premix 400mg/250mL 400 390 / 390 250 / 250 mg In 250 ml @ 2.5 MCG/KG/MIN 12.332 mls/hr IVC .[id number] OVI Rx#:[id number] Free Water Intake Amount 180 / 180 60 / 60 Output: Urine 580 / 580 Other: Blood Glucose* 168 216 - General Appearance General appearance: Present: well-developed, well-nourished, appears started age EENT: Present: mucous membranes moist Neck: Present: no JVD Respiratory: Present: rhonchi Cardiology: Present: regular rate, regular rhythm Additional Comments: b/l amputee Dialysis Vascular Access: Venous Catheter Gastrointestinal: Present: normoactive bowel sounds, no tenderness Integumentary: Present: warm and dry Neurologic: Present: alert and oriented x3 - Lab 02/03/18 04:00 02/03/18 04:00 Most recent lab results Calcium 9.3 mg/dL (8.6-10.3) 02/03/18 04:00 Phosphorus 3.4 mg/dL (2.7-4.5) 01/26/18 03:00 Magnesium 1.9 mg/dL (1.6-2.6) 01/31/18 04:00 - VTE Documentation of Mechanical Device: Intermittent pneumatic compression device Consult Discharge Plan - Plan Referrals: Harrison Mai MD [Primary Care Provider] - (This patient is from an ECF no PCP appointment needed)
[2018-02-03] MEDS: Calcium Acetate 667 MG CAPSULE PO SCH ×3 (09:48→17:24)
[2018-02-03] MEDS: Docusate Oral Soln 100 MG/10 ML UDC GTUBE SCH ×2 (09:48→20:26)
[2018-02-03] MEDS: Famotidine 20 MG TABLET PO SCH (09:48)
[2018-02-03] MEDS: Bisacodyl 10 MG RECTAL SUPPOSITORY RC SCH (09:48)
[2018-02-03] MEDS: Insulin DETEMIR 100 UNIT/ML X5UNITS SQ SCH (09:48)
[2018-02-03] MEDS: Insulin LISPRO 300 UNITS/3 ML VIAL SQ SCH ×4 (09:48→21:45)
[2018-02-03] MEDS: Ondansetron 4 MG/2 ML VIAL IVP PRN (10:35)
--- NOTE | 2018-02-03 12:10 | Cardiology Progress Note ---
Date of Encounter: 02/03/18 Time of Encounter: 10:30 Assessment and Plan (1) Bradycardia Current Visit: Yes Status: Acute Per Cardiology: -Recent echo reviewed and showed preserved EF with no significant valvular dysfunction, has moderate diastolic dysfunction. -Currently on dopamine drip at 10mcg/kg/min. -Average HR previous 12 hours noted to be 44, SB. -ID following patient and known to have MRSA and staph haemolyticus with source unclear. Most recent blood cultures 2 negative. -Discussed with ID and recommendations for repeat cultures and if remained negative for 48 hours can consider permanent pacemaker if deemed clinically warranted and appropriate. -Discussed and reviewed with Dr. Casey Salinas, no recommendations for pacer at this time and recommendations to wait multiple weeks prior to potential permanent pacer insertion from EP standpoint once antibiotic course completed. -Currently clinically stable. -No need for trancutaneous or TV pacing at this juncture. -Of note, dopamine was discontinue previously and HR remained the same, however patient was hypotensive. Again today, dopamine off, per RN, HR remained the same off dopamine, however became hypotensive. -Per discussion with Dr.Jennifer Salinas, hypotension not related to cardiac cause. Recommend work up for infectious, volume status, or adrenal insufficiency causes. (2) PAF (paroxysmal atrial fibrillation) Current Visit: Yes Status: Chronic Per Cardiology: -Hx of PAF. Currently sinus rhythm and off a elaine. No afib noted, continue to monitor. -Coumadin has been resumed. Discussion w patient/family: The assessment and plan as outlined above was discussed with the patient who expressed understanding and agreement. All questions were answered. Thank you for involving us in the care of your patient. Please call with any questions. Discussed and reviewed with Dr.Jennifer Salinas. Subjective Principal diagnosis: MRSA Bacteremia, Bradycardia Interval history: Patient reports is feeling better today. Denies dizziness, lightheadedness. Reports is uncomfortable in bed. Objective Vital Signs Temperature 98.6 F 01/22/18 09:59 Pulse Rate 46 01/22/18 09:59 Respiratory Rate 15 01/22/18 09:59 Blood Pressure 126/107 01/22/18 09:59 O2 Sat by Pulse Oximetry 91 01/22/18 09:59 Temperature 97.8 F 02/03/18 05:16 Pulse Rate 44 04/28/18 05:16 Respiratory Rate 17 02/03/18 05:16 Blood Pressure 136/68 02/03/18 05:16 O2 Sat by Pulse Oximetry 98 02/03/18 05:16 General: Conversant, Other (Speaks with speech valve) HEENT: Atraumatic, Normocephaly, Mucus Membranes Moist Neck: No JVD, Normal carotid pulses Cardiac: Normal S1 and S2, No Murmur, Other (Bradycardic) Lungs: Other (Lung sounds diminished throughout. ) Neuro: Alert and responsive, No focal deficits noted Abdomen: Soft, Non-Tender Skin: No rashes noted on visualized skin Musculoskeletal: No Chest Wall Tenderness Extremities: No Clubbing, No Cyanosis, Other (Bilateral lower extremity amputee. ) Results 02/03/18 04:00 02/03/18 04:00 Lab Results Active Medications Acetaminophen (Tylenol) 650 mg PO Q6H PRN PRN Reason: pain 1-3 Stop: 07/25/18 09:01 Bisacodyl (Dulcolax) 10 mg RC DAILY [facility] Stop: 07/25/18 09:01 Last Admin: 02/03/18 09:48 Dose: Not Given Calcium Acetate (Phos-Lo) 667 mg PO TIDWM [facility] Stop: 07/29/18 12:01 Last Admin: 02/03/18 09:48 Dose: 667 mg Darbepoetin Derrick (Aranesp) 60 mcg SQ QWEEK [facility] Stop: 07/25/18 08:16 Last Admin: 01/30/18 10:03 Dose: 60 mcg Dextrose/Water (Dextrose 50% (Syg)) 25 ml IVP AD PRN PRN Reason: Hypoglycemia Stop: 07/24/18 17:05 Docusate Sodium (Colace) 100 mg GTUBE BID [facility] PRN Reason: Protocol Stop: 07/27/18 11:16 Last Admin: 02/03/18 09:48 Dose: 100 mg Famotidine (Pepcid) 20 mg PO DAILY [facility] PRN Reason: Protocol Stop: 07/25/18 09:01 Last Admin: 02/03/18 09:48 Dose: 20 mg Glucagon (Glucagen) 1 mg IM ONCE PRN PRN Reason: Hypoglycemia Stop: 07/24/18 17:05 Glucose (Gluctose) 15 gm PO ONCE PRN PRN Reason: Hypoglycemia Stop: 07/24/18 17:05 Glucose (Gluctose) 30 gm PO ONCE PRN PRN Reason: Hypoglycemia Stop: 07/24/18 17:05 Heparin Sodium (Porcine) (Heparin) 5,000 unit SQ Q12HCO [facility] Stop: 07/26/18 18:01 Last Admin: 02/03/18 06:35 Dose: 5,000 unit Heparin Sodium (Porcine) (Heparin) 0 unit IV ONCE PRN PRN Reason: Hemodialysis Catheter Packing Hydroxyzine Pamoate (Hydroxyzine Pamoate) 25 mg PO Q6H PRN PRN Reason: Itching Last Admin: 01/24/18 04:41 Dose: 25 mg Dopamine HCl/Dextrose (Dopamine Premix 400mg/250ml) 400 mg in 250 mls @ 12.332 mls/hr IVC .[id number] OVI; 2.5 MCG/KG/MIN PRN Reason: Protocol Stop: 07/24/18 16:16 Last Admin: 02/03/18 10:40 Dose: 10 mcg/kg/min, 49.328 mls/hr Dextrose (Dextrose 5%) 1,000 mls @ 100 mls/hr IVC .Q10H PRN PRN Reason: HYPOGLYCEMIA Stop: 07/24/18 17:05 Sodium Chloride (0.9 % Sodium Chloride) 250 mls @ 937.5 mls/hr IVC .Q16M PRN PRN Reason: Hypotension Stop: 07/28/18 10:03 Vancomycin HCl 500 mg/ Sodium (Chloride) 100 mls @ 100 mls/hr IVPB Q24H [facility] Stop: 08/03/18 12:01 Last Admin: 02/02/18 12:52 Dose: 100 mls/hr Insulin Detemir (Levemir) 10 unit SQ DAILY [facility] Stop: 08/04/18 15:01 Last Admin: 02/03/18 09:48 Dose: 10 unit Insulin Human Lispro (Humalog) 0 units SQ TIDAC [facility] PRN Reason: Protocol Stop: 08/04/18 16:31 Last Admin: 02/03/18 09:48 Dose: Not Given Insulin Human Lispro (Humalog) 0 units SQ HS [facility] PRN Reason: Protocol Stop: 08/04/18 21:01 Last Admin: 02/02/18 21:33 Dose: Not Given Miconazole Nitrate (Antifungal Extra Thick) 1 appl TP BID [facility] Stop: 08/01/18 13:01 Last Admin: 02/02/18 21:32 Dose: 1 appl Midodrine (Proamatine) 5 mg PO 0900,1300,1700 OVI Stop: 08/03/18 17:01 Last Admin: 02/03/18 09:48 Dose: 5 mg Naloxone HCl (Narcan) 0.4 mg IVP Q2MIN PRN PRN Reason: SEE COMMENTS Stop: 07/24/18 13:42 Ondansetron HCl (Zofran) 4 mg IVP Q6HR PRN; Protocol PRN Reason: Nausea And Vomiting Stop: 08/01/18 20:14 Last Admin: 02/03/18 10:35 Dose: 4 mg Oxycodone HCl (Oxycodone Oral Conc) 10 mg SL Q4HR PRN; Protocol PRN Reason: Severe Pain Stop: 07/25/18 12:01 Last Admin: 02/01/18 21:43 Dose: 10 mg Oxycodone/Acetaminophen (Percocet 7.5/325) 1 each PO Q4HR PRN PRN Reason: Pain Stop: 07/24/18 17:04 Last Admin: 02/02/18 08:32 Dose: 1 each Quetiapine Fumarate (Seroquel) 50 mg PO BID [facility] Stop: 07/24/18 21:01 Last Admin: 02/03/18 09:48 Dose: 50 mg Warfarin Sodium (Coumadin Perpt) 1 each PO DAILY@1800 PRN PRN Reason: SEE COMMENTS Stop: 08/03/18 18:01 Laboratory Tests 02/03/18 02/03/18 04:00 04:00 Hgb 8.6 L Potassium 4.5 D Creatinine 1.70 H - Imaging and Cardiology Chest Xray: report reviewed Echo: report reviewed - EKG Interpretation EKG results cardiology: other (Telemetry reviewed with average HR previous 12 hours noted to be 44, SB. One 3 second pause noted.) - VTE Documentation of Mechanical Device: Intermittent pneumatic compression device Consult Discharge Plan - Plan Referrals: Harrison Mai MD [Primary Care Provider] - (This patient is from an F no PCP appointment needed)
[2018-02-03] MEDS: Miconazole w/zinc oxide&karaya 92 APPL/92 GM TUBE TP SCH ×2 (13:08→20:26)
[2018-02-03] MEDS: Vancomycin 500 MG in 0.9 % Sodium Chloride Mini Bag 100 ML IVPB SCH (13:09)
--- NOTE | 2018-02-03 16:32 | Electrocardiograph Report ---
[address] [place], [place] [address] Test Date: 2018-01-31 Pat Name: Clarence Murrell Department: 110 Room: 2N06 Gender: M Leaf Sorter: : 1950 Requested By: Eli Caldwell Order Number: [id number] Reading MD: Amber Salinas Measurements Intervals [place] Rate: 52 P: [place]: 0 QRS: 18 QRSD: 108 T: 44 QT: 440 QTc: 421 Interpretive Statements Junctional escape rhythm POSSIBLE RIGHT VENTRICULAR CONDUCTION DELAY POSSIBLE LATERAL MYOCARDIAL INFARCTION, OF INDETERMINATE AGE Electronically Signed On 02-03-2018 16:31:27 EDT by Amber Salinas
[2018-02-03] MEDS ORDERED: *HR* Warfarin 2 MG TABLET PO ONE (18:00)
[2018-02-04 06:00] LABS: Basophils # 0.1 K/mcL (0.0-0.2); Basophils % 0.8 %; Eosinophils # 0.4 K/mcL (0.0-0.6); Eosinophils % 3.7 %; Hematocrit 27.1 % (37.5-50.1); Hemoglobin 8.3 g/dL (12.9-16.9); Immature Granulocytes % 0.4 % (0-4); Lymphocytes # 3.8 K/mcL (0.6-4.6); Lymphocytes % 39.1 %; Mean Corpuscular HGB Conc 30.6 g/dL (31.6-35.5); Mean Corpuscular Hemoglobin 28.6 pg (28.0-33.3); Mean Corpuscular Volume 93.4 fL (83.0-100.0); Mean Platelet Volume 8.5 fL (9.4-12.4); Monocytes # 0.6 K/mcL (0.0-1.3); Monocytes % 6.6 %; Neutrophils # 4.8 K/mcL (1.6-8.9); Platelet Count 318 K/mcL (140-400); Red Cell Distribution Width 15.1 % (11.5-14.5); Segmented Neutrophils % 49.4 %
[2018-02-04 06:06] LABS: INR 1.3; Prothrombin Time 13.7 Seconds (9.4-12.1)
[2018-02-04 06:22] LABS: Calcium 9.2 mg/dL (8.6-10.3); Potassium 4.3 mEq/L (3.5-5.1)
[2018-02-04] MEDS: Ondansetron 4 MG/2 ML VIAL IVP PRN ×4 (06:29→23:48)
[2018-02-04] MEDS: *HR* Heparin 5,000 UNIT/ML VIAL SQ SCH ×2 (06:29→17:49)
[2018-02-04] MEDS ORDERED: 0.9 % Sodium Chloride 1,000 ML IVC ONE (07:23)
[2018-02-04] MEDS: Insulin LISPRO 300 UNITS/3 ML VIAL SQ SCH ×4 (08:25→22:21)
[2018-02-04] MEDS: Docusate Oral Soln 100 MG/10 ML UDC GTUBE SCH ×2 (08:25→20:39)
[2018-02-04] MEDS: Calcium Acetate 667 MG CAPSULE PO SCH ×3 (08:25→16:28)
[2018-02-04] MEDS: Miconazole w/zinc oxide&karaya 92 APPL/92 GM TUBE TP SCH ×2 (08:25→20:39)
[2018-02-04] MEDS: Bisacodyl 10 MG RECTAL SUPPOSITORY RC SCH (08:26)
[2018-02-04] MEDS: Famotidine 20 MG TABLET PO SCH (08:26)
--- NOTE | 2018-02-04 08:56 | Nephrology Progress Note ---
Date of Encounter: 02/04/18 Time of Encounter: 08:20 - Assessment and Plan (1) CKD (chronic kidney disease) stage 4, GFR 15-29 ml/min Current Visit: Yes Status: Acute From Nephrology standpoint, temporary HD catheter can be removed. Recovered renal fct. Creat 1.46. Most likely baseline. Documented urine output 820cc. Accurate I&O. Avoid nephrotoxins. Will continue to monitor. Subjective Principal diagnosis: MRSA Bacteremia, Bradycardia Interval history: Sitting up in bed, watching tv. Dopamine drip. Trach> O2 collar. Objective - Vital Signs Vital signs: Vital Signs Temp Pulse Resp BP Pulse Ox 02/04/18 04:31 97.7 F 42 14 158/80 98 02/04/18 04:00 42 14 158/80 98 02/04/18 00:10 97.7 F 44 14 158/80 98 02/03/18 22:57 97.8 F 49 14 105/53 94 02/03/18 22:03 49 02/03/18 21:35 44 14 105/53 94 Intake and Output 02/03/18 02/04/18 02/04/18 23:59 07:59 15:59 Intake Total 100 / 100 Output Total 240 / 240 0 / 0 Balance -240 / -240 100 / 100 Intake: IV Fluids 100 / 100 DOPamine Premix 400mg/250mL 400 100 / 100 mg In 250 ml @ 2.5 MCG/KG/MIN 12.332 mls/hr IVC .[id number] OVI Rx#:[id number] Output: Urine 240 / 240 Gastric Tube Lavage Amount 0 / 0 0 / 0 Left Upper Quadrant 0 / 0 0 / 0 Other: Weight 133.4 kg Blood Glucose* 153 129 Patient Weight 02/04/18 23:59 Weight 133.4 kg - General Appearance General appearance: Present: well-developed, well-nourished, appears started age , obese EENT: Present: mucous membranes moist Neck: Present: no JVD Respiratory: Present: rhonchi Cardiology: Present: regular rate, regular rhythm Additional Comments: b/l amputee Dialysis Vascular Access: Venous Catheter Gastrointestinal: Present: normoactive bowel sounds, no tenderness Integumentary: Present: warm and dry Neurologic: Present: alert and oriented x3 - Lab 02/04/18 04:00 02/04/18 04:00 Most recent lab results Calcium 9.2 mg/dL (8.6-10.3) 02/04/18 04:00 Phosphorus 3.4 mg/dL (2.7-4.5) 01/26/18 03:00 Magnesium 1.9 mg/dL (1.6-2.6) 01/31/18 04:00 - VTE Documentation of Mechanical Device: Intermittent pneumatic compression device Consult Discharge Plan - Plan Referrals: Harrison Mai MD [Primary Care Provider] - (This patient is from an F no PCP appointment needed)
--- NOTE | 2018-02-04 09:21 | Internal Med Progress Note ---
Date of Encounter: 02/04/18 Time of Encounter: 09:00 - Assessment and plan (1) Bradycardia Current Visit: Yes Status: Acute Assessment and plan: Patient continues to be on IV dopamine drip to maintain heart rate, unable to be weaned off for now. Pt had episode of hypotension when cardiology tried to wean off dobutamine. Will continue to attempt to wean off slowly. He will eventually need a permanent pacemaker, after bacteremia clears. Continue to monitor closely and follow up repeat blood cultures.Cardiology plan for pacemaker placement 4-6 weeks after negative blood cultures.Patient has been started on midodrine and we are weaning of dopamine slowly. 02/04. Dopamine drip is down to 6, will increase dose of midorine and bolus with IV fluids. continue to wean off as tolerated. ACTH stim test to r/o adrenal insufficiency came back WNL (2) Bacteremia Current Visit: Yes Status: Acute Assessment and plan: Unclear source, could be infected PermCath versus pneumonia. One out of one blood cultures from January 20 grew MRSA. 2 out of 2 blood cultures from January 22 grew MRSA. 2 out of 2 blood cultures from January 23 grew staph hemolyticus. Repeat blood cultures from January 26 and January 29 were negative Infectious diseases on board, continue IV vancomycin to complete 14 day course. On day 10. Transthoracic and transesophageal echocardiogram showed no evidence of vegetations. PermCath has been removed, temporary dialysis catheter placed on January 24. Per nephrology temporary dialysis access can be taken off as patient has recovered renal function. Will continue to monitor (3) ESRD (end stage renal disease) on dialysis Current Visit: Yes Status: Chronic Assessment and plan: Nephrology on board for dialysis needs. Received hemodialysis via a temporary dialysis catheter. PermCath to be placed when bacteremia clears, if needed. Hemodialysis has been deferred due to improving renal function. Per renal, pt has recovered renal function and no longer needs to be on dialysis (4) Left ear pain Current Visit: Yes Status: Acute Assessment and plan: Case discussed with ENT, who has seen the patient a few days ago, recommend supportive care and no further intervention. Continue pain control as needed. (5) PAF (paroxysmal atrial fibrillation) Current Visit: Yes Status: Chronic Assessment and plan: Atrial fibrillation with slow ventricular response. Hold beta elaine. Continue IV dopamine drip. We have restarted coumadin as pacemaker placement is on hold for 4-6 weeks (6) Anemia in CKD (chronic kidney disease) Current Visit: Yes Status: Chronic Assessment and plan: Received 2 units PRBC during this hospitalization. Hemoglobin is currently stable. Qualifiers: Chronic kidney disease stage: stage 5, not on chronic dialysis Qualified Code(s): N18.5 - Chronic kidney disease, stage 5; D63.1 - Anemia in chronic kidney disease; D63.1 - Anemia in chronic kidney disease (7) Chronic respiratory failure Current Visit: Yes Status: Chronic Assessment and plan: Noted to be on chronic tracheostomy collar. Sats WNL Qualifiers: Respiratory failure complication: hypoxia Qualified Code(s): J96.11 - Chronic respiratory failure with hypoxia (8) Essential hypertension Current Visit: Yes Status: Chronic Assessment and plan: Currently on dopamine drip (9) Diabetes mellitus Current Visit: Yes Status: Chronic Assessment and plan: Blood sugars noted to be well controlled. Continue Accu-Chek blood glucose monitoring with basal bolus insulin regimen. Diabetic diet. Qualifiers: Diabetes mellitus type: type 2 Diabetes mellitus senior living insulin use: with senior living use Diabetes mellitus complication status: with kidney complications Diabetes mellitus complication detail: with chronic kidney disease Chronic kidney disease stage: on chronic dialysis Qualified Code(s) : E11.22 - Type 2 diabetes mellitus with diabetic chronic kidney disease; N18.6 - End stage renal disease; Z99.2 - Dependence on renal dialysis; Z99.2 - Dependence on renal dialysis; Z99.2 - Dependence on renal dialysis; N18.6 - End stage renal disease; N18.6 - End stage renal disease; N18.6 - End stage renal disease; Z79.4 - halfway (current) use of insulin; Z79.4 - dedicated intermodal truck driver (current ) use of insulin; Z79.4 - halfway (current) use of insulin; Z79.4 - dedicated intermodal truck driver (current) use of insulin; Z99.2 - Dependence on renal dialysis (10) Pneumonia Current Visit: Yes Status: Acute Assessment and plan: CT chest suggestive of bilateral multilobar pneumonia. Sputum culture grew Pseudomonas. Blood cultures as mentioned above. Completed course of cefepime. Supportive care and supplemental oxygen. Infectious diseases following Qualifiers: Pneumonia type: due to Pseudomonas Laterality: bilateral Lung location: unspecified part of lung Qualified Code(s): J15.1 - Pneumonia due to Pseudomonas - Time Spent With Patient Total time spent is greater than 50% in coordination of care (as documented) at patient's floor/unit and/or counseling patient: - Subjective Interval history: No acute events overnight. Continues on dopamine drip - Constitutional Vitals: Temp Pulse Resp BP Pulse Ox 97.7 F 42 14 158/80 98 02/04/18 04:31 02/04/18 04:31 02/04/18 04:31 02/04/18 04:31 02/04/18 04:31 General appearance: Present: A&O X 2, morbidly obese, answers questions appropriately - Head Head exam: Present: atraumatic, normocephalic - Eye Eye exam: Present: PERRL, conjuntiva pink, sclera anicteric Pupils: Present: PERRL - Neck Neck exam general surgery: Present: supple, trachea midline. Absent: lymphadenopathy - Respiratory Respiratory exam: Present: CTAB. Absent: accessory muscle use, rales, rhonchi, wheezes Additional comments: tracheostomy in place - Cardiovascular Cardiovascular exam: Present: RRR, +S1, +S2. Absent: diastolic murmur, gallop, rubs, systolic murmur - GI/Abdominal GI/Abdominal exam: Present: normal bowel sounds, soft, no peritoneal signs. Absent: distended, tenderness - Extremities Exam Extremities exam: Present: warm, radial pulses palpable and symmetrical. Absent : calf tenderness, cyanotic, pedal edema Additional comments: s/p bilateral amputation - Neurological Exam Neurological exam: Present: CN II-XII intact, oriented X3, no focal deficits. Absent: pronater drift, facial droop, speech deficit - Skin Skin exam: Present: dry, intact Internal Medicine: Result - Labs CBC & Chem 7: 02/04/18 04:00 02/04/18 04:00 Labs: Short CBC 02/04/18 Range/Units 04:00 WBC 9.6 (4.3-11.1) K/mcL Hgb 8.3 L (12.9-16.9) g/dL Hct 27.1 L (37.5-50.1) % Plt Count 318 (140-400) K/mcL Neutrophils # 4.8 (1.6-8.9) K/mcL BMP 02/04/18 04:00 Sodium 140 Potassium 4.3 Chloride 110 H Carbon Dioxide 27 BUN 20 Creatinine 1.46 H Glucose 150 H Calcium 9.2 - ABG Interpretation ABG results: PT/INR, D-dimer PT 13.7 Seconds (9.4-12.1) H 02/04/18 04:00 - VTE Documentation of Mechanical Device: Intermittent pneumatic compression device Consult Discharge Plan - Plan Referrals: Harrison Mai MD [Primary Care Provider] - (This patient is from an ECF no PCP appointment needed)
[2018-02-04] MEDS: Insulin DETEMIR 100 UNIT/ML X5UNITS SQ SCH (12:20)
[2018-02-04] MEDS: Vancomycin 500 MG in 0.9 % Sodium Chloride Mini Bag 100 ML IVPB SCH (12:29)
[2018-02-04] MEDS: *HR* Promethazine 25 MG/ML VIAL IVP PRN (15:30)
[2018-02-04] MEDS ORDERED: *HR* Warfarin 2 MG TABLET PO ONE (18:00)
[2018-02-04] MEDS ORDERED: Nitroglycerin 1 INCH/GM PACKET TP ONE (23:12)
[2018-02-05 04:23] LABS: Basophils % 0.2 %; Hemoglobin 8.3 g/dL (12.9-16.9); Immature Granulocytes % 0.4 % (0-4); Lymphocytes # 1.6 K/mcL (0.6-4.6); Lymphocytes % 19.1 %; Mean Corpuscular HGB Conc 31.9 g/dL (31.6-35.5); Mean Corpuscular Hemoglobin 29.5 pg (28.0-33.3); Mean Corpuscular Volume 92.5 fL (83.0-100.0); Mean Platelet Volume 8.9 fL (9.4-12.4); Monocytes # 0.1 K/mcL (0.0-1.3); Monocytes % 1.2 %; Neutrophils # 6.8 K/mcL (1.6-8.9); Platelet Count 378 K/mcL (140-400); Red Blood Count 2.81 M/mcL (4.19-5.50); Red Cell Distribution Width 15.3 % (11.5-14.5); Segmented Neutrophils % 79.1 %
[2018-02-05 04:28] LABS: INR 1.2; Prothrombin Time 13.5 Seconds (9.4-12.1)
[2018-02-05 04:38] LABS: Calcium 9.3 mg/dL (8.6-10.3); Potassium 4.3 mEq/L (3.5-5.1)
[2018-02-05] MEDS: Famotidine 20 MG TABLET PO SCH (08:23)
[2018-02-05] MEDS: Calcium Acetate 667 MG CAPSULE PO SCH ×3 (08:24→16:36)
[2018-02-05] MEDS: *HR* Heparin 5,000 UNIT/ML VIAL SQ SCH ×2 (08:24→18:59)
[2018-02-05] MEDS: Docusate Oral Soln 100 MG/10 ML UDC GTUBE SCH ×2 (08:24→20:19)
[2018-02-05] MEDS: Bisacodyl 10 MG RECTAL SUPPOSITORY RC SCH (08:25)
[2018-02-05] MEDS: Insulin LISPRO 300 UNITS/3 ML VIAL SQ SCH ×4 (08:26→20:53)
[2018-02-05] MEDS: Insulin DETEMIR 100 UNIT/ML X5UNITS SQ SCH (08:34)
[2018-02-05] MEDS: Miconazole w/zinc oxide&karaya 92 APPL/92 GM TUBE TP SCH ×2 (08:35→20:25)
--- NOTE | 2018-02-05 08:40 | Internal Med Progress Note ---
Date of Encounter: 02/05/18 Time of Encounter: 08:30 - Assessment and plan (1) Bradycardia Current Visit: Yes Status: Acute Assessment and plan: Patient continues to be on IV dopamine drip to maintain heart rate, unable to be weaned off for now. Pt had episode of hypotension when cardiology tried to wean off dobutamine. Will continue to attempt to wean off slowly. He will eventually need a permanent pacemaker, after bacteremia clears. Continue to monitor closely and follow up repeat blood cultures.Cardiology plan for pacemaker placement 4-6 weeks after negative blood cultures.Patient has been started on midodrine and we are weaning of dopamine slowly. 02/05. Dopamine drip was weaned of in last 24rs. BP stable. Will go down on midorine to 7.5mg TID. ACTH stim test to r/o adrenal insufficiency came back WNL (2) Bacteremia Current Visit: Yes Status: Acute Assessment and plan: Unclear source, could be infected PermCath versus pneumonia. One out of one blood cultures from January 20 grew MRSA. 2 out of 2 blood cultures from January 22 grew MRSA. 2 out of 2 blood cultures from January 23 grew staph hemolyticus. Repeat blood cultures from January 26 and January 29 were negative Infectious diseases on board, continue IV vancomycin to complete 14 day course. On day 11. Transthoracic and transesophageal echocardiogram showed no evidence of vegetations. PermCath has been removed, temporary dialysis catheter placed on January 24. Per nephrology temporary dialysis access can be taken off as patient has recovered renal function. Will continue to monitor (3) ESRD (end stage renal disease) on dialysis Current Visit: Yes Status: Chronic Assessment and plan: Nephrology on board for dialysis needs. Received hemodialysis via a temporary dialysis catheter. PermCath to be placed when bacteremia clears, if needed. Hemodialysis has been deferred due to improving renal function. Per renal, pt has recovered renal function and no longer needs to be on dialysis (4) Left ear pain Current Visit: Yes Status: Acute Assessment and plan: Case discussed with ENT, who recommend supportive care and no further intervention. Continue pain control as needed. (5) PAF (paroxysmal atrial fibrillation) Current Visit: Yes Status: Chronic Assessment and plan: Atrial fibrillation with slow ventricular response. Hold beta elaine. We have restarted coumadin as pacemaker placement is on hold for 4-6 weeks (6) Anemia in CKD (chronic kidney disease) Current Visit: Yes Status: Chronic Assessment and plan: Received 2 units PRBC during this hospitalization. Hemoglobin is currently stable. Qualifiers: Chronic kidney disease stage: stage 5, not on chronic dialysis Qualified Code(s): N18.5 - Chronic kidney disease, stage 5; D63.1 - Anemia in chronic kidney disease; D63.1 - Anemia in chronic kidney disease (7) Chronic respiratory failure Current Visit: Yes Status: Chronic Assessment and plan: Noted to be on chronic tracheostomy collar. Sats WNL Qualifiers: Respiratory failure complication: hypoxia Qualified Code(s): J96.11 - Chronic respiratory failure with hypoxia (8) Essential hypertension Current Visit: Yes Status: Chronic Assessment and plan: Continue midodrine and monitor BP. No indication for antihypertesives (9) Diabetes mellitus Current Visit: Yes Status: Chronic Assessment and plan: Blood sugars noted to be well controlled. Continue Accu-Chek blood glucose monitoring with basal bolus insulin regimen. Diabetic diet. Qualifiers: Diabetes mellitus type: type 2 Diabetes mellitus halfway insulin use: with medical terminologist use Diabetes mellitus complication status: with kidney complications Diabetes mellitus complication detail: with chronic kidney disease Chronic kidney disease stage: on chronic dialysis Qualified Code(s) : E11.22 - Type 2 diabetes mellitus with diabetic chronic kidney disease; N18.6 - End stage renal disease; Z99.2 - Dependence on renal dialysis; Z99.2 - Dependence on renal dialysis; Z99.2 - Dependence on renal dialysis; N18.6 - End stage renal disease; N18.6 - End stage renal disease; N18.6 - End stage renal disease; Z79.4 - FPC (current) use of insulin; Z79.4 - FPC (current ) use of insulin; Z79.4 - FPC (current) use of insulin; Z79.4 - termite control servicer (current) use of insulin; Z99.2 - Dependence on renal dialysis (10) Pneumonia Current Visit: Yes Status: Acute Assessment and plan: CT chest suggestive of bilateral multilobar pneumonia. Sputum culture grew Pseudomonas. Blood cultures as mentioned above. Completed course of cefepime. Supportive care and supplemental oxygen. Infectious diseases following Qualifiers: Pneumonia type: due to Pseudomonas Laterality: bilateral Lung location: unspecified part of lung Qualified Code(s): J15.1 - Pneumonia due to Pseudomonas - Time Spent With Patient Total time spent is greater than 50% in coordination of care (as documented) at patient's floor/unit and/or counseling patient: - Subjective Interval history: No acute events overnight. Weaned off dopamine drip in last 24hrs - Constitutional Vitals: Temp Pulse Resp BP Pulse Ox 97.8 F 48 17 171/76 98 02/05/18 07:59 02/05/18 07:59 02/05/18 07:59 02/05/18 07:59 02/05/18 07:59 General appearance: Present: A&O X 2, morbidly obese, answers questions appropriately - Head Head exam: Present: atraumatic, normocephalic - Eye Eye exam: Present: PERRL, conjuntiva pink, sclera anicteric Pupils: Present: PERRL - Neck Neck exam general surgery: Present: supple, trachea midline. Absent: lymphadenopathy - Respiratory Respiratory exam: Present: CTAB. Absent: accessory muscle use, rales, rhonchi, wheezes Additional comments: Trachesotomy in place - Cardiovascular Cardiovascular exam: Present: RRR, +S1, +S2. Absent: diastolic murmur, gallop, rubs, systolic murmur - GI/Abdominal GI/Abdominal exam: Present: normal bowel sounds, soft, no peritoneal signs. Absent: distended, tenderness - Extremities Exam Extremities exam: Present: warm, radial pulses palpable and symmetrical. Absent : calf tenderness, cyanotic, pedal edema Additional comments: s/p bilateral LE amputation - Neurological Exam Neurological exam: Present: CN II-XII intact, oriented X3, no focal deficits. Absent: pronater drift, facial droop, speech deficit - Skin Skin exam: Present: dry, intact Internal Medicine: Result - Labs CBC & Chem 7: 02/05/18 04:00 02/05/18 04:00 Labs: Short CBC 02/05/18 Range/Units 04:00 WBC 8.5 (4.3-11.1) K/mcL Hgb 8.3 L (12.9-16.9) g/dL Hct 26.0 L (37.5-50.1) % Plt Count 378 (140-400) K/mcL Neutrophils # 6.8 (1.6-8.9) K/mcL BMP 02/05/18 04:00 Sodium 139 Potassium 4.3 Chloride 110 H Carbon Dioxide 25 BUN 20 Creatinine 1.48 H Glucose 150 H Calcium 9.3 - ABG Interpretation ABG results: PT/INR, D-dimer PT 13.5 Seconds (9.4-12.1) H 02/05/18 04:00 - VTE Documentation of Mechanical Device: Intermittent pneumatic compression device Consult Discharge Plan - Plan Referrals: Harrison Mai MD [Primary Care Provider] - (This patient is from an ECF no PCP appointment needed)
--- NOTE | 2018-02-05 09:10 | Nephrology Progress Note ---
Date of Encounter: 02/05/18 Time of Encounter: 08:45 - Assessment and Plan (1) CKD (chronic kidney disease) stage 4, GFR 15-29 ml/min Current Visit: Yes Status: Acute From Nephrology standpoint, temporary HD catheter can be removed. Recovered renal fct. Creat 1.48. Most likely baseline. No documented urine output. Accurate I&O. Avoid nephrotoxins. Will continue to monitor. Subjective Principal diagnosis: MRSA Bacteremia, Bradycardia Interval history: Sitting up in bed, watching tv. Dopamine drip off. Trach> O2 collar. Complains of nausea. Objective - Vital Signs Vital signs: Vital Signs Temp Pulse Resp BP Pulse Ox 02/05/18 07:59 97.8 F 48 17 171/76 98 02/05/18 07:48 97.8 F 46 16 162/67 96 02/05/18 04:40 97.8 F 48 16 162/67 96 02/05/18 00:02 97.4 F L 46 18 95 02/04/18 23:17 97.4 F L 41 18 180/66 95 02/04/18 23:15 182/68 02/04/18 21:24 97.8 F 46 16 187/87 95 02/04/18 19:35 97.8 F 44 16 187/87 95 Intake and Output 02/04/18 02/05/18 02/05/18 23:59 07:59 15:59 Output Total 300 / 300 Balance -300 / -300 Output: Urine 300 / 300 Other: Stool Size Large Stool Consistency loose soft Stool Color Brown # Bowel Movements 1 Weight 133.9 kg Blood Glucose* 114 147 Patient Weight 02/05/18 23:59 Weight 133.9 kg - General Appearance General appearance: Present: well-developed, well-nourished, appears started age , obese EENT: Present: mucous membranes moist Neck: Present: no JVD Respiratory: Present: rhonchi Cardiology: Present: regular rate, regular rhythm Dialysis Vascular Access: Venous Catheter Gastrointestinal: Present: normoactive bowel sounds, no tenderness Integumentary: Present: warm and dry Neurologic: Present: alert and oriented x3 - Lab 02/05/18 04:00 02/05/18 04:00 Most recent lab results Calcium 9.3 mg/dL (8.6-10.3) 02/05/18 04:00 Phosphorus 3.4 mg/dL (2.7-4.5) 01/26/18 03:00 Magnesium 1.9 mg/dL (1.6-2.6) 01/31/18 04:00 - VTE Documentation of Mechanical Device: Intermittent pneumatic compression device Consult Discharge Plan - Plan Referrals: Harrison Mai MD [Primary Care Provider] - (This patient is from an [facility] no PCP appointment needed)
[2018-02-05] MEDS: Ondansetron 4 MG/2 ML VIAL IVP PRN ×2 (10:04→16:36)
[2018-02-05] MEDS: Vancomycin 500 MG in 0.9 % Sodium Chloride Mini Bag 100 ML IVPB SCH (11:59)
[2018-02-05] MEDS: *HR* Promethazine 25 MG/ML VIAL IVP PRN ×2 (11:59→18:59)
--- NOTE | 2018-02-05 12:05 | Infectious Disease Progress No ---
Date of Encounter: 02/05/18 Time of Encounter: 12:03 - Assessment and Plan (1) Leukocytosis Current Visit: Yes Status: Resolved WBC 11.6 on arrival. Likely multifactorial: bacteremia, PNA, mastoiditis. Resolved. Continue to trend. Qualifiers: Leukocytosis type: unspecified Qualified Code(s): D72.829 - Elevated white blood cell count, unspecified (2) Bacteremia Current Visit: Yes Status: Acute Causative organism: MRSA and Staph haemolyticus. Source unclear, but potential sources include Perma-cath, mastoiditis, decubitus ulcers, or PNA. Blood cultures drawn 01/20/18 are positive 1/1 set for MRSA. Repeat blood cultures drawn 01/22/18 are positive 2/2 sets for MRSA per PCR. Both were drawn peripherally. Repeat blood cultures drawn 01/23/18 are positive for Staph haemolyticus 2/2. Repeat blood cultures on 01/26 are negative x 2 sets. Additional cultures drawn 01/29/18 are negative x 2 sets. No cultures were obtained from the Perma-cath, which was discontinued 01/23/18. Catheter tip was not sent for culture. Uncomplicated. No endocarditis stigmata noted on exam. The patient has one major and no minor Modified Barrios's Criteria. TTE negative for vegetations. GODWIN negative for valvular vegetations. Continue Vancomycin IV (day 11 from first set of negative blood cultures). Pharmacy to dose. Goal trough ~15. Duration of treatment depends on the clinical picture, but likely 14 days from the first set of negative blood cultures. The patient's HD has been on hold per nephrology recommendations since his renal function seems to be recovering. Monitor for drug toxicity and dose-adjust antibiotics. (3) Mastoiditis Current Visit: Yes Status: Suspected Causative organism: unclear. CT head shows findings consistent with left mastoiditis. ENT consulted. Completed 10 days of Cefepime. Vanc continued for treatment of bacteremia. Qualifiers: Laterality: left Qualified Code(s): H70.92 - Unspecified mastoiditis, left ear (4) Sinusitis Current Visit: Yes Status: Acute CT head shows bilateral maxillary sinusitis. Causative organism unclear. Completed 10 days of IV Cefepime. Vancomycin continued for bacteremia. Qualifiers: Sinusitis location: maxillary Chronicity: acute Recurrence: non- recurrent Qualified Code(s): J01.00 - Acute maxillary sinusitis, unspecified (5) Pneumonia Current Visit: Yes Status: Resolved CXR shows bilateral airspace opacities concerning for PNA vs. edema. CT chest shows multifocal pneumonia. Clinically, the patient denies shortness of breath or cough. Large mucous plug removed per RTS overnight. Sputum culture positive for PSEA, sensitive to Cefepime. Completed 10 day course of IV Cefepime. Qualifiers: Pneumonia type: due to unspecified organism Laterality: bilateral Lung location: unspecified part of lung Qualified Code(s): J18.9 - Pneumonia, unspecified organism (6) Bradycardia Current Visit: Yes Status: Acute Dopamine gtt. Cardiology consulted and signed off. Pacemaker placement on hold for now until patient completes IV antibiotics for bacteremia. Dopamine off. (7) Trismus Current Visit: Yes Status: Acute Etiology unclear. CT neck negative. ENT consulted and following. No further recommendations. Management per the primary team. (8) Anemia in CKD (chronic kidney disease) Current Visit: Yes Status: Chronic Qualifiers: Chronic kidney disease stage: stage 5, not on chronic dialysis Qualified Code(s): N18.5 - Chronic kidney disease, stage 5; D63.1 - Anemia in chronic kidney disease; D63.1 - Anemia in chronic kidney disease (9) ESRD (end stage renal disease) on dialysis Current Visit: Yes Status: Chronic Nephrology consulted and following. Temporary HD line inserted 01/24/18. HD on hold since renal function seems to be recovering. Will need tunneled PICC line on discharge to complete antibiotics if no further HD is planned. (10) Chronic respiratory failure Current Visit: Yes Status: Chronic Chronic tracheostomy since September 2017. Management per the primary team. Qualifiers: Respiratory failure complication: hypoxia Qualified Code(s): J96.11 - Chronic respiratory failure with hypoxia - Subjective Interval history: Patient seen and examined. Weekend notes reviewed. No acute events noted overnight. Patient sitting up in bed with eyes closed. States he doesn't feel well this morning and has been vomiting clear phlegm since yesterday. He continues to complain of left jaw pain and difficulty opening his mouth, but improved.He denies any fevers or chills or rigors. He denies any chest pain or shortness of breath or cough. He denies diarrhea. He denies any abdominal pain. He complains of pain in his bilateral stumps. He denies any back pain. He denies any oral thrush or new skin lesions. Dopamine has been turned off. Heartrate remains in the 40's and 50s per nursing. Infect Dis PN-Objective Data - Labs CBC & Chem 7: 02/05/18 04:00 02/05/18 04:00 Labs: Laboratory Results - last 24 hr 02/04/18 02/04/18 02/04/18 07:26 11:41 16:16 WBC RBC Hgb Hct MCV MCH MCHC RDW Plt Count MPV Immature Gran % Seg Neutrophils % Lymphocytes % Monocytes % Eosinophils % Basophils % Neutrophils # Lymphocytes # Monocytes # Eosinophils # Basophils # PT INR Sodium Potassium Chloride Carbon Dioxide BUN Creatinine Est GFR ( Amer) Est GFR (Non-Af Amer) BUN/Creatinine Ratio Glucose POC Glucose 129 H 156 H 104 H Calculated Osmolality Calcium 02/04/18 02/05/18 02/05/18 21:56 04:00 04:00 WBC 8.5 RBC 2.81 L Hgb 8.3 L Hct 26.0 L MCV 92.5 MCH 29.5 MCHC 31.9 RDW 15.3 H Plt Count 378 MPV 8.9 L Immature Gran % 0.4 Seg Neutrophils % 79.1 Lymphocytes % 19.1 Monocytes % 1.2 Eosinophils % 0.0 Basophils % 0.2 Neutrophils # 6.8 Lymphocytes # 1.6 Monocytes # 0.1 Eosinophils # 0.0 Basophils # 0.0 PT INR Sodium 139 Potassium 4.3 Chloride 110 H Carbon Dioxide 25 BUN 20 Creatinine 1.48 H Est GFR ( Amer) 58 L Est GFR (Non-Af Amer) 48 L BUN/Creatinine Ratio 14 Glucose 150 H POC Glucose 114 H Calculated Osmolality 293 Calcium 9.3 02/05/18 04:00 WBC RBC Hgb Hct MCV MCH MCHC RDW Plt Count MPV Immature Gran % Seg Neutrophils % Lymphocytes % Monocytes % Eosinophils % Basophils % Neutrophils # Lymphocytes # Monocytes # Eosinophils # Basophils # PT 13.5 H INR 1.2 Sodium Potassium Chloride Carbon Dioxide BUN Creatinine Est GFR ( Amer) Est GFR (Non-Af Amer) BUN/Creatinine Ratio Glucose POC Glucose Calculated Osmolality Calcium Cultures: Cultures 01/29/18 13:35 Blood Culture - Final Peripheral Venipuncture No growth. 01/29/18 13:35 Blood Culture - Final Peripheral Venipuncture No growth. 01/26/18 03:20 Blood Culture - Final Peripheral Venipuncture No growth. 01/26/18 03:17 Blood Culture - Final Peripheral Venipuncture No growth. 01/23/18 15:36 Blood Culture - Final Peripheral Venipuncture Staphylococcus haemolyticus 01/23/18 15:36 Blood Culture - Final Peripheral Venipuncture Staphylococcus haemolyticus 01/23/18 00:26 Sputum Culture - Final Sputum Pseudomonas aeruginosa Serology 01/22/18 Range/Units 16:56 Hep Bs Antigen Nonreactive (Nonreactive) Hep Bs Antibody 0.32 mIU/mL Exam - Constitutional Vitals: Temp Pulse Resp BP Pulse Ox 97.8 F 48 17 171/76 98 02/05/18 07:59 02/05/18 07:59 02/05/18 07:59 02/05/18 07:59 02/05/18 07:59 General appearance: cooperative, morbidly obese, no acute distress - Head Head exam: Present: atraumatic, normal inspection, normocephalic - Eye Eye exam: Present: EOMI, normal appearance, PERRL Pupils: Present: normal accommodation - ENT ENT exam: Present: mucous membranes moist Additional comments: Clear phlegm noted in the oral cavity. - Neck Neck exam: Present: normal inspection - Respiratory Respiratory exam: Present: rhonchi (Scattered.). Absent: rales, respiratory distress, wheezes - Cardiovascular Cardiovascular exam: Present: bradycardia, irregular rhythm, +S1, +S2. Absent: tachycardia - GI/Abdominal GI/Abdominal exam: Present: distended (obese), normal bowel sounds, soft. Absent: tenderness Additional comments: G-tube clamped. - Extremities Exam Extremities exam: Absent: joint swelling, pedal edema, tenderness Additional comments: Bilateral LE stumps without redness, warmth, or open lesions. - Neurological Exam Neurological exam: Present: alert, oriented X3, no focal deficits - Psychiatric Psychiatric exam: Present: normal affect, normal mood - Skin Skin exam: Present: dry, intact, normal color, warm - VTE Documentation of Mechanical Device: Intermittent pneumatic compression device Consult Discharge Plan - Plan Referrals: Harrison Mai MD [Primary Care Provider] - (This patient is from an ECF no PCP appointment needed) - Attending Attestation I examined this patient and my medical decision-making was reviewed with the Resident Physician. I agree with the documented findings, disposition and treatment plan as described except to the extent set forth below.
[2018-02-05] MEDS ORDERED: *HR* Warfarin 3 MG TABLET PO ONE (18:00)
[2018-02-05] MEDS: OXYCODONE Oral CONC 10 MG/0.5 ML ORAL.SYG SL PRN (20:19)
[2018-02-05] MEDS ORDERED: Metoclopramide 10 MG/2 ML VIAL IVP ONE (20:21)
[2018-02-05] MEDS: hydrOXYzine pamoate 25 MG CAPSULE PO PRN (20:23)
[2018-02-06] MEDS: OXYCODONE Oral CONC 10 MG/0.5 ML ORAL.SYG SL PRN ×3 (01:05→15:58)
[2018-02-06] MEDS: *HR* Promethazine 25 MG/ML VIAL IVP PRN ×2 (01:05→09:49)
[2018-02-06] MEDS: *HR* Heparin 5,000 UNIT/ML VIAL SQ SCH (05:00)
[2018-02-06 05:28] LABS: INR 1.4; Prothrombin Time 15.7 Seconds (9.4-12.1)
[2018-02-06] MEDS: Insulin LISPRO 300 UNITS/3 ML VIAL SQ SCH ×2 (08:06→12:49)
[2018-02-06] MEDS: Docusate Oral Soln 100 MG/10 ML UDC GTUBE SCH (08:12)
[2018-02-06] MEDS: Calcium Acetate 667 MG CAPSULE PO SCH ×2 (08:12→12:42)
[2018-02-06] MEDS: Miconazole w/zinc oxide&karaya 92 APPL/92 GM TUBE TP SCH (08:12)
[2018-02-06] MEDS: Famotidine 20 MG TABLET PO SCH (08:12)
[2018-02-06] MEDS: Bisacodyl 10 MG RECTAL SUPPOSITORY RC SCH (08:13)
[2018-02-06 08:48] LABS: Basophils % 0.3 %; Eosinophils # 0.1 K/mcL (0.0-0.6); Eosinophils % 0.6 %; Hematocrit 26.4 % (37.5-50.1); Hemoglobin 8.3 g/dL (12.9-16.9); Immature Granulocytes % 0.3 % (0-4); Lymphocytes # 4.3 K/mcL (0.6-4.6); Mean Corpuscular HGB Conc 31.4 g/dL (31.6-35.5); Mean Corpuscular Hemoglobin 29.4 pg (28.0-33.3); Mean Corpuscular Volume 93.6 fL (83.0-100.0); Monocytes # 0.7 K/mcL (0.0-1.3); Monocytes % 6.1 %; Neutrophils # 6.5 K/mcL (1.6-8.9); Nucleated Red Blood Cells 0.3 /100 WBC (0); Platelet Count 394 K/mcL (140-400); Red Blood Count 2.82 M/mcL (4.19-5.50); Red Cell Distribution Width 16.1 % (11.5-14.5); Segmented Neutrophils % 55.7 %
[2018-02-06 09:10] LABS: Calcium 9.2 mg/dL (8.6-10.3); Potassium 3.9 mEq/L (3.5-5.1)
[2018-02-06] MEDS: Insulin DETEMIR 100 UNIT/ML X5UNITS SQ SCH (09:31)
--- NOTE | 2018-02-06 13:15 | Discharge Summary ---
- NOTES TO OUTPATIENT PROVIDER Notes to Outpatient Provider: Patient hospitalized here with bacteremia and bradycardia. Unable to have pacemaker placed at this time due to MRSA bacteremia. Will be treated for 14 days with intravenous vancomycin. Has completed 12 days of therapy. We will follow-up outpatient with cardiology for placement of pacemaker. Also had abnormal renal function here and was dialyzed initially through a temporary dialysis catheter. However his renal function has improved since then and he is no longer requiring hemodialysis. Also diagnosed with pneumonia. Sputum culture grew Pseudomonas. Treated with cefepime. Completed treatment course. Will be discharged today back to skilled rehabilitation. Will complete 2 more days of IV vancomycin therapy at skilled rehabilitation. Orders not resulted at time of discharge: Pending orders 02/02/18 14:15 ACTH Routine Date of Encounter: 02/06/18 Time of Encounter: 10:30 - Discharge Diagnosis (1) Bacteremia Priority: Primary Status: Acute (2) Bradycardia Priority: Secondary Status: Acute (3) ESRD (end stage renal disease) on dialysis Priority: Secondary Status: Chronic (4) Left ear pain Priority: Secondary Status: Acute (5) PAF (paroxysmal atrial fibrillation) Priority: Secondary Status: Chronic (6) Anemia in CKD (chronic kidney disease) Priority: Secondary Status: Chronic Qualifiers: Chronic kidney disease stage: stage 5, not on chronic dialysis Qualified Code(s): N18.5 - Chronic kidney disease, stage 5; D63.1 - Anemia in chronic kidney disease; D63.1 - Anemia in chronic kidney disease (7) Chronic respiratory failure Priority: Secondary Status: Chronic Qualifiers: Respiratory failure complication: hypoxia Qualified Code(s): J96.11 - Chronic respiratory failure with hypoxia (8) Essential hypertension Priority: Secondary Status: Chronic (9) Diabetes mellitus Priority: Secondary Status: Chronic Qualifiers: Diabetes mellitus type: type 2 Diabetes mellitus correction insulin use: with longwall foreman use Diabetes mellitus complication status: with kidney complications Diabetes mellitus complication detail: with chronic kidney disease Chronic kidney disease stage: on chronic dialysis Qualified Code(s) : E11.22 - Type 2 diabetes mellitus with diabetic chronic kidney disease; N18.6 - End stage renal disease; N18.6 - End stage renal disease; N18.6 - End stage renal disease; N18.6 - End stage renal disease; Z79.4 - intermediate designer (current) use of insulin; Z79.4 - correction (current) use of insulin; Z79.4 - correction ( current) use of insulin; Z79.4 - correction (current) use of insulin; Z99.2 - Dependence on renal dialysis; Z99.2 - Dependence on renal dialysis; Z99.2 - Dependence on renal dialysis; Z99.2 - Dependence on renal dialysis (10) Pneumonia Priority: Secondary Status: Acute Qualifiers: Pneumonia type: due to Pseudomonas Laterality: bilateral Lung location: unspecified part of lung Qualified Code(s): J15.1 - Pneumonia due to Pseudomonas (11) Trismus Priority: Secondary Status: Acute (12) Mastoiditis Priority: Secondary Status: Acute Qualifiers: Laterality: left Qualified Code(s): H70.92 - Unspecified mastoiditis, left ear (13) Anemia Priority: Secondary Status: Chronic Qualifiers: Anemia type: due to chronic kidney disease Chronic kidney disease stage: stage 4 (severe) Qualified Code(s): N18.4 - Chronic kidney disease, stage 4 ( severe); D63.1 - Anemia in chronic kidney disease; D63.1 - Anemia in chronic kidney disease (14) CKD (chronic kidney disease) stage 4, GFR 15-29 ml/min Priority: Secondary Status: Chronic Hospital course: Mr. Murrell is a 67 year old male patient with history of atrial fibrillation who was initially admitted with Didier bautista with slow ventricular response, MRSA bacteremia and pneumonia. He was started on IV antibiotics. 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 He also was has history of chronic kidney disease stage IV. He was started on hemodialysis through a temporary dialysis catheter here. Nephrology has been following his care here. With IV antibiotics, his acute infection has improved. His cultures have been negative since 01/26. His sputum culture was positive for Pseudomonas. He did receive cefepime for 10 days. Infectious disease has been following his care here. They recommended 14 days of IV vancomycin as he did not have any vegetations on his heart valves. For his bradycardia, he was placed on dopamine with improvement in his heart rate. This was stopped 2 days back and his heart rate has been maintaining in the 40s to 60s. He is asymptomatic. Cardiology does recommend pacemaker but given his bacteremia, he would not be able to have this placed in about 4-6 weeks after completing antibiotics course. He will follow up with cardiology after discharge for further management. His renal function has improved and he is currently not requiring dialysis. As such his temporary dialysis access has been removed. He will follow up with nephrology as outpatient for further management.at this time he requires 2 more days of IV vancomycin therapy which will be arranged at his alf. He is clinically stable for discharge at this time. He does remain at high risk for readmission and complications due to his multiple medical problems. Discharge discussed with: patient, nurse - Time Spent with Patient Total time spent providing and/or coordinating discharge services: Greater than 30 minutes (45 min) - Discharge Medications Prescriptions: OxyCODONE/APAP 7.5/325 [Percocet 7.5/325 MG] 1 each PO Q4HR PRN 5 Days #14 tablet PRN Reason: Pain Miconazole w/zinc oxide&karaya [Antifungal Extra Thick] 1 appl TP BID #1 tube Midodrine [ProAmatine] 2.5 mg PO 0800,1200,1700 #60 tablet Vancomycin/0.9 % Sod Chloride [Vanco 500 mg/100 ml-0.9% NaCl] 500 mg IV DAILY # 2 [email or web address] Home Medications: Acetaminophen [Non-Aspirin] 325 mg PO DAILY 01/20/18 [History] Bisacodyl [Dulcolax] 10 mg RC DAILY 01/20/18 [History] Calcium Acetate [Phos-LO] 667 mg PO TIDWM 01/20/18 [History] Docusate [Colace] 100 mg PO BID 01/20/18 [History] Famotidine [Heartburn Prevention] 20 mg PO DAILY 01/20/18 [History] Insulin ASPART [NovoLOG] 0 - 12 units SQ ACHS PRN 01/20/18 [History] Insulin Glargine [Lantus] 10 units SQ DAILY 01/20/18 [History] hydrOXYzine HCl [Hydroxyzine HCl] 25 mg PO Q6H PRN 01/20/18 [History] Magnesium Hydroxide [Milk of Magnesia] 30 ml PO DAILY PRN 01/22/18 [History] Promethazine [Phenergan] 25 mg PO Q4H PRN 01/22/18 [History] Quetiapine Fumarate [Seroquel] 50 mg PO BID 01/22/18 [History] Warfarin [Coumadin] 1 mg PO DAILY 01/22/18 [History] Miconazole w/zinc oxide&karaya [Antifungal Extra Thick] 1 appl TP BID #1 tube [Rx] Midodrine [ProAmatine] 2.5 mg PO 0800,1200,1700 #60 tablet 02/06/18 [Rx] OxyCODONE/APAP 7.5/325 [Percocet 7.5/325 MG] 1 each PO Q4HR PRN 5 Days #14 tablet 02/06/18 [Rx] Vancomycin/0.9 % Sod Chloride [Vanco 500 mg/100 ml-0.9% NaCl] 500 mg IV DAILY # 2 [email or web address] 02/06/18 [Rx] Allergies/Adverse Reactions: 3 Allergy/AdvReac Type Severity Reaction Status Date / Time Banana Allergy Mild Hives Verified 01/22/18 09:56 Oxycodone [From OxyContin] Allergy Mild Hives Verified 01/22/18 09:56 Penicillins Allergy Mild Hives Verified 01/22/18 09:56 tramadol Allergy Mild Hives Verified 01/22/18 09:56 yellow dye Allergy Hives Verified 01/22/18 09:56 aspirin Allergy Mild Hives Uncoded 01/20/18 02:37 morphine Allergy Mild Hives Uncoded 01/20/18 02:37 Date of admission: 01/22/18 14:21 Primary care physician: Harrison Mai MD Consults: 01/22/18 15:43 Consult to Cardiology [CONS] Routine Comment: Consulting Provider: Cardiology [place] Reason for Consult: Bradycardia Time Notified: 15:43 Call Completed: Yes 01/22/18 16:02 Consult to Nephrology [CONS] Routine Consulting Provider: [facility] FLORES Reason for Consult: ESRD On HD Time Notified: 16:03 Call Completed: Yes 01/23/18 07:09 Consult to Infectious Diseases [CONS] Routine Consulting Provider: Infectious Disease Yamini Reason for Consult: MRSA Bacteremia Time Notified: 07:14 Call Completed: No Consult to Interventional Radiology [CONS] Routine Consulting Provider: Radiology Interventional Cols Reason for Consult: Temp Dialysis Cath removal Call Completed: No 01/23/18 07:19 Consult to ENT [CONS] Routine Consulting Provider: ENT Yamini Reason for Consult: Left ear pain with trismus Time Notified: 07:20 Call Completed: Yes 01/23/18 08:00 Consult to Interventional Radiology [CONS] Routine Consulting Provider: Radiology Interventional Cols Reason for Consult: remove permacath, send tip for culture, place temporary dialysis catheter Time Notified: 08:01 Call Completed: No 01/23/18 08:15 Consult to Dialysis [CONS] ONCE 01/24/18 08:24 Consult to Interventional Radiology [CONS] Routine Consulting Provider: Radiology Interventional Cols Reason for Consult: place temporary dialysis catheter today Time Notified: 08:24 Call Completed: No 01/24/18 08:30 Consult to Dialysis [CONS] ONCE 01/26/18 10:15 Consult to Dialysis [CONS] ONCE 01/27/18 03:10 Consult to Speech Therapy [CONS] Routine Comment: Evaluate, develop and implement POC Reason for Consult: passy enriqueta valve Call Completed: Yes 01/27/18 19:16 Consult to Wound Care [CONS] Routine Reason for Consult: wound to posterior thigh Call Completed: No 01/29/18 13:15 Consult to Electrophysiology (EP) [CONS] Routine Consulting Provider: Electrophysiology Yamini Reason for Consult: Bradycardia Call Completed: Yes Discharging clinician: Betty Antoine Anticipated date of discharge: 02/06/18 - Constitutional Vitals: Temp Pulse Resp BP Pulse Ox 98.1 F 47 20 120/66 90 02/06/18 12:09 02/06/18 12:09 02/06/18 12:09 02/06/18 12:09 02/06/18 12:09 General appearance: Present: cooperative, A&O X 2, morbidly obese, answers questions appropriately - Eye Eye exam: Present: EOMI, conjuntiva pink, sclera anicteric - ENT Additional comments: trach in place - Respiratory Respiratory exam: Present: CTAB. Absent: accessory muscle use, rales, rhonchi, wheezes - Cardiovascular Cardiovascular exam: Present: RRR, +S1, +S2. Absent: diastolic murmur, gallop, rubs, systolic murmur - GI/Abdominal GI/Abdominal exam: Present: normal bowel sounds, soft, no peritoneal signs. Absent: distended, tenderness - Extremities Exam Extremities exam: Present: radial pulses palpable and symmetrical Additional comments: s/p b/l LE amputation - Neurological Exam Neurological exam: Present: alert, CN II-XII intact, no focal deficits. Absent : facial droop, speech deficit - Skin Skin exam: Present: dry, intact - Patient Status Disposition: Transfer SNF Condition: Fair Functional capacity at discharge: bed bound Overall status at discharge: patient is progressing back to baseline - Discharge Instructions Instructions: Diabetes Mellitus Type 2 in Adults (DC), Chronic Hypertension (DC ), Anemia (GEN) Follow Up With: Harrison Mai MD [Primary Care Provider] - (This patient is from an ECF no PCP appointment needed) Indra Taylor DO [Non-Partnered Physician] - (DR. [facility] OFFICE SAID THEY WILL SEE THIS PATIENT IN DIALYSIS) Janay Florence, JEWELLERY DESIGNER [Advanced Practice Nurse] - (in 1-2 weeks Meri Florence does not want to see the patient per her) Casey Salinas MD [Partnered Physician] - (in 3-4 week notified the office that patient is going to [facility]. They will call patient at alf with appointment) Forms: Inpatient Work/School Release - Diet and Activity Activity: as per physical therapy Diet: diabetic diet, low fat, low cholesterol, low salt diet - VTE Documentation of Mechanical Device: Intermittent pneumatic compression device
--- NOTE | 2018-02-06 13:33 | Physician Discharge Referral ---
ExtendedCare Referral Info Provider in Charge after Transfer: PCP Institutional Level of Care: Skilled - Diagnosis (1) Bacteremia Priority: Primary Status: Acute (2) Bradycardia Priority: Secondary Status: Acute (3) ESRD (end stage renal disease) on dialysis Priority: Secondary Status: Chronic (4) Left ear pain Priority: Secondary Status: Acute (5) PAF (paroxysmal atrial fibrillation) Priority: Secondary Status: Chronic (6) Anemia in CKD (chronic kidney disease) Priority: Secondary Status: Chronic (7) Chronic respiratory failure Priority: Secondary Status: Chronic (8) Essential hypertension Priority: Secondary Status: Chronic (9) Diabetes mellitus Priority: Secondary Status: Chronic (10) Pneumonia Priority: Secondary Status: Acute (11) Trismus Priority: Secondary Status: Acute (12) Mastoiditis Priority: Secondary Status: Acute (13) Anemia Priority: Secondary Status: Chronic (14) CKD (chronic kidney disease) stage 4, GFR 15-29 ml/min Priority: Secondary Status: Chronic Prognosis: Fair Aware of Diagnosis: Patient Aware of Prognosis: Patient - Transfer Medications Prescriptions: OxyCODONE/APAP 7.5/325 [Percocet 7.5/325 MG] 1 each PO Q4HR PRN 5 Days #14 tablet PRN Reason: Pain Miconazole w/zinc oxide&karaya [Antifungal Extra Thick] 1 appl TP BID #1 tube Midodrine [ProAmatine] 2.5 mg PO 0800,1200,1700 #60 tablet Vancomycin/0.9 % Sod Chloride [Vanco 500 mg/100 ml-0.9% NaCl] 500 mg IV DAILY # 2 [email or web address] Home Medications: Acetaminophen [Non-Aspirin] 325 mg PO DAILY 01/20/18 [History] Bisacodyl [Dulcolax] 10 mg RC DAILY 01/20/18 [History] Calcium Acetate [Phos-LO] 667 mg PO TIDWM 01/20/18 [History] Docusate [Colace] 100 mg PO BID 01/20/18 [History] Famotidine [Heartburn Prevention] 20 mg PO DAILY 01/20/18 [History] Insulin ASPART [NovoLOG] 0 - 12 units SQ ACHS PRN 01/20/18 [History] Insulin Glargine [Lantus] 10 units SQ DAILY 01/20/18 [History] hydrOXYzine HCl [Hydroxyzine HCl] 25 mg PO Q6H PRN 01/20/18 [History] Magnesium Hydroxide [Milk of Magnesia] 30 ml PO DAILY PRN 01/22/18 [History] Promethazine [Phenergan] 25 mg PO Q4H PRN 01/22/18 [History] Quetiapine Fumarate [Seroquel] 50 mg PO BID 01/22/18 [History] Warfarin [Coumadin] 1 mg PO DAILY 01/22/18 [History] Miconazole w/zinc oxide&karaya [Antifungal Extra Thick] 1 appl TP BID #1 tube [Rx] Midodrine [ProAmatine] 2.5 mg PO 0800,1200,1700 #60 tablet 02/06/18 [Rx] OxyCODONE/APAP 7.5/325 [Percocet 7.5/325 MG] 1 each PO Q4HR PRN 5 Days #14 tablet 02/06/18 [Rx] Vancomycin/0.9 % Sod Chloride [Vanco 500 mg/100 ml-0.9% NaCl] 500 mg IV DAILY # 2 froz.piggy 02/06/18 [Rx] Allergies/Adverse Reactions: 3 Allergy/AdvReac Type Severity Reaction Status Date / Time Banana Allergy Mild Hives Verified 01/22/18 09:56 Oxycodone [From OxyContin] Allergy Mild Hives Verified 01/22/18 09:56 Penicillins Allergy Mild Hives Verified 01/22/18 09:56 tramadol Allergy Mild Hives Verified 01/22/18 09:56 yellow dye Allergy Hives Verified 01/22/18 09:56 aspirin Allergy Mild Hives Uncoded 01/20/18 02:37 morphine Allergy Mild Hives Uncoded 01/20/18 02:37 - Respiratory Orders Other (8L/min trach collar) Smoking Cessation: Smoking cessation has been advised. For more information, call the [place] Tobacco Quit Line at 4-589-PXYZ-NOW. - Advance Directives Code Status: Full Code - Mobility Orders Bedrest - Rehabiliation Orders Rehab Potential: Fair Rehab Orders: Evaluation for Physical Therapy, Evaluation for Occupational Therapy - Diet Orders No Concentrated Sweets (and cardiac), Cardiac CERTIFICATION: I certify that the transfer of the above named patient to an Extended Care Facility is necessary for the continuing treatment of the diagnosis listed. The above information is true and accurate reflection of patient's current condition. Confidential - Redisclosure prohibited without a patient's written consent.
[2018-02-06 15:43] VITALS: BP 184/94
--- NOTE | 2018-02-06 17:33 | Infectious Disease Progress No ---
Date of Encounter: 02/06/18 Time of Encounter: 17:31 - Assessment and Plan (1) Leukocytosis Current Visit: Yes Status: Resolved Resolved Qualifiers: Leukocytosis type: unspecified Qualified Code(s): D72.829 - Elevated white blood cell count, unspecified (2) Bacteremia Current Visit: Yes Status: Acute Causative organism: MRSA and Staph haemolyticus. Source unclear, but potential sources include Perma-cath, mastoiditis, decubitus ulcers, or PNA. Blood cultures drawn 01/20/18 are positive 1/1 set for MRSA. Repeat blood cultures drawn 01/22/18 are positive 2/2 sets for MRSA per PCR. Both were drawn peripherally. Repeat blood cultures drawn 01/23/18 are positive for Staph haemolyticus 2/2. Repeat blood cultures on 01/26 are negative x 2 sets. Additional cultures drawn 01/29/18 are negative x 2 sets. No cultures were obtained from the Perma-cath, which was discontinued 01/23/18. Catheter tip was not sent for culture. Uncomplicated. No endocarditis stigmata noted on exam. The patient has one major and no minor Modified Barrios's Criteria. TTE negative for vegetations. GODWIN negative for valvular vegetations. Continue Vancomycin IV (day 11 from first set of negative blood cultures). Pharmacy to dose. Goal trough ~15. Duration of treatment depends on the clinical picture, but likely 14 days from the first set of negative blood cultures. The patient's HD has been on hold per nephrology recommendations since his renal function seems to be recovering. Monitor for drug toxicity and dose-adjust antibiotics. (3) Mastoiditis Current Visit: Yes Status: Acute Causative organism: unclear. CT head shows findings consistent with left mastoiditis. ENT consulted. Completed 10 days of Cefepime. Vanc continued for treatment of bacteremia. Qualifiers: Laterality: left Qualified Code(s): H70.92 - Unspecified mastoiditis, left ear (4) Sinusitis Current Visit: Yes Status: Acute CT head shows bilateral maxillary sinusitis. Causative organism unclear. Completed 10 days of IV Cefepime. Vancomycin continued for bacteremia. Qualifiers: Sinusitis location: maxillary Chronicity: acute Recurrence: non- recurrent Qualified Code(s): J01.00 - Acute maxillary sinusitis, unspecified (5) Pneumonia Current Visit: Yes Status: Resolved CXR shows bilateral airspace opacities concerning for PNA vs. edema. CT chest shows multifocal pneumonia. Clinically, the patient denies shortness of breath or cough. Large mucous plug removed per RTS overnight. Sputum culture positive for PSEA, sensitive to Cefepime. Completed 10 day course of IV Cefepime. Qualifiers: Pneumonia type: due to unspecified organism Laterality: bilateral Lung location: unspecified part of lung Qualified Code(s): J18.9 - Pneumonia, unspecified organism (6) Bradycardia Current Visit: Yes Status: Acute Dopamine gtt. Cardiology consulted and signed off. Pacemaker placement on hold for now until patient completes IV antibiotics for bacteremia. Dopamine off. (7) Trismus Current Visit: Yes Status: Acute Etiology unclear. CT neck negative. ENT consulted and following. No further recommendations. Management per the primary team. (8) Anemia in CKD (chronic kidney disease) Current Visit: Yes Status: Chronic Qualifiers: Chronic kidney disease stage: stage 5, not on chronic dialysis Qualified Code(s): N18.5 - Chronic kidney disease, stage 5; D63.1 - Anemia in chronic kidney disease; D63.1 - Anemia in chronic kidney disease (9) ESRD (end stage renal disease) on dialysis Current Visit: Yes Status: Chronic Nephrology consulted and following. Temporary HD line inserted 01/24/18. HD on hold since renal function seems to be recovering. Will need tunneled PICC line on discharge to complete antibiotics if no further HD is planned. (10) Chronic respiratory failure Current Visit: Yes Status: Chronic Chronic tracheostomy since September 2017. Management per the primary team. Qualifiers: Respiratory failure complication: hypoxia Qualified Code(s): J96.11 - Chronic respiratory failure with hypoxia - Subjective Interval history: Patient seen and examined. Appears comfortable laying in bed. No acute distress. Denies any chest pain or shortness of breath. Patient tells me that he had some loose diarrhea today. I spoke with nursing staff and they told me it looks like this because of the tube feeding under does not appear to be C. difficile. Infect Dis PN-Objective Data - Labs CBC & Chem 7: 02/06/18 07:55 02/06/18 07:55 Labs: Laboratory Results - last 24 hr 02/05/18 02/05/18 02/05/18 07:57 16:50 20:29 WBC RBC Hgb Hct MCV MCH MCHC RDW Plt Count MPV Immature Gran % Seg Neutrophils % Lymphocytes % Monocytes % Eosinophils % Basophils % Neutrophils # Lymphocytes # Monocytes # Eosinophils # Basophils # Nucleated RBCs/100 WBC PT INR Sodium Potassium Chloride Carbon Dioxide BUN Creatinine Est GFR ( Amer) Est GFR (Non-Af Amer) BUN/Creatinine Ratio Glucose POC Glucose 147 H 142 H 128 H Calculated Osmolality Calcium Vancomycin Trough 02/06/18 02/06/18 02/06/18 04:00 06:51 07:55 WBC 11.7 H RBC 2.82 L Hgb 8.3 L Hct 26.4 L MCV 93.6 MCH 29.4 MCHC 31.4 L RDW 16.1 H Plt Count 394 MPV 9.0 L Immature Gran % 0.3 Seg Neutrophils % 55.7 Lymphocytes % 37.0 Monocytes % 6.1 Eosinophils % 0.6 Basophils % 0.3 Neutrophils # 6.5 Lymphocytes # 4.3 Monocytes # 0.7 Eosinophils # 0.1 Basophils # 0.0 Nucleated RBCs/100 WBC 0.3 H PT 15.7 H INR 1.4 Sodium Potassium Chloride Carbon Dioxide BUN Creatinine Est GFR ( Amer) Est GFR (Non-Af Amer) BUN/Creatinine Ratio Glucose POC Glucose 92 Calculated Osmolality Calcium Vancomycin Trough 02/06/18 02/06/18 02/06/18 07:55 11:00 12:06 WBC RBC Hgb Hct MCV MCH MCHC RDW Plt Count MPV Immature Gran % Seg Neutrophils % Lymphocytes % Monocytes % Eosinophils % Basophils % Neutrophils # Lymphocytes # Monocytes # Eosinophils # Basophils # Nucleated RBCs/100 WBC PT INR Sodium 142 Potassium 3.9 Chloride 112 H Carbon Dioxide 26 BUN 23 Creatinine 1.76 H Est GFR ( Amer) 47 L Est GFR (Non-Af Amer) 39 L BUN/Creatinine Ratio 13 Glucose 95 POC Glucose 167 H Calculated Osmolality 297 Calcium 9.2 Vancomycin Trough 20 H 02/06/18 16:01 WBC RBC Hgb Hct MCV MCH MCHC RDW Plt Count MPV Immature Gran % Seg Neutrophils % Lymphocytes % Monocytes % Eosinophils % Basophils % Neutrophils # Lymphocytes # Monocytes # Eosinophils # Basophils # Nucleated RBCs/100 WBC PT INR Sodium Potassium Chloride Carbon Dioxide BUN Creatinine Est GFR ( Amer) Est GFR (Non-Af Amer) BUN/Creatinine Ratio Glucose POC Glucose 156 H Calculated Osmolality Calcium Vancomycin Trough Cultures: Cultures 01/29/18 13:35 Blood Culture - Final Peripheral Venipuncture No growth. 01/29/18 13:35 Blood Culture - Final Peripheral Venipuncture No growth. 01/26/18 03:20 Blood Culture - Final Peripheral Venipuncture No growth. 01/26/18 03:17 Blood Culture - Final Peripheral Venipuncture No growth. 01/23/18 15:36 Blood Culture - Final Peripheral Venipuncture Staphylococcus haemolyticus 01/23/18 15:36 Blood Culture - Final Peripheral Venipuncture Staphylococcus haemolyticus 01/23/18 00:26 Sputum Culture - Final Sputum Pseudomonas aeruginosa Serology 01/22/18 Range/Units 16:56 Hep Bs Antigen Nonreactive (Nonreactive) Hep Bs Antibody 0.32 mIU/mL Exam - Constitutional Vitals: Temp Pulse Resp BP Pulse Ox 98.1 F 38 20 184/94 92 02/06/18 15:38 02/06/18 15:38 02/06/18 15:38 02/06/18 15:38 02/06/18 15:38 General appearance: no acute distress, no febrile - Respiratory Additional comments: Air sounds audible both lung julien. Chest expanding symmetrically. Some fine rhonchi and wheezing noted. - Cardiovascular Cardiovascular exam: Present: RRR, +S1, +S2 - Extremities Exam Extremities exam: Present: normal inspection Additional comments: Adequate perfusion - Neurological Exam Neurological exam: Present: alert, oriented X3. Absent: speech deficit - VTE Documentation of Mechanical Device: Intermittent pneumatic compression device Consult Discharge Plan - Plan Instructions: Diabetes Mellitus Type 2 in Adults (DC), Chronic Hypertension (DC ), Anemia (GEN) Referrals: Harrison Mai MD [Primary Care Provider] - (This patient is from an ECF no PCP appointment needed) Indra Taylor DO [Non-Partnered Physician] - (DR. [facility] OFFICE SAID THEY WILL SEE THIS PATIENT IN DIALYSIS) Janay Florence, COMMUNITY DEVELOPMENT OFFICER [Advanced Practice Nurse] - (in 1-2 weeks Meri Florence does not want to see the patient per her) Casey Salinas MD [Partnered Physician] - (in 3-4 week notified the office that patient is going to [facility]. They will call patient at longterm with appointment) Prescriptions: OxyCODONE/APAP 7.5/325 [Percocet 7.5/325 MG] 1 each PO Q4HR PRN 5 Days #14 tablet PRN Reason: Pain Miconazole w/zinc oxide&karaya [Antifungal Extra Thick] 1 appl TP BID #1 tube Midodrine [ProAmatine] 2.5 mg PO 0800,1200,1700 #60 tablet Vancomycin/0.9 % Sod Chloride [Vanco 500 mg/100 ml-0.9% NaCl] 500 mg IV DAILY # 2 stanislav
[2018-02-06] MEDS ORDERED: *HR* Warfarin 2 MG TABLET PO ONE (18:00)
[2018-02-06] MEDS ORDERED: Aminoglycoside Consult 1 EACH MC ONE (18:00)
== END 2018-02-06 18:01 | DRG 871 ==
LOC: EMEROO 09:49 → SUATTDRO 14:21 → ICNU 14:21 → 2NNU 01-26 11:53
PROVIDERS: ADMIT Internal Medicine Hospice and Palliative Medicine; ATTEND Internal Medicine